=== PATIENT | male | born 1975 | race Caucasian/White ===

== ENCOUNTER 2022-02-08 15:18 | Emergency (ER) | payer OTHER, SELFPAY ==
--- NOTE | ~2022-02-08 | XR_ITS ---
EXAMINATION: XR CHEST CLINICAL INFORMATION: 46-year-old male with cough COMPARISON: None TECHNIQUE: Frontal view of the chest was obtained. FINDINGS: No significant abnormality is noted involving the heart, lungs, mediastinum, bony thorax or soft tissues. XR/XR chest 1V IMPRESSION: Unremarkable examination.
[2022-02-08 15:50] VITALS: BP 123/73; PULSE 93; RESP 18; TEMP 37.2; O2SAT 98; BMI 34.2
--- NOTE | 2022-02-08 16:13 | ED_ITS ---
HPI - URI/Sore Throat General Chief Complaint: Upper Respiratory Symptoms Stated Complaint: ?Pneumonia Time Seen by Provider: 02/08/22 16:06 Source: patient Mode of arrival: ambulatory Limitations: no limitations History of Present Illness HPI Narrative: Patient comes in to the room complaining of back cough or 4 days. Patient also complaining of body aches, no fever chills, no neck pain or stiffness. Patient denies shortness of breath. Patient states that in June of this year he had pneumonia, and he feels the same. Related Data Previous Rx's Medication Instructions Recorded codeine 10 mg-guaifenesin 100 mg/5 5 ml PO Q6H PRN cough #120 mL 02/08/22 mL oral liquid Allergies Allergy/AdvReac Type Severity Reaction Status Date / Time gabapentin Allergy Intermediate Swelling Verified 02/08/22 15:50 nortriptyline Allergy Intermediate Anxiety Verified 02/08/22 15:50 pregabalin [From Lyrica] Allergy Intermediate Swelling Verified 02/08/22 15:50 Review of Systems Review of Systems: Constitutional : No Weight loss, No Fever, No Chills, No Night Sweats, No Fatigue, No Malaise, complaining of body aches ENT/Mouth : No Hearing loss, No Ear Pain, No Nasal Congestion, No Sinus Pain, No Hoarseness, No sore throat, No Rhinorrhea, No Swallowing Difficulty Eyes: No Eye Pain, No Swelling, No Redness, No Foreign Body, No Discharge, No Vision Changes Cardiovascular : No Chest Pain, No SOB, No Dyspnea on Exertion, No Orthopnea, No Edema, No Palpitations Respiratory : Complaining of productive Cough, No Sputum, No Wheezing, No Smoke Exposure, No Dyspnea Gastrointestinal : No Nausea, No Vomiting, No Diarrhea, No Constipation, No abdominal Pain, No Hematochezia, No Melena Genitourinary : no irregular bleeding, No Dysuria, No Urinary Frequency, No Hematuria, No Urinary Incontinence, No Urgency, No Flank Pain, No Urinary Flow Changes, No Hesitancy Musculoskeletal : No joint pain, No Myalgias, No Joint Swelling Skin : No Skin Lesions, No rash Neuro : No Weakness, No Numbness, No Paresthesias, No Loss of Consciousness, No Dizziness, No Headache Psych : No Anxiety/Panic, No Depression, No SI/HI/AH/VH, No Social Issues, Heme/Lymph: No Bruising, No Bleeding,No Lymphadenopathy Endocrine : No Polyuria, No Polydipsia, No Temperature Intolerance [facility] Social History Social History Advance Directives: No Advance Directives Information Provided: Yes Physical Exam Vital Signs: Vital Signs: Last Vital Signs Temp 98.9 F 02/08/22 15:50 Pulse 93 02/08/22 15:50 Resp 18 02/08/22 15:50 BP 123/73 02/08/22 15:50 Pulse Ox 98 02/08/22 15:50 O2 Del Method 02/08/22 15:50 BMI result Body Mass Index 34.2 Const: Other: Appearance: Alert. Oriented X3. No acute distress. Eyes: Pupils equal, round and reactive to light. ENT: Pharynx normal. Neck: Normal inspection. Neck supple. No lymph nodes noted. No crepitus CVS: Normal heart rate and rhythm. Pulses normal. Normal S1 and S2 Respiratory: No respiratory distress. Breath sounds normal. No Wheezing. Bilateral rhonchi Abdomen: Soft and nontender. No rigidity. No distention. Skin: Skin warm and dry. Normal skin color. Normal skin turgor. Extremities: No lower extremity edema. No Lacerations. No Rash Neuro: Oriented X 3. No motor deficit. No sensory deficit. Moving all extremities. No slurred speech. CN 2 through 12 grossly intact Psych: calm, cooperative, normal affect Course Course Course Narrative: Chest x-ray and COVID test pending. Patient's COVID test and chest x-ray are negative, oxygen saturation 99% on room air Patient go home viral bronchitis, antibiotics indicated at this time MDM - URI/Sore Throat Lab Data Labs: Lab Results 02/08/22 Range/Units 15:54 COVID-19 (GERMAN) Negative (Negative) COVID-19 Clin Com See Note Imaging Data Chest x-ray: Radiologist's impression: FINDINGS: No significant abnormality is noted involving the heart, lungs, mediastinum, bony thorax or soft tissues. XR/XR chest 1V IMPRESSION: Unremarkable examination. Discharge Plan Discharge Clinical Impression: Acute viral bronchitis Patient Disposition: Home, Self-Care Instructions: Acute Bronchitis (ED) Additional Instructions: Please follow-up with your primary care physician tomorrow. If you have any worsening or new symptoms, please return to the emergency room or call 911 Prescriptions: New codeine-guaifenesin 10-100 mg/5 mL liquid 5 ml PO Q6H PRN (Reason: cough) Qty: 120 0RF
[2022-02-08 16:14] LABS: COVID-19 Test Negative (Negative)
--- OUTSIDE RECORDS SUMMARY | 2022-02-08 16:24 | XMS_ITS | Encounter Summary ---
:1975 Author Organization Department of [facility] rs Address [address] [place] [id number] Support Name Relationship Address Phone LANG NAZARIO Unavailable [address] [place] [address] OLIVIA GOVEA Unavailable Unavailable Selected Encounter This section includes the information on record at [place] for the Encounter. Date/Time Encounter Type Encounter Description Reason Provider Source Apr 10, 2021 11:00 Outpatient Encounter [facility] Encounter Template Text not used by [place] Plan of Treatment: Future Appointments (+ 6 months) and Future Tests (+/- 45 days) The Plan of Treatment section includes future care activities for the patient from all [place] treatmentfacilities. This section includes future appointments and future orders which are active, pending orscheduled.Future Appointments This section includes appointments that were scheduled to occur 6 months from the date of the Encounter, up to a maximum of 20 appointments. The data comes from all [place] treatment facilities. Appointment Date/Time Appointment Type Appointment Facili ty Name Apr 17, 2021 08:00 AM AMBULATORY - PS[facility]CHIATRY [place] Apr 22, 2021 01:30 [facility] Apr 26, 2021 08:00 AM AMBULATORY [facility]CHI[facility]RY [place] May 03, 2021 08:00 AM AMBULATORY [facility]RY [place] May 07, 2021 10:00 AM [facility] May 13, 2021 10:30 AM AMBULATORY - MEDICINE [place] May 17, 2021 09:00 AM AMBULATORY - PSYCHIATRY [place] May 22, 2021 09:30 AM AMBULATORY [facility]CHI[facility]RY [place] May 27, 2021 01:00 PM AMBULATORY - PS[facility]CHIATRY [place] Jun 05, 2021 01:00 PM AMBULATORY - PS[facility]CHIATRY [place] Jun 10, 2021 09:00 AM [facility] Jun 24, 2021 01:45 PM [facility] Jun 27, 2021 10:30 [facility] Jul 08, 2021 11:30 AM [facility] Jul 11, 2021 12:00 PM [facility] August 20, 2021 09:30 AM AMBULATORY - PSYCHIATRY [place] August 29, 2021 03:00 PM AMBULATORY MEDICINE [facility] Lab Results: +/- 30 days of the encounter This section includes the Chemistry and Hematology Lab Results on record with [place] for the patient. Radiology Reports and Pathology Reports are provided separately, in subsequent sections.Lab Results This section contains the Chemistry/Hematology Results that were resulted 30 days before or 30 daysafter the date of the Encounter. Date/Time Source Result Type Result - Unit Interpretation Reference Range Comment Apr 04, 2021 01:26 PM [facility] PSA Specimen Type: SERUM No comment enter ed. Ordering Provid er: DANY CULLEN Report Released Date/Time: Mar 27, 2021 08:05 PM Reporting Lab: [address] [address] Performing Lab: [address] [address] PSA 1.67 0.00-4.00 Social History: Smoking Status (Most current) and Tobacco Use (All prior to encounter date) This section includes the most current, and the historical, smoking and tobacco-related health factors from the [place] facility where the Encounter took place.Current Smoking Status This section includes the most current smoking, or tobacco-related health factor, from the [place] facility where the Encounter took place. Date/Time Current Smoking Status Comment Facility Jul 23, 2020 03:00 PM [place]-TOBACCO FORMER USER [facility] Tobacco Use History This section includes a history of the smoking, or tobacco- related health factors, that were collected on or before the date of the Encounter. The data comes from the [place] facility where the Encounter took place. Date/Time Smoking Status/Tobacco Use Comment [facility] Jul 23, 2020 03:00 PM VA-TOBACCO QUIT 5 TO < 15 YRS [facility] Aug 05, 2018 11:29 AM VA-TOBACCO FORMER USER [facility] Aug 05, 2018 11:29 AM VA-TOBACCO QUIT 1 TO < 5 YRS [facility] Jul 10, 2017 09:32 AM LIFETIME NON-TOBACCO USER [facility] Feb 11, 2017 09:04 AM QUIT TOBACCO USE > 7 YEARS [facility] A[facility] STOPPED SMOKING 2 1/2 YEARS AGO A PACK A DAY Jul 30, 2016 09:07 AM QUIT TOBACCO USE 1-7 YEARS [facility] A[facility] reports quitting 2 years ago Jun 18, 2015 03:44 PM QUIT TOBACCO USE 1-7 YEARS [facility] A[facility] Radiology Reports: +/- 30 days of the encounter Radiology Reports For cases when an order for radiology services may have been completed prior to the date of the Encounter, the report list includes the Radiology Reports that were completed up to 30 days before date of the Encounter. For cases when an order for radiology services may have been completed after the date of the Encounter, the report list also includes the Radiology Reports that were completed up to 30days after date of the Encounter. The data comes from all [place] treatment facilities. Date/Time Radiology Report Provider Source May 07, 2021 09:43 KIDNEY AND BLADDER ULTRASOUND: RADIOLOGY,[facility] CNT[facility] NAZARIO,OLIVIA ISMA [id number] -MAR 02 [facility] Date: MAY 07, 2021@09:43 Req Phys: DANY CULLEN Loc: CWM/SO/PACT 4 ( Req'g Loc) Img Loc: ULTRASOUND Service: Unknown (Case 16 COMPLETE) ULTRASOUND KIDNEYS (US Detail ed) CPT:55604 Reason for Study: pt w/new urinary incontinence and incomplete bladder emptying (Case 17 COMPLETE) ULTRASOUND URINARY BLADDER (U S Detailed) CPT:68317 Clinical History: postvoid residual bladder scans always 0 ML Report Status: Verified Date Reported: MAY 07, 2021 Date Verified: MAY 07, 2021 [employer] E-Sig: Report: Ultrasound kidneys and urinary bladder Procedure: Transverse and longitudinal grayscal e echograms of the kidneys and urinary bladder were acquired. Dopp ler imaging was utilized. This study was performed and supervis ed that [facility] facility, and subsequently transmitted to [place] te leradiology for interpretation. The total image count is 35. History: pt w/new urinary incontinence and in complete bladder emptying Findings: See below Impression: Right kidney measures 11.8 cm in length. The le ft kidney measures 11.4 cm in length. No evidence of hydronephrosi s in either kidney. The renal cortices are within normal li mits, measuring up to 1.9 cm in thickness. Prostate gland not enlarged, measuring roughly 30 cc in volume. Focal calcification also noted. Urinary bladder measures roughly 63 cc in volume prevoid. The post void residual is negligible. Normal bilateral ureteral jets seen. Overall, t he urinary bladder is not well evaluated due to incomplete distent ion in the prevoid state. Incidental note of hepatic steatosis. READING PHYSICIAN: Mitzi Garland M.D. [phone] 05/07/2021 7:21 [facility] National Teleradiology Program [phone] (For Medical Practitioner Use Only ) [address] [place] [address], [address] [address] Attention Patients / Veterans: If you have ques tions or concerns about these test results, please contact your [facility] provider or primary care team. Primary Diagnostic Code: SIGNIFICANT ABNORMALIT Y, ATTN NEEDED Primary Interpreting Staff: RADIOLOGY,OUTSIDE SERVICE, Staff Physician / Encounter Notes: All associated encounter notes This section contains the clinical notes associated to the Encounter. Date/Time Encounter Note(s) Provider Source Apr 10, 2021 11:00 AM CLERICAL NOTE: JESUS EVANGELISTA LOCAL TITLE: APPOINTMENT NO SHOW STANDARD TITLE: CLERICAL NOTE DATE OF NOTE: APR 10, 2021@11:00 ENTRY DATE: APR 10, 2021@16:17:36 AUTHOR: JESUS EVANGELISTA EXP COSIGNER: URGENCY: STATUS: COMPLETED Patient Name: OLIVIA NAZARIO Patient SSN: [id number] Date and time of Appointment No show : 04/10/21 11:00 PATIENT PHONE - PHONE NUMBER [CELLULAR] - Patient's medical record was reviewed. Follow-up actions were determined and initiated: Please check/complete as applies: [ ]Telephoned Directly [ ]Re-scheduled for next available appt [ ]Sent a N0-show letter ( must call for appointment) [ ]Other (Emergent/Overbook, etc.): Additional Comments: Linneus did not show for [facility] appt. 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
--- OUTSIDE RECORDS SUMMARY | 2022-02-08 16:24 | XMS_ITS | Encounter Summary ---
:1975 Author Organization Department of [facility] rs Address [address] [place] [id number] Support Name Relationship Address Phone LANG NAZARIO Unavailable [address] [phone] [place] [address] JEFERSON OLIVIA Unavailable Unavailable Selected Encounter This section includes the information on record at [place] for the Encounter. 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 Date/Time Primary/Secondary Diagnosis Name Provider Source Diagnosis Apr 04, 2021 09:40 PRIMARY Complete AMARJIT GODINEZ [facility] AM traumatic amp at level betw r hip and knee, init Plan of Treatment: Future Appointments (+ 6 months) and Future Tests (+/- 45 days) The Plan of Treatment section includes future care activities for the patient from all [place] treatmentfacilities. This section includes future appointments and future orders which are active, pending orscheduled.Future Appointments This section includes appointments that were scheduled to occur 6 months from the date of the Encounter, up to a maximum of 20 appointments. The data comes from all [place] treatment facilities. Appointment Date/Time Appointment Type Appointment Facili ty Name Apr 04, 2021 02:00 PM AMBULATORY - MEDICINE [place] Apr 05, 2021 11:00 AM AMBULATORY - PS[place]CHIATRY [place] Apr 10, 2021 11:00 AM AMBULATORY - PSYCHIATRY [place] Apr 17, 2021 08:00 AM AMBULATORY - PSYCHIATRY [facility] 03, 2022 01:30 PM AMBUL[facility]ORY - [place]ICINE [place] [facility] [place] [facility] Apr 26, 2021 08:00 AM AMBULATORY - PSYCHIATRY [place] May 03, 2021 08:00 AM AMBULATORY [facility] May 07, 2021 10:00 AM AMBULATORY - NONE [place] [facility] [place] [facility] May 13, 2021 10:30 AM AMBULATORY [facility] May 17, 2021 09:00 AM AMBULATORY - PSYCHIATRY [place] May 22, 2021 09:30 AM AMBULATORY [facility]YCHI[facility]RY [place] May 27, 2021 01:00 PM AMBULATORY [facility] Jun 05, 2021 01:00 PM AMBULATORY PSYCHIATRY [place] Jun 10, 2021 09:00 AM AMBULATORY - MEDICINE [place] [facility] [place] [facility] Jun 24, 2021 01:45 PM AMBULATORY - MEDICINE [facility] [place] [facility] Jun 27, 2021 10:30 AM AMBULATORY - NONE [place] Jul 08, 2021 11:30 AM AMBULATORY - MEDICINE [place] [facility] [place] [facility] Jul 11, 2021 12:00 PM AMBULATORY - MEDICINE [place] [facility] [place] [facility] August 20, 2021 09:30 AM AMBULATORY [facility] August 29, 2021 03:00 PM AMBULATORY [facility] Lab Results: +/- 30 days of the encounter This section includes the Chemistry and Hematology Lab Results on record with [place] for the patient. Radiology Reports and Pathology Reports are provided separately, in subsequent sections.Lab Results This section contains the Chemistry/Hematology Results that were resulted 30 days before or 30 daysafter the date of the Encounter. Date/Time Source Result Type Result - Unit Interpretation Reference Range Comment Apr 04, 2021 01:26 PM [place] PSA Specimen Type: SERUM No comment enter ed. Ordering Provid er: DANY CULLEN Report Released Date/Time: Mar 27, 2021 08:05 PM Reporting Lab: [place] [facility] [id number] [address] Performing Lab: [facility] [address] [address] PSA 1.67 0.00-4.00 Encounter Notes: All associated encounter notes This section contains the clinical notes associated to the Encounter. Date/Time Encounter Note(s) Provider Source Apr 04, 2021 09:19 AM ORTHOTICS PROSTHETICS CONSULT: AMARJIT GODINEZ [facility] TITLE: CONSULT /PROSTHETICS STANDARD TITLE: ORTHOTICS PROSTHETICS CONSULT DATE OF NOTE: APR 04, 2021@09:19 ENTRY DATE: APR 04, 2021@09:19:34 AUTHOR: AMARJIT GODINEZ EXP COSIGNER: URGENCY: STATUS: COMPLETED vet seen for follow up and evaluation for new pr osthetic socket. per past amp clinic vvc with , has interest in [place] tegration and in future may be part of [facility] study. in meantime vet has had lashawn ght fluctuation, noted changes in appetite medication per vet today and now is in an older socket that is bigger than most recent issued which vet stated is tight. he stated he does still have sweating issues and distal en d discoloration / suction hickeys which he has had in past. states that th e current larger older socket is fucntional but does lose /leech suction at ti mes. he arrives on a new irma stanley x-3 knee and fillauer wave foot he received from [facility] in [place] via the [facility]. vet lizabeth lized to me in past secure messages that he wishes to have me make his pros thetic sockets and continue with [facility] for knee/foot componentry he is in passive bibiana valve suction with a 32cm c onical ossur 5 seaL liner as per usual. after discussion with , major goal of new fitting is to reduce sweating as this causes skin issues and s lippage out of the liner per . i reviewed with the [facility] smart temp liner and one system. i proposed using the one system line r / gel sock / seal system with passive suction with goal of the smart temp liner reducing heat retention and sweating as geotechnical operating engineer claims it is intended to do. I have used this liner technology with other amputees w ith success and they report reduced sweating and heat retention. reviewed pr os/cons to this 3 part donning system and vet is in agreement to try it as goal is to solve heat/sweating. measurements today as follows over skin increments up from distal end 4cm 36cm 10cm 41cm 15cm 45cm 20cm 50cm 25cm 55cm over large smart temp liner increments up from end 5cm 390cm 10cm 435cm 15cm 480cm 20cm 510cm 25cm 550cm casted without incident. initial test socket to be fabricated and aligned on existing componentry. due to need for 2 way slid e, a smaller loaner pylon from [facility] may be needed to swap in to lower build and allow for slide as final finish is a threaded top with no adjustbai lity besides rotation after ermelinda is completed. final socket may include boa s o additional test sockets with flexible inner sockets may be needed for tr ial and adjustment / assessment of boa before final finishing. vet in fomed of this care plan and i sin agreement today. he left walking unassisted in his existing set up. i asked he bring the smnaller socket as well as th e larger socket hes wearing tot he initial test fitting as i may be able to copy enlarge and add boa in meantime while we work on new socket technologie s and liner technologies /pippa/ AMARJIT GODINEZ Technical Programs Manager Signed: 04/04/2021 09:40
--- OUTSIDE RECORDS SUMMARY | 2022-02-08 16:24 | XMS_ITS | Encounter Summary ---
:1975 Author Organization Department of [facility] rs Address [address] [place] [id number] Support Name Relationship Address Phone LANG NAZARIO Unavailable [address] [place] [address] OLIVIA GOVEA Unavailable Unavailable Selected Encounter This section includes the information on record at [place] for the Encounter. Date/Time Encounter Type Encounter Description Reason Provider Source Jul 08, 2021 03:22 Outpatient Encounter OPTOMETRY IHE Encounter Template Text not used by [facility] Plan of Treatment: Future Appointments (+ 6 months) and Future Tests (+/- 45 days) The Plan of Treatment section includes future care activities for the patient from all [place] treatmentfacilities. This section includes future appointments and future orders which are active, pending orscheduled.Future Appointments This section includes appointments that were scheduled to occur 6 months from the date of the Encounter, up to a maximum of 20 appointments. The data comes from all [place] treatment facilities. Appointment Date/Time Appointment Type Appointment Facili ty Name Jul 11, 2021 12:00 [facility] August 20, 2021 09:30 AM AMBULATORY - PSYCHIATRY [place] August 29, 2021 03:00 PM AMBULATORY MEDICINE [place] Nov 07, 2021 08:00 AM AMBULATORY - MEDICINE [place] Dec 04, 2021 01:30 PM AMBULATORY MEDICINE [place] Dec 20, 2021 10:00 AM AMBULATORY - NONE [facility] Dec 27, 2021 11:00 AM AMBULATORY MEDICINE [facility] Active, Pending, and Scheduled Orders This section includes a listing of several types of active, pending, and scheduled orders, including clinic medications orders, diagnostic test orders, procedure orders and consult orders; where the start date of the order is 45 days before the date of the Encounter or 45 days after the date of the Encounter. The data comes from all [place] treatment facilities. Test Date/Time Test Type Test Details Facility Name Jun 06, 2021 10:54 AM Consult Order [facility] Info Analyst's Choice Encounter Notes: All associated encounter notes This section contains the clinical notes associated to the Encounter. Date/Time Encounter Note(s) Provider Source Jul 08, 2021 03:22 PM CLERICAL NOTE: BRADLEY FONTANEZ [place] [facility] LOCAL TITLE: APPOINTMENT NO SHOW [place] [facility] STANDARD TITLE: CLERICAL NOTE DATE OF NOTE: JUL 08, 2021@15:22 ENTRY DATE: JUL 08, 2021@15:22:53 AUTHOR: BRADLEY FONTANEZ EXP COSIGNER: URGENCY: STATUS: COMPLETED Patient Name: OLIVIA NAZARIO Patient SSN: [id number] Date and time of Appointment No show : 07/08/21 15:22 PATIENT PHONE - PHONE NUMBER [CELLULAR] - Patient's medical record was reviewed. Follow-up actions were determined and initiated: Please check/complete as applies: [ ]Telephoned Directly [ ]Re-scheduled for next available appt [X]Sent a N0-show letter ( must call for appointment) [ ]Other (Emergent/Overbook, etc.): Additional Comments: Pt emergency transfer to hospital see note 07/04- no call just letter Future Clinic Visits 08/20/2021 09:30 CWM/SO/TH/VVC/MHC/[facility] 11/07/2021 08:00 CWM/SO/ENTER LABORATORY 11/14/2021 10:00 CWM/SO/PACT 4 /es/ BRADLEY FONTANEZ ADVANCED ASSOCIATE PUBLISHER Signed: 07/08/2021 15:23
--- OUTSIDE RECORDS SUMMARY | 2022-02-08 16:24 | XMS_ITS | Encounter Summary ---
:1975 Author Organization [facility] of [facility] rs Address [address] [place] [id number] Support Name Relationship Address Phone LANG NAZARIO Unavailable [address] [place] [address] OLIVIA GOVEA Unavailable Unavailable Selected Encounter This section includes the information on record at [facility] for the Encounter. Date/Time Encounter Type Encounter Description Reason Provider Source Jun 28, 2021 02:21 Outpatient Encounter ADMIN PAT ACTIVTIES PM ([facility]NON[facility]) [facility] Encounter Template Text not used by [facility] Plan of Treatment: Future Appointments (+ 6 months) and Future Tests (+/- 45 days) The Plan of Treatment section includes future care activities for the patient from all [facility] treatmentfacilities. This section includes future appointments and future orders which are active, pending orscheduled.Future Appointments This section includes appointments that were scheduled to occur 6 months from the date of the Encounter, up to a maximum of 20 appointments. The data comes from all [facility] treatment facilities. Appointment Date/Time Appointment Type Appointment Facili ty Name Jul 08, 2021 11:30 AM [facility] Jul 11, 2021 12:00 PM [facility] August 20, 2021 09:30 AM [facility] - [facility] August 29, 2021 03:00 PM [facility] [place] Nov 07, 2021 08:00 AM [facility] [place] Dec 04, 2021 01:30 PM [facility] Dec 20, 2021 10:00 AM AMBULATORY NONE [facility] Dec 27, 2021 11:00 AM AMBULATORY MEDICINE [facility] Active, Pending, and Scheduled Orders This section includes a listing of several types of active, pending, and scheduled orders, including clinic medications orders, diagnostic test orders, procedure orders and consult orders; where the start date of the order is 45 days before the date of the Encounter or 45 days after the date of the Encounter. The data comes from all [facility] treatment facilities. Test Date/Time Test Type Test Details Facility Name Jun 06, 2021 10:54 AM Consult Order [facility] Code Machine Operator's Choice Encounter Notes: All associated encounter notes This section contains the clinical notes associated to the Encounter. Date/Time Encounter Note(s) Provider Source Jun 28, 2021 02:21 PM ADMINISTRATIVE NOTE: GERMAN LIU [facility] TITLE: ADMINISTRATIVE SCHEDULING ATTEMPT STANDARD TITLE: ADMINISTRATIVE NOTE DATE OF NOTE: JUN 28, 2021@14:21 ENTRY DATE: JUN 28, 2021@14:22:06 AUTHOR: GERMAN LIU EXP COSIGNER: URGENCY: STATUS: COMPLETED An attempt to contact this was made by Telephone call. 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 /pippa/ GERMAN LIU ADVANCED RAND TACKER Signed: 06/28/2021 14:25
--- OUTSIDE RECORDS SUMMARY | 2022-02-08 16:24 | XMS_ITS | Continuity of Care Document ---
:1975 Author Organization [facility] Care Team Providers Name Role Phone [facility] Unavailable Unavailable Problems Combined list of problems from Department of Defense and Veterans Affairs facilities. It does not include entries that were removed or entered in error. Problem Status Onset Problem Date of Comments Source Date Type Resolution ECG: normal sinus Active Condition [facility] 021 WSTRN BITACHUSEJaswinder S [facility] History of Active Condition Oct 04, [place] [facility] amputation of lower 015 2016 Enter ed WSTRN limb above knee By: SONYA CASANOVA [facility] E Comment: elective AKA 2nd to RLE traumatic fracture/ chronic pain / foot drop fracture of lower Inactive Condition Do D leg organic sleep apnea Active Condition DoD obstructive adult visit for: Active Condition DoD screening exam pulmonary tuberculosis Patient Counseling: Active Condition DoD Snoring Active Condition DoD tobacco use Active Condition DoD hyperlipidemia Active Condition DoD prehypertension Active Condition DoD visit for: Active Condition DoD administrative purpose refractive error Active Condition DoD Spectacles Services Active Condition DoD Fitting Monofocal Except For Aphakia visit for: Active Condition DoD physical medical evaluation board (MEB) visit for: ears / Inactive Condition Do D hearing exam assessment of Active Condition DoD patient condition work-related dry eye syndrome Active Condition DoD refractive error - Active Condition D oD hypermetropia astigmatism - Active Condition DoD regular routine Active Condition DoD ophthalmological exam Guidance: Concerns Active Condition D oD About Alcohol Use Patient Education - Inactive Condition DoD HIV Guidance: Concerns Inactive Condition D oD About Unsafe Sexual Practices visit for: Active Condition DoD services physical ankle joint pain Active Condition DoD joint pain, Active Condition DoD localized in the knee spontaneous tendon Active Condition D oD rupture compartment Inactive Condition DoD syndrome closed fracture of Active Condition D oD tibia nontraumatic tendon Active Condition DoD rupture patella allergy to certain Active Condition D oD foods hypertrophy of bone Active Condition DoD Dietary Counseling Active Condition D oD Pertaining To Specific Condition non-healing Active Condition DoD surgical wound difficulty in Active Condition DoD walking Other Physical Active Condition DoD Therapy nontraumatic tendon Active Condition DoD rupture patella right closed fracture of Active Condition D oD tibia with fibula shaft spiral right leg visit for: Active Condition [facility] postsurgical exam visit for: Active Condition DoD preoperative exam varicose veins left Active Condition DoD lower extremity 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 subconjunctival Inactive Condition DoD hemorrhage iritis acute Active Condition Mild early DoD traumatic iritis OS. Start PF qid for 4 days. visit for: Inactive Condition [facility] screening exam Abnormal gait Active Condition [facility] [place] [facility] Adjustment Disorder Active Condition [place] with mixed Anxiety H CS and depressed mood (ICD-9-CM 309.28) Adjustment disorder Active Condition Aug 06 [facility] with mixed anxiety 2020 Entere d WSTRN and depressed mood By: Taye CANTOR (SNOMED CT TAMMY, [facility] [id number]) BEN Comment: see neuropsych eval dated 08/06/20 May 22, 2021 Entered By: SHINE MARTINEZ Comment: updated. Anxiety disorder Active Condition [place] (SNOMED CT [facility] 364678406) asymptomatic Active Condition [facility] varicose veins [place] [facility] Bilateral traumatic Active Condition RIO amputation of legs at any level without complication (SNOMED CT 20618885) Chronic pain Active Condition [place] Chronic serous Active Condition Jan 11, [facility] otitis media 2020 Entered WSTR N By: DANY HOWE [facility] Comment: right ear: following ENT-recommrig ht sided myringotomy to reduce recurrent middle ear infections. s/p tube placed as an adult Chronic serous Active Condition [place] [facility] otitis media Compartment Active Condition [place] syndrome of lower HC S limb Convulsion Active Condition DEANNE [facility] Diarrhea Active Condition [facility] [place] [facility] Diarrhea * Active Condition [place] (ICD-9-CM 787.91) Esophageal Reflux Active Condition [place] (GERD) Foot-drop Active Condition [facility] RY Fracture of tibial Active Condition [place] spine Functional gait Active Condition RIO abnormality (SNOMED CT 99020596968507) Gastroesophageal Active Condition [facility] reflux disease WSTRN (SNOMED CT [place] [id number]) HCS Gastroesophageal Active Condition [place] Reflux Disorder * LO KENN FED (ICD-9-CM 530.81) HL T CTR Headache (SNOMED CT Active Condition Mar 15, [facility] [id number]) 2019 Entered WSTRN By: MCKENNA MUNOZ HCS BEN Comment: 03/08 CTA 2 mm wide aneusym at the left MCA bifurcation projecting laterally. Heartburn Active Condition [facility] [place] [place] [facility] Helicobacter pylori Active Condition Jul 05, [facility] gastrointestinal 2018 Entered WSTRN tract infection By: BITA MUNOZ, NITIN CONTRERAS Comment: EGD 04/06 esophageal squamous and gastric cardia mucosa with reactive/hype rplastic changes History of Active Condition [facility] amputation of right leg through femur History of Active Condition [facility] amputation of right [facility] leg through femur (SNOMED CT 410125581000875) History of aneurysm Active Condition Jul 16, [facility] 2020 Entered WSTRN By: NITIN PIERRE Comment: CTA 12/2017 stable MCA 3mm aneurysm Jul 16, 2020 Entered By: BEN MUNOZ Comment: CTA 06/2020 2mm aneyusm L MCA bifurcation-d one in hospital given syncopal episode History of aneurysm Active Condition [facility] hydradenitis Active Condition [facility] [place] [place] [facility] Hydradenitis * Active Condition SHAMEKA BAKER (ICD-9-CM 705.83) LO KENN FED HLT CTR Hyperlipidemia Active Condition [place] Hyperlipidemia Active Condition [facility] [place] [facility] Hyperlipidemia (SCT Active Condition [facility] [id number]) Insomnia, Active Condition [place] unspecified HCS (ICD-9-CM 780.52) Limb pain Active Condition [facility] Limb pain Active Condition Apr 28, [facility] 2019 Entered WSTRN By: MCKENNA MUNOZ HCS BEN Comment: EMG 04/07 mild CTS left wrist Low back pain Active Condition [facility] Major depressive Active Condition May 22, [facility] disorder 2021 Entered WSTRN By: SHINE CARABALLO [facility] Comment: updated. Marital problems Active Condition [place] (SNOMED CT [facility] 21179430) Nicotine Dependency Active Condition [place] Obesity Active Condition [facility] [place] [facility] Occipital neuralgia Active Condition [facility] Open fracture of Active Condition [place] patella [facility] Osteopenia Active Condition Aug 05 [facility] 2018 Entered WSTRN By: MCKENNA MUNOZ [facility] BEN Comment: DEXA 12/03=new osteopenia in right femur/02/03Mar 31, 2018 Entered By: BEN MUNOZ Comment: 04/06 DEXA NORMAL Other and Active Condition SHAMEKA Briseno unspecified injury L OVELL FED to knee, leg, HLT CT R ankle, and foot (ICD-9-CM 959.7) Overactive bladder Active Condition D [facility] Pain In Leg Active Condition [place] [facility] Peripheral motor Active Condition [place] neuropathy * (ICD-9-CM 356.9) Pneumonia Active Condition Jul 03, [place] 2021 Entered By: DANY CULLEN Comment: 06/2021 ER note scanned into vista Sleep apnea Active Condition September 07 [facility] 2017 Entered WSTRN By: MCKENNA MUNOZ [facility] BEN Comment: severe Sleep Apnea Active Condition SHAMEKA CROFT MES (ICD-9-CM SOFI FED 780.57/786.09) HLT C TR Tibial Fractures Active Condition [place] [facility] Tobacco dependence, Active Condition [facility] continuous [facility] [place] [facility] Tobacco Use Active Condition SHAMEKA CROFT MES Disorder * SOFI FE D (ICD-9-CM 305.1) HLT CTR ToCP exposure Active Condition [facility] Traumatic Active Condition [place] Arthropathy Traumatic rupture Active Condition [facility] of patellar tendon Anxiety disorder Inactive Condition 01/21/2021 [facility] [place] [facility] Insomnia Inactive Condition 01/21/2021 [facility] [place] [facility] Peripheral Nerve Inactive Condition 06/29/2009 [place] PTN OLIV[place] Disease (ICD-9-CM LO KENN FED 355.9) HLT CTR Diagnosis: Active Diagnosis [facility] ICD-10-CM S78.111D Complete traumatic amp at level betw r hip and knee, subswith Provider Comments: History of amputation of right leg through femur ([facility] [id number]) Diagnosis: Active Diagnosis [facility] ICD-10-CM N32.81 Overactive bladderwith Provider Comments: Overactive Bladder Diagnosis: Active Diagnosis [facility] ICD-10-CM Z71.89 Other specified counselingwith Provider Comments: Other specified Counseling Diagnosis: Active Diagnosis [facility] ICD-10-CM E66.9 Obesity, unspecifiedwith Provider Comments: Obesity ([facility] [id number]) Diagnosis: Active Diagnosis YAO, G A ICD-10-CM E78.5 (CBO C) Hyperlipidemia, unspecifiedwith Provider Comments: Hyperlipidemia ([facility] [id number]) Diagnosis: Active Diagnosis [place] ICD-10-CM R20.2 Paresthesia of skinwith Provider Comments: Paresthesia of Skin Diagnosis: Active Diagnosis [place] ICD-10-CM R51.9 Headache, unspecifiedwith Provider Comments: Headache, unspecified Diagnosis: Active Diagnosis [place] ICD-10-CM F32.9 Major depressive disorder, single episode, unspecifiedwith Provider Comments: Major depressive disorder ([facility] [id number]) Diagnosis: [facility] Diagnosis [facility] ICD[facility] L56.1 WSTR N Drug photoallergic [place] responsewith [facility] Provider Comments: Drug Photoallergic Response Diagnosis: Active Diagnosis [facility] ICD-10-CM Z71.89 WST RN Other specified [place] counselingwith HCS Provider Comments: Other specified counseling Diagnosis: Active Diagnosis [place] ICD-10-CM F43.12 Post-traumatic stress disorder, chronicwith Provider Comments: Post-Traumatic Stress Disorder, Chronic Diagnosis: Active Diagnosis [facility] ICD-10-CM G47.30 WST RN Sleep apnea, [place] unspecifiedwith [facility] Provider Comments: Sleep apnea ([facility] [id number]) Diagnosis: Active Diagnosis [place] ICD-10-CM R39.14 Feeling of incomplete bladder emptyingwith Provider Comments: Feeling of Incomplete Bladder Emptying Diagnosis: Active Diagnosis [place] ICD-10-CM S78.111A Complete traumatic amp at level betw r hip and knee, initwith Provider Comments: Complete Traumatic Amputation at Level between right Hip and Knee, Initial Encounter Diagnosis: Active Diagnosis [place] ICD-10-CM S78.111A Complete traumatic amp at level betw r hip and knee, initwith Provider Comments: Bilateral traumatic amputation of legs at any level without complication ([facility] [id number]) Diagnosis: Active Diagnosis [place] ICD-10-CM F32.9 Major depressive disorder, single episode, unspecifiedwith Provider Comments: Major Depressive Disorder, single Episode, unspecified Diagnosis: Active Diagnosis [facility] ICD-10-CM Z65.3 WSTR N Problems related to [place] other legal [facility] circumstanceswith Provider Comments: Problems Related to other Legal Circumstances Diagnosis: [facility] Diagnosis [facility] Z89.611 WS TRN Acquired absence of [place] right leg above HCS kneewith Provider Comments: History of amputation of lower limb above knee ([facility] [id number]) Diagnosis: Active Diagnosis [facility] R55 WSTRN Syncope and [place] collapsewith [facility] Provider Comments: Syncope and collapse Diagnosis: Active Diagnosis [facility] ICD-10-CM G47.30 WST RN Sleep apnea, [place] unspecifiedwith [facility] Provider Comments: Sleep Apnea, unspecified Diagnosis: Active Diagnosis [facility] S ICD-10-CM I67.1 [facility] Cerebral aneurysm, nonrupturedwith Provider Comments: Cerebral aneurysm, nonruptured Diagnosis: Active Diagnosis [place] ICD-10-CM Z89.611 HC S 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 [id number]) Medications Combined list of outpatient medications from Department of Defense and Veterans Affairs facilities. Medications provided include 1) outpatient medications from the last 15 months, and 2) patient-reported medications. Medication Details Route Status Patient Prescription Prescription Last Ordering Order Source Instructions Expires Number Dispense Provider Date Date AZITHROMYCI TAKE ONE BY ACTIVE MAVIS LAI 04/17/ PROVIDE N 500MG TABLET MOUTH ATH L 2011 NCE TAB,PKT,3 BY MOUTH [facility] EVERY DAY CALCIUM TAKE 2 ORAL 03/23/2021 [id number] TANO-GR 03/22/ [place] 250MG/VITAM TABLETS 1 MADELAINE,CYNTH 2019 CN TRL IN D 125UNT BY MOUTH [place] WSTRN TAB TWICE [place] DAILY TO SETS SUPPLEME HCS NT CALCIUM/ STRENGTH EN BONES CALCIUM TAKE ONE ORAL ACTIVE 06/25/2022 [id number] ASHUTOSH CULLEN POLYCARBOPH TABLET 2 VERNELL2021 [place] 625MG BY MOUTH TAB TWICE DAILY TAKE ONE TABLET BY MOUTH TWICE DAILY WITH MEAL OR FOOD WITH FULL GLASS OF WATER. CALCIUM TAKE ONE ORAL DISCONT 11/01/2021 [id number] ARMEN EDWARDS POLYCARBOPH TABLET INUED 1 EL J 2020 [place] 625MG BY MOUTH (EDIT) TAB TWICE DAILY TAKE ONE TABLET BY MOUTH TWICE DAILY WITH MEAL OR FOOD WITH FULL GLASS OF WATER. TAKE ONE TABLET BY MOUTH TWICE DAILY WITH MEAL OR FOOD WITH FULL GLASS OF WATER. CARBAMAZEPI TAKE ONE ORAL ACTIVE 12/05/2022 [id number] ASHUTOSH CULLEN NE (PRASCO) CAPSULE 2 2021 [place] 100MG BY MOUTH CAP,SA ONCE DAILY CARBAMAZEPI TAKE ONE ORAL 09/28/2021 [id number] K ASHUTOSH OLIVA NE (PRASCO) CAPSULE 2 2021 [place] 100MG BY MOUTH CAP,SA ONCE DAILY FOR 14 DAYS, THEN TAKE TWO CAPSULES ONCE DAILY CARBAMAZEPI TAKE ORAL ACTIVE 12/28/2022 [id number] [place] 12/27/ DEANNE NE 200MG ONE-HALF 2 ,MARYLOU E 2021 [facility] TAB,SA TABLET (SANDOZ) BY MOUTH EVERY DAY CEPHALEXIN TAKE 1 BY ACTIVE [facility],[place] 08/07/ ID OVIDE 500MG CAP CAPSULE MOUTH LERIE 2016 NCE BY MOUTH [facility] FOUR TIMES A DAY CETIRIZINE TAKE ONE ORAL ACTIVE 06/25/2022 [id number] ASHUTOSH CULLEN HCL 10MG TABLET 2 2021 [place] TAB BY MOUTH ONCE DAILY NEEDED FOR ALLERGIE S CETIRIZINE TAKE ONE ORAL ACTIVE 12/28/2022 [id number] W [place] 12/27/ DEANNE HCL 10MG TABLET 2 ,MARYLOU E 2021 [facility] TAB BY MOUTH EVERY DAY CETIRIZINE TAKE ONE ORAL DISCONT 06/19/2021 [id number] K ELLEY-GR 06/18/ VA HCL 10MG TABLET INUE 2 MADELAINE,CYNTH 2020 CNTRL TAB BY MOUTH IA WSTRN ONCE [place] DAILY SETS NEEDED HCS FOR ALLERGIE S CODEINE TAKE 2 BY ACTIVE MAVIS LAI 04/17/ PROVI DE 10MG/GUAIFE TEASPOON MOUTH ATH L 2011 NCE NESIN FULS BY [facility] 100MG/5ML MOUTH (SF & AF) EVERY LIQUID SIX HOURS NEEDED DOXYCYCLINE TAKE ONE ORAL 08/02/2021 [id number] K YLASHUTOSH Dawson HYCLATE TABLET 2 2021 [place] 100MG TAB BY MOUTH TWICE DAILY FISH OIL TAKE ONE ORAL ACTIVE 12/28/2022 [id number] [place] DEANNE 1000MG CAPSULE 2 ,MARYLOU E 2021 [facility] (500MG BY MOUTH DHA/EPA) EVERY CAP,ORAL DAY FISH OIL TAKE ONE ORAL DISCONT 01/12/2022 [id number] ALYSE,AN NM 1000MG CAPSULE INUED 2 2020 [place] (500MG BY MOUTH DHA/EPA) THREE CAP,ORAL TIMES DAILY NEEDED [ANTI-IN FLAMMATO RY] KETOCONAZOL SHAMPOO TOPICA ACTIVE 05/14/2022 [id number] KYL E,ANNM E 2% SMALL LLY 2 2021 IELD SHAMPOO AMOUNT TOPICALL Y ONCE DAILY KETOCONAZOL SHAMPOO TOPICA ACTIVE 12/28/2022 [id number] W ESTBROOK DEANNE E 2% 1 CAPFUL L 2 ,MARYLOU E 2021 [facility] SHAMPOO TOPICALL Y EVERY DAY LACTOBACILL TAKE 1 ORAL ACTIVE 12/05/2022 [id number] ALYSE,AN NM US TABLET 2 2021 [place] ACIDOPHILUS BY MOUTH TAB ONCE DAILY LACTOBACILL TAKE 1 ORAL DISCONT 01/12/2022 [id number] ALYSE,A NNM 02/10/ [place] TABLET INUED 2 VERNELL2020 IELD ACIDOPHILUS BY MOUTH (EDIT) TAB ONCE DAILY LACTOBACILL TAKE 1 ORAL DISCONT 07/24/2021 [id number] TANO -GR springF US TABLET INUED 1 MADELAINE,2020 [place] ACIDOPHILUS BY MOUTH (EDIT) IA TAB ONCE DAILY LURASIDONE TAKE ONE ORAL DISCONT 02/12/2022 [id number] ROOT, DAVID springF HCL 20MG TABLET INUED 2 A A 2020 IELD TAB BY MOUTH AT BEDTIME LURASIDONE TAKE ORAL DISCONT 02/20/2021 [id number] ROOT,KRISTI I springF HCL 20MG ONE-HALF INUED 1 A A 2020 I[place] TAB TABLET (EDIT) BY MOUTH AT BEDTIME FOR 14 DAYS, THEN TAKE ONE TABLET AT BEDTIME FOR 14 DAYS MELATONIN TAKE TWO ORAL ACTIVE 05/23/2022 [id number] ROOT,JU LI 5MG CAP/TAB CAPSULE/ 2 A A 2021 IELD TABLET BY MOUTH AT BEDTIME NEEDED OXYBUTYNIN TAKE ONE ORAL DISCONT 08/16/2022 [id number] NOELLEO NEOJ CL 5MG TABLET INUED 2 OSEPH N 2021 IELD TAB,SA BY MOUTH ONCE DAILY FOR BLADDER INSTABIL ITY PANTOPRAZOL TAKE ONE ORAL ACTIVE 12/28/2022 [id number] [place] 12/28/ DEANNE E NA 40MG TABLET 2 ,MARYLOU E 2021 [facility] TAB,EC BY MOUTH EVERY DAY AXELO W WHOLEF OR STOMACH PANTOPRAZOL TAKE ONE ORAL ACTIVE 06/25/2022 [id number] K ASHUTOSH OLIVA springF E NA 40MG TABLET 2 2021 IELD TAB,EC BY MOUTH ONCE DAILY PANTOPRAZOL TAKE ONE ORAL DISCONT 03/23/2021 [id number] K ELLEY-GR 05/04/ VA E NA 40MG TABLET INUE 1 MADELAINE,CYNTH 2021 CNTRL TAB,EC BY MOUTH IA WSTRN ONCE [place] DAILY SETS HCS PHENTERMINE TAKE 1 ORAL DISCONT 03/29/2021 [id number] ABRAM Y-GR 09/26/ MCCORMACK 15MG/TOPIRA CAPSULE INUED 1 MADELAINE,CYN2020 AV ENUE MATE 92MG BY MOUTH (EDIT) IA VA CAP,SA EVERY CLINIC MORNING WITH OR WITHOUT FOOD PHENTERMINE TAKE 1 ORAL 02/11/2021 [id number] ALYSE,A NNM springF 3.75MG/TOPI CAPSULE 1 2020 IELD RAMATE 23MG BY MOUTH CAP,SA EVERY MORNING FOR 14 DAYS, THEN 2 CAPSULES EVERY MORNING FOR 14 DAYS (WITH OR WITHOUT FOOD) PHENTERMINE TAKE 1 ORAL ACTIVE 06/06/2022 [id number] ALYSE,A NNM springF 7.5MG/TOPIR CAPSULE 2 2021 IELD AMATE 46MG BY MOUTH CAP,SA EVERY MORNING WITH OR WITHOUT FOOD PHENTERMINE TAKE 1 ORAL DISCONT 11/07/2021 [id number] ALYSE,A NNM 05/07/ VA 7.5MG/TOPIR CAPSULE INUED 2 2021 CNTRL AMATE 46MG BY MOUTH WSTRN CAP,SA EVERY [place] MORNING SETS WITH OR HCS WITHOUT FOOD PHENTERMINE TAKE 1 ORAL DISCONT 09/03/2021 [id number] ALYSE,A NNM 03/04/ SPR[place] 7.5MG/TOPIR CAPSULE INUED 1 2020 [place] AMATE 46MG BY MOUTH (EDIT) CAP,SA EVERY MORNING PHENTERMINE TAKE ONE ORAL ACTIVE 07/03/2022 [id number] SIDDHARTHA RDS, 12/31/ DEANNE 8MG TAB TABLET 2 2021 [facility] BY MOUTH ER EVERY DAY *TO USE WITH TOPIRAMA TE (QSYMIA) * TOLTERODINE TAKE ONE ORAL DISCONT 05/14/2022 [id number] K YLE,ANNM springF TARTRATE TABLET INUED 2 2021 IELD 2MG TAB BY MOUTH ONCE DAILY TOPIRAMATE TAKE ONE ORAL ACTIVE 01/01/2023 [id number] SHANI ONATALIE 12/31/ DEANNE 50MG TAB TABLET 2 ,MARYLOU Dawson 2021 [facility] BY MOUTH EVERY DAY *TO USE WITH PHENTERM INE TABLET (QSYMIA) * TROSPIUM CL TAKE ONE ORAL ACTIVE 01/15/[id number]-L JEAN 01/14/ DEANNE 20MG TAB TABLET 2 ADIS FERNANDEZ 2021 [facility] BY MOUTH RT A TWICE A DAY ZZNO USE PER ACTIVE Ana RINCON CAPTN REPORTED PATIENT ULIA 2009 OLIVIA USAGE(OTC,N INTERVIE LOVEL L ONVA,HERBAL W ORAL FED HLT ) CTR MISCELLANEO US Allergies, Adverse Reactions, Alerts Combined list of allergies from Department of Defense and Veterans Affairs facilities. It does not include entries that were removed or entered in error. Substance Category Reaction Severity Reaction Status Date Comments S ource type Reported DULOXETINE Propensity Mood Propensity active CAPTN to adverse swings to adverse 0 JA MES reactions reactions LOVE LL to drug to drug FED HLT (finding) (finding) CTR FISH Propensity Anaphylaxi Propensity active CAPTN to adverse s to adverse 9 JA MES reactions reactions LOVE LL to to FED HLT substance substance CTR (finding) (finding) FISH Propensity Nausea and Propensity active [place] to adverse vomiting to adverse 5 H CS [facility] reactions reactions to to substance substance (finding) (finding) Gabapentin Drug Swelling Drug active Calderon ston allergy allergy 5 HCS [facility] GABAPENTIN Propensity Swelling Propensity active [place] to adverse to adverse 5 HC S [facility] reactions reactions to drug to drug (finding) (finding) GABAPENTIN Propensity Propensity active [facility] to adverse to adverse 0 WS TRN reactions reactions [place] to drug to drug ETS HCS (finding) (finding) LANSOPRAZOLE Propensity Diarrhea Propensity active CAPTN to adverse to adverse 0 JA MES reactions reactions LOVE LL to drug to drug FED HLT (finding) (finding) CTR LYRICA Propensity Propensity active [facility] to adverse to adverse 0 WS TRN reactions reactions [place] to drug to drug ETS HCS (finding) (finding) LYRICA Propensity Depressive Propensity active DEANNE to adverse disorder to adverse 2 V [facility] reactions reactions to drug to drug (finding) (finding) MILK Propensity Diarrhea Propensity active CAPTN to adverse to adverse 9 JA MES reactions reactions LOVE LL to to FED HLT substance substance CTR (finding) (finding) MILK Drug Diarrhea Drug active [place] [employer] allergy allergy 9 [facility] NEURONTIN Propensity Propensity active [place] to adverse to adverse 3 CU T HCS reactions reactions to drug to drug (finding) (finding) NEURONTIN Propensity Swelling Propensity active [place] to adverse to adverse 5 HC S [facility] reactions reactions to drug to drug (finding) (finding) NEURONTIN Propensity Edema Propensity active DEANNE to adverse to adverse 2 [facility] reactions reactions to drug to drug (finding) (finding) NORTRIPTYLIN Propensity Vertigo Propensity active CAPTN E to adverse to adverse 9 JA MES reactions reactions LOVE LL to drug to drug FED HLT (finding) (finding) CTR NORTRIPTYLIN Propensity Propensity active [place] to adverse to adverse 3 CU T HCS reactions reactions to drug to drug (finding) (finding) OMEPRAZOLE Propensity Diarrhea Propensity active CAPTN to adverse to adverse 9 JA MES reactions reactions LOVE LL to drug to drug FED HLT (finding) (finding) CTR PREVACID Propensity Diarrhea Propensity active [place] to adverse to adverse 1 CU T HCS reactions reactions to drug to drug (finding) (finding) PRILOSEC Propensity Diarrhea Propensity active [place] to adverse to adverse 1 CU T HCS reactions reactions to drug to drug (finding) (finding) SAXENDA Propensity Abdominal Propensity active [facility] to adverse pain to adverse 0 WS TRN reactions reactions [place] to drug to drug ETS HCS (finding) (finding) Tricyclic Drug Drug active Conn ecti antidepre allergy allergy 3 cut HC S ant ZYBAN Propensity Vertigo Propensity active [place] to adverse to adverse 3 CU T HCS reactions reactions to drug to drug (finding) (finding) ZYBAN Propensity Vertigo, Propensity active [facility] to adverse Finding of to adverse 0 WSTRN reactions vomiting reactions MAS SCHUS to drug to drug ETS HCS (finding) (finding) ZYBAN 150MG Propensity Vertigo Propensity active CAPTN TAB,SA to adverse to adverse 0 JA MES reactions reactions LOVE LL to drug to drug FED HLT (finding) (finding) CTR Immunizations Combined list of available immunizations from the Department of Defense and Veterans Affairs facilities. Immunization Series Date Administered Site Reaction Lot CVX Drug St atus Comments Source Given By Number Code Induction Heat Treater TD (ADULT), 2 complet [facility] LF TETANUS 2021 ed CNT RL TOXOID, W[facility]N PRESERVATIVE M ASSCHU FREE, SETS ADSORBED HCS INFLUENZA, complet [facility] SEASONAL, 2019 ed CNTR L INJECTABLE WST RN [place] [facility] [facility] HEP B, ADULT 2 09/15/ NONE 43 complet 2017 ed IELD HEP B, ADULT 1 08/18/ NONE 43 complet 2017 ed IELD FLU,3 YRS complet V A (HISTORICAL) 2015 ed C N[facility]L [facility] [place] [facility] DTAP, complet Site: NEW UNSPECIFIED 2011 ed Left LO NDON FORMULATION Deltoid TET-DIP-A/PER complet Vis ta web [facility] TUSSIS 2011 ed CNTRL (HISTORICAL) [facility] [place] [facility] tuberculin 1 04/05/ MADDY, [id number] [place] comp let tuberculi DoD skin test; 2007 ELOISA (PD) ed n skin purified test; protein purified derivative protein solution, derivativ intradermal e solution, intraderm al typhoid Vi 1 08/10/ UNK 101 Unknown (UNK) comple t typhoid DoD capsular 2007 ed Vi polysaccharid capsul ar e vaccine polysacch aride vaccine HEP B, ADULT complet [facility] 2005 ed [facility] [place] [facility] [facility] influenza 0 03/25/ [id number] 15 Other (OTH) complet influenza DoD virus 2005 1AA ed virus vaccine, vaccine, split virus split (incl. virus purified (incl. surface purified antigen)-reti surfac e red CODE antigen)- retired CODE typhoid Vi 0 06/12/ UNKNOWN 101 Unknown (UNK) comp let typhoid DoD capsular 2005 ed Vi polysaccharid capsul ar e vaccine polysacch aride vaccine influenza 0 04/04/ UNKNOWN 15 Unknown (UNK) compl et influenza DoD virus 2004 ed virus vaccine, vaccine, split virus split (incl. virus purified (incl. surface purified antigen)-reti surfac e red CODE antigen)- retired CODE hepatitis A 3 09/26/ UNKNOWN 104 Unknown (UNK) com plet hepatitis DoD and hepatitis 2004 ed A and B vaccine hepatitis B vaccine HEP A-HEP B 3 complet [facility] 2004 ed [facility] [place] HEP B, ADULT 3 complet [facility] 2004 ed [facility] [place] [facility] [facility] influenza 0 02/01/ [id number] 15 Other (OTH) complet influenza DoD virus 2003 ed virus vaccine, vaccine, split virus split (incl. virus purified (incl. surface purified antigen)-reti surfac e red CODE antigen)- retired CODE typhoid Vi 1 02/24/ UNKNOWN 101 Unknown (UNK) comp let typhoid DoD capsular 2002 ed Vi polysaccharid capsul ar e vaccine polysacch aride vaccine typhoid 0 02/24/ UNKNOWN 41 Unknown (UNK) complet typhoid DoD vaccine, 2002 ed vaccine, parenteral, parenter a other than l, other acetone-kille than d, dried acetone-k illed, dried hepatitis A 2 11/11/ UNKNOWN 104 Unknown (UNK) com plet hepatitis DoD and hepatitis 2002 ed A and B vaccine hepatitis B vaccine yellow fever 0 11/11/ UNKNOWN 37 Unknown (UNK) co mplet yellow DoD vaccine 2003 ed fever vaccine HEP A-HEP B 2 complet [facility] 2002 ed [facility] [place] HEP B, ADULT 2 complet [facility] 2002 ed [facility] [place] [facility] [facility] hepatitis A 1 10/12/ UNKNOWN 104 Unknown (UNK) com plet hepatitis DoD and hepatitis 2002 ed A and B vaccine hepatitis B vaccine measles, 0 10/12/ UNKNOWN 03 Unknown (UNK) comple t measles, DoD mumps and 2003 ed mumps and rubella virus rubell a vaccine virus vaccine poliovirus 0 10/12/ UNKNOWN 10 Unknown (UNK) comp let polioviru DoD vaccine, 2002 ed s inactivated vaccine, inactivat ed HEP A-HEP B 1 complet [facility] 2002 ed [facility] [place] HEP B, ADULT 1 complet [facility] 2002 ed [facility] [place] [facility] [facility] tetanus and 0 10/11/ UNKNOWN 09 Unknown (UNK) com plet tetanus DoD diphtheria 2002 ed and toxoids, diphtheri adsorbed, a preservative toxoids , free, for adsorbed, adult use (2 preserv at Lf of tetanus jhonny fr ee, toxoid and 2 for romy lt Lf of use (2 Lf diphtheria of toxoid) tetanus toxoid and 2 Lf of diphtheri a toxoid) TD(ADULT) complet C ONNECT UNSPECIFIED 2002 ed IC UT FORMULATION HC S TETANUS GIVEN complet CAPTN OUTSIDE 2002 ed OLIVIA (HISTORICAL) Bulmaro OVELL FED HLT CTR Results Combined list of recent chemistry, hematology and other laboratory results from 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 Order Results Value Reference Date Interpretation Specimen Commen ts Source Name Range URINALYS COLOR OF Yellow 01/14 Specimen Type: urine (random) [place] IS & URINE /2021 No comment enter ed. [facility] [employer] Ordering Provi anyi: TERE WALKER Report Released Date/Time: Jan 14, 2022 11:28 AM Reporting Lab: [address] [address] Performing Lab: [address] [address] URINALYS SPECIFIC 1.021 1.003 - 01/14 Specimen Type: urine (random) [place] IS & GRAVITY OF 1.030 No comment en tered. [facility] [employer] Direct URINE BY Ordering Prov ider: TERE WALKER TEST STRIP Report Relea sed Date/Time: Jan 14, 2022 11:28 AM Reporting Lab: [address] [place] [address] Performing Lab: [address] [address] URINALYS UROBILINOG NORMAL <2.0 - 2.0 01/14 Specimen Type: urine (random) [place] IS & EN /2021 No comment enter ed. [facility] [employer] Direct [UNITS/VOL Ordering Pr ovider: TERE WALKER UME] IN Report Released Date/Time: Jan 14, 2022 11:28 AM URINE BY Reporting Lab: [facility] TEST STRIP [address] [facility] [address] Performing Lab: [facility] [address] [facility] [address] URINALYS BILIRUBIN. NEGATIVE 01/14 Specimen Ty pe: urine (random) [place]AN[place] IS & TOTAL /2021 No comment enter ed. [facility] [employer] [PRESENCE] Ordering Pr ovider: TERE WALKER IN URINE Report Release d Date/Time: Jan 14, 2022 11:28 AM BY TEST Reporting Lab: [facility] STRIP [address] [facility] [address] Performing Lab: [place] [address] [address] [facility] [address] URINALYS KETONES NEGATIVE 01/14 Specimen Type: urine (random) [place] IS & [MASS/VOLU /2021 No comment en tered. [facility] [employer] ME] IN Ordering Provi anyi: TERE WALKER URINE BY Report Release d Date/Time: Jan 14, 2022 11:28 AM TEST STRIP Reporting La b: [facility] [address] [facility] [address] Performing Lab: [place] [address] [address] [facility] [address] URINALYS GLUCOSE NEGATIVE 01/14 Specimen Type: urine (random) [place] IS & [MASS/VOLU /2021 No comment en tered. [facility] [employer] ME] IN Ordering Provi anyi: TERE WALKER BLOOD BY Report Release d Date/Time: Jan 14, 2022 11:28 AM AUTOMATED Reporting Lab : [facility] TEST STRIP [address] [facility] [address] Performing Lab: [place] [address] [address] [facility] [address] URINALYS PROTEIN 30 01/14 Specimen Type: urine (random) [place] IS & [MASS/VOLU /2021 No comment en tered. [facility] [employer] ME] IN Ordering Provi anyi: TERE WALKER URINE BY Report Release d Date/Time: Jan 14, 2022 11:28 AM TEST STRIP Reporting La b: [place] [id number] [facility] [address] Performing Lab: [address] [place] [address] URINALYS PH OF 7.0 5 - 7.5 01/14 Specimen Type: urine (random) [place] IS & URINE /2021 No comment enter ed. [facility] [employer] Ordering Provi anyi: TERE WALKER Report Released Date/Time: Jan 14, 2022 11:28 AM Reporting Lab: [facility] [address] [place] [address] Performing Lab: [facility] [address] [place] [address] URINALYS LEUKOCYTES <1 /HPF 0 - 5 01/14 Specimen Typ e: urine (random) [place] IS & [#/AREA] /2021 No comment ente red. [facility] [employer] IN URINE Ordering Prov ider: TERE WALKER SEDIMENT Report Release d Date/Time: Jan 14, 2022 11:28 AM BY Reporting Lab: [facility] MICROSCOPY [address] [facility] [address] HIGH POWER Performing L ab: [facility] FIELD [address] [place] [address] URINALYS MUCUS RARE 01/14 Specimen Type: urine (random) [place] IS & [PRESENCE] /2021 No comment en tered. [facility] [employer] IN URINE Ordering Prov ider: TERE WALKER PIC SEDIMENT Report Release d Date/Time: Jan 14, 2022 11:28 AM BY LIGHT Reporting Lab: [facility] MICROSCOPY [address] [facility] [address] Performing Lab: [facility] [address] [place] [address] URINALYS ERYTHROCYT <1 /HPF 0 - 3 01/14 Specimen Typ e: urine (random) [place] IS & ES /2021 No comment enter ed. [facility] [employer] [#/AREA] Ordering Prov ider: TERE WALKER PIC IN URINE Report Release d Date/Time: Jan 14, 2022 11:28 AM SEDIMENT Reporting Lab: [facility] BY [address] [place] [address] MICROSCOPY Performing L ab: [facility] HIGH POWER [address] [facility] [place] [address] FIELD URINALYS APPEARANCE CLEAR 01/14 Specimen Typ e: urine (random) [place] IS & OF URINE /2021 No comment ente red. [facility] [employer] Ordering Provi anyi: TERE WALKER PIC Report Released Date/Time: Jan 14, 2022 11:28 AM Reporting Lab: [address] [address] Performing Lab: [address] [address] URINALYS ERYTHROCYT NEGATIVE 01/14 Specimen Ty pe: urine (random) [place] IS & ES No comment enter ed. [facility] [employer] [PRESENCE] Ordering Pr ovider: TERE WALKER PIC IN URINE Report Release d Date/Time: Jan 14, 2022 11:28 AM Reporting Lab: [address] [address] Performing Lab: [address] [address] URINALYS NITRITE NEGATIVE 01/14 Specimen Type: urine (random) [place] IS & [PRESENCE] /2021 No comment en tered. [facility] [employer] IN URINE Ordering Prov ider: TERE WALKER BY TEST Report Released Date/Time: Jan 14, 2022 11:28 AM STRIP Reporting Lab: [address] [address] Performing Lab: [address] [address] URINALYS LEUKOCYTE NEGATIVE 01/14 Specimen Typ e: urine (random) [place] IS & ESTERASE No comment ente red. [facility] [employer] [PRESENCE] Ordering Pr ovider: TERE WALKER PIC IN URINE Report Release d Date/Time: Jan 14, 2022 11:28 AM BY TEST Reporting Lab: [facility] STRIP [address] [place] [address] Performing Lab: [address] [address] LIPID CHOLESTERO 235.0 <200 - 200 09/ H Specimen T ype: SERUM [place] PROFILE L No comment enter ed. [facility] 3 [MASS/VOLU Ordering Pro vider: MARYLOU COOPER ME] IN Report Released Date/Time: Dec 18, 2021 04:16 PM SERUM OR Reporting Lab: [facility] PLASMA [address] [facility] [address] Performing Lab: [facility] [address] [facility] [address] LIPID TRIGLYCERI 148.0 <200 - 200 09/ Specimen T ype: SERUM [place] PROFILE DE /2021 No comment enter ed. [facility] 3 [MASS/VOLU Ordering Pro vider: MARYLOU COOPER ME] IN Report Released Date/Time: Dec 18, 2021 04:16 PM SERUM OR Reporting Lab: [facility] PLASMA [address] [facility] [address] Performing Lab: [facility] [address] [facility] [address] LIPID CHOLESTERO 161 <100 - 100 09/02 H Specimen T ype: SERUM [place] PROFILE L IN LDL No comment ente red. [facility] 3 [MASS/VOLU Ordering Pro vider: MARYLOU COOPER ME] IN Report Released Date/Time: Dec 18, 2021 04:16 PM SERUM OR Reporting Lab: [facility] PLASMA BY [address] [facility] [address] CALCULATIO Performing L ab: [facility] N [address] [facility] [address] LIPID CHOLESTERO 44.0 40 - 60 12/20 Specimen Type : SERUM [place] PROFILE L IN HDL No comment ente red. [facility] 3 [MASS/VOLU Ordering Pro vider: MARYLOU COOPER] IN Report Released Date/Time: Dec 18, 2021 04:16 PM SERUM OR Reporting Lab: [facility] PLASMA [address] [facility] [address] Performing Lab: [facility] [address] [facility] [address] HYPERSEN THYROTROPI 1.65 0.27 - 4.2 12/20 Specimen Type: SERUM [place] SITIVE No comment enter ed. [facility] TSH: [UNITS/VOL Ordering Pro vider: MARYLOU COOPER (3RD UME] IN Report Released Date/Time: Dec 18, 2021 04:16 PM GEN) SERUM OR Reporting Lab: [facility] PLASMA [address] [facility] [address] Performing Lab: [address] [address] COMPLETE CREATININE 1.0 .7 - 1.2 12/20 Specimen Ty pe: SERUM [place] CHEMISTR [MASS/VOLU /2021 No comment e ntered. [facility] Y ME] IN Ordering Provid er: KENNETHMARIBELA E PROFILE SERUM OR Report Release d Date/Time: Dec 18, 2021 04:16 PM PLASMA Reporting Lab: [address] [facility] [address] Performing Lab: [address] [address] COMPLETE UREA 22 6 - 20 12/20 H Specimen Type: SERUM [place] CHEMISTR NITROGEN /2021 No comment ent ered. [facility] Y [MASS/VOLU Ordering Pro vider: KENNETHMARIBEL MARTINEZA E PROFILE ME] IN Report Released Date/Time: Dec 18, 2021 04:16 PM SERUM OR Reporting Lab: [facility] PLASMA [address] [facility] [address] [facility] [address] Performing Lab: [address] [address] COMPLETE GLUCOSE 103 70 - 115 12/20 Specimen Type: SERUM [place] CHEMISTR [MASS/VOLU /2021 No comment e ntered. [facility] Y ME] IN Ordering Provid er: MARIBEL COOPERA E PROFILE SERUM OR Report Release d Date/Time: Dec 18, 2021 04:16 PM PLASMA Reporting Lab: [address] [facility] [address] Performing Lab: [address] [facility] [address] COMPLETE SODIUM 139.0 136 - 145 12/20 Specimen Type : SERUM [place] CHEMISTR [MOLES/VOL /2021 No comment e ntered. [facility] Y UME] IN Ordering Provid er: KENNETHMARIBEL MARTINEZA E PROFILE SERUM OR Report Release d Date/Time: Dec 18, 2021 04:16 PM PLASMA Reporting Lab: [address] [facility] [address] Performing Lab: [address] [place] [address] COMPLETE POTASSIUM 4.9 3.5 - 5.1 12/20 Specimen Ty pe: SERUM [place] CHEMISTR [MOLES/VOL /2021 No comment e ntered. [facility] Y UME] IN Ordering Provid er: KENNETHMARIBELA E PROFILE SERUM OR Report Release d Date/Time: Dec 18, 2021 04:16 PM PLASMA Reporting Lab: [address] [address] Performing Lab: [address] [address] COMPLETE CHLORIDE 105.1 98 - 107 12/20 Specimen Type : SERUM [place] CHEMISTR [MOLES/VOL /2021 No comment e ntered. [facility] Y UME] IN Ordering Provid er: KENNETHMARIBELA E PROFILE SERUM OR Report Release d Date/Time: Dec 18, 2021 04:16 PM PLASMA Reporting Lab: [address] [address] Performing Lab: [address] [address] COMPLETE CARBON 23.7 22 - 29 12/20 Specimen Type: SERUM [place] CHEMISTR DIOXIDE, /2021 No comment ent ered. [facility] Y TOTAL Ordering Provid er: KENNETHMARIBEL MARTINEZA E PROFILE [MOLES/VOL Report Relea sed Date/Time: Dec 18, 2021 04:16 PM UME] IN Reporting Lab: [facility] SERUM OR [facility] [address] [facility] [address] PLASMA Performing Lab: [address] [address] COMPLETE CALCIUM 9.2 8.6 - 10.2 12/20 Specimen Typ e: SERUM [place] CHEMISTR [MASS/VOLU /2021 No comment e ntered. [facility] Y ME] IN Ordering Provid er: KENNETH,MARYLOU E PROFILE SERUM OR Report Release d Date/Time: Dec 18, 2021 04:16 PM PLASMA Reporting Lab: [address] [address] Performing Lab: [address] [address] COMPLETE PROTEIN 7.0 6.6 - 8.7 12/20 Specimen Type : SERUM [place] CHEMISTR [MASS/VOLU /2021 No comment e ntered. [facility] Y ME] IN Ordering Provid er: KENNETH,MARYLOU E PROFILE SERUM OR Report Release d Date/Time: Dec 18, 2021 04:16 PM PLASMA Reporting Lab: [address] [facility] [address] Performing Lab: [address] [address] COMPLETE ALBUMIN 4.4 3.5 - 5.2 12/20 Specimen Type : SERUM [place] CHEMISTR [MASS/VOLU /2021 No comment e ntered. [facility] Y ME] IN Ordering Provid er: KENNETH,MARYLOU E PROFILE SERUM OR Report Release d Date/Time: Dec 18, 2021 04:16 PM PLASMA Reporting Lab: [address] [address] Performing Lab: [address] [address] COMPLETE BILIRUBIN. 0.2 0.0 - 1.2 12/20 Specimen T ype: SERUM [place] CHEMISTR TOTAL /2021 No comment ente red. [facility] Y [MASS/VOLU Ordering Pro vider: KENNETHXANDERMARYLOU E PROFILE ME] IN Report Released Date/Time: Dec 18, 2021 04:16 PM SERUM OR Reporting Lab: [facility] PLASMA [address] [place] [address] Performing Lab: [address] [address] COMPLETE ALKALINE 81 40 - 129 12/20 Specimen Type : SERUM [place] CHEMISTR PHOSPHATAS /2021 No comment e ntered. [facility] Y E Ordering Provid er: MARIBEL COOPERA E PROFILE [ENZYMATIC Report Relea sed Date/Time: Dec 18, 2021 04:16 PM ACTIVITY/V Reporting La b: [facility] OLUME] IN [address] [facility] [address] SERUM OR Performing Lab : [facility] PLASMA [address] [place] [address] COMPLETE ASPARTATE 18 0 - 40 12/20 Specimen Type : SERUM [place] CHEMISTR AMINOTRANS /2021 No comment e ntered. [facility] Y FERASE Ordering Provid er: KENNETHMARYLOU E PROFILE [ENZYMATIC Report Relea sed Date/Time: Dec 18, 2021 04:16 PM ACTIVITY/V Reporting La b: [facility] OLUME] [place] [address] [place] [address] SERUM OR Performing Lab : [facility] PLASMA [address] [place] [address] COMPLETE ALANINE 23 0 - 41 12/20 Specimen Type: SERUM [place] CHEMISTR AMINOTRANS /2021 No comment e ntered. [facility] Y FERASE Ordering Provid er: MARYLOU COOPER PROFILE [ENZYMATIC Report Relea sed Date/Time: Dec 18, 2021 04:16 PM ACTIVITY/V Reporting La b: [facility] OLUME] [place] [address] [place] [address] SERUM OR Performing Lab : [facility] PLASMA [address] [facility] [address] COMPLETE ANION GAP 10.0 <20 - 20 12/20 Specimen Typ e: SERUM [place] CHEMISTR IN SERUM /2021 No comment ent ered. [facility] Y OR PLASMA Ordering Prov ider: MARYLOU COOPER E PROFILE Report Released Date/Time: Dec 18, 2021 04:16 PM Reporting Lab: [facility] [address] [facility] [address] Performing Lab: [facility] [address] [facility] [address] COMPLETE GLOMERULAR 81 59 12/20 Specimen Typ e: SERUM [place] CHEMISTR FILTRATION /2021 No comment e ntered. [facility] Y RATE/1.73 Ordering Prov ider: MARYLOU COOPER PROFILE SQ Report Released Date/Time: Dec 18, 2021 04:16 PM MLaylaPREDICTE Reporting La b: [facility] D [VOLUME [address] [place] [address] RATE/AREA] Performing L ab: [facility] IN SERUM [address] [place] [address] OR PLASMA BY CREATININE -BASED FORMULA (MDRD) CBC & 5 LEUKOCYTES 7.1 3.8 - 10.7 12/20 Specimen T ype: BLOOD [place] PART [#/VOLUME] /2021 No comment en tered. [facility] DIFFEREN IN BLOOD Ordering Prov ider: MARYLOU COOPER TIAL BY Report Released Date/Time: Dec 18, 2021 04:16 PM AUTOMATED Reporting Lab : [facility] COUNT [address] [facility] [address] Performing Lab: [facility] [address] [facility] [address] CBC & 5 ERYTHROCYT 4.49 3.92 - 5.8 09 Specimen T ype: BLOOD [place] PART ES No comment enter ed. [facility] DIFFEREN [#/VOLUME] Ordering Pr ovider: MARIBEL COOPERA E TIAL IN BLOOD Report Release d Date/Time: Dec 18, 2021 04:16 PM BY Reporting Lab: [facility] AUTOMATED [address] [facility] [address] COUNT Performing Lab: [facility] [address] [facility] [address] CBC & 5 HEMOGLOBIN 13.7 12 - 17.5 12/20 Specimen Ty pe: BLOOD [place] PART [MASS/VOLU /2021 No comment en tered. [facility] DIFFEREN ME] IN Ordering Provi anyi: MARIBEL COOPERA Eunice TIAL BLOOD Report Released Date/Time: Dec 18, 2021 04:16 PM Reporting Lab: [facility] [address] [facility] [address] Performing Lab: [facility] [address] [place] [address] CBC & 5 HEMATOCRIT 40.6 35.8 - 09 Specimen Type : BLOOD [place] PART [VOLUME 52.9 No comment enter ed. [facility] DIFFEREN FRACTION] Ordering Pro vider: MARIBEL COOPERA E TIAL OF BLOOD Report Release d Date/Time: Dec 18, 2021 04:16 PM BY Reporting Lab: [facility] AUTOMATED [address] [facility] [address] COUNT Performing Lab: [facility] [address] [facility] [address] CBC & 5 MCV 90.3 81.2 - 09 Specimen Type: B LOOD [place]AN[place] PART [ENTITIC 99.8 /2021 No comment ente red. [facility] DIFFEREN VOLUME] BY Ordering Pr ovider: KENNETHMARYLOU E TIAL AUTOMATED Report Releas ed Date/Time: Dec 18, 2021 04:16 PM COUNT Reporting Lab: [facility] [address] [facility] [address] Performing Lab: [facility] [address] [place] [address] CBC & 5 MCH 30.5 26.6 - 09 Specimen Type: B LOOD DEAN[place] PART [ENTITIC 34.5 /2021 No comment ente red. [facility] DIFFEREN MASS] BY Ordering Prov ider: MARYLOU COOPER AUTOMATED Report Relea sed Date/Time: Dec 18, 2021 04:16 PM COUNT Reporting Lab: [facility] [address] [facility] [address] Performing Lab: [facility] [address] [place] [address] CBC & 5 MCHC 33.8 32.1 - 09 Specimen Type: B LOOD DEAN[place] PART [MASS/VOLU 35.5 /2021 No comment en tered. [facility] DIFFEREN ME] BY Ordering Provi anyi: MARYLOU COOPER AUTOMATED Report Releas ed Date/Time: Dec 18, 2021 04:16 PM COUNT Reporting Lab: [facility] [address] [facility] [address] Performing Lab: [facility] [address] [place] [address] CBC & 5 PLATELETS 269 139 - 358 12/20 Specimen Typ e: BLOOD [place] PART [#/VOLUME] /2021 No comment en tered. [facility] DIFFEREN IN BLOOD Ordering Prov ider: MARYLOU COOPER BY Report Released Date/Time: Dec 18, 2021 04:16 PM AUTOMATED Reporting Lab : [facility] COUNT [address] [facility] [address] Performing Lab: [facility] [address] [place] [address] CBC & 5 ERYTHROCYT 13.9 12.6 - 12/20 Specimen Type : BLOOD [place] PART E 15.7 /2021 No comment enter ed. [facility] DIFFEREN DISTRIBUTI Ordering Pr ovider: MARYLOU COOPER ON WIDTH Report Release d Date/Time: Dec 18, 2021 04:16 PM [RATIO] BY Reporting La b: [facility] AUTOMATED [address] [place] [address] COUNT Performing Lab: [facility] [address] [place] [address] CBC & 5 LYMPHOCYTE 25.2 09 Specimen Type : BLOOD [place] PART No comment enter ed. [facility] DIFFEREN LEUKOCYTES Ordering Pr ovider: KENNETH,MARYLOU E TIAL IN BLOOD Report Release d Date/Time: Dec 18, 2021 04:16 PM BY Reporting Lab: [facility] AUTOMATED [address] [place] [address] COUNT Performing Lab: [facility] [address] [place] [place] [address] CBC & 5 MONOCYTES/ 6.2 12/20 Specimen Type : BLOOD [facility] No comment enter ed. [facility] DIFFEREN LEUKOCYTES Ordering Pr ovider: KENNETH,MARYLOU E TIAL IN BLOOD Report Release d Date/Time: Dec 18, 2021 04:16 PM BY Reporting Lab: [facility] AUTOMATED [address] [facility] [place] [address] COUNT Performing Lab: [facility] [address] [place] [address] CBC & 5 GRANULOCYT 65.0 12/20 Specimen Type : BLOOD [facility] No comment enter ed. [facility] DIFFEREN LEUKOCYTES Ordering Pr ovider: KENNETH,MARYLOU E TIAL IN BLOOD Report Release d Date/Time: Dec 18, 2021 04:16 PM BY Reporting Lab: [facility] AUTOMATED [address] [facility] [place] [address] COUNT Performing Lab: [facility] [address] [place] [address] CBC & 5 BASOPHILS/ 1.1 12/20 Specimen Type : BLOOD [facility] No comment enter ed. [facility] DIFFEREN LEUKOCYTES Ordering Pr ovider: KENNETHMARYLOU E TIAL IN BLOOD Report Release d Date/Time: Dec 18, 2021 04:16 PM BY Reporting Lab: [facility] AUTOMATED [address] [place] [address] COUNT Performing Lab: [facility] [address] [place] [address] CBC & 5 EOSINOPHIL 2.5 12/20 Specimen Type : BLOOD [facility] No comment enter ed. [facility] DIFFEREN LEUKOCYTES Ordering Pr ovider: KENNETH,MARYLOU E TIAL IN BLOOD Report Release d Date/Time: Dec 18, 2021 04:16 PM BY Reporting Lab: [facility] AUTOMATED [address] [facility] [address] COUNT Performing Lab: [facility] [address] [facility] [address] CBC & 5 NEUTROPHIL 4.60 1.9 - 7.3 12/20 Specimen Ty pe: BLOOD [place] PART No comment enter ed. [facility] DIFFEREN [#/VOLUME] Ordering Pr ovider: MARYLOU COOPER TIAL IN BLOOD Report Release d Date/Time: Dec 18, 2021 04:16 PM BY Reporting Lab: [facility] AUTOMATED [address] [facility] [address] COUNT Performing Lab: [facility] [address] [facility] [address] CBC & 5 LYMPHOCYTE 1.80 0.9 - 3.8 12/20 Specimen Ty pe: BLOOD [place] PART No comment enter ed. [facility] DIFFEREN [#/VOLUME] Ordering Pr ovider: MARYLOU COOPER TIAL IN BLOOD Report Release d Date/Time: Dec 18, 2021 04:16 PM BY Reporting Lab: [facility] AUTOMATED [address] [facility] [address] COUNT Performing Lab: [facility] [address] [facility] [address] CBC & 5 MONOCYTES 0.4 0.2 - 0.9 12/20 Specimen Typ e: BLOOD [place] [#/VOLUME] No comment en tered. [facility] DIFFEREN IN BLOOD Ordering Prov ider: MARYLOU COOPER BY Report Released Date/Time: Dec 18, 2021 04:16 PM AUTOMATED Reporting Lab : [facility] COUNT [address] [facility] [address] Performing Lab: [facility] [address] [place] [address] CBC & 5 EOSINOPHIL 0.2 0.0 - 0.5 12/20 Specimen Ty pe: BLOOD [place] PART No comment enter ed. [facility] DIFFEREN [#/VOLUME] Ordering Pr ovider: MARYLOU COOPER TIAL IN BLOOD Report Release d Date/Time: Dec 18, 2021 04:16 PM BY Reporting Lab: [facility] AUTOMATED [address] [facility] [address] COUNT Performing Lab: [facility] [address] [facility] [address] CBC & 5 BASOPHILS 0.1 0.0 - 0.1 12/20 Specimen Typ e: BLOOD [place] PART [#/VOLUME] No comment en tered. [facility] DIFFEREN IN BLOOD Ordering Prov ider: MARYLOU COOPER TIABulmaro BY Report Released Date/Time: Dec 18, 2021 04:16 PM AUTOMATED Reporting Lab : [facility] COUNT [address] [facility] [address] Performing Lab: [facility] [address] [facility] [address] HEMOGLOB HEMOGLOBIN 5.9 4.8 - 7.8 12/20 Specimen T ype: BLOOD [place] IN A1C A1C/HEMOGL /2021 No comment en tered. [facility] OBIN.TOTAL Ordering Pro vider: MARYLOU COOPER IN BLOOD Report Release d Date/Time: Dec 18, 2021 04:16 PM Reporting Lab: [place] [id number] [facility] [address] Performing Lab: [facility] [address] [place] [address] URINALYS COLOR OF Straw 05/13 Specimen Type: URINE [place] IS URINE /2021 No comment enter ed. LD Ordering Provid er: DANY CULLEN Report Released Date/Time: May 13, 2021 10:53 AM Reporting Lab: [facility] [place] [facility] [address] [facility] [address] Performing Lab: [facility]ITALN [facility] [address] [facility] [address] URINALYS APPEARANCE Clear 05/13 Specimen Typ e: URINE [place] OF URINE /2021 No comment ente red. LD Ordering Provid er: DANY CLULEN Report Released Date/Time: May 13, 2021 10:53 AM Reporting Lab: [facility] [place] [facility] [address] [facility] [address] Performing Lab: [facility] WSN [facility] [address] [facility] [address] URINALYS GLUCOSE Negative 05/13 Specimen Type: URINE [place] IS [MASS/VOLU /2021 No comment en tered. LD ME] IN Ordering Provid er: DANY CULLEN URINE Report Released Date/Time: May 13, 2021 10:53 AM Reporting Lab: [facility] [address] [address] Performing Lab: [facility] [address] [address] URINALYS KETONES Negative 05/13 Specimen Type: URINE [place] IS [MASS/VOLU /2021 No comment en tered. LD ME] IN Ordering Provid er: DANY CULLEN URINE BY Report Release d Date/Time: May 13, 2021 10:53 AM TEST STRIP Reporting La b: [facility] [address] [address] Performing Lab: [facility] [address] [address] URINALYS ERYTHROCYT Negative 05/13 Specimen Ty pe: URINE [place] IS ES No comment enter ed. LD [PRESENCE] Ordering Pro vider: DANY CULLEN IN URINE Report Release d Date/Time: May 13, 2021 10:53 AM SEDIMENT Reporting Lab: [facility] TRN [facility] BY LIGHT [address] [place] [address] MICROSCOPY Performing L ab: [facility] [address] [address] URINALYS PROTEIN Negative 05/13 Specimen Type: URINE [place] IS [MASS/VOLU /2021 No comment en tered. LD ME] IN Ordering Provid er: DANY CULLEN URINE BY Report Release d Date/Time: May 13, 2021 10:53 AM TEST STRIP Reporting La b: [facility] [address] [address] Performing Lab: [facility] [address] [address] URINALYS NITRITE Negative 05/13 Specimen Type: URINE [place] IS [PRESENCE] No comment en tered. LD IN URINE Ordering Provi anyi: DANY CULLEN Report Released Date/Time: May 13, 2021 10:53 AM Reporting Lab: [facility]TR[facility] [address] [address] Performing Lab: [facility]ITALRUNITED [facility]OSPITALN [facility]USE[address] [address] URINALYS BILIRUBIN. Negative 05/13 Specimen Ty pe: URINE [place] IS TOTAL No comment enter ed. LD [PRESENCE] Ordering Pro vider: DANY CULLEN IN URINE Report Release d Date/Time: May 13, 2021 10:53 AM Reporting Lab: [facility]ITALRUNITED [facility]PITALN [address] [address] [facility]forming Lab: [facility] [address] [address] URINALYS SPECIFIC 1.005 1.016 - 05/13 L Specimen Type: URINE [place] IS GRAVITY OF 1.022 No comment en tered. LD URINE BY Ordering Provi anyi: DANY CULLEN REFRACTOME Report Relea sed Date/Time: May 13, 2021 10:53 AM TRY Reporting Lab: [facility]ITALRUNITED [facility]PITALN [address] [address] Performing Lab: [facility] [address] URINALYS PH OF 7.0 5.0 - 9.0 05/13 Specimen Type : URINE [place] URINE BY /2021 No comment ente red. LD TEST STRIP Ordering Pro vider: DANY CULLEN Report Released Date/Time: May 13, 2021 10:53 AM Reporting Lab: [facility]ITALRUNITED [facility]OSPITALN [facility]ENTERUSE[address] [address] Performing Lab: [facility] [address] URINALYS UROBILINOG <2.0 <2.0 - 2.0 05/13 Specimen Type: URINE [place] IS EN /2021 No comment enter ed. LD [MASS/VOLU Ordering Pro vider: DANY CULLEN ME] IN Report Released Date/Time: May 13, 2021 10:53 AM URINE BY Reporting Lab: [facility] TEST STRIP [address] [facility] [address] Performing Lab: [facility] [place] [facility] [address] [facility] [address] URINALYS LEUKOCYTE Negative 05/13 Specimen Typ e: URINE [place] IS No comment ente red. LD [PRESENCE] Ordering Pro vider: DANY CULLEN IN URINE Report Release d Date/Time: May 13, 2021 10:53 AM BY TEST Reporting Lab: [facility] [place] [facility] STRIP [address] [facility] [address] Performing Lab: [facility] [place] [facility] [address] [facility] [address] PSA PROSTATE 1.67 0.00 - 04/04 Specimen Type: SERUM [place] SPECIFIC . No comment ente red. LD AG Ordering Provid er: DANY CULLEN [MASS/VOLU Report Relea sed Date/Time: Mar 27, 2021 08:05 PM ME] IN Reporting Lab: [facility]ITALRUNITED [facility] HOSPITALN [facility] SERUM [place] [address] [facility] [address] PLASMA Performing Lab: [facility] [place] [facility] [address] [facility] [address] LIPID CHOLESTERO 196 0 - 199 10/23 Specimen Type : SERUM [facility] PANEL Comment: *BASIC METABOLIC PANEL (fasting) Not Performed: Oct 23, 2020@09:52 b *CNC MACHINE SETTER Reason: DUP ORDER WSTRN FASTING [MASS/VOLU Ordering Pro vider: BEN MUNOZ ME] IN Report Released Date/Time: May 31, 2020 10:07 AM [facility] SERUM OR Reporting Lab: [facility] [place] [facility] PLASMA [address] [facility] [address] Performing Lab: [facility]OSPITALRGEORGIANA MEDICAL CENTERTRN [place] [facility] [address] [facility] [address] LIPID TRIGLYCERI 108 0 - 150 07 Specimen Type : SERUM [facility] PANEL Comment: *BASIC METABOLIC PANEL (fasting) Not Performed: Oct 23, 2020@09:52 b *CNC MACHINE SETTER Reason: DUP ORDER WSTRN FASTING [MASS/VOLU Ordering Pro vider: BEN MUNOZ ME] IN Report Released Date/Time: May 31, 2020 10:07 AM [facility] SERUM OR Reporting Lab: [facility] [place] [facility] PLASMA [address] [facility] [address] Performing Lab: [facility] [place] [facility] [address] [facility] [address] LIPID CHOLESTERO 129 0 - 129 07/06 Specimen Type : SERUM [facility] PANEL L IN LDL /2020 Comment: *BASI C METABOLIC PANEL (fasting) Not Performed: Oct 23, 2020@09:52 b *CNC MACHINE SETTER Reason: DUP ORDER WSTRN FASTING [MASS/VOLU Ordering Pro vider: BEN MUNOZ ME] IN Report Released Date/Time: May 31, 2020 10:07 AM TS [facility] SERUM OR Reporting Lab: [facility] [place] [facility] PLASMA BY [address] [facility] [address] CALCULATIO Performing L ab: [facility] [place] [facility] N [address] [facility] [address] LIPID CHOLESTERO 4.4 07 Specimen Type : SERUM [facility] PANEL L.TOTAL/CH /2020 Comment: *BA SIC METABOLIC PANEL (fasting) Not Performed: Oct 23, 2020@09:52 b *CNC MACHINE SETTER Reason: DUP ORDER WSTRN FASTING OLESTEROL Ordering Prov ider: BEN MUNOZ IN HDL Report Released Date/Time: May 31, 2020 10:07 AM TS [facility] [MASS Reporting Lab: [facility] [place] [facility] RATIO] IN [address] [facility] [address] SERUM OR Performing Lab : [facility] [place] [facility] PLASMA [address] [facility] [address] LIPID CHOLESTERO 45 40 - 60 07 Specimen Type : SERUM [facility] PANEL L IN HDL /2020 Comment: *BASI C METABOLIC PANEL (fasting) Not Performed: Oct 23, 2020@09:52 b *CNC MACHINE SETTER Reason: DUP ORDER WSTRN FASTING [MASS/VOLU Ordering Pro vider: BEN MUNOZ ME] IN Report Released Date/Time: May 31, 2020 10:07 AM TS [facility] SERUM OR Reporting Lab: [facility] [place] [facility] PLASMA [address] [facility] [address] Performing Lab: [facility] [place] [facility] [address] [facility] [address] TSH THYROTROPI 1.84 0.35 - 10/23 Specimen Type : SERUM [place] CN[facility]L N 5.00 Comment: *BASIC METABOLIC PANEL (fasting) Not Performed: Oct 23, 2020@09:52 b *CNC MACHINE SETTER Reason: DUP ORDER WSTRN [UNITS/VOL Ordering Pro vider: BEN MUNOZ UME] IN Report Released Date/Time: May 31, 2020 10:07 AM TS HCS SERUM OR Reporting Lab: [facility]ITAL[facility] [place] [facility] PLASMA [address] [facility] [address] Performing Lab: [facility] [place] [facility] [address] [facility] [address] Vital Signs Combined list of inpatient and outpatient Vital Signs from Department of Defense and Veterans Affairs, ranging from 12 months to all on record, depending upon the facility. Vital Sign Value Date Comments Source SYSTOLIC BLOOD PRESSURE 127 01/14/2022 10:37:29 [facility] DIASTOLIC BLOOD PRESSURE 85 01/14/2022 10:37:29 [facility] PULSE OXIMETRY 98% 01/14/2022 10:37:29 [facility] WEIGHT 222.2 01/14/2022 10:37:29 [facility] BMI 34kg/m2 01/14/2022 10:37:29 [facility] PAIN 0 01/14/2022 10:37:29 [facility] HEIGHT 68 01/14/2022 10:37:29 [facility] TEMPERATURE 98.2 01/14/2022 10:37:29 [facility] PULSE 71 01/14/2022 10:37:29 [facility] RESPIRATION 18 01/14/2022 10:37:29 [facility] V [facility] SYSTOLIC BLOOD PRESSURE 119 12/27/2021 11:18:07 [facility] DIASTOLIC BLOOD PRESSURE 76 12/27/2021 11:18:07 DEANNE [facility] PULSE OXIMETRY 99% 12/27/2021 11:18:07 [facility] WEIGHT 222.6 12/27/2021 11:18:07 [facility] BMI 34kg/m2 12/27/2021 11:18:07 [facility] PAIN 3 12/27/2021 11:18:07 [facility] HEIGHT 68 12/27/2021 11:18:07 [facility] TEMPERATURE 98.6 12/27/2021 11:18:07 [facility] PULSE 77 12/27/2021 11:18:07 [facility] RESPIRATION 16 12/27/2021 11:18:07 [facility] SYSTOLIC BLOOD PRESSURE 135 05/13/2021 10:32:43 [facility] DIASTOLIC BLOOD PRESSURE 85 05/13/2021 10:32:43 [facility] PULSE OXIMETRY 100% 05/13/2021 10:32:43 [facility] WEIGHT 223 05/13/2021 10:32:43 [place] BMI 34kg/m2 05/13/2021 10:32:43 [place] PAIN 2 05/13/2021 10:32:43 [place] TEMPERATURE 98.1 05/13/2021 10:32:43 [place] PULSE 85 05/13/2021 10:32:43 [place] RESPIRATION 18 05/13/2021 10:32:43 [place] Encounters Combined list of: 1) Encounters from Department of Veterans Affairs facilities going back up to the last 18 months. 2) Encounters from the Department of Defense facilities going back up to 280 months. Location Location Encounter Encounter Reason Attending ADM DC Stat us Disposition Source Details Type Number For Provider Date Date Visit OUTPATIENT [id number] flight MATHEWS, 10/12 Released w/o [facility] deck JOHNSON Limitations [place](Flt Med [facility] [place] ) OUTPATIENT [id number] BLUNT ZZSELF, 05/26 Released w/o [facility] TRAUMA- PAUL S /2005 Limitations [place] ER PT uth(Oph thalmol ogy NMCP) OUTPATIENT [id number] MELGOZA, 03/31 Released w/o [facility] MARICRUZ Limitations [place](Hea ring Cons Cristino Sta) OUTPATIENT [id number] f/u v.v SCIBELLI, 01/11 Rele ased w/o [facility] LU /2007 Limitations [place] R D uth(Per ipheral Vascula r NMCP) OUTPATIENT [id number] Africa MCCAIN, 01/14 Release d w/o [facility] juan antonio VALERY Limitations [place] ut(Occ gs Therapy NMCP) OUTPATIENT [id number] venous SHARP, 02/17 Released w/o [facility] duplex ENA Limitations [place](Vas cular Flow Studies NMCP) OUTPATIENT [id number] F/U SCIBELLI, 03/04 Releas ed w/o [facility] WITH LU /2007 Limitations [place] FOR R D uth(Per PAIN ipheral WITH Vascula VERICOS r NMCP) E VEINS OUTPATIENT [id number] f/u SCIBELLI, 04/05 Releas ed w/o [facility] Vein LU /2007 Limitations [place] surgery R D uth(Per ipheral Vascula r NMCP) OUTPATIENT [id number] 1 MONTH SCIBELLI, 05/03 Rele ased w/o [facility] F/U LU /2008 Limitations [place] R D uth(Per ipheral Vascula r NMCP) OUTPATIENT [id number] MICHEL, 05/20 Released w/o [facility] JAY JAY D Limitations [place] uth(Hea ring Cons Cristino Sta) ER, DIRECT [id number] LORETA, 06/04 06/20 RETURNED T O [facility] TO 4 [facility] DUTY [facility] MTF OUTPATIENT [id number] R LORETA, 06/04 Admitted N TIB/FIB ANNA [place] FX [facility](Acu te Care Ortho NMCP) INPATIENT [id number] MEGHANN, 06/07 Inpatient- [facility] FAITH Still a [place] Patient [facility](Phy sical Therapy [facility]) INPATIENT [id number] [facility], 06[facility] Still a [place] Patient [facility](Phy sical Therapy [facility] INPATIENT [id number] Sonia SORTO, 06/09 [facility] patella SIEGRUNE H Still a [place] Patient uth(Phy Repair sical Therapy [facility] Porto [facility]) INPATIENT [id number] YUAN, 06/11 Inpatient- [facility] CHRISTINA Still a [place] A Patient uth(Wou nd Care NMCP) INPATIENT [id number] MEGHANN, 06/11 Inpatient- [facility] FAITH D Still a [place] Patient uth(Phy sical Therapy [facility] Porto [facility]) INPATIENT [id number] BRITTNEY 06/11 [facility] , ALEXUS L Still a [place] Patient uth(Nut rition NMCP) INPATIENT [id number] MEGHANN, 06/14 Inpatient- [facility] FAITH D Still a [place] Patient uth(Phy sical Therapy [facility] Porto [facility]) INPATIENT [id number] STEFAN, 06/14 Inpatient- [facility] SHAHIDA Still a [place] Patient uth(Phy sical Therapy [facility] Porto [facility]) INPATIENT [id number] MEGHANN, Inpatient- [facility] FAITH D Still a [place] Patient uth(Phy sical Therapy [facility] Porto [facility]) INPATIENT [id number] JAKE, 06/27 [facility] RONALDO B Still a [place] Patient uth(Phy sical Therapy [facility]) OUTPATIENT [id number] blaine DANIELS, 06/27 Release d [facility] LUALYSSA with [place] Work/Duty uth(Ort Limitations ho Onc/Richard or NMCP) OUTPATIENT [id number] SHADI, 06/27 Released w/o [facility] LIANG Limitations Por [place]smo uth(Phy sical Therapy [facility] OUTPATIENT [id number] Sonia CARMONA, 06/28 Releas ed w/o [facility] [place] patella MONY Limitations [place](Phy rpotoco sical l Therapy [facility]) OUTPATIENT [id number] JANIS, 06/30 Released w/o [facility] [place] CHUCK D Limitations Por [place]smo uth(Phy sical Therapy [facility]) OUTPATIENT [id number] MEGHANN, 07/04 Released w/o [facility] FAITH D Limitations [place](Phy sical Therapy [facility]) OUTPATIENT [id number] JANIS, 07/06 Released w/o [facility] CHUCK D Limitations [place] ut[facility](Phy sical Therapy [facility]) OUTPATIENT [id number] JANIS, 07/08 Released w/o [facility] CHUCK D Limitations [place] [facility](Phy sical Therapy [facility]) OUTPATIENT [id number] , 07/13 Released w/o [facility] CHUCK D Limitations [place] [facility](Phy sical Therapy [facility]) OUTPATIENT [id number] JANIS, 07/15 Released w/o [facility] CHUCK D Limitations [place] [facility](Phy sical Therapy [facility]) OUTPATIENT [id number] JANIS, 07/18 Released w/o [facility] CHUCK D Limitations [place] [facility](Phy sical Therapy [facility]) OUTPATIENT [id number] JEREMIAH, 07/20 Release d w/o [facility] LUKE H Limitations [place] [facility](Ort ho Onc/Richard or NMCP) OUTPATIENT [id number] JANIS, 07/22 Released w/o [facility] CHUCK D Limitations [place] [facility](Phy sical Therapy [facility]) OUTPATIENT [id number] JANIS, 07/25 Released w/o [facility] CHUCK D Limitations [place] [facility](Phy sical Therapy [facility]) OUTPATIENT [id number] F/U SHADI, 07/26 Released w/o [facility] POST-OP LIANG Limitations P ortsmo uth(Phy sical Therapy [facility]) OUTPATIENT [id number] KAYLEIGH 07/27 Relea sed w/o [facility] A JIM Limitations [place] [facility]hy [facility]ical [facility] [facility] OUTPATIENT [id number] 07/29 Released w/o [facility] CHUCK D Limitations [place](Phy sical Therapy [facility]) OUTPATIENT [id number] 08/01 Released w/o [facility] CHUCK D Limitations [place](Phy sical Therapy [facility]) OUTPATIENT [id number] KAYLEIGH 08/03 Relea sed w/o N[facility] A JIM Limitations [place](Phy sical Therapy [facility]) OUTPATIENT [id number] 08/08 Released w/o [facility] CHUCK D Limitations [place](Phy sical Therapy [facility]) OUTPATIENT [id number] 08/10 Released w/o N[facility] CHUCK D Limitations [place] ut[place](Phy sical Therapy [facility]) OUTPATIENT [id number] 08/15 Released w /o N[facility] CHUCK D Limitations [place](Phy sical Therapy [facility]) OUTPATIENT [id number] 08/17 Released w/o N[facility] CHUCK D Limitations [place](Phy sical Therapy [facility]) OUTPATIENT [id number] 08/19 Released w/o N[facility] CHUCK D Limitations [place](Phy sical Therapy [facility]) OUTPATIENT [id number] 08/22 Released w/o N[facility] CHUCK Limitations [place](Phy sical Therapy [facility]) OUTPATIENT [id number] F/U SHAHRZAD, 08/25 Release d w/o NMC ROSY /2008 Limitations [place] CORRY uth(Phy sical Therapy [facility]) OUTPATIENT [id number] MARCELA, 08/26 Released w/o NMC LLEWELYN L Limitations [place](Phy sical Therapy [facility]) OUTPATIENT [id number] MARCELA, 08/31 Released w/o N[facility] LLEWELYN Limitations [place](Phy sical Therapy [facility]) OUTPATIENT [id number] USITA, 09/05 Released w /o [facility] LLEWELYN Limitations [place](Phy sical Therapy [facility]) OUTPATIENT [id number] GANN 09/07 Releas ed w/o [facility] , Limitations [place] uth(Phy C sical Therapy [facility]) OUTPATIENT [id number] MARZZARELL 09/07 Releas ed w/o [facility] A, JIM Limitations [place](Phy sical Therapy [facility]) OUTPATIENT [id number] referal O'MICHELLE, 09/07 Relea sed w/o [facility] l MIRIAM Limitations [facility] ) OUTPATIENT [id number] MARZZARELL 09/09 Releas ed w/o N[facility] A, JIM Limitations [place](Phy sical Therapy [facility]) OUTPATIENT [id number] MARZZARELL 09/14 Releas ed w/o N[facility] A, JIM Limitations [place] ut[place](Phy sical Therapy [facility]) OUTPATIENT [id number] MARZZARELL 09/19 Releas ed w/o [facility] A, JIM Limitations [place] ut[place](Phy sical Therapy [facility]) OUTPATIENT [id number] MARZZARELL 09/23 Releas ed w/o [facility] A, JIM Limitations [place](Phy sical Therapy [facility]) OUTPATIENT [id number] MARZZARELL 09/28 Releas ed w/o [facility] A, JIM Limitations [place](Phy sical Therapy [facility]) OUTPATIENT [id number] NONTRAU PAGENKOPF, 09/28 Rele ased [facility] PEPE OCASIO with [place] T[place]ON Work/Duty [facility](Fra RUPTURE Limitations cture/ T rauma Clinic [facility]) OUTPATIENT [id number] JUNSIMEONARE09/30 Releas ed w/o [facility] A, Limitations [place](Phy sical Therapy [facility]) OUTPATIENT [id number] GANN 09/30 Releas ed w/o [place] Limitations [place] uth(Phy C sical Therapy [facility]) OUTPATIENT [id number] foot EMMA, 10/26 Releas ed w/o [facility] drop BECKI D Limitations [place] right uth(Irais s/p t & compart Ankle ment Clinic syndrom [facility]) e OUTPATIENT [id number] GANN 07/09 Relea sed w/o [place] Limitations [place] GAR[place] uth(y C sical Therapy [facility]) OUTPATIENT [id number] Rupture ARELL 10/31 Relea sed w/o N[facility] of the A Limitations Po rtsmo patella uth(y r s Ther tendon Team 1 [facility]) OUTPATIENT [id number] 11/07 Releas ed w/o NMC A Limitations [place] ut[place](Phy s Ther Team 1 [facility]) OUTPATIENT [id number] 11/09 Releas ed w/o N[facility] A, Limitations [place](y s Ther Team 1 [facility]) OUTPATIENT [id number] MYLES11/16 Release d w/o NMC A Limitations [place] uth(Phy s Ther Team 1 [facility]) OUTPATIENT [id number] GANN 11/16 Release d w/o N[facility] Limitations [place] uth(y C s Ther Team 1 [facility]) OUTPATIENT [id number] 3month JEREMIAH, 11/28 Releas ed [facility] gloria ALVAREZ with [place] up rt Work/Duty ut(Ort foot Limitations ho Onc/Richard or [facility]) OUTPATIENT [id number] SHADI, 12/26 Released w/o NM LIANG Limitations [place] uth(Phy s Ther Aquatic Team [facility]) OUTPATIENT [id number] AUGUSTA, 01/02 Released w/o N[facility] LIANG M Limitations [place](Phy s Ther Aquatic Team [facility]) OUTPATIENT [id number] SHADI, 01/04 Released w/o NMC LIANG M Limitations [place] ut[place](Phy s Ther Aquatic Team [facility]) OUTPATIENT [id number] f/u rt JEREMIAH, 01/09 Releas ed w/o NMC foot/an LUKE H Limitations [place] kle uth(Ort ho Onc/Richard or [facility]) OUTPATIENT [id number] PHA RAY, 01/10 Released w /o N[facility] PART 1 RORY D Limitations [place] STANDBY uth([facility] [place]) OUTPATIENT [id number] SHADI, 01/11 Released w/o NMC LIANG M Limitations [place](Phy s Ther Aquatic Team [facility]) OUTPATIENT [id number] EYE ANJUM, 01/13 Release d w/o N[facility] EXAM IZAIAH L Limitations [place](Opt ometry [facility] [place] ) OUTPATIENT [id number] PESadi SIMMONS, 01/16 Released w/o N[facility] RAHMA S Limitations [place](Phy s Exam [place]) OUTPATIENT [id number] CONCEPCIÓN, 01/16 Released w/o N[facility] YOSELYN L Limitations [place](Hea ring Cons [facility]) OUTPATIENT [id number] SHADI, 01/18 Released w/o NMC LIANG M Limitations [place](Phy s Ther Aquatic Team [facility]) OUTPATIENT [id number] [place]UST[place], 01/23 Released w/o NMC LIANG M Limitations [place](Phy s Ther Aquatic Team [facility]) OUTPATIENT [id number] est DAMARI, 01/25 Released w/o NMC YOSI Limitations [place] ANDERSON uth(Phy s Ther Team 1 [facility]) OUTPATIENT [id number] [place]USTA, 01/25 Released w/o NMC LIANG M Limitations [place] uth(Phy s Ther Aquatic Team [facility]) OUTPATIENT [id number] SARITA, 01/31 Rele ased w/o NMC DISPENS MT Limitations P ortsmo ED GLS uth(Opt ometry [facility] ) OUTPATIENT [id number] ROBSON, 02/14 Release d w/o N[facility] YOSI Limitations [place](Phy s Ther Aquatic Team [facility]) OUTPATIENT [id number] ROBSON, 02/16 Release d w/o N[facility] YOSI Limitations [place](Phy s Ther Aquatic Team [facility]) OUTPATIENT [id number] part 1 ISRAEL, 02/20 Releas ed w/o N[facility] JACKELYN Limitations [place]([facility] [place]) OUTPATIENT [id number] PART 2 DELFIN, 02/20 Released w/o NM YAZMIN Limitations [place]([facility] [place]) OUTPATIENT [id number] MARCELA, 02/22 Released w/o NM LLMERARI Limitations [place] uth(Phy s Ther Aquatic Team [facility]) OUTPATIENT [id number] SHADI, 02/27 Released w/o NM LIANG Limitations [place] uth(Phy s Ther Aquatic Team [facility]) OUTPATIENT [id number] ROBSON, 03/02 Release d w/o N[facility] YOSI Limitations [place](Phy s Ther Aquatic Team [facility]) OUTPATIENT [id number] chol/tr HNATH, 03/15 Release d w/o N[facility] robert PEARSON J Limitations [place]([facility] OUTPATIENT [id number] Snoring KITCHEN, 04/04 Release d w/o N[facility] JOHN L Limitations [place]([facility]) OUTPATIENT [id number] sep pe GUNNOE, 04/05 Release d w/o N[facility] TOLD TO JENNY Limitations [place] BRING uth(Phy FINDING s Exam [facility] [place] [facility]) OUTPATIENT [id number] ppd NICHOLES, 04/05 Releas ed w/o [facility] ELOISA Limitations [place](Imm unizati ons [facility] ) OUTPATIENT [id number] base KUSH, 04/06 Released w/ o [facility] EDIVAN S Limitations [place] [facility](Pul monary [facility]) OUTPATIENT [id number] ppd SOLO, 04/07 Released w/o N[facility] check ROBBINS Limitations Por tsmo [facility](Imm unizati ons [facility] [place] ) OUTPATIENT [id number] TDRL FELISHA, 07/18 [facility] d [facility] NADIR[facility] /2011 with Orthope ION G Work/Duty dic Limitations [facility] [place] [facility]) TELEHEALTH 98506-0. 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
with Provide r Comment s: Acquire d Absence of right Leg above Knee PHYSICAL 79046-4. 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 (SCT [id number] 9) Outpatient 20358-3.63 09/04 [facility] [id number] [facility] [facility] Outpatient 52701-8.63 09/04 [facility] En[place] [id number] [facility] [place] [facility] Outpatient 86769-4.63 09/05 [facility] Encounter [id number] [facility] [place] [facility] Outpatient 15908-9.63 09/26 [facility] En[facility] [id number] [facility] [place] Outpatient 57358-4.63 09/26 [facility] Encounter [id number] [facility] [place] [facility] Outpatient 52858-5.63 09/28 [facility] En[facility] [id number] [facility] [place] [facility] Outpatient 64884-6.63 10/01 [facility] En[facility] [id number] [facility] [place] [facility] OFFICE O/P 55750-1.52 Diagnos ALEJANDRAAN,V 10/04 [place] EST MOD [id number] is: L /2020 HCS 30-39 MIN ICD-10- [facility] CM I67.1 Cerebra l aneurys m, nonrupt ured
with Provide r Comment s: Cerebra l aneurys m, nonrupt ured POS AIRWAY 65503-4.63 Diagnos MONIQUE RUBIO 10/19 [facility] PRESSURE 1.47156226 is: N A /2020 [facility] CPAP ICD-10- [facility] [place] G47.30 SETS Sleep HCS apnea, unspeci fied
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 (SCT [id number] 05) Outpatient 40637-1.63 10/31 [facility] En[facility] [id number] [facility] [place] Outpatient 79791-6.63 11/14 [facility] Encounter [id number] [facility] [place] Outpatient 88224-2.63 11/16 [facility] Encounter [id number] [facility] [place] [facility] EXT 91075-3.63 Diagnos ORACIO CARROLL 11/19 [facility] ECG>7D<15D 1.14799122 is: S R /2020 CN[facility] SCAN A/R ICD-10- [facility] CM R55 [place] Syncope SETS and HCS collaps e
w ith Provide r Comment s: Syncope and collaps e Outpatient 05503-8.63 11/21 [facility] Encounter [id number] [facility] [place] Outpatient 89643-4.63 11/22 [facility] Encounter [id number] [facility] [place] [facility] OFFICE O/P 79485-263 Diagnos DORINA,EFRAIN 12/05 [place] NEW LOW 1.67450199 is: CATHI CNT RL 30-44 MIN ICD-10- [facility] [place] Z89.611 SETS Acquire HCS d absence of right leg above knee
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 (SCT [id number] 05) Outpatient 29069-4.63 12/11 [facility] Encounter [id number] /2021 [facility] Outpatient 75294-8.63 12/17 [facility] Encounter [id number] /2021 [facility] [place] Outpatient 49283-2.63 12/20 [facility] Encounter [id number] [facility] [place] Outpatient 05619-863 Diagnos SAMSON,YULIYA 12/20 [facility] Encounter 1.03912018 is: NA E /2020 [facility] ICD-10- [facility] [place] Z65.3 SETS Problem HCS s related to other legal circums tances< br/>wit h Provide r Comment s: Problem s Related to other Legal Circums tances Outpatient 44973-9.63 12/21 [facility] Encounter [id number] /2021 [facility] [place] Outpatient 47473-5.63 12/21 [facility] Encounter [id number] [facility] [place] [facility] PROGRAM 81487-5.63 Diagnos SAMSON,YULIYA 12/28 [facility] INTAKE 1.70469040 is: NA E /2020 [facility] ASSESSMENT ICD-10- [facility] [place] Z65.3 SETS Problem HCS s related to other legal circums tances< br/>wit h Provide r Comment s: Problem s Related to other Legal Circums tances PSYCH 73999-8.63 Diagnos CLARE EVANGELISTA 01/07 [facility] 1BY.148717 is: IELD EVALUATION 85 ICD-10- CM F32.9 Major depress jhonny disorde r, single episode , unspeci fied
with Provide r Comment s: Major Depress jhonny Disorde r, single Episode , unspeci fied OFFICE O/P 15984-8.63 Diagnos JORJE CULLENARASH 01/11 [place] MOD 1BY.[id number] is: SARBJIT IELD 45-59 MIN 53 ICD-10- CM E66.9 Obesity , unspeci fied
with Provide r Comment s: Obesity ([facility] [id number] ) OFFICE 04638-6.52 Diagnos LIZLUKE, 01/18 W EST CONSULTATI 3A4.877378 is: KALEB PATEL SELMA ON 14 ICD-10- CM S78.111 A Complet e traumat ic amp at level betw r hip and knee, init
with Provide r Comment s: Bilater al traumat ic amputat ion of legs at any level without complic ation (SCT [id number] 9) [place] [address]-3. Diagnos CLARE EVANGELISTA 01/21 [place] 60 MINUTES 1BY.045951 is: IELD 48 ICD-10- CM F32.9 Major depress jhonny disorde r, single episode , unspeci fied
with Provide r Comment s: Major depress jhonny disorde r (SCT [id number] 00) OFFICE O/P 47807-0.63 Diagnos JUANSHINE 01/21 [place] EST [place] 1BY.183901 is: IELD 40-54 MIN 82 ICD-10- CM F32.9 Major depress jhonny disorde r, single episode , unspeci fied
with Provide r Comment s: Major depress jhonny disorde r (SCT [id number] 00) [place] [address]-9.63 Diagnos CLARE EVANGELISTA 02/01 [place] 45 MINUTES 1BY.364859 is: IELD 70 ICD-10- CM F32.9 Major depress jhonny disorde r, single episode , unspeci fied
with Provide r Comment s: Major depress jhonny disorde r (SCT [id number] 00) Outpatient 78501-3.63 Diagnos SHINE MARTINEZ 02/11 [place] Encounter 1BY.707710 is: A IELD 87 ICD-10- CM F32.9 Major depress jhonny disorde r, single episode , unspeci fied
with Provide r Comment s: Major depress jhonny disorde r (SCT [id number] 00) Outpatient 58735-4.63 02/13 [facility] En[facility] [id number] [facility] Outpatient 45124-8.63 03/01 [facility] Encounter [id number] [facility] [place] [address]-5.63 Diagnos CLARE EVANGELISTA 03/22 [place] 60 MINUTES 1BY.829597 is: AH IELD 39 ICD-10- CM F43.12 Post-tr aumatic stress disorde r, chronic
wi Provide r Comment s: Post-Tr aumatic Stress Disorde r, Chronic Outpatient 86943-9.63 03/27 [facility] Encounter [id number] [facility] [place] Outpatient 12740-3.63 ALYSEJORJE HUANGSC 03/27 [facility] Encounter [id number] SARBJIT [facility] [place] [facility] [facility] POS AIRWAY 05863-9.[address] 03/28 [facility] PRESSURE 1.31001183 is: AMANT, C NTRL FILTER ICD-10- E P [facility] [place] G47.30 SETS Sleep HCS apnea, unspeci fied
with Provide r Comment s: Sleep apnea ([facility] [id number] 6) PROSTHETIC 52612-3.52 Diagnos AMARJIT GODINEZ 04/[address] 3A4.610197 is: ROXB URY ENC 45 ICD-10- CM S78.111 A Complet e traumat ic amp at level betw r hip and knee, init
with Provide r Comment s: Complet e Traumat ic Amputat ion at Level between right Hip and Knee, Initial Encount er OFFICE O/P 09379-9.63 Diagnos MAL, 04/04 [place] EST 1BY.051911 is: LIANG IELD MINIMAL 61 ICD-10- PROB CM R39.14 Feeling of incompl ete bladder emptyin g
w ith Provide r Comment s: Feeling of Incompl [place] [address]-7.63 Diagnos JEAN CARLOS,HILDAOR 04/05 [place] 60 MINUTES 1BY.381523 is: IELD 82 ICD-10- CM F43.12 Post-tr aumatic stress disorde r, chronic
wi th Provide r Comment s: Post-Tr aumatic Stress Disorde r, Chronic Outpatient 92722-8.63 04/10 [facility] NGF Encounter [id number].[id number] IELD 89 Outpatient 79695-4.63 04/11 [facility] Encounter [id number] [facility] [place] [facility] Outpatient 79166-0.63 ALYSEJORJE HUANGSC 04/15 [facility] Encounter [id number] SARBJIT [facility] [place] [facility] Outpatient 86874-4.63 04/17 [facility] N[facility] Encounter [id number].550694 IELD 69 Outpatient 50625-4.63 ALYSE,ANNSC 04/21 [facility] Encounter [id number] SARBJIT [facility] [place] [facility] Outpatient 32212-2.63 04/22 [facility] Encounter [id number] [facility] [place] [address]-0.63 Diagnos HILDA EVANGELISTAOR 04/26 [place] 30 MINUTES 1BY.789458 is: IELD 63 ICD-10- CM F43.12 Post-tr aumatic stress disorde r, chronic
wi th Provide r Comment s: Post-Tr aumatic Stress Disorde r, Chronic Outpatient 65092-8.63 JEAN CARLOSDEBOR 04/26 [facility] Encounter [id number] [facility] [place] [facility] POS AIRWAY 66537-5.63 Diagnos RAMIROMONIQUE 04/26 [facility] PRESSURE 1.00192661 is: N A CNTR[facility] FILTER ICD-10- [facility] [place] G47.30 SETS Sleep HCS apnea, unspeci fied
with Provide r Comment s: Sleep apnea (SCT [id number] 6) [place] [address]-8.63 Diagnos JEAN CARLOS,DEBOR 05/03 [place] 45 MINUTES 1BY.[id number] is: IELD 74 ICD-10- CM F43.12 Post-tr aumatic stress disorde r, chronic
wi th Provide r Comment s: Post-Tr aumatic Stress Disorde r, Chronic Outpatient 02022-7.63 05/07 [facility] Encounter [id number] [facility] [place] [facility] Outpatient 53175-8.63 05/09 [facility] Encounter [id number] [facility] [place] [facility] Outpatient 74446-1.63 05/10 [facility] Encounter [id number] [facility] [place] [facility] Outpatient 05615-4.63 05/13 [facility] Encounter [id number] /2022 [facility] [place] [facility] IMMUNIZATI 54085-4.63 ALYSEANNARASH 05/13 [place] ADMIN [id number] [facility] [place] [facility] OFFICE O/P 85803-2.63 Diagnos ALYSEANNMA 05/13 [place] EST MOD 1BY.972858 is: SARBJIT IELD 30-39 MIN 71 ICD-10- CM E66.9 Obesity , unspeci fied
with Provide r Comment s: Obesity (SCT [id number] 01) Outpatient 14426-1.63 05/16 [facility] Encounter [id number] [facility] [place] [address]-5.63 Diagnos JEAN CARLOS,DEBOR 05/17 [place] 45 MINUTES 1BY.702773 is: IELD 86 ICD-10- CM F43.12 Post-tr aumatic stress disorde r, chronic
wi th Provide r Comment s: Post-Tr aumatic Stress Disorde r, Chronic OFFICE O/P 73063-4 Diagnos SHINE MARTINEZ 05/22 [place] EST MOD 1BY.731226 is: IELD 30-39 MIN 84 ICD-10- CM F32.9 Major depress jhonny disorde r, single episode , unspeci fied
with Provide r Comment s: Major depress jhonny disorde r (SCT [id number] 00) CASE 68739-3.63 Diagnos ALEX,W 05/27 [facility] 1BY.365991 is: HAYDER IELD 02 ICD-10- CM F32.9 Major depress jhonny disorde r, single episode , unspeci fied
with Provide r Comment s: Major depress jhonny disorde r (SCT [id number] 00) CASE 44648-0. Diagnos [facility],W 06/05 SP [facility] MANAGEMENT 1BY.969663 is: HAYDER IELD 69 ICD-10- CM F32.9 Major depress jhonny disorde r, single episode , unspeci fied
with Provide r Comment s: Major depress jhonny disorde r (SCT [id number] 00) Outpatient 60937-5.63 06/06 [facility] Encounter [id number] [facility] [place] [facility] Outpatient 28852-4.63 06/13 [facility] Encounter [id number] [facility] [place] [facility] Outpatient 94903-0.63 06/19 [facility] Encounter [id number] [facility] [place] [facility] Outpatient 79769-2.63 06/24 [facility] Encounter [id number] [facility] [place] [facility] Outpatient 35499-4.52 06/27 [place] Encounter [id number] [facility] Outpatient 81201-2.52 06/28 [place] Encounter [id number] [facility] Outpatient 45371-5.63 07/02 [facility] Encounter [id number] [facility] [place] [facility] Outpatient 19374-9.63 07/02 [facility] Encounter [id number] /2022 [facility] [place] [facility] [facility] Outpatient 34106-8.63 07/02 [facility] Encounter 1. [facility] [place] [facility] Outpatient 76445-6.63 07/04 [facility] Encounter [id number] [facility] [place] [facility] Outpatient 03319-8.63 07/04 [facility] Encounter 1. 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
w ith Provide r Comment s: Drug Photoal lergic Respons e Outpatient 96705-7.63 07/17 [facility] Encounter [id number] /2022 [facility] [place] [facility] Outpatient 92242-0.63 08/12 [facility] Encounter [id number] [facility] [place] Outpatient 04699-2.63 08/14 [facility] Encounter [id number] /2022 [facility] Outpatient 76058-9.63 LIEMILTON,RI 08/15 [facility] Encounter [id number] SILAS ANTHONY C [facility] [place] [facility] OFFICE O/P 25253-8.63 Diagnos SHINE MARTINEZ 08/20 [facility] EST MOD 1BY.296134 is: IELD 30-39 MIN 50 ICD-10- CM F32.9 Major depress jhonny disorde r, single episode , unspeci fied
with Provide r Comment s: Major depress jhonny disorde r (SCT [id number] 00) Outpatient 75642-5.63 08/28 [facility] Encounter [id number] /2022 [facility] Outpatient 77651-7.65 08/28 [facility] Encounter [id number] DEE [facility] OFFICE O/P 33659-2.63 Diagnos ALYSEANNARASH 08/29 [facility] EST MOD [id number] is: SARBJIT IELD 30-39 MIN 10 ICD-10- CM R51.9 Headach e, unspeci fied
with Provide r Comment s: Headach e, unspeci fied Outpatient 37765-5.63 09/11 [facility] [id number] /2022 [facility] Outpatient 25153-5.63 10/01 [facility] [id number] [facility] Outpatient 82003-4.63 10/08 [facility] En[facility] [id number] [facility] Outpatient 84101-8.63 10/08 [facility] En[facility] [id number] [facility] Outpatient 23120-2.55 KARLA 10/15 [facility] Encounter [id number] ,JAY JAY /2021 [facility] Outpatient 05327-9.63 10/24 [facility] En[facility] [id number] [facility] Outpatient 97237-1.63 DANICA CULLEN 10/24 [facility] Encounter [id number] SARBJIT [facility] Outpatient 16752-9.63 DEB,RI 10/24 [facility] Encounter [id number] SILAS ANTHONY C [facility] Outpatient 64463-0.63 12/04 [facility] En[facility] [id number] [facility] OFFICE O/P Diagnos DANICA CULLEN 12/04 [facility] EST MOD [id number] is: SARBJIT IELD 30-39 MIN 95 ICD-10- CM R20.2 Paresth esia of skin
with Provide r Comment s: Paresth esia of Skin Outpatient 32237-1.55 12/27 [facility] [place] Encounter [id number] [facility] OFFICE O/P Diagnos KENNETH, 12/27 YAO, EST MOD [id number] is: MARYLOU GA 30-39 MIN 70 ICD-10- (CBOC) CM E78.5 Hyperli pidemia , unspeci fied
with Provide r Comment s: Hyperli pidemia (SCT [id number]) Outpatient 94634-9.55 12/30 [facility] [place] Encounter [id number] [facility] QNHP OL 55 Diagnos VIVERETTE, 12/30 DEANNE DIG [id number] is: ATIF M [facility] ASSMT&MGMT ICD-10- 21+ CM E66.9 Obesity , unspeci fied
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
wi th Provide r Comment s: Overact jhonny Bladder OFFICE 90954-1.55 Diagnos YANA COUCH 01/22 D [facility] CONSULTATI [id number] is: N J /2021 [facility] ON ICD-10- CM S78.111 D Complet e traumat ic amp at level betw r hip and knee, subs
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 (SCT [id number]) Outpatient [id number] 01/22 [facility] [place] Encounter [id number] /2022 [facility] Outpatient [id number] 01/24 [facility] [id number] [facility] Procedures Combined list of: 1) Procedures from Department of Veterans Affairs facilities going back up to the last 18 months, not all [place] non-surgical procedures are included; 2) All procedures from the Department of Defense facilities. Procedure Procedure Type Code Date Perfomer Comments Sourc e Range Of Motion Range Of Motion 42869 Anthony BRUCE Evaluation Of Evaluation Of 008 CHUCK D Extremity Extremity Modalities Modalities 67343 JANIS, Anthony Cryotherapy Cold Cryotherapy Cold 008 CHUCK D Packs Packs Range Of Motion Range Of Motion 88208 Anthony BRUCE Evaluation Of Evaluation Of 008 CHUCK D Extremity Extremity A isted Exercises Assisted Exercises 22845 Anthony BRUCE For ROM For ROM 008 CHUCK D Modalities Modalities 09687 Anthony BRUCE Cryotherapy Cold Cryotherapy Cold 008 CHUCK D Packs Packs Range Of Motion Range Of Motion 27646 JANIS, Anthony Evaluation Of Evaluation Of 008 CHUCK D Extremity Extremity A isted Exercises Assisted Exercises 09043 Anthony BRUCE For ROM For ROM 008 CHUCK D Physical Therapy: Physical Therapy: 48842 Anthony BRUCE ___ Se ion ___ Session 008 CHUCK D Segments, 15 Segments, 15 Minutes Each Minutes Each A isted Exercises Assisted Exercises 83340 Anthony BRUCE For ROM For ROM 008 CHUCK D Range Of Motion Range Of Motion 42878 Anthony BRUCE Evaluation Of Evaluation Of 008 CHUCK D Extremity Extremity Modalities Modalities 54493 [facility] Cryotherapy Cold Cryotherapy Cold 008 CHUCK D Packs Packs Modalities Modalities 46624 [facility] Cryotherapy Cold Cryotherapy Cold 008 MONY M Packs Packs Range Of Motion Range Of Motion 58013 [facility] Evaluation Of Evaluation Of 008 MONY M Extremity Extremity A isted Exercises Assisted Exercises 32921 [facility] For ROM For ROM 008 MONY M Physical Therapy: Physical Therapy: 32497 [facility] ___ Se ion ___ Session 008 MONY M Segments, 15 Segments, 15 Minutes Each Minutes Each Physical Therapy [facility] Service Evaluation 008 LIANG M Range Of Motion Range Of Motion 91605 [facility] Evaluation Of Evaluation Of 008 RONALDO B Extremity Extremity Physical Therapy Physical Therapy 99583 [facility] Gait Training Gait Training 008 RONALDO B Physical Therapy Physical Therapy 41482 FAITH ZAVALETA WB AT c [facility] Gait Training Gait Training 008 D standard walker. Physical Therapy: Physical Therapy: 49522 FAITH ZAVALETA, [facility] ___ Se ion ___ Session 008 D Quad sets, Segments, 15 Segments, 15 Heel slides. Minutes Each Minutes Each Range Of Motion Range Of Motion 43141 FAITH ZAVALETA 0-60 [facility] Evaluation Of Evaluation Of 008 D Extremity Extremity Medical Nutrition Medical Nutrition 92589 BRITTNEY [facility] Therapy Initial A e Therapy Initial 008 ALEXUS Chamberlain ment And Assessment And Intervention Each Intervention Each 15 Minutes 15 Minutes Physical Therapy Physical Therapy 16500 STEFAN, Ambula tion [facility] Gait Training Gait Training 008 SHAHIDA and safety training Physical Therapy Physical Therapy 44013 FAITH ZAVALETA [facility] Gait Training Gait Training 008 D Range Of Motion Range Of Motion 12587 FAITH ZAVALETA 0-60 [facility] Evaluation Of Evaluation Of 008 D Extremity Extremity Physical Therapy Physical Therapy 07560 FAITH ZAVALETA Am bulated c [facility] Gait Training Gait Training 008 D crutches NWB Physical Therapy: Physical Therapy: 40117 FAITH ZAVALETA Ankle pumps, [facility] ___ Se ion ___ Session 008 D Quad sets, Segments, 15 Segments, 15 Heel slides. Minutes Each Minutes Each Negative Pre ure Negative Pressure 23277 Anthony BOLDEN Wound Therapy Using Wound Therapy Using 008 CHRISTINA A DME Over 50 Square DME Over 50 Square cm cm Hydrocolloid stephen Anthony BOLDEN ing, wound cover, 008 CHRISTINA A sterile, pad size 16 sq. in. or le , without adhesive border, each stephen ing Physical Therapy NOREEN, RADHA Do D Service Evaluation 008 SIEGRUNE H evaluation . Physical Therapy Physical Therapy 72148 Pebbles SORTO Gait Training Gait Training 008 SIEGRUNE H training- WBAT. Range Of Motion Range Of Motion 45322 SCARLET SORTO 3 -58 [facility] Evaluation Of Evaluation Of 008 SIEGRUNE H Extremity Extremity Physical Therapy: Physical Therapy: 99502 Ebenezer SORTO le pumps, [facility] ___ Se ion ___ Session 008 SIEGRUNE H Quad sets, Segments, 15 Segments, 15 Heel slides. Minutes Each Minutes Each Physical Therapy RADHA SORTO Do D Service Evaluation 008 SIEGRUNE H evaluation . Physical Therapy Physical Therapy 82097 herbie SORTO and [facility] Gait Training Gait Training 008 SIEGRUNE H transfer/sa f ety training Physical Therapy Physical Therapy 74148 FAITH ZAVALETA Am bulated [facility] Gait Training Gait Training 008 D 100ft/NWB Threshold Audiogram Threshold Audiogram 20011 Anthony PEARSON (Pure Tone) (Pure Tone) 008 JAY JAY Trammell. Postoperative Postoperative 36131 Do Jp DAIGLE Visit, Without Visit, Without 008 MAMI Trammell Charge Charge Postoperative Postoperative 47307 PILO Do Jp Visit, Without Visit, Without 007 MAMI Trammell Charge Charge Unilateral Doppler Unilateral Doppler 30831 MANOHAR LAI Duplex Color-Flow Duplex Color-Flow 007 T. Venous of Extremity Venous of Extremity Patient Training Patient Training 30478 LIGIA NELSON x 15 mins DoD And Self-Care And Self-Care 007 Skills Skills Gradient compre ion LIGIA NELSON [facility] stocking, below 007 knee, 18-30 mm Hg, each Ophthalmological Ophthalmological 13872 PAUL JENKINS New Patient Start New Patient Start 006 S Comprehensive Care Comprehensive Care Polysomnography HEATHER CURRIE S [facility] With Four Or More 008 Additional Sleep Parameters Skin Test Anergy Skin Test Anergy 96319 [facility] Tuberculin Tuberculin 008 ELOISA Intradermal Intradermal Aquatic Exercises Aquatic Exercises 84649 [facility], [facility] 008 YOSI A Aquatic Exercises Aquatic Exercises 21968 SHADI, [facility] 008 LIANG M Aquatic Exercises Aquatic Exercises 52594 USITA, x 30 mins DoD 008 KENYETTA [place] [address] [facility] Visual Acuity, Visual Acuity, 008 YAZMIN B Quantitative, Quantitative, Bilateral Bilateral Aquatic Exercises Aquatic Exercises 84076 [facility], [facility] 008 YOSI A Aquatic Exercises Aquatic Exercises 10032 [facility], [facility] 008 YOSI A Spectacles Services Spectacles [facility] [facility] Fitting Monofocal Fitting Monofocal 008 MT B Except For Aphakia Except For Aphakia Physical Therapy YOSI WETZEL [facility] Service 008 ANDERSON Re-Evaluation Aquatic Exercises Aquatic Exercises 37922 SHADI, x 30 min DoD 008 LIANG M Aquatic Exercises Aquatic Exercises 12292 SHADI, DoD 008 LIANG M Aquatic Exercises Aquatic Exercises 96919 SHADI, x 30 min DoD 008 LIANG [facility] [address] [facility] Testing Testing 008 YOSELYN [place] [address] [facility] Refractive State Refractive State 008 IZAIAH L Spectacles Services [facility] [address] [facility] Monofocal Fitting Monofocal 008 IZAIAH L Except For Aphakia Except For Aphakia Ophthalmological Ophthalmological 98800 [facility] New Patient Start New Patient Start 008 IZAIAH Chamberlain Comprehensive Care Comprehensive Care Aquatic Exercises Aquatic Exercises 33971 SHADI, x 30 min DoD 008 LIANG Kothari Aquatic Exercises Aquatic Exercises 32124 SHADI, x 30 min DoD 008 LIANG Kothari Aquatic Exercises Aquatic Exercises 66601 SHADI, x 30 min DoD 008 LIANG Kothari Aquatic Exercises Aquatic Exercises 38022 SHADI, x 30 min DoD 008 LIANG Kothari Physical Therapy: Physical Therapy: 94104 MARZZARELLA, DoD ___ Se ion ___ Session 008 JIM Segments, 15 Segments, 15 Minutes Each Minutes Each Modalities Modalities 89784 [facility] DoD Cryotherapy Cold Cryotherapy Cold 008 JIM Packs Packs Physical Therapy Jp GANN oD Service 008 GARLAND García Re-Evaluation Physical Therapy: Physical Therapy: 20569 MARARELLA, DoD ___ Se ion ___ Session 008 JIM Segments, 15 Segments, 15 Minutes Each Minutes Each Modalities Modalities 11167 [facility], DoD Cryotherapy Cold Cryotherapy Cold 008 JIM Packs Packs Physical Therapy: Physical Therapy: 60139 MARARELLA, DoD ___ Se ion ___ Session 008 JIM Segments, 15 Segments, 15 Minutes Each Minutes Each Modalities Modalities 52223 [facility], DoD Cryotherapy Cold Cryotherapy Cold 008 JIM Packs Packs Physical Therapy: Physical Therapy: 32612 MARARELLA, DoD ___ Se ion ___ Session 008 JIM Segments, 15 Segments, 15 Minutes Each Minutes Each Modalities Modalities 10455 [facility], DoD Cryotherapy Cold Cryotherapy Cold 008 JIM Packs Packs Physical Therapy Jp GANN oD Service 008 GARLAND García Re-Evaluation Physical Therapy Jp GANN oD Service 008 GARLAND García Re-Evaluation Modalities Modalities 55947 [facility], DoD Cryotherapy Cold Cryotherapy Cold 008 JIM Packs Packs Physical Therapy: Physical Therapy: 03028 [facility], [facility] ___ Se ion ___ Session 008 JIM Segments, 15 Segments, 15 Minutes Each Minutes Each Physical Therapy: Physical Therapy: 01204 [facility] ___ Se ion ___ Session 008 JIM Segments, 15 Segments, 15 Minutes Each Minutes Each Modalities Modalities 94223 [facility], [facility] Cryotherapy Cold Cryotherapy Cold 008 JIM Packs Packs Modalities Modalities 94929 [facility], [facility] Cryotherapy Cold Cryotherapy Cold 008 JIM Packs Packs Physical Therapy: Physical Therapy: 34815 [facility], [facility] ___ Se ion ___ Session 008 JIM Segments, 15 Segments, 15 Minutes Each Minutes Each Physical Therapy: Physical Therapy: 70457 [facility], [facility] ___ Se ion ___ Session 008 JIM Segments, 15 Segments, 15 Minutes Each Minutes Each Modalities Modalities 66336 [facility], [facility] Cryotherapy Cold Cryotherapy Cold 008 JIM Packs Packs Modalities Modalities 95891 [facility], [facility] Cryotherapy Cold Cryotherapy Cold 008 JIM Packs Packs Physical Therapy: Physical Therapy: 47833 [facility], [facility] ___ Se ion ___ Session 008 JIM Segments, 15 Segments, 15 Minutes Each Minutes Each Physical Therapy: Physical Therapy: 90984 [facility], [facility] ___ Se ion ___ Session 008 JIM Segments, 15 Segments, 15 Minutes Each Minutes Each Modalities Modalities 69370 [facility], [facility] Cryotherapy Cold Cryotherapy Cold 008 JIM Packs Packs Physical Therapy Jp GANN oD Service 008 GARLAND García Re-Evaluation Physical Therapy - Physical Therapy - 08738 [facility], [facility] Unlisted Unlisted 008 JIM Therapeutic Therapeutic Procedure Procedure Modalities Modalities 52867 USITA, [facility] Electrical Electrical 008 LLEWELYN L Stimulation Stimulation Unattended Unattended Modalities Modalities 64189 [facility], [facility] Cryotherapy Cold Cryotherapy Cold 008 LLEWELYN L Packs Packs Physical Therapy: Physical Therapy: 89675 US[facility], [facility] ___ Se ion ___ Session 008 LLEWELYN L Segments, 15 Segments, 15 Minutes Each Minutes Each Modalities Modalities 14738 US[facility], [facility] Electrical Electrical 008 LLEWELYN L Stimulation Stimulation Unattended Unattended Modalities Modalities 99851 [facility], [facility] Cryotherapy Cold Cryotherapy Cold 008 LLEWELYN L Packs Packs Physical Therapy: Physical Therapy: 12603 [facility], [facility] ___ Se ion ___ Session 008 LLEWELYN L Segments, 15 Segments, 15 Minutes Each Minutes Each Physical Therapy [facility] Service 008 ROSY WHEATLEY Re-Evaluation Modalities Modalities 03896 [facility], [facility] Cryotherapy Cold Cryotherapy Cold 008 LLEWELYN L Packs Packs Modalities Modalities 85756 [facility], [facility] Electrical Electrical 008 LLEWELYN L Stimulation Stimulation Unattended Unattended Physical Therapy: Physical Therapy: 20588 [facility], [facility] ___ Se ion ___ Session 008 LLEWELYN L Segments, 15 Segments, 15 Minutes Each Minutes Each Modalities Modalities 53948 [facility], [facility] Cryotherapy Cold Cryotherapy Cold 008 CHUCK D Packs Packs Physical Therapy: Physical Therapy: 98915 JANIS, [facility] ___ Se ion ___ Session 008 CHUCK D Segments, 15 Segments, 15 Minutes Each Minutes Each Physical Therapy: Physical Therapy: 05182 JANIS, [facility] ___ Se ion ___ Session 008 CHUCK D Segments, 15 Segments, 15 Minutes Each Minutes Each Modalities Modalities 56540 JANIS, [facility] Cryotherapy Cold Cryotherapy Cold 008 CHUCK D Packs Packs Range Of Motion Range Of Motion 59492 JANIS, [facility] Evaluation Of Evaluation Of 008 CHUCK D Extremity Extremity Range Of Motion Range Of Motion 80641 JANIS, Anthony Evaluation Of Evaluation Of 008 CHUCK D Extremity Extremity Modalities Modalities 66754 JANIS, Anthony Cryotherapy Cold Cryotherapy Cold 008 CHUCK D Packs Packs Physical Therapy: Physical Therapy: 08734 Anthony BRUCE ___ Se ion ___ Session 008 CHUCK D Segments, 15 Segments, 15 Minutes Each Minutes Each Modalities Modalities 88186 JANIS, Anthony Cryotherapy Cold Cryotherapy Cold 008 CHUCK D Packs Packs Range Of Motion Range Of Motion 63029 JANIS, Anthony Evaluation Of Evaluation Of 008 CHUCK D Extremity Extremity Physical Therapy: Physical Therapy: 23291 Anthony BRUCE ___ Se ion ___ Session 008 CHCUK D Segments, 15 Segments, 15 Minutes Each Minutes Each Range Of Motion Range Of Motion 97198 JANIS, Anthony Evaluation Of Evaluation Of 008 CHUCK D Extremity Extremity Modalities Modalities 32375 Anthony BRUCE Cryotherapy Cold Cryotherapy Cold 008 CHUCK D Packs Packs Physical Therapy: Physical Therapy: 43666 Anthony BRUCE ___ Se ion ___ Session 008 CHUCK D Segments, 15 Segments, 15 Minutes Each Minutes Each Modalities Modalities 88725 JANIS, Anthony Cryotherapy Cold Cryotherapy Cold 008 CHUCK D Packs Packs Range Of Motion Range Of Motion 12542 JANIS, Anthony Evaluation Of Evaluation Of 008 CHUCK D Extremity Extremity Physical Therapy: Physical Therapy: 69128 Anthony BRUCE ___ Se ion ___ Session 008 CHUCK D Segments, 15 Segments, 15 Minutes Each Minutes Each Modalities Modalities 49378 JANIS, Anthony Cryotherapy Cold Cryotherapy Cold 008 CHUCK D Packs Packs Range Of Motion Range Of Motion 39280 JANIS, Anthony Evaluation Of Evaluation Of 008 CHUCK D Extremity Extremity Physical Therapy: Physical Therapy: 37116 Anthony BRUCE ___ Se ion ___ Session 008 CHUCK D Segments, 15 Segments, 15 Minutes Each Minutes Each Range Of Motion Range Of Motion 27638 JANIS, Anthony Evaluation Of Evaluation Of 008 CHUCK D Extremity Extremity Physical Therapy: Physical Therapy: 41632 Anthony BRUCE ___ Se ion ___ Session 008 CHUCK D Segments, 15 Segments, 15 Minutes Each Minutes Each Modalities Modalities 86877 Anthony BRUCE Cryotherapy Cold Cryotherapy Cold 008 CHUCK D Packs Packs Physical Therapy: Physical Therapy: 37968 Anthony CARTER ___ Se ion ___ Session 008 JIM Segments, 15 Segments, 15 Minutes Each Minutes Each Range Of Motion Range Of Motion 81791 Anthony CARTER Evaluation Of Evaluation Of 008 JIM Extremity Extremity Modalities Modalities 28438 Anthony CARTER Cryotherapy Cold Cryotherapy Cold 008 JIM Packs Packs Physical Therapy Anthony [facility] Service 008 LIANG Kothari Re-Evaluation Range Of Motion Range Of Motion 41733 Anthony BRUCE Evaluation Of Evaluation Of 008 CHUCK D Extremity Extremity Physical Therapy: Physical Therapy: 38673 Anthony BRUCE ___ Se ion ___ Session 008 CHUCK D Segments, 15 Segments, 15 Minutes Each Minutes Each Modalities Modalities 72076 Anthony BRUCE Cryotherapy Cold Cryotherapy Cold 008 CHUCK D Packs Packs Physical Therapy: Physical Therapy: 95187 Anthony BRUCE ___ Se ion ___ Session 008 CHUCK D Segments, 15 Segments, 15 Minutes Each Minutes Each Modalities Modalities 25370 Anthony BRUCE Cryotherapy Cold Cryotherapy Cold 008 CHUCK D Packs Packs Range Of Motion Range Of Motion 23360 JANIS, Anthony Evaluation Of Evaluation Of 008 CHUCK D Extremity Extremity Range Of Motion Range Of Motion 44344 Anthony BRUCE Evaluation Of Evaluation Of 008 CHUCK D Extremity Extremity Modalities Modalities 22263 Anthony BRUCE Cryotherapy Cold Cryotherapy Cold 008 CHUCK D Packs Packs Physical Therapy: Physical Therapy: 49125 Anthony BRUCE ___ Se ion ___ Session 008 CHUCK D Segments, 15 Segments, 15 Minutes Each Minutes Each Range Of Motion Range Of Motion 91315 Anthony BRUCE Evaluation Of Evaluation Of 008 CHUCK D Extremity Extremity Modalities Modalities 48074 Anthony BRUCE Cryotherapy Cold Cryotherapy Cold 008 CHUCK D Packs Packs Physical Therapy: Physical Therapy: 99112 Anthony BRUCE ___ Se ion ___ Session 008 CHUCK D Segments, 15 Segments, 15 Minutes Each Minutes Each Modalities Modalities 80177 Anthony BRUCE Cryotherapy Cold Cryotherapy Cold 008 CHUCK D Packs Packs Physical Therapy: Physical Therapy: 66497 Anthony BRUCE ___ Se ion ___ Session 008 CHUCK D Segments, 15 Segments, 15 Minutes Each Minutes Each BEHAVIORAL HEALTH; D oD SHORT-TERM 003 RESIDENTIAL (NON-HOSPITAL RESIDENTIAL TREATMENT PROGRAM), WITHOUT ROOM AND BOARD, DEFENCE FORCE MEMBER OTHER RANKS TYMPANOMETRY DoD (IMPEDANCE TESTING) 003 PHARMACOLOGIC DoD MANAGEMENT, 003 INCLUDING PRESCRIPTION, USE, AND REVIEW OF MEDICATION WITH NO MORE THAN MINIMAL MEDICAL PSYCHOTHERAPY SCREENING TEST OF Do D VISUAL ACUITY, 003 QUANTITATIVE, BILATERAL POLYSOMNOGRAPHY; DoD AGE 6 YEARS OR 008 OLDER, SLEEP STAGING WITH 4 OR MORE ADDITIONAL PARAMETERS OF SLEEP, ATTENDED BY A TECHNOLOGIST SKIN TEST; DoD TUBERCULOSIS, 008 INTRADERMAL THERAPEUTIC DoD PROCEDURE, 1 OR 008 MORE AREAS, EACH 15 MINUTES; AQUATIC THERAPY WITH THERAPEUTIC EXERCISES THERAPEUTIC DoD PROCEDURE, 1 OR 008 MORE AREAS, EACH 15 MINUTES; AQUATIC THERAPY WITH THERAPEUTIC EXERCISES THERAPEUTIC DoD PROCEDURE, 1 OR 008 MORE AREAS, EACH 15 MINUTES; AQUATIC THERAPY WITH THERAPEUTIC EXERCISES SCREENING TEST OF Do D VISUAL ACUITY, 008 QUANTITATIVE, BILATERAL THERAPEUTIC DoD PROCEDURE, 1 OR 008 MORE AREAS, EACH 15 MINUTES; AQUATIC THERAPY WITH THERAPEUTIC EXERCISES THERAPEUTIC DoD PROCEDURE, 1 OR 008 MORE AREAS, EACH 15 MINUTES; AQUATIC THERAPY WITH THERAPEUTIC EXERCISES FITTING OF DoD SPECTACLES, EXCEPT 008 FOR APHAKIA; MONOFOCAL PHYSICAL THERAPY DoD RE-EVALUATION 008 THERAPEUTIC DoD PROCEDURE, 1 OR 008 MORE AREAS, EACH 15 MINUTES; AQUATIC THERAPY WITH THERAPEUTIC EXERCISES THERAPEUTIC DoD PROCEDURE, 1 OR 008 MORE AREAS, EACH 15 MINUTES; AQUATIC THERAPY WITH THERAPEUTIC EXERCISES THERAPEUTIC DoD PROCEDURE, 1 OR 008 MORE AREAS, EACH 15 MINUTES; AQUATIC THERAPY WITH THERAPEUTIC EXERCISES AUDIOMETRIC TESTING DoD OF GROUPS 008 DETERMINATION OF DoD REFRACTIVE STATE 008 THERAPEUTIC DoD PROCEDURE, 1 OR 008 MORE AREAS, EACH 15 MINUTES; AQUATIC THERAPY WITH THERAPEUTIC EXERCISES THERAPEUTIC DoD PROCEDURE, 1 OR 008 MORE AREAS, EACH 15 MINUTES; AQUATIC THERAPY WITH THERAPEUTIC EXERCISES THERAPEUTIC DoD PROCEDURE, 1 OR 008 MORE AREAS, EACH 15 MINUTES; AQUATIC THERAPY WITH THERAPEUTIC EXERCISES THERAPEUTIC DoD PROCEDURE, 1 OR 008 MORE AREAS, EACH 15 MINUTES; AQUATIC THERAPY WITH THERAPEUTIC EXERCISES PHYSICAL THERAPY DoD RE-EVALUATION 008 THERAPEUTIC DoD PROCEDURE, 1 OR 008 MORE AREAS, EACH 15 MINUTES; THERAPEUTIC EXERCISES TO DEVELOP STRENGTH AND ENDURANCE, RANGE OF MOTION AND FLEXIBILITY THERAPEUTIC DoD PROCEDURE, 1 OR 008 MORE AREAS, EACH 15 MINUTES; THERAPEUTIC EXERCISES TO DEVELOP STRENGTH AND ENDURANCE, RANGE OF MOTION AND FLEXIBILITY THERAPEUTIC DoD PROCEDURE, 1 OR 008 MORE AREAS, EACH 15 MINUTES; THERAPEUTIC EXERCISES TO DEVELOP STRENGTH AND ENDURANCE, RANGE OF MOTION AND FLEXIBILITY THERAPEUTIC DoD PROCEDURE, 1 OR 008 MORE AREAS, EACH 15 MINUTES; THERAPEUTIC EXERCISES TO DEVELOP STRENGTH AND ENDURANCE, RANGE OF MOTION AND FLEXIBILITY PHYSICAL THERAPY DoD RE-EVALUATION 008 PHYSICAL THERAPY DoD RE-EVALUATION 008 THERAPEUTIC DoD PROCEDURE, 1 OR 008 MORE AREAS, EACH 15 MINUTES; THERAPEUTIC EXERCISES TO DEVELOP STRENGTH AND ENDURANCE, RANGE OF MOTION AND FLEXIBILITY THERAPEUTIC DoD PROCEDURE, 1 OR 008 MORE AREAS, EACH 15 MINUTES; THERAPEUTIC EXERCISES TO DEVELOP STRENGTH AND ENDURANCE, RANGE OF MOTION AND FLEXIBILITY THERAPEUTIC DoD PROCEDURE, 1 OR 008 MORE AREAS, EACH 15 MINUTES; THERAPEUTIC EXERCISES TO DEVELOP STRENGTH AND ENDURANCE, RANGE OF MOTION AND FLEXIBILITY THERAPEUTIC DoD PROCEDURE, 1 OR 008 MORE AREAS, EACH 15 MINUTES; THERAPEUTIC EXERCISES TO DEVELOP STRENGTH AND ENDURANCE, RANGE OF MOTION AND FLEXIBILITY THERAPEUTIC DoD PROCEDURE, 1 OR 008 MORE AREAS, EACH 15 MINUTES; THERAPEUTIC EXERCISES TO DEVELOP STRENGTH AND ENDURANCE, RANGE OF MOTION AND FLEXIBILITY THERAPEUTIC DoD PROCEDURE, 1 OR 008 MORE AREAS, EACH 15 MINUTES; THERAPEUTIC EXERCISES TO DEVELOP STRENGTH AND ENDURANCE, RANGE OF MOTION AND FLEXIBILITY PHYSICAL THERAPY DoD RE-EVALUATION 008 UNLISTED DoD THERAPEUTIC 008 PROCEDURE (SPECIFY) APPLICATION OF A DoD MODALITY TO 1 OR 008 MORE AREAS; ELECTRICAL STIMULATION (UNATTENDED) THERAPEUTIC DoD PROCEDURE, 1 OR 008 MORE AREAS, EACH 15 MINUTES; THERAPEUTIC EXERCISES TO DEVELOP STRENGTH AND ENDURANCE, RANGE OF MOTION AND FLEXIBILITY APPLICATION OF A DoD MODALITY TO 1 OR 008 MORE AREAS; HOT OR COLD PACKS THERAPEUTIC DoD PROCEDURE, 1 OR 008 MORE AREAS, EACH 15 MINUTES; THERAPEUTIC EXERCISES TO DEVELOP STRENGTH AND ENDURANCE, RANGE OF MOTION AND FLEXIBILITY PHYSICAL THERAPY DoD RE-EVALUATION 008 APPLICATION OF A DoD MODALITY TO 1 OR 008 MORE AREAS; HOT OR COLD PACKS RANGE OF MOTION DoD MEASUREMENTS AND 008 REPORT (SEPARATE PROCEDURE); EACH EXTREMITY (EXCLUDING HAND) OR EACH TRUNK SECTION (SPINE) RANGE OF MOTION DoD MEASUREMENTS AND 008 REPORT (SEPARATE PROCEDURE); EACH EXTREMITY (EXCLUDING HAND) OR EACH TRUNK SECTION (SPINE) RANGE OF MOTION DoD MEASUREMENTS AND 008 REPORT (SEPARATE PROCEDURE); EACH EXTREMITY (EXCLUDING HAND) OR EACH TRUNK SECTION (SPINE) RANGE OF MOTION DoD MEASUREMENTS AND 008 REPORT (SEPARATE PROCEDURE); EACH EXTREMITY (EXCLUDING HAND) OR EACH TRUNK SECTION (SPINE) THERAPEUTIC DoD PROCEDURE, 1 OR 008 MORE AREAS, EACH 15 MINUTES; THERAPEUTIC EXERCISES TO DEVELOP STRENGTH AND ENDURANCE, RANGE OF MOTION AND FLEXIBILITY THERAPEUTIC DoD PROCEDURE, 1 OR 008 MORE AREAS, EACH 15 MINUTES; THERAPEUTIC EXERCISES TO DEVELOP STRENGTH AND ENDURANCE, RANGE OF MOTION AND FLEXIBILITY THERAPEUTIC DoD PROCEDURE, 1 OR 008 MORE AREAS, EACH 15 MINUTES; THERAPEUTIC EXERCISES TO DEVELOP STRENGTH AND ENDURANCE, RANGE OF MOTION AND FLEXIBILITY THERAPEUTIC DoD PROCEDURE, 1 OR 008 MORE AREAS, EACH 15 MINUTES; THERAPEUTIC EXERCISES TO DEVELOP STRENGTH AND ENDURANCE, RANGE OF MOTION AND FLEXIBILITY PHYSICAL THERAPY DoD RE-EVALUATION 008 THERAPEUTIC DoD PROCEDURE, 1 OR 008 MORE AREAS, EACH 15 MINUTES; THERAPEUTIC EXERCISES TO DEVELOP STRENGTH AND ENDURANCE, RANGE OF MOTION AND FLEXIBILITY THERAPEUTIC DoD PROCEDURE, 1 OR 008 MORE AREAS, EACH 15 MINUTES; THERAPEUTIC EXERCISES TO DEVELOP STRENGTH AND ENDURANCE, RANGE OF MOTION AND FLEXIBILITY RANGE OF MOTION DoD MEASUREMENTS AND 008 REPORT (SEPARATE PROCEDURE); EACH EXTREMITY (EXCLUDING HAND) OR EACH TRUNK SECTION (SPINE) RANGE OF MOTION DoD MEASUREMENTS AND 008 REPORT (SEPARATE PROCEDURE); EACH EXTREMITY (EXCLUDING HAND) OR EACH TRUNK SECTION (SPINE) APPLICATION OF A DoD MODALITY TO 1 OR 008 MORE AREAS; HOT OR COLD PACKS APPLICATION OF A DoD MODALITY TO 1 OR 008 MORE AREAS; HOT OR COLD PACKS APPLICATION OF A DoD MODALITY TO 1 OR 008 MORE AREAS; HOT OR COLD PACKS RANGE OF MOTION DoD MEASUREMENTS AND 008 REPORT (SEPARATE PROCEDURE); EACH EXTREMITY (EXCLUDING HAND) OR EACH TRUNK SECTION (SPINE) APPLICATION OF A DoD MODALITY TO 1 OR 008 MORE AREAS; HOT OR COLD PACKS APPLICATION OF A DoD MODALITY TO 1 OR 008 MORE AREAS; HOT OR COLD PACKS PHYSICAL THERAPY DoD EVALUATION 008 TRANSFUSION OF DoD PACKED CELLS 008 OTHER IRRIGATION OF DoD WOUND 008 AMBULATION AND GAIT DoD TRAINING 008 OTHER SKIN GRAFT TO DoD OTHER SITES 008 OTHER PLASTIC DoD OPERATIONS ON 008 TENDON EXCISION OF LESION D oD OF OTHER SOFT 008 TISSUE OTHER INCISION OF Do D SOFT TISSUE 008 OPEN REDUCTION OF Do D FRACTURE OF TIBIA 008 AND FIBULA WITH INTERNAL FIXATION POSTOPERATIVE DoD FOLLOW-UP VISIT, 008 NORMALLY INCLUDED IN THE SURGICAL PACKAGE, INDICATE THAT EVALUATION & MANAGEMENT SERVICE WAS PERFORMED DURING A POSTOPERATIVE PERIOD REASON RELATED ORIGINAL PROCEDURE SELF-CARE/HOME DoD MANAGMENT TRAIN 008 (EG,ACT OF DAILY LIVING (ADL) &COMPENSAT TRAIN,MEAL PREPARATION,SAFETY PROCS,AND INSTRUCT IN USE OF ASST TECHNOLOGY DEV/ADPT EQUIP) DIR ONE-ON-ONE CONT,EA 15 MINUTES THERAPEUTIC DoD PROCEDURE, 1 OR 008 MORE AREAS, EACH 15 MINUTES; GAIT TRAINING (INCLUDES STAIR CLIMBING) POSTOPERATIVE DoD FOLLOW-UP VISIT, 008 NORMALLY INCLUDED IN THE SURGICAL PACKAGE, INDICATE THAT EVALUATION & MANAGEMENT SERVICE WAS PERFORMED DURING A POSTOPERATIVE PERIOD REASON RELATED ORIGINAL PROCEDURE RANGE OF MOTION DoD MEASUREMENTS AND 008 REPORT (SEPARATE PROCEDURE); EACH EXTREMITY (EXCLUDING HAND) OR EACH TRUNK SECTION (SPINE) POSTOPERATIVE DoD FOLLOW-UP VISIT, 008 NORMALLY INCLUDED IN THE SURGICAL PACKAGE, INDICATE THAT EVALUATION & MANAGEMENT SERVICE WAS PERFORMED DURING A POSTOPERATIVE PERIOD REASON RELATED ORIGINAL PROCEDURE SURG PREP/CREATION, DoD RECIPIENT SITE 008 EXCISION, OPN WNDS, BURN ESCHAR,/SCAR (INCL SUBCUTANEOUS TISSUES),/INCISAL RELEASE, SCAR CONTRACT, TRNK, ARMS, LEGS; 1ST 100 SQ CM/1%, BDY AREA, INFANTS &CHILDREN THERAPEUTIC DoD PROCEDURE, 1 OR 008 MORE AREAS, EACH 15 MINUTES; GAIT TRAINING (INCLUDES STAIR CLIMBING) POSTOPERATIVE DoD FOLLOW-UP VISIT, 008 NORMALLY INCLUDED IN THE SURGICAL PACKAGE, INDICATE THAT EVALUATION & MANAGEMENT SERVICE WAS PERFORMED DURING A POSTOPERATIVE PERIOD REASON RELATED ORIGINAL PROCEDURE DEBRIDEMENT, OPEN Do D WOUND, INCL TOP 008 APPLICAT, WOUND ASSESSMENT, USE OF A WHIRLPOOL, WHEN PERFORMED AND INSTRUCTION(S) FOR ONGOING CARE, PER SESSION, TOTAL WOUND(S) SURFACE AREA; FIRST 20 SQ CM OR LESS MEDICAL NUTRITION Do D THERAPY; INITIAL 008 ASSESSMENT AND INTERVENTION, INDIVIDUAL, [id number] WITH THE PATIENT, EACH 15 MINUTES THERAPEUTIC DoD PROCEDURE, 1 OR 008 MORE AREAS, EACH 15 MINUTES; GAIT TRAINING (INCLUDES STAIR CLIMBING) HYDROCOLLOID DoD DRESSING, WOUND 008 COVER, STERILE, PAD SIZE 16 SQ. IN. OR LESS, WITHOUT ADHESIVE BORDER, EACH DRESSING POSTOPERATIVE DoD FOLLOW-UP VISIT, 008 NORMALLY INCLUDED IN THE SURGICAL PACKAGE, INDICATE THAT EVALUATION & MANAGEMENT SERVICE WAS PERFORMED DURING A POSTOPERATIVE PERIOD REASON RELATED ORIGINAL PROCEDURE DEBRIDEMENT, OPEN Do D WOUND, INCL TOP 008 APPLICAT, WOUND ASSESSMENT, USE OF A WHIRLPOOL, WHEN PERFORMED AND INSTRUCTION(S) FOR ONGOING CARE, PER SESSION, TOTAL WOUND(S) SURFACE AREA; FIRST 20 SQ CM OR LESS THERAPEUTIC DoD PROCEDURE, 1 OR 008 MORE AREAS, EACH 15 MINUTES; GAIT TRAINING (INCLUDES STAIR CLIMBING) POSTOPERATIVE DoD FOLLOW-UP VISIT, 008 NORMALLY INCLUDED IN THE SURGICAL PACKAGE, INDICATE THAT EVALUATION & MANAGEMENT SERVICE WAS PERFORMED DURING A POSTOPERATIVE PERIOD REASON RELATED ORIGINAL PROCEDURE UNLISTED PROCEDURE, DoD LEG OR ANKLE 008 THERAPEUTIC DoD PROCEDURE, 1 OR 008 MORE AREAS, EACH 15 MINUTES; GAIT TRAINING (INCLUDES STAIR CLIMBING) POSTOPERATIVE DoD FOLLOW-UP VISIT, 008 NORMALLY INCLUDED IN THE SURGICAL PACKAGE, INDICATE THAT EVALUATION & MANAGEMENT SERVICE WAS PERFORMED DURING A POSTOPERATIVE PERIOD REASON RELATED ORIGINAL PROCEDURE INJECTION, DoD MIDAZOLAM HCL, PER 008 1 MG PURE TONE DoD AUDIOMETRY 008 (THRESHOLD); AIR ONLY POSTOPERATIVE DoD FOLLOW-UP VISIT, 008 NORMALLY INCLUDED IN THE SURGICAL PACKAGE, INDICATE THAT EVALUATION & MANAGEMENT SERVICE WAS PERFORMED DURING A POSTOPERATIVE PERIOD REASON RELATED ORIGINAL PROCEDURE POSTOPERATIVE DoD FOLLOW-UP VISIT, 007 NORMALLY INCLUDED IN THE SURGICAL PACKAGE, INDICATE THAT EVALUATION & MANAGEMENT SERVICE WAS PERFORMED DURING A POSTOPERATIVE PERIOD REASON RELATED ORIGINAL PROCEDURE NONINVASIVE EAR OR D oD PULSE OXIMETRY FOR 007 OXYGEN SATURATION; MULTIPLE DETERMINATIONS (EG, DURING EXERCISE) UNLISTED SPECIAL DoD SERVICE, PROCEDURE 007 OR REPORT DUPLEX SCAN OF DoD EXTREMITY VEINS 007 INCLUDING RESPONSES TO COMPRESSION AND OTHER MANEUVERS; UNILATERAL OR LIMITED STUDY SELF-CARE/HOME DoD MANAGMENT TRAIN 007 (EG,ACT OF DAILY LIVING (ADL) &COMPENSAT TRAIN,MEAL PREPARATION,SAFETY PROCS,AND INSTRUCT IN USE OF ASST TECHNOLOGY DEV/ADPT EQUIP) DIR ONE-ON-ONE CONT,EA 15 MINUTES URINALYSIS, BY DIP D oD STICK OR TABLET 007 REAGENT FOR BILIRUBIN, GLUCOSE, HEMOGLOBIN, KETONES, LEUKOCYTES, NITRITE, PH, PROTEIN, SPEC GRAVITY, UROBILINOGEN, ANY NUMBER OF CONSTITUENTS; W/O MICRO, AUTOMATED PURE TONE DoD AUDIOMETRY 006 (THRESHOLD); AIR ONLY OPHTHALMOLOGICAL DoD SERVICES: MEDICAL 006 EXAMINATION AND EVALUATION WITH INITIATION OF DIAGNOSTIC AND TREATMENT PROGRAM; COMPREHENSIVE, NEW PATIENT, 1 OR MORE VISITS OPHTHALMOLOGICAL DoD SERVICES: MEDICAL 005 EXAMINATION AND EVALUATION, WITH INITIATION OR CONTINUATION OF DIAGNOSTIC AND TREATMENT PROGRAM; COMPREHENSIVE, ESTABLISHED PATIENT, 1 OR MORE VISITS OPHTHALMOLOGICAL DoD SERVICES: MEDICAL 005 EXAMINATION AND EVALUATION, WITH INITIATION OR CONTINUATION OF DIAGNOSTIC AND TREATMENT PROGRAM; COMPREHENSIVE, ESTABLISHED PATIENT, 1 OR MORE VISITS OPHTHALMOLOGICAL DoD SERVICES: MEDICAL 005 EXAMINATION AND EVALUATION, WITH INITIATION OR CONTINUATION OF DIAGNOSTIC AND TREATMENT PROGRAM; COMPREHENSIVE, ESTABLISHED PATIENT, 1 OR MORE VISITS OPHTHALMOLOGICAL DoD SERVICES: MEDICAL 005 EXAMINATION AND EVALUATION, WITH INITIATION OR CONTINUATION OF DIAGNOSTIC AND TREATMENT PROGRAM; COMPREHENSIVE, ESTABLISHED PATIENT, 1 OR MORE VISITS OPHTHALMOLOGICAL DoD SERVICES: MEDICAL 005 EXAMINATION AND EVALUATION, WITH INITIATION OR CONTINUATION OF DIAGNOSTIC AND TREATMENT PROGRAM; COMPREHENSIVE, ESTABLISHED PATIENT, 1 OR MORE VISITS OPHTHALMOLOGICAL DoD SERVICES: MEDICAL 005 EXAMINATION AND EVALUATION, WITH INITIATION OR CONTINUATION OF DIAGNOSTIC AND TREATMENT PROGRAM; COMPREHENSIVE, ESTABLISHED PATIENT, 1 OR MORE VISITS OPHTHALMOLOGICAL DoD SERVICES: MEDICAL 005 EXAMINATION AND EVALUATION, WITH INITIATION OR CONTINUATION OF DIAGNOSTIC AND TREATMENT PROGRAM; COMPREHENSIVE, ESTABLISHED PATIENT, 1 OR MORE VISITS OPHTHALMOLOGICAL DoD SERVICES: MEDICAL 005 EXAMINATION AND EVALUATION WITH INITIATION OF DIAGNOSTIC AND TREATMENT PROGRAM; INTERMEDIATE, NEW PATIENT SCREENING TEST OF Do D VISUAL ACUITY, 005 QUANTITATIVE, BILATERAL PURE TONE DoD AUDIOMETRY 005 (THRESHOLD); AIR ONLY Social History Combined list of available smoking, tobacco, and other social history from [facility] of Defense and[facility] Affairs facilities. Social History Response Date Comment Source Type Tobacco smoking VA-[facility] [place] 12/27/[place] USER History of VA-TOBACCO QUIT 5 12/27/20[place] tobacco use TO < 15 YRS History of VA-TOBACCO FORMER 08/29/2021 [place] tobacco use USER History of VA-TOBACCO FORMER 07/23/2020 [facility] D tobacco use USER History of VA-TOBACCO FORMER 08/05/2018 [facility] D tobacco use USER History of LIFETIME 07/10/2017 [place] tobacco use NON-TOBACCO USER History of QUIT TOBACCO USE > 02/11/2017 STOPPED SMOKING 2 [place] tobacco use 7 YEARS AGO 1/2 YEARS AGO A PACK A DAY History of QUIT TOBACCO USE 07/30/2016 reports quitting [place] tobacco use 1-7 YEARS AGO 2 years ago History of QUIT TOBACCO USE 06/18/2015 [place] tobacco use 1-7 YEARS AGO History of QUIT TOBACCO USE IN 09/12/2014 [place] tobacco use PAST YEAR History of V1-PT READY TO QUIT 05/18/2014 [place] tobacco use TOBACCO USE History of CURRENT SMOKER 11/29/2013 [place] [facility] tobacco use History of V1-PT NOT 05/04/2013 [place] tobacco use INTERESTED IN QUIT TOBACCO USE History of V1-PT DECLINES 03/09/2013 [place] tobacco use TOBACCO CESSATION MEDS History of CURRENT SMOKER 08/24/2012 [place] tobacco use History of V1-PT DECLINES 04/06/2012 [place] tobacco use TOBACCO CESSATION MEDS History of CURRENT SMOKER 06/25/2011 [place] sm[place] tobacco use 1/2 pk per day History of CURRENT SMOKER 05/30/2010 2/3 pk day [place] tobacco use History of TOBACCO OFFERRED PT 02/25/2010 [place]AR[place] tobacco use MEDS (PROVIDER) [facility] History of CURRENT TOBACCO 06/29/2009 [place] tobacco use USER [facility] History of TOBACCO OFFERRED PT 07/14/2008 [place] tobacco use MEDS (PROVIDER) [facility] History of CURRENT TOBACCO 07/14/2008 [place] tobacco use USER [facility] This section is DoD an empty social history section. Plan of Care List of future care activities from Department of Veterans Affairs facilities. Additional future care activities may be listed in the Assessment and Plan section. Date/Time Care Activity Care Activity Detail Facility 02/19/2022 AMBULATORY - NONE AMBULATORY - NONE [facility]
--- OUTSIDE RECORDS SUMMARY | 2022-02-08 16:24 | XMS_ITS | Encounter Summary ---
:1975 Author Organization [facility] of [facility] rs Address [address] [place] [address] Support Name Relationship Address Phone LANG NAZARIO Unavailable [address] [place] [address] OLIVIA GOVEA Unavailable Unavailable Selected Encounter This section includes the information on record at [place] for the Encounter. Date/Time Encounter Type Encounter Description Reason Provider Source Jun 27, 2021 10:30 Outpatient Encounter PROSTHETICS/ORTHOTICS AM IHE Encounter Template Text not used by [facility] Plan of Treatment: Future Appointments (+ 6 months) and Future Tests (+/- 45 days) The Plan of Treatment section includes future care activities for the patient from all [place] treatmentfacilities. This section includes future appointments and future orders which are active, pending orscheduled.Future Appointments This section includes appointments that were scheduled to occur 6 months from the date of the Encounter, up to a maximum of 20 appointments. The data comes from all [place] treatment facilities. Appointment Date/Time Appointment Type Appointment Facili ty Name Jul 08, 2021 11:30 AM [facility] Jul 11, 2021 12[facility]00 [facility] August 20, 2021 09:30 AM [facility]ORY [facility] [place] August 29, 2021 03:00 PM [facility] Nov 07, 2021 08:00 AM AMBULATORY MEDICINE [place] Dec 04, 2021 01:30 PM [facility]ORY [facility] [place] Dec 20, 2021 10:00 AM AMBULATORY NONE [facility] Dec 27, 2021 11:00 AM AMBULATORY MEDICINE [facility] Active, Pending, and Scheduled Orders This section includes a listing of several types of active, pending, and scheduled orders, including clinic medications orders, diagnostic test orders, procedure orders and consult orders; where the start date of the order is 45 days before the date of the Encounter or 45 days after the date of the Encounter. The data comes from all [place] treatment facilities. Test Date/Time Test Type Test Details Facility Name Jun 06, 2021 10:54 AM Consult Order [facility] Cons SP [facility] Intake Clinician's Choice Encounter Notes: All associated encounter notes This section contains the clinical notes associated to the Encounter. Date/Time Encounter Note(s) Provider Source Jul 01, 2021 08:55 AM INFECTIOUS DISEASE NOTE: MARYLOU JOHNSON [facility] TITLE: COVID-19 CANCELLED APPOINTMENT FOL LOW-UP STANDARD TITLE: INFECTIOUS DISEASE NOTE DATE OF NOTE: JUL 01, 2021@08:55 ENTRY DATE: JUL 01, 2021@08:55:18 AUTHOR: MARYLOU JOHNSON EXP COSIGNER: URGENCY: STATUS: COMPLETED Review of cancelled appointments during COVID-19 pandemic: CVP - Past Clinic Visits 06/27/2021 10:30 [facility] NO-[facility] 04/02/2021 09:00 [facility] 01/18/2021 11:00 [facility] 01/08/2021 15:00 [facility]RIST[facility] NE[facility]O STROKE 1 CANCELLED BY PATIENT 01/01/2021 13:00 [facility] NE[facility]O NEW [facility]LLOW CANCE[facility]ED [facility] Date(s) of appointment(s) being reviewed: Clinic Location/Specialty: [facility] The 's chart has been reviewed and the ac tion below is indicated for this cancelled appointment: None, minimum scheduling attempts met /pippa/ MARYLOU JOHNSON Signed: 07/01/2021 08:55
--- OUTSIDE RECORDS SUMMARY | 2022-02-08 16:25 | XMS_ITS | Encounter Summary ---
:1975 Author Organization [facility] of [facility] rs Address [address] [place] [address] Support Name Relationship Address Phone LANG NAZARIO Unavailable [address] [place] [address] OLIVIA GOVEA Unavailable Unavailable Selected Encounter This section includes the information on record at [place] for the Encounter. Date/Time Encounter Type Encounter Description Reason Provider Source Jul 02, 2021 03:55 Outpatient Encounter TELEPHONE TRIAGE PM IHE Encounter Template Text not used by [...] 08, 2021 11:30 AM AMBULATORY - MEDICINE [facility] Jul 11, 2021 12:00 PM AMBULATORY [facility] August 20, 2021 09:30 AM AMBULATORY - PS[place]CHIATRY [place] August 29, 2021 03:00 PM AMBULATORY [facility]IC[facility] [place] Nov 07, 2021 08:00 AM AMBULATORY [facility]IC[facility] [place] Dec 04, 2021 01:30 PM [facility]ATORY [facility] [place] Dec 20, 2021 10:00 AM AMBULATORY - NONE [facility] Dec 27, 2021 11:[address] [facility] Active, Pending, and Scheduled Orders [...] 06, 2021 10:54 AM Consult Order [facility] Cons SP [facility] Robotype Operator's Choice Encounter Notes: All associated encounter notes This section contains the clinical notes associated to the Encounter. Date/Time Encounter Note(s) Provider Source Jul 02, 2021 03:55 PM TELEPHONE ENCOUNTER NOTE: JESSY GUPTA [facility] WSN LOCAL TITLE: VISN 1 CCC ACTION REQUIRED [place] [facility] STANDARD TITLE: TELEPHONE ENCOUNTER NOTE DATE OF NOTE: JUL 02, 2021@15:55:39 ENTRY DATE: JUL 02, 2021@15:57:23 AUTHOR: JESSY GUPTA EXP COSIGNER: URGENCY: STATUS: COMPLETED VISN 1 CCC ACTION REQUIRED Has ADDENDA The patient, OLIVIA NAZARIO ([phone]) called the call center. The following identifiers were used to verify th is patient: . SSN. Contact Type of call: ADMINISTRATIVE. Caller Response: ADM CALL RESOLVED Caller Area: [facility] PCMM [phone] MH: [facility] (TC) Insurance Salesperson JESUS EVANGELISTA PHONE:[phone] [facility] ([phone]) PACT: SO PACT 4 (Focus: Primary Care Only) Primary Care Provider: ZARI CULLEN PHONE:[phone] Toolroom Checker: LIANG RESENDEZ Clinical Associate: CARLOS BOYD PHON E:[phone] Merchandise Stocker: LIANG PATEL PHONE:[phone] PACT Clinical Pharmacist: CADE HERNANDEZ Clinical POC: Toolroom Checker ADRIANNA RESENDEZ Administrative POC: Merchandise Stocker LIANG PATEL PHONE:[phone] Author: JESSY GUPTA Comments: [place] requests a call back to find out if the fax was received from [facility] for medication Doxicycline. Evaluation/Management Code: HC PRO PHONE CALL 5- 10 MIN ([phone]). Starting at: 07/02/2021 @ 3:55:39 PM Ending at: 07/02/2021 @ 3:56:35 PM Length: 0 minutes. Chief Complaint: Not applicable to call. Class Code: Other specified counseling. Patient's Email Address: [email or web address] /pippa/ JESSY GUPTA ADVANCED TOP FRAME MAKER Signed: 07/02/2021 15:57 Receipt Acknowledged By: 07/03/2021 10:35 /es/ LIANG RESENDEZ RN REGISTERED NURSE 07/02/2021 16:18 /es/ CARLOS BOYD LPN LICENSED PRACTICAL NURSE 07/02/2021 ADDENDUM STATUS: COMPLETED Once script recieved can go to pharmacy with it per PCP. /real BOYD LPN LICENSED PRACTICAL NURSE Signed: 07/02/2021 16:20 07/03/2021 ADDENDUM STATUS: COMPLETED Script in Right fax main folder. Will need to be rewritten by [facility] PCP. /pippa/ CARLOS BOYD LPN LICENSED PRACTICAL NURSE Signed: 07/03/2021 10:33 Receipt Acknowledged By: 07/03/2021 10:49 /es/ Zari Cullen M.D. STAFF PHYSICIAN 07/03/2021 ADDENDUM STATUS: COMPLETED called to check status would lik e to be able to hand picker at [place] this afternoon, please call is when this is possible /es/ JAY JAY VU ADVANCED TOP FRAME MAKER Signed: 07/03/2021 10:51 07/03/2021 ADDENDUM STATUS: COMPLETED Spoke with and he is aware script here at [address] [place] [address] to be picked up at pharmacy. /pippa/ CARLOS BOYD LPN LICENSED PRACTICAL NURSE Signed: 07/03/2021 13:07
--- OUTSIDE RECORDS SUMMARY | 2022-02-08 16:25 | XMS_ITS | Encounter Summary ---
:1975 Author Organization [facility] of [facility] rs Address [address] [place] [id number] Support Name Relationship Address Phone LANG NAZARIO Unavailable [address] [place] [address] OLIVIA GOVEA Unavailable Unavailable Selected Encounter This section includes the information on record at [place] for the Encounter. Date/Time Encounter Type Encounter Description Reason Provider Source Jun 19, 2021 01:14 Outpatient Encounter TELEPHONE [facility] IHE Encounter Template Text not used by [place] Plan of Treatment: Future Appointments (+ 6 months) and Future Tests (+/- 45 days) The Plan of Treatment section includes future care activities for the patient from all [place] treatmentfacilities. This section includes future appointments and future orders which are active, pending orscheduled.Future Appointments This section includes appointments that were scheduled to occur 6 months from the date of the Encounter, up to a maximum of 20 appointments. The data comes from all [place] treatment facilities. Appointment Date/Time Appointment Type Appointment Facili ty Name Jun 24, 2021 01:45 PM AMBULATORY - MEDICINE [facility] Jun 27, 2021 10:30 AM AMBULATORY - NONE [place] Jul 08, 2021 11:30 AM [facility] MEDICINE [facility] Jul 11, 2021 12:00 PM [facility] August 20, 2021 09:30 AM AMBULATORY - PSYCHIATRY [place] August 29, 2021 03:00 PM AMBULATORY - MEDICINE [place] Nov 07, 2021 08:00 AM AMBULATORY - MEDICINE [place] Dec 04, 2021 01:30 PM AMBULATORY - MEDICINE [place] Dec 20, 2021 10:00 AM AMBULATORY - NONE [facility] Active, Pending, and Scheduled Orders This section includes a listing of several types of active, pending, and scheduled orders, including clinic medications orders, diagnostic test orders, procedure orders and consult orders; where the start date of the order is 45 days before the date of the Encounter or 45 days after the date of the Encounter. The data comes from all [place] treatment facilities. Test Date/Time Test Type Test Details Facility Name Jun 06, 2021 10:54 AM Consult [facility] SP [facility] Meat And Poultry Inspector's Choice Encounter Notes: All associated encounter notes This section contains the clinical notes associated to the Encounter. Date/Time Encounter Note(s) Provider Source Jun 19, 2021 01:14 PM MENTAL HEALTH NOTE: JESUS EVANGELISTA [facility] LOCAL TITLE: CPT PTSD THERAPY NOTE STANDARD TITLE: MENTAL HEALTH NOTE DATE OF NOTE: JUN 19, 2021@13:14 ENTRY DATE: JUN 19, 2021@13:14:48 AUTHOR: JESUS EVANGELISTA EXP COSIGNER: URGENCY: STATUS: COMPLETED Cognitive Processing Therapy Early Termination - Outside of Session NUMBER OF SESSIONS COMPLETED: 4 DIAGNOSIS: Primary (focus of treatment): PTSD EARLY TERMINATION chose to discontinue treatment premature ly. Spicer discontinued treatment because: Spicer stated he had too much going on in his life currently ADDITIONAL INFORMATION: Spicer stated he would call when he had more t rob /pippa/ MANDO BARNES Executive Assistant To General Counsel Mental Health Signed: 06/19/2021 13:18
--- OUTSIDE RECORDS SUMMARY | 2022-02-08 16:25 | XMS_ITS | Encounter Summary ---
:1975 Author Organization Department of [facility] rs Address [address] [place] [address] Support Name Relationship Address Phone LANG NAZARIO Unavailable [address] [phone] [place] [address] OLIVIA GOVEA Unavailable Unavailable Selected Encounter This section includes the information on record at [place] for the Encounter. Date/Time Encounter Type Encounter Description Reason Provider Source Jul 02, 2021 03:15 Outpatient Encounter TELEPHONE TRIAGE PM IHE Encounter Template Text not used by [place] Plan of Treatment: Future Appointments (+ 6 months) and Future Tests (+/- 45 days) The Plan of Treatment section includes future care activities for the patient from all [place] treatmentfacilities. This section includes future appointments and future orders which are active, pending orscheduled.Future Appointments This section includes appointments that were scheduled to occur 6 months from the date of the Encounter, up to a maximum of 20 appointments. The data comes from all [place] treatment facilities. Appointment Date/Time Appointment Type Appointment Facili ty Name Jul 08, 2021 11:30 AM AMBULATORY - MEDICINE [facility] Jul 11, 2021 12:00 PM AMBULATORY [facility] August 20, 2021 09:30 AM AMBULATORY - PSYCHIATRY [place] August 29, 2021 03:00 PM AMBULATORY MEDICINE [place] Nov 07, 2021 08:00 AM AMBULATORY MEDICINE [place] Dec 04, 2021 01:30 PM AMBULATORY MEDICINE [place] Dec 20, 2021 10:00 AM AMBULATORY - NONE [facility] Dec 27, 2021 11:00 AM AMBULATORY MEDICINE [facility] Active, Pending, and Scheduled Orders This section includes a listing of several types of active, pending, and scheduled orders, including clinic medications orders, diagnostic test orders, procedure orders and consult orders; where the start date of the order is 45 days before the date of the Encounter or 45 days after the date of the Encounter. The data comes from all [place] treatment facilities. Test Date/Time Test Type Test Details Facility Name Jun 06, 2021 10:54 AM Consult Order [facility] Cons SP [facility] Blow Molder's Choice Encounter Notes: All associated encounter notes This section contains the clinical notes associated to the Encounter. Date/Time Encounter Note(s) Provider Source Jul 02, 2021 03:15 PM TELEPHONE ENCOUNTER NOTE: [facility] LOC[facility] TITLE: VISN 1 CCC ACTION REQUIRED [place] [facility] STANDARD TITLE: TELEPHONE ENCOUNTER NOTE DATE OF NOTE: JUL 02, 2021@15:15:49 ENTRY DATE: JUL 02, 2021@15:18:09 AUTHOR: JESSY GUPTA EXP COSIGNER: URGENCY: STATUS: COMPLETED VISN 1 CCC ACTION REQUIRED Has ADDENDA The patient, OLIVIA NAZARIO ([phone]) called the call center. The following identifiers were used to verify th is patient: . SSN. Contact Type of call: ADMINISTRATIVE. Caller Response: ADM CALL RESOLVED Caller Area: [facility] PCMM [facility] ([phone]) MH: [facility] (TC) Insurance Sales Assistant JESUS EVANGELISTA PHONE:[phone] [facility] ([phone]) PACT: SO PACT 4 (Focus: Primary Care Only) Primary Care Provider: DANY CULLEN PHONE:[phone] Zinc Skimmer: LIANG RESENDEZ Clinical Associate: CARLOS BOYD PHON E:[phone] Business Manager: LIANG PATEL PHONE:[phone] PACT Clinical Pharmacist: CADE HERNANDEZ Clinical POC: Zinc Skimmer ADRIANNA RESENDEZ Administrative POC: Business Manager LIANG PATEL PHONE:[phone] Author: JESSY GUPTA Comments: [place] reports he was seen at [facility] today, 07/02/21, for pneumonia and prescribed Doxicycline. Vet would like to get this filled at the [place]. Please assist. Evaluation/Management Code: HC PRO PHONE CALL [phone]- [phone] MIN ([phone]). Starting at: 07/02/2021 @ 3:15:49 PM Ending at: 07/02/2021 @ 3:17:12 PM Length: 1 minutes. Chief Complaint: Not applicable to call. Class Code: Other specified counseling. Patient's Email Address: [email or web address] Taye /pippa/ JESSY GUPTA ADVANCED RESEARCH LABORATORY TECHNICIAN Signed: 07/02/2021 15:18 Receipt Acknowledged By: 07/02/2021 15:31 /pippa/ LIANG RESENDEZ RN REGISTERED NURSE 07/02/2021 15:33 /pippa/ CARLOS BOYD LPN LICENSED PRACTICAL NURSE * AWAITING SIGNATURE * NASREEN OWENS * AWAITING SIGNATURE * AARON DIXON 07/02/2021 ADDENDUM STATUS: COMPLETED [facility] Informed him the PCP would like the prescription in order for it to be filled. [place] will call the ED and have them fax prescription to clinic. /pippa/ LIANG RESENDEZ RN REGISTERED NURSE Signed: 07/02/2021 15:30 07/02/2021 ADDENDUM STATUS: COMPLETED Will include MSA to obtain records from above re ported visit.Thank You /pippa/ CARLOS BOYD LPN LICENSED PRACTICAL NURSE Signed: 07/02/2021 16:18 Receipt Acknowledged By: * AWAITING SIGNATURE * LIANG PATEL
--- OUTSIDE RECORDS SUMMARY | 2022-02-08 16:25 | XMS_ITS | Encounter Summary ---
:1975 Author Organization Department [facility] rs Address [address] [place] [address] Support Name Relationship Address Phone LANG NAZARIO Unavailable [address] [place] [address] OLIVIA GOVEA Unavailable Unavailable Selected Encounter This section includes the information on record at [place] for the Encounter. Date/Time Encounter Type Encounter Description Reason Provider Source Jul 04, 2021 11:56 Outpatient Encounter COMMUNITY CARE AM CONSULT IHE Encounter Template Text not used by [place] [...] Jul 08, 2021 11:30 AM AMBULATORY MEDICINE [facility] Jul 11, 2021 12:00 PM [facility] August 20, 2021 09:30 AM AMBULATORY - PSYCHIATRY [place] August 29, 2021 03:00 PM AMBULATORY MEDICINE [place] Nov 07, 2021 08:00 AM AMBULATORY MEDICINE [place] Dec 04, 2021 01:30 PM AMBULATORY MEDICINE [place] Dec 20, 2021 10:00 AM [facility]ORY - NONE [facility] Dec 27, 2021 11:00 AM [facility] Active, Pending, and Scheduled Orders This section [...] data comes from all [place] treatment facilities. Test Date/Time Test Type Test Details Facility Name Jun 06, 2021 10:54 AM Consult Order COMM[facility]ITY CARE-ENT Cons SP [facility] Tool And Die Engineer's Choice Encounter Notes: All associated encounter notes This section contains the clinical notes associated to the Encounter. Date/Time Encounter Note(s) Provider Source Jul 04, 2021 11:56 AM NONVA NOTE: AN GUERRA LOCAL TITLE: COMMUNITY CARE COORDINATION PLAN STANDARD TITLE: NONVA NOTE DATE OF NOTE: JUL 04, 2021@11:56 ENTRY DATE: JUL 04, 2021@11:56:13 AUTHOR: AN GUERRA EXP COSIGNER: URGENCY: STATUS: COMPLETED self-presented to community emergency fa cility Emergency Notification Intake Date Presenting to the Facility: Jun [facility] Name: Hospital: [place], [place] Address: [facility]: [place]: Zip Code: Phone : Chief complaint: PNEUMONIA Primary Diagnosis: Patient Admitted? No Community Facility Point of Contact: Name: Phone: info from Cardiovascular Provider Resource Holdingspoint /pippa/ AN PARKER Signed: 07/04/2021 11:58 Receipt Acknowledged By: * AWAITING SIGNATURE * DANY CULLEN * AWAITING SIGNATURE * NASREEN OWENS * AWAITING SIGNATURE * AARON DIXON 07/04/2021 12:01 /es/ LIANG RESENDEZ RN REGISTERED NURSE * AWAITING SIGNATURE * JEREMIAH DAMON
--- OUTSIDE RECORDS SUMMARY | 2022-02-08 16:25 | XMS_ITS | Encounter Summary ---
:1975 Author Organization Department [facility] rs Address [address] [place] [address] Support Name Relationship Address Phone LANG GARCIA Unavailable [address] [place] [address] OLIVIA GOVEA Unavailable Unavailable Selected Encounter This section includes the information on record at [place] for the Encounter. Date/Time Encounter Type Encounter Description Reason Provider Source Jun 24, 2021 07:54 Outpatient Encounter PRIMARY CARE/MEDICINE AM E Encounter Template Text not used by [place] Plan of Treatment: Future Appointments (+ 6 months) and Future Tests (+/- 45 days) The Plan of Treatment section includes future care activities for the patient from all [place] treatmentfacilities. This section includes future appointments and future orders which are active, pending orscheduled.Future Appointments This section includes appointments that were scheduled to occur 6 months from the date of the Encounter, up to a maximum of 20 appointments. The data comes from all [place] treatment facilities. Appointment Date/Time Appointment Type Appointment Facili ty Name Jun 27, 2021 10:30 AM AMBULATORY - NONE [place] Jul 08, 2021 11:30 AM AMBULATORY - MEDICINE [facility] Jul 11, 2021 12:00 PM [facility] August 20, 2021 09:30 AM AMBULATORY - PS[place]CHIATRY [place] August 29, 2021 03:00 PM AMBULATORY MEDICINE [place] Nov 07, 2021 08:00 AM AMBULATORY - MEDICINE [place] Dec 04, 2021 01:30 PM AMBULATORY MEDICINE [place] Dec 20, 2021 10:00 AM AMBULATORY NONE [facility] Active, Pending, and Scheduled Orders This section includes a listing of several types of active, pending, and scheduled orders, including clinic medications orders, diagnostic test orders, procedure orders and consult orders; where the start date of the order is 45 days before the date of the Encounter or 45 days after the date of the Encounter. The data comes from all [place] treatment facilities. Test Date/Time Test Type Test Details Facility Name Jun 06, 2021 10:54 AM Consult Order COMMUNITY CARE-ENT Cons SP [facility] Director Of Mechanical Engineering's Choice Encounter Notes: All associated encounter notes This section contains the clinical notes associated to the Encounter. Date/Time Encounter Note(s) Provider Source Jun 24, 2021 07:54 AM PRIMARY CARE SECURE MESSAGING: ADITHYA PATEL [place] CNTRL [facility] LOCAL TITLE: PRIMARY CARE SECURE MESSAGING [place] [facility] STANDARD TITLE: PRIMARY CARE SECURE MESSAGING DATE OF NOTE: JUN 24, 2021@07:54 ENTRY DATE: JUN 24, 2021@07:54:26 AUTHOR: LIANG PATEL EXP COSIGNER: URGENCY: STATUS: COMPLETED ------Original Message Sent: 06/23/2021 01:14 PM ET From: OLIVIA GARCIA To: *Tiara URENA_PRIMARY CARE_[facility] Subject: Medication:Scrip renewals Doc, Would you please renew my scrips for pantoprazol e, cetirizine, and fiber supplements? Thanks. V/R Olivia Garcia /pippa/ LIANG PATEL AGRICULTURE TECHNICIAN Signed: 06/24/2021 07:54 Receipt Acknowledged By: * AWAITING SIGNATURE * DANY CULLEN
--- OUTSIDE RECORDS SUMMARY | 2022-02-08 16:25 | XMS_ITS | Encounter Summary ---
:1975 Author Organization Department [facility] rs Address [address] [place] [address] Support Name Relationship Address Phone LANG NAZARIO Unavailable [address] [phone] [place] [address] OLIVIA GOVEA Unavailable Unavailable Selected Encounter This section includes the information on record at [place] for the Encounter. Date/Time Encounter Type Encounter Description Reason Provider Source Jul 04, 2021 03:20 Outpatient Encounter TELEPHONE CASE PM MANAGEMENT IHE Encounter Template Text not used by [place] Plan of Treatment: Future Appointments (+ 6 months) and Future Tests (+/- 45 days) The Plan of Treatment section includes future care activities for the patient from all [place] treatmentfacilities. This section includes future appointments and future orders which are active, pending orscheduled.Future Appointments This section includes appointments that were scheduled to occur 6 months from the date of the Encounter, up to a maximum of 20 appointments. The data comes from all [place] treatment facilities. Appointment Date/Time Appointment Type Appointment Facili ty Name Jul 08, 2021 11:30 AM AMBULATORY MEDICINE [facility] Jul 11, 2021 12:00 PM [facility] August 20, 2021 09:30 AM AMBULATORY PSYCHIATRY [place] August 29, 2021 03:00 PM AMBULATORY MEDICINE [place] Nov 07, 2021 08:00 AM AMBULATORY MEDICINE [place] Dec 04, 2021 01:30 PM AMBULATORY MEDICINE [place] Dec 20, 2021 10:00 AM AMBULATORY - NONE [facility] Dec 27, 2021 11:00 AM AMBULATORY MEDICINE [facility] Active, Pending, and Scheduled Orders This section includes a listing of several types of active, pending, and scheduled orders, including clinic medications orders, diagnostic test orders, procedure orders and consult orders; where the start date of the order is 45 days before the date of the Encounter or 45 days after the date of the Encounter. The data comes from all [place] treatment facilities. Test Date/Time Test Type Test Details Facility Name Jun 06, 2021 10:54 AM Consult Order COMMUNITY CARE-ENT Cons SP [facility] Manager Nc's Choice Encounter Notes: All associated encounter notes This section contains the clinical notes associated to the Encounter. Date/Time Encounter Note(s) Provider Source Jul 04, 2021 03:20 PM TRANSFER SUMMARIZATION NOTE: JEREMIAH DAMON DE CNTRL WSTRN LOCAL TITLE: ENGINE COWLING INSTALLER/OCC/HOSPITAL NOTIFICATION NOTE [facility] STANDARD TITLE: TRANSFER SUMMARIZATION NOTE DATE OF NOTE: JUL 04, 2021@15:20 ENTRY DATE: JUL 04, 2021@15:20:25 AUTHOR: JEREMIAH DAMON EXP COSIGNER: URGENCY: STATUS: COMPLETED [place] office notified and will follow up, and track [place]. /pippa/ JEREMIAH DAMON RN Registered Nurse Signed: 07/04/2021 15:20
--- OUTSIDE RECORDS SUMMARY | 2022-02-08 16:26 | XMS_ITS | Encounter Summary ---
:1975 Author Organization Department [facility] rs Address [address] [place] [address] Support Name Relationship Address Phone LANG NAZARIO Unavailable [address] [place] [address] JEFERSONOLIVIA Unavailable Unavailable Selected Encounter This section includes the information on record at [place] for the Encounter. Date/Time Encounter Type Encounter Description Reason Provider Source Jun 13, 2021 11:47 Outpatient Encounter ADMIN PAT ACTIVTIES AM (MASNONCT) IHE Encounter Template Text not used [...] 24, 2021 01:45 PM AMBULATORY - MEDICINE [facility] Jun 27, 2021 10:30 AM AM[facility]ULATORY - [facility] Jul 08, 2021 11:30 AM AMBULATORY MEDICINE [facility] Jul 11, 2021 12:00 PM AMBULATORY [facility] August 20, 2021 09:30 AM AMBULATORY - PSYCHIATRY [place] August 29, 2021 03:00 PM AMBULATORY MEDICINE [place] Nov 07, 2021 08:00 AM AMBULATORY MEDICINE [place] Dec 04, 2021 01:30 PM AMBULATORY - MEDICINE [place] Active, Pending, and Scheduled Orders This section [...] 10:54 AM Consult Order COMMUNITY CARE-ENT Cons [facility] Project Management Intern's Choice Encounter Notes: All associated encounter notes This section contains the clinical notes associated to the Encounter. Date/Time Encounter Note(s) Provider Source Jun 13, 2021 11:47 AM MEDICATION MGT NOTE: GIOVANNA BARRETT CN TRL WSTRN LOCAL TITLE: MEDICATION KRYSTINA NANCE [facility] STANDARD TITLE: MEDICATION MGT NOTE DATE OF NOTE: JUN 13, 2021@11:47 ENTRY DATE: JUN 13, 2021@11:47:58 AUTHOR: GIOVANNA BARRETT EXP COSIGNER: URGENCY: STATUS: COMPLETED Medication on backorder: FISH OIL 1000MG (500MG DHA/EPA) CAP There are no replacements at this time, thanks! /pippa/ GIOVANNA BARRETT CPhT SHEET METAL ASSEMBLER AND RIVETER Signed: 06/13/2021 11:48 Receipt Acknowledged By: * AWAITING SIGNATURE * DANY CULLEN
--- OUTSIDE RECORDS SUMMARY | 2022-02-08 16:26 | XMS_ITS | Encounter Summary ---
:1975 Author Organization Department [facility] rs Address [address] [place] [address] Support Name Relationship Address Phone LANG NAZARIO Unavailable [address] [phone] [place] [address] OLIVIA GOVEA Unavailable Unavailable Selected Encounter This section includes the information on record at [place] for the Encounter. Date/Time Encounter Type Encounter Description Reason Provider Source Jun 06, 2021 10:21 Outpatient Encounter COMMUNITY CARE AM CONSULT IHE Encounter Template Text not used by [place] Plan of Treatment: Future Appointments (+ 6 months) and Future Tests (+/- 45 days) The Plan of Treatment section includes future care activities for the patient from all [place] treatmentfacilities. This section includes future appointments and future orders which are active, pending orscheduled.Future Appointments This section includes appointments that were scheduled to occur 6 months from the date of the Encounter, up to a maximum of 20 appointments. The data comes from all [place] treatment facilities. Appointment Date/Time Appointment Type Appointment Facili ty Name Jun 10, 2021 09:00 AM [facility] Jun 24, 2021 01:45 PM [facility] Jun 27, 2021 10:30 AM [facility] Jul 08, 2021 11:30 AM [facility] Jul 11, 2021 12:00 PM [facility] August 20, 2021 09:30 AM AMBULATORY - PSYCHIATRY [place] August 29, 2021 03:00 PM AMBULATORY MEDICINE [place] Nov 07, 2021 08:00 AM AMBULATORY - MEDICINE [place] Dec 04, 2021 01:30 PM AMBULATORY MEDICINE [place] Active, Pending, and Scheduled Orders This section includes a listing of several types of active, pending, and scheduled orders, including clinic medications orders, diagnostic test orders, procedure orders and consult orders; where the start date of the order is 45 days before the date of the Encounter or 45 days after the date of the Encounter. The data comes from all [facility]. Test Date/Time Test Type Test Details Facility Name Jun 06, 2021 10:54 AM Consult Order [facility]-ENT Cons [facility] Alcoholism Worker's Choice Lab Results: +/- 30 days of the encounter This section includes the Chemistry and Hematology Lab Results on record with [place] for the patient. Radiology Reports and Pathology Reports are provided separately, in subsequent sections.Lab Results This section contains the Chemistry/Hematology Results that were resulted 30 days before or 30 daysafter the date of the Encounter. Date/Time Source Result Type Result - Unit Interpretation Reference Range Comment May 13, 2021 11:37 AM [place] [facility]INALYS[facility] Specimen Type: URINE No comment enter ed. Ordering Provid er: DANY CULLEN Report Released Date/Time: May 13, 2021 10:53 AM Reporting Lab: [address] [id number] Performing Lab: [address] [id number] UA COLOR Straw Yellow UA APPEARANCE Clear Clear UA GLUCOSE Negative Negative UA KETONES Negative Neg UA BLOOD Negative Neg UA PROTEIN Negative Neg UA NITRITE Negative Neg UA BILIRUBIN Negative Neg UA SPECIFIC GRAVITY 1.005 L 1.016-1.02 2 UA pH 7.0 5.0-9.0 UA UROBILINOGEN <2.0 <2.0 UA LEUKOCYTE ESTERASE Negative Neg Radiology Reports: +/- 30 days of the [...] the Encounter. The data comes from all [facility]. Date/Time Radiology Report Provider Source May 07, 2021 09:43 KIDNEY AND BLADDER ULTRASOUND: RADIOLOGY,OUTS [facility] CNTRL WSTRN OLIVIA GARCÍA [id number] [phone] M SERVICE [facility] Ex Date: MAY 07, 2021@09:43 Req Phys: DANY CULLEN Loc: CWM/SO/PACT 4 ( Req'g Loc) Img Loc: ULTRASOUND Service: Unknown (Case 16 COMPLETE) ULTRASOUND KIDNEYS (US Detail ed) CPT:80585 Reason for Study: pt w/new urinary incontinence and incomplete bladder emptying (Case 17 COMPLETE) ULTRASOUND URINARY BLADDER (U S Detailed) CPT:74196 Clinical History: postvoid residual bladder scans always 0 ML Report Status: Verified Date Reported: MAY 07, 2021 Date Verified: MAY 07, 2021 Engagement Executive E-Sig: Report: Ultrasound kidneys and urinary bladder Procedure: Transverse and longitudinal grayscal e echograms of the kidneys and urinary bladder were acquired. Dopp ler imaging was utilized. This study was performed and supervis ed that focal [place] facility, and subsequently transmitted to [place] te leradiology for interpretation. The total image [...] hepatic steatosis. READING PHYSICIAN: Mitzi Garland M.D. [phone] 05/07/2021 7:21 [facility] National Teleradiology Program [phone] (For Medical Practitioner Use Only ) [address] [facility], [facility] [address], [address] [place] [address] Attention Patients / Veterans: If you have ques tions or concerns about these test results, please contact your o [facility] provider or primary care team. Primary Diagnostic Code: SIGNIFICANT ABNORMALIT Y, ATTN NEEDED Primary Interpreting Staff: RADIOLOGY,OUTSIDE SERVICE, Staff Physician / Pathology Reports: +/- 30 days of the encounter Pathology Reports For cases when an order for pathology services may have been completed prior to the date of the Encounter, the report list includes the Pathology Reports that were completed up to 30 days before date of the Encounter. For cases when an order for pathology services may have been completed after the date of the Encounter, the report list also includes the Pathology Reports that were completed up to 30days after date of the Encounter. The data comes from all [place] treatment facilities. Date/Time Pathology Report Provider Source May 13, 2021 11:37 AM LR MICROBIOLOGY REPORT: [facility] Reporting Lab: [facility] [C VASQUEZ# [id number]] [address] [place] [id number] Accession [UID]: [id number] [[id number]] Receiv ed: May 13, 2021@11:37 Collection sample: URINE Collection date: Apr 11:37 Provider: DANY CULLEN Test(s) ordered: CULTURE, URINE........ ........ completed: May 16, 2021 09:02 * BACTERIOLOGY FINAL REPORT => May 16, 2021 09:0 2 TECH CODE: [id number] Bacteriology Remark(s): NO GROWTH (<1,000 CFU/ml) AFTER TWO DAYS =--=--=--=--=--=--=--=--=--=--=--=--=--= --=--=--=--=--=--=--=--=--=--=--=--=-- Performing Laboratory: Bacteriology Report Performed By: [facility] [CLIA# [id number] ] [address] [place] [id number] Encounter Notes: All associated encounter notes This section contains the clinical notes associated to the Encounter. Date/Time Encounter Note(s) Provider Source Jun 06, 2021 10:21 AM ADMINISTRATIVE NOTE: [facility]IV[facility]NA [facility] LOCAL TITLE: ADMINISTRATIVE NOTE [place] [facility] STANDARD TITLE: ADMINISTRATIVE NOTE DATE OF NOTE: JUN 06, 2021@10:21 ENTRY DATE: JUN 06, 2021@10:22:02 AUTHOR: VIVIANA SU EXP COSIGNER: URGENCY: STATUS: COMPLETED Received call from ENT Surge ons of [facility] reporting that is scheduled for 6month follow up appointment Abe y 06/10/21 His previous authorizations are . Should PCP agree a new community care ENT consul t would be needed. Alerting PACT for review /es/ VIVIANA SU Signed: 06/06/2021 10:23 Receipt Acknowledged By: * AWAITING SIGNATURE * DANY CULLEN * AWAITING SIGNATURE * CARLOS BOYD 06/06/2021 10:27 /es/ LIANG RESENDEZ, RN REGISTERED NURSE
--- OUTSIDE RECORDS SUMMARY | 2022-02-08 16:26 | XMS_ITS | Encounter Summary ---
:1975 Author Organization Department of [facility] rs Address [address] [place] [id number] Support Name Relationship Address Phone LANG NAZARIO Unavailable [address] [place] [address] OLIVIA GOVEA Unavailable Unavailable Selected Encounter This section includes the information on record at [place] for the Encounter. Date/Time Encounter Type Encounter Reason Provider Source Description Jun 05, 2021 CASE MANAGEMENT MENTAL HEALTH ICD-10-CM F32.9 Ray JOHNSON 01:00 PM CLINIC - IND Major depressive Y disorder, single episode, unspecified with Provider Comments: Major depressive disorder ([facility] [id number]) IHE Encounter Template Text not used by [facility] Assessments - Encounter Diagnoses This section includes the primary and secondary diagnoses documented for the Encounter. Date/Time Primary/Secondary Diagnosis Name Provider Source Diagnosis Jun 05, 2021 PRIMARY Major depressive JIM JOHNSONEunice 01:20 PM disorder, single episode, unspecified Jun 05, 2021 SECONDARY Adjustment JIM JOHNSON FAREED 01:20 PM disorder with mixed anxiety and depressed mood Jun 05, 2021 SECONDARY Chronic pain JIM JOHNSON 01:20 PM syndrome Plan of Treatment: Future Appointments (+ 6 months) and Future Tests (+/- 45 days) The Plan of Treatment section includes future care activities for the patient from all [place] treatmentfacilities. This section includes future appointments and future orders which are active, pending orscheduled.Future Appointments This section includes appointments that were scheduled to occur 6 months from the date of the Encounter, up to a maximum of 20 appointments. The data comes from all [place] treatment facilities. Appointment Date/Time Appointment Type Appointment Facili ty Name Jun 10, 2021 09:00 AM [facility]ORY - [facility]IC[facility] Jun 24, 2021 01:45 PM [facility] Jun 27, 2021 10:30 AM [facility] - [facility] Jul 08, 2021 11:30 AM [facility] Jul 11, 2021 12:00 PM [facility] August 20, 2021 09:30 AM AMBULATORY - PSYCHIATRY [facility] August 29, 2021 03:00 PM AMBULATORY MEDICINE [facility] Nov 07, 2021 08:00 AM AMBULATORY MEDICINE [facility] Active, Pending, and Scheduled Orders This section includes a listing of several types of active, pending, and scheduled orders, including clinic medications orders, diagnostic test orders, procedure orders and consult orders; where the start date of the order is 45 days before the date of the Encounter or 45 days after the date of the Encounter. The data comes from all [place] treatment facilities. Test Date/Time Test Type Test Details Facility Name Jun 06, 2021 10:54 AM Consult Order [facility] Animal Chiropractor's Choice Lab Results: +/- 30 days of the encounter This section includes the Chemistry and Hematology Lab Results on record with [place] for the patient. Radiology Reports and Pathology Reports are provided separately, in subsequent sections.Lab Results This section contains the Chemistry/Hematology Results that were resulted 30 days before or 30 daysafter the date of the Encounter. Date/Time Source Result Type Result - Unit Interpretation Reference Range Comment May 13, 2021 11:37 AM [facility] URINALYSIS Specimen Type: URINE No comment enter ed. Ordering Provid er: DANY CULLEN Report Released Date/Time: May 13, 2021 10:53 AM Reporting Lab: [address] [id number] Performing Lab: [address] [address] UA COLOR Straw Yellow UA APPEARANCE Clear Clear UA GLUCOSE Negative Negative UA KETONES Negative Neg UA BLOOD Negative Neg UA PROTEIN Negative Neg UA NITRITE Negative Neg UA BILIRUBIN Negative Neg UA SPECIFIC GRAVITY 1.005 L 1.016-1.02 2 UA pH 7.0 5.0-9.0 UA UROBILINOGEN <2.0 <2.0 UA LEUKOCYTE ESTERASE Negative Neg Social History: Smoking Status (Most current) and Tobacco Use (All prior to encounter date) This section includes the most current, and the historical, smoking and tobacco-related health factors from the [place] facility where the Encounter took place.Current Smoking Status This section includes the most current smoking, or tobacco-related health factor, from the [place] facility where the Encounter took place. Date/Time Current Smoking Status Comment Facility Jul 23, 2020 03:00 PM VA-TOBACCO FORMER USER [facility] Tobacco Use History This section includes a history of the smoking, or tobacco- related health factors, that were collected on or before the date of the Encounter. The data comes from the [facility] where the Encounter took place. Date/Time Smoking Status/Tobacco Use Comment [facility] Jul 23, 2020 03:00 PM VA-TOBACCO QUIT 5 TO < 15 YRS [facility] Aug 05, 2018 11:29 AM VA-TOBACCO FORMER USER [facility] Aug 05, 2018 11:29 AM VA-TOBACCO QUIT 1 TO < 5 YRS [facility] Jul 10, 2017 09:32 AM LIFETIME NON-TOBACCO USER [facility] Feb 11, 2017 09:04 AM QUIT TOBACCO USE > 7 YEARS [facility] STOPPED SMOKING 2 1/2 YEARS AGO A PACK A DAY Jul 30, 2016 09:07 AM QUIT TOBACCO USE 1-7 YEARS [facility] A[facility] reports quitting 2 years ago Jun 18, 2015 03:44 PM QUIT TOBACCO USE 1-7 YEARS [facility] A[facility] Radiology Reports: +/- 30 days of [...] the Encounter. The data comes from all [place] treatment facilities. Date/Time Radiology Report Provider Source May 07, 2021 09:43 KIDNEY AND BLADDER ULTRASOUND: RADIOLOGY,OUTS [facility] OLIVIA GARCÍA [id number] -[birth year], [birth year] 6 M [facility] Exm Date: MAY 07, 2021@09:43 Req Phys: DANY CULLEN Pat Loc: CWM/SO/PACT 4 ( Req'g Loc) Img Loc: ULTRASOUND Service: Unknown (Case 16 COMPLETE) ULTRASOUND KIDNEYS (US Detail ed) CPT:12677 Reason for Study: pt w/new urinary incontinence and incomplete bladder emptying (Case 17 COMPLETE) ULTRASOUND URINARY BLADDER (U S Detailed) CPT:56158 Clinical History: postvoid residual bladder scans always 0 ML Report Status: Verified Date Reported: MAY 07, 2021 Date Verified: MAY 07, 2021 Digital Circuit Designer E-Sig: Report: Ultrasound kidneys and urinary bladder Procedure: Transverse and longitudinal grayscal e echograms of the kidneys and urinary bladder were acquired. Dopp ler imaging was utilized. This study was performed and supervis ed that [facility] facility, and subsequently transmitted to [facility] leradiology for interpretation. The total image count [...] hepatic steatosis. READING PHYSICIAN: Mitzi Garland M.D. [phone] 05/07/2021 7:21 [facility] National Teleradiology Program [phone] (For Medical Practitioner Use Only ) [address] [place] [address], [address] [place] [address] Attention Patients / Veterans: If you have ques tions or concerns about these test results, please [facility] or primary care team. Primary Diagnostic [...] the Encounter. The data comes from all [place] treatment facilities. Date/Time Pathology Report Provider Source May 13, 2021 11:37 AM LR MICROBIOLOGY REPORT: COLE HANSON Reporting Lab: [facility] [C VASQUEZ# [id number]] [address] [place] [address] Accession [UID]: [id number] [[id number]] Receiv ed: May 13, 2021@11:37 Collection sample: URINE Collection date: Apr 11:37 Provider: DANY CULLEN Test(s) ordered: CULTURE, URINE........ ........ completed: May 16, 2021 09:02 * BACTERIOLOGY FINAL REPORT => May 16, 2021 09:0 2 TECH CODE: [id number] Bacteriology Remark(s): NO GROWTH (<1,000 CFU/ml) AFTER TWO DAYS =--=--=--=--=--=--=--=--=--=--=--=--=--= --=--=--=--=--=--=--=--=--=--=--=--=-- Performing Laboratory: Bacteriology Report Performed By: [facility] [CLIA# [id number] ] [address] [place] [id number] Encounter Notes: All associated encounter notes This section contains the clinical notes associated to the Encounter. Date/Time Encounter Note(s) Provider Source Jun 05, 2021 01:16 PM MENTAL HEALTH CONSULT: JIM JOHNSON [facility] TITLE: CONSULT REPORT/CRANIAL ELECTROTHER APY STIMULATION STANDARD TITLE: MENTAL HEALTH CONSULT DATE OF NOTE: JUN 05, 2021@13:16 ENTRY DATE: JUN 05, 2021@13:16:42 AUTHOR: JIM JOHNSON EXP COSIGNER: URGENCY: STATUS: COMPLETED F: Alpha-Stim Trial [place] arrived at clinic re: Alpha-Stim Trial # 2 is known to process description writer and identified himsel f by name and date of . Olivia is alert and oriented to person, place, ti me, and situation. Olivia denies SI/HI, and or the use of any alcoho l or illicit drugs. Blood Pressure: 135/85 (05/13/2021 10:32) Pain: 2 (05/13/2021 10:32) Patient Height: 68 in [172.7 cm] (01/11/2021 13: 26) Patient Weight: 223 lb. [101.4 kg] (05/13/2021 1 0:32) Pulse: 85 (05/13/2021 10:32) Respiration: 18 (05/13/2021 10:32) Temperature: 98.1 F [36.7 C] (05/13/2021 10:32) D: Active problems - Computerized Problem List is t he source for the followin. Major depressive disorder 2. ECG: normal sinus rhythm 3. History of aneurysm 4. Headache (SNOMED CT 77050728) 5. Chronic serous otitis media 6. Obesity 7. Osteopenia 8. Helicobacter pylori gastrointestinal tract i nfection 9. 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 Chronic pain 11. Traumatic rupture of patellar tendon 12. Abnormal gait 13. Fracture of tibial spine 14. Foot-drop 15. Tobacco dependence, continuous 16. Gastroesophageal reflux disease (SNOMED CT 2 [id number]) 17. Limb pain 18. hydradenitis 19. asymptomatic varicose veins 20. Sleep apnea 21. Hyperlipidemia 22. Diarrhea 23. Adjustment disorder with mixed anxiety and depressed mood (SNOMED CT 8102558 24. Compartment syndrome of lower limb 25. Heartburn Active Outpatient Medications (including Supplie s): Active Outpatient Medications Status 1) CALCIUM POLYCARBOPHIL 625MG TAB TAKE ONE TABL ET BY ACTIVE MOUTH TWICE DAILY TAKE ONE TABLET BY MOUTH TWIC E DAILY WITH MEAL OR FOOD WITH FULL GLASS OF WATE R. 2) CETIRIZINE HCL 10MG TAB TAKE ONE TABLET BY MO UT ONCE ACTIVE DAILY NEEDED FOR ALLERGIES 3) DEXAMETHASONE 0.1/TOBRAMYC 0.3% OPH SUSP INST ILL 3 ACTIVE DROPS DIRECTED TWICE DAILY INTO THE AFFECTED EAR FOR 14 DAYS 4) FISH OIL 1000MG (500MG DHA/EPA) CAP TAKE ONE CAPSULE ACTIVE BY MOUTH THREE TIMES DAILY NEEDED [ANTI-INFLAMMATORY] 5) KETOCONAZOLE 2% SHAMPOO SHAMPOO SMALL AMOUNT ACTIVE TOPICALLY ONCE DAILY 6) LACTOBACILLUS ACIDOPHILUS TAB TAKE 1 TABLET B Y MOUTH ACTIVE ONCE DAILY 7) MELATONIN 5MG CAP/TAB TAKE TWO CAPSULE/TABLET BY ACTIVE MOUTH AT BEDTIME NEEDED 8) PHENTERMINE 7.5/TOPIRAMATE 46MG SA CAP TAKE 1 CAPSULE ACTIVE BY MOUTH EVERY MORNING WITH OR WITHOUT FOOD 9) TOLTERODINE TARTRATE 2MG TAB TAKE ONE TABLET BY MOUTH ACTIVE ONCE DAILY A/P: is utilizing Alpha-Stim for the diagnose s of MDD and insomnia. Olivia is awaiting the arrival of his personal Al pha-Stim device. Olivia utilized the Alpha-Stim again for 20 minut es and quickly noted similar benefit reporting feeling more relaxed and exper iencing a sense of calm while using the Alpha-Stim. Olivia was encou raged to remain mindful of anything he notes good or bad after using the Al pha-Stim and is aware that he may contact process description writer to discuss as needed. Olivia w as provided with a loaner Alpha-Stim and will be contacted once it has dev ice arrives in the clinic. Upcoming Appointments: 06/07/2021 09:00 CWM/SO/TH/VVC/MHC/JEAN CARLOS 06/14/2021 09:00 CWM/SO/TH/VVC/MHC/JEAN CARLOS 06/24/2021 13:45 COM CARE-UROLOGY 07/08/2021 11:30 CWM/NO/OPTOMETRY/PROVIDER 08/20/2021 09:30 CWM/SO/TH/VVC/MHC/ROOT 11/07/2021 08:00 CWM/SO/ENTER LABORATORY 11/14/2021 10:00 CWM/SO/PACT 4 Patient provided with [facility] Crisis Line claudette shultz([phone]) and urged to call that number at any time if he has thoughts about suicide and, or to call 911 or go to nearest E.R. if he has s uicidal thoughts. is aware that he can call or walk-in at anytime prior to next appointment. [place] was provided with ray marin's contact information for use as needed. No barriers; Patient understands and agrees to c aylin treatment plan. If has any questions , concerns, or changes in current health status will call or come [facility] to the [facility]. 30 minutes spent in patient care and education. /pippa/ JIM JOHNSON, MSN, RN, CNL MENTAL HEALTH NURSE LEVEE SUPERINTENDENT Signed: 06/05/2021 13:37
--- OUTSIDE RECORDS SUMMARY | 2022-02-08 16:27 | XMS_ITS | Encounter Summary ---
:1975 Author Organization Department of [facility] rs Address [address] [place] [address] Support Name Relationship Address Phone LANG NAZARIO Unavailable [address] [place] [address] OLIVIA GOVEA Unavailable Unavailable Selected Encounter This section includes the information on record at [place] for the Encounter. Date/Time Encounter Type Encounter Reason Provider Source Description May 22, 2021 OFFICE O/P EST MENTAL HEALTH ICD-10-CM F32.9 SHINE MARTINEZ 09:30 AM MOD 30-39 MIN CLINIC - IND Major depressive disorder, single episode, unspecified with Provider Comments: Major depressive disorder ([facility] [id number]) IHE Encounter Template Text not used by [facility] Assessments - Encounter Diagnoses This section includes the primary and secondary diagnoses documented for the Encounter. Date/Time Primary/Secondary Diagnosis Name Provider Source Diagnosis May 22, 2021 PRIMARY Major depressive SHINE MARTINEZ [facility] 09:47 AM disorder, single episode, unspecified Plan of Treatment: Future Appointments (+ 6 months) and Future Tests (+/- 45 days) The Plan of Treatment section includes future care activities for the patient from all [place] treatmentfacilities. This section includes future appointments and future orders which are active, pending orscheduled.Future Appointments This section includes appointments that were scheduled to occur 6 months from the date of the Encounter, up to a maximum of 20 appointments. The data comes from all [place] treatment facilities. Appointment Date/Time Appointment Type Appointment Facili ty Name May 27, 2021 01:00 PM AMBULATORY - PSYCHIATRY [facility] Jun 05, 2021 01:00 PM AMBULATORY - PSYCHIATRY [facility] Jun 10, 2021 09:00 AM AMBULATORY - MEDICINE [place] [facility] Jun 24, 2021 01:45 PM [facility] Jun 27, 2021 10:30 AM [facility] Jul 08, 2021 11:30 AM [facility] Jul 11, 2021 12:00 PM [facility] August 20, 2021 09:30 AM AMBULATORY - PSYCHIATRY [facility] August 29, 2021 03:00 PM AMBULATORY MEDICINE [facility] Nov 07, 2021 08:00 AM AMBULATORY - MEDICINE [facility] Active, Pending, and Scheduled Orders This section includes a listing of several types of active, pending, and scheduled orders, including clinic medications orders, diagnostic test orders, procedure orders and consult orders; where the start date of the order is 45 days before the date of the Encounter or 45 days after the date of the Encounter. The data comes from all [place] treatment facilities. Test Date/Time Test Type Test Details Facility Name Jun 06, 2021 10:54 AM Consult Order [facility]-ENT Cons [facility] Boiler Inspector's Choice Lab Results: +/- 30 days of the encounter This section includes the Chemistry and Hematology Lab Results on record with [place] for the patient. Radiology Reports and Pathology Reports are provided separately, in subsequent sections.Lab Results This section contains the Chemistry/Hematology Results that were resulted 30 days before or 30 daysafter the date of the Encounter. Date/Time Source Result Type Result - Unit Interpretation Reference Range Comment May 13, 2021 11:37 AM [facility] URINALYSIS Specimen Type: URINE No comment enter ed. Ordering Provid er: DANY CULLEN Report Released Date/Time: May 13, 2021 10:53 AM Reporting Lab: [address] [address] Performing Lab: [address] [address] UA COLOR Straw Yellow UA APPEARANCE Clear [...] smoking and tobacco-related health factors from the [place] facility where the Encounter took place.Current Smoking Status This section includes the most current smoking, or tobacco-related health factor, from the [place] facility where the Encounter took place. Date/Time Current Smoking Status Comment Facility Jul 23, 2020 03:00 PM VA-TOBACCO FORMER USER [facility] Tobacco Use History This section includes a history of the smoking, or tobacco- related health factors, that were collected on or before the date of the Encounter. The data comes from the [place] facility where the Encounter took place. Date/Time Smoking Status/Tobacco Use Comment [facility] Jul 23, 2020 03:00 PM VA-TOBACCO QUIT 5 TO < 15 YRS [facility] Aug 05, 2018 11:29 AM VA-TOBACCO FORMER USER [facility] Aug 05, 2018 11:29 AM VA-TOBACCO QUIT 1 TO < 5 YRS [facility] Jul 10, 2017 09:32 AM LIFETIME NON-TOBACCO USER [facility] Feb 11, 2017 09:04 AM QUIT TOBACCO USE > 7 YEARS [facility] AGO STOPPED SMOKING 2 1/2 YEARS AGO A PACK A DAY Jul 30, 2016 09:07 AM QUIT TOBACCO USE 1-7 YEARS [facility] AGO reports quitting 2 years ago Jun 18, 2015 03:44 PM QUIT TOBACCO USE 1-7 YEARS [facility] AGO Radiology Reports: +/- 30 days of [...] the Encounter. The data comes from all [place] treatment facilities. Date/Time Radiology Report Provider Source May 07, 2021 09:43 KIDNEY AND BLADDER ULTRASOUND: RADIOLOGY,[facility] OLIVIA GARCÍA [id number] -[birth year], 197 6 M SERVICE [place] [facility] Ex Date: MAY 07, 2021@09:43 Req Phys: DANY CULLEN Pat Loc: CWM/SO/PACT 4 ( Req'g Loc) Img Loc: ULTRASOUND Service: Unknown (Case 16 COMPLETE) ULTRASOUND KIDNEYS (US Detail ed) CPT:00979 Reason for Study: pt w/new urinary incontinence and incomplete bladder emptying (Case 17 COMPLETE) ULTRASOUND URINARY BLADDER (U S Detailed) CPT:64406 Clinical History: postvoid residual bladder scans always 0 ML Report Status: Verified Date Reported: MAY 07, 2021 Date Verified: MAY 07, 2021 Segmental Paving Supervisor E-Sig: Report: Ultrasound kidneys and urinary bladder Procedure: Transverse and longitudinal grayscal e echograms of the kidneys and urinary bladder were acquired. Dopp ler imaging was utilized. This study was performed and supervis ed that focal [place] facility, and subsequently transmitted to [facility] leradiology for interpretation. The total image count [...] hepatic steatosis. READING PHYSICIAN: Mitzi Garland M.D. [phone] 05/07/2021 7:21 [facility] National Teleradiology Program [phone] (For Medical Practitioner Use Only ) [address] [place] [address], [facility] [address], [address] [place] [address] Attention Patients / Veterans: If you have ques tions or concerns about these test results, please contact your [facility] provider or primary care team. Primary [...] the Encounter. The data comes from all [place] treatment facilities. Date/Time Pathology Report Provider Source May 13, 2021 11:37 AM LR MICROBIOLOGY REPORT: COLE HANSON Reporting Lab: [facility] [C VASQUEZ# [id number]] [address] [place] [address] Accession [UID]: [id number] [[id number]] Receiv ed: May 13, 2021@11:37 Collection sample: URINE Collection date: Apr 11:37 Provider: DANY CULLEN Test(s) ordered: CULTURE, URINE........ ........ completed: May 16, 2021 09:02 * BACTERIOLOGY FINAL REPORT => May 16, 2021 09:0 2 TECH CODE: [id number] Bacteriology Remark(s): NO GROWTH (<1,000 CFU/ml) AFTER TWO DAYS =--=--=--=--=--=--=--=--=--=--=--=--=--= --=--=--=--=--=--=--=--=--=--=--=--=-- Performing Laboratory: Bacteriology Report Performed By: [facility] [CLIA# [id number] ] [address] [place] [id number] Encounter Notes: All associated encounter notes This section contains the clinical notes associated to the Encounter. Date/Time Encounter Note(s) Provider Source May 22, 2021 09:23 AM TELEHEALTH NOTE: SHINE MARTINEZ LOCAL TITLE: [place] VIDEO CONNECT NOTE STANDARD TITLE: TELEHEALTH NOTE DATE OF NOTE: MAY 22, 2021@09:23 ENTRY DATE: MAY 22, 2021@09:23:14 AUTHOR: SHINE MARTINEZ EXP COSIGNER: URGENCY: STATUS: COMPLETED [facility] Clinician Resources Only: 30 mins E911 (Emergency Call Relay Center): [phone] [facility] Line - ( [phone]) press #1. MIKE Suicide Coordinator [phone], Ext. [phone]; Back-up Ext. [phone] Twisting Frame Changer of the Day(AOD), Ryan MCKEON [phone], Ext. [phone] Introduction: Visit is being conducted by [place] [employer] [facility]. [place] identified with 2 identifiers: [X] Full Name [X] Date of [ ] VA ID Card Emergency Plan: [place] confirmed and/or pro vided the following information in case of emergency or technology failure. PATIENT PHONE - PHONE NUMBER [CELLULAR] - Is patient phone number correct, if not, enter b elow: 's phone number: OLIVIA NAZARIO [address], [place], [address] [place]'s present location and address for appoi ntment: Same as above 's emergency contact name and phone numbe r: reported that location is private and sa fe: Yes Informed Consent: informed of the risks and benefits of [facility] video care. [place] has the right to refuse video services. If refuses video visit, a [id number] visit will be scheduled. verbalized consent for this video visit: Yes provided consent for any other persons p resent for visit: N/A If yes, who and relationship to patient: Secure visit: Visit was locked for security and privacy: Yes DIAGNOSIS adjustment disorder with mixed anxiety and depre ssed mood see neuropsych eval dated 08/06/2020 Family history of bipolar 1 disorder Meets criteria for major depressive disorder SIGNIFICANT ISSUES/SYMPTOMS /PROBLEMS: Record Reviewed stopped Lurasidone 05/13/2021. He reporte d 20 pound weight gain. He denies any change in mood, sleep , appetite. Mood - reports less depression last few weeks energy and motivation - reports low energy low m otivation. Sleep - no change since stopping Latuda. Some difficulty falling asleep. Takes OTC melatonin. Appetite - good 2-3 meals a day. Denies suicidal homicidal ideation plan or inten t. He denies any hallucinations. Cognition intact. Thought processes goal directe d and relevant. Has activities , interests , See's Daphnie JARRETT. seen by Dr. Cullen 05/13/2021 . [place] c/o weight gain . Likely related to Lurasidone . stop ped taking last week . He denies any changes in mood , sleep. Will order Melatonin 10mg for sleep. Zulema cardoza is not interested in trying medications for mood at this time. Offered Alpha Stim - [place] will try for depres juan antonio , insomnia. Consult submitted. F/u 3 months. [place] in agreement with plan. has provider contact information. He agr ees with changes discussed today. Active Outpatient Medications (including Supplie s): Active Outpatient Medications Status 1) CALCIUM POLYCARBOPHIL 625MG TAB TAKE ONE TABL ET BY ACTIVE MOUTH TWICE DAILY TAKE ONE TABLET BY MOUTH TWIC E DAILY WITH MEAL OR FOOD WITH FULL GLASS OF WATE R. 2) CETIRIZINE HCL 10MG TAB TAKE ONE TABLET BY MO UTH ONCE ACTIVE (S) DAILY NEEDED FOR ALLERGIES 3) DEXAMETHASONE 0.1/TOBRAMYC [...] B Y MOUTH ACTIVE ONCE DAILY 7) LURASIDONE HCL 20MG TAB TAKE ONE TABLET BY MO UTH AT ACTIVE BEDTIME 8) PHENTERMINE 7.5/TOPIRAMATE 46MG SA CAP TAKE 1 CAPSULE ACTIVE BY MOUTH EVERY MORNING WITH OR WITHOUT FOOD 9) TOLTERODINE TARTRATE 2MG TAB TAKE ONE TABLET BY MOUTH ACTIVE ONCE DAILY Active problems - Computerized Problem List is t he source for the followin. Major depressive disorder May meet c minh for bipolar 2 disorder current episode depressed. Family history of bipolar 1 d isorder. 2. ECG: normal sinus rhythm 3. 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 Headache (SNOMED CT [id number]) 03/08 CTA 2 mm wide aneurysm at the left MCA bifurcation projecting laterally. 5. Chronic serous otitis media right ear: follo wing ENT-recommright sided myringotomy to reduce recurrent middle ear infec tions. s/p tube placed as an adult 6. Obesity 7. Osteopenia DEXA 12/03=new osteopenia in right femur/02/03 04/06 DEXA NORMAL 8. Helicobacter pylori gastrointestinal tract i nfection EGD 04/06 esophageal squamous and gastric cardia mucosa with reactive /hyperplastic changes 9. History of amputation of lower limb above kn ee elective AKA 2nd to RLE traumatic fracture/ chronic pain / foot drop 10. Chronic pain 11. Traumatic rupture of patellar tendon 12. Abnormal gait 13. Fracture of tibial spine 14. Foot-drop 15. Tobacco dependence, continuous 16. Gastroesophageal reflux disease (SNOMED CT 2 [id number]) 17. Limb pain EMG 04/07 mild CTS left wrist 18. hidradenitis 19. asymptomatic varicose veins 20. Sleep apnea severe 21. Hyperlipidemia 22. Diarrhea 23. adjustment disorder with mixed anxiety and d epressed mood see neuropsych eval dated 08/06/20 24. Compartment syndrome of lower limb 25. Heartburn== Review of Labs: Apr WNR Needs fasting lipids PLAN - Discontinue Lurasidone 20mg. Add Melatoni n 10mg take one tablet as needed for sleep. Consult entered for Alpha Stim . Continue with Ms. Ramirez. RTC - 3 months [place] did not report any suicidal or homicidal ideation but was given the number to the [facility]. also knows how to contact emergency serv ices Medication Reconciliation: Outpatient: Has the patient been taking medications as docu mented in the EMLR? YES: The patient has been taking medications as documented in the EMLR. Essential Medication List for Review used to co mplete this medication reconciliation. INCLUDED IN THIS LIST: Alphabetical list of act jhonny outpatient prescriptions dispensed from this VA (local) an d dispensed from another VA or DoD facility (remote) as well as inpatien t orders (local, pending and active), local clinic medications, locally documented non-VA medications, and local prescriptions that have or been discontinued in the past 90 days. - All changes in medications, including all non -VA/Herbal/OTC medications were entered into CPRS. - If there were any medications the patient opal uld no longer take, they were discontinued. - The patient/caregiver was instructed to updat e this list, discard old lists, and take this list to the next appointme nt, whether with a VA or non-VA provider. /pippa/ Shine Martinez APRN, STAFF CLINICAL NURSE SPECIALIST Signed: 05/22/2021 09:47 Receipt Acknowledged By: * AWAITING SIGNATURE * JERO MARKS
--- OUTSIDE RECORDS SUMMARY | 2022-02-08 16:27 | XMS_ITS | Encounter Summary ---
:1975 Author Organization [facility] rs Address [address] [place] [id number] Support Name Relationship Address Phone LANG NAZARIO Unavailable [address] [place] [address] OLIVIA GOVEA Unavailable Unavailable Selected Encounter This section includes the information on record at MD for the Encounter. Date/Time Encounter Type Encounter Reason Provider Source Description May 13, 2021 OFFICE O/P EST PRIMARY ICD-10-CM E66.9 DANY CULLEN 10:30 AM MOD 30-39 MIN CARE/MEDICINE Obesity, unspecified with Provider Comments: Obesity (SCT [id number]) IHE Encounter Template Text not used by [facility] Assessments - Encounter Diagnoses This section includes the primary and secondary diagnoses documented for the Encounter. Date/Time Primary/Secondary Diagnosis Name Provider Source Diagnosis May 15, 2021 PRIMARY Obesity, ALYSEDANY [place] 08:10 AM unspecified May 15, 2021 SECONDARY Unspecified urinary DANY CULLEN [place] 08:10 AM incontinence Plan of Treatment: Future Appointments (+ 6 months) and Future Tests (+/- 45 days) The Plan of Treatment section includes future care activities for the patient from all MD treatmentfacilities. This section includes future appointments and future orders which are active, pending orscheduled.Future Appointments This section includes appointments that were scheduled to occur 6 months from the date of the Encounter, up to a maximum of 20 appointments. The data comes from all MD treatment facilities. Appointment Date/Time Appointment Type Appointment Facili ty Name May 17, 2021 09:00 AM AMBULATORY - [facility]CHIATRY [place] May 22, 2021 09:30 AM [facility]BUL[facility]ORY - [facility] [place] May 27, 2021 01:00 PM [facility] [place] Jun 05, 2021 01:00 PM AM[facility] - [facility] [place] Jun 10, 2021 09:00 AM [facility] Jun 24, 2021 01:45 PM [facility] Jun 27, 2021 10:30 AM [facility] - [facility] Jul 08, 2021 11:30 AM [facility] Jul 11, 2021 12:00 PM [facility] August 20, 2021 09:30 AM AMBULATORY - [facility] [place] August 29, 2021 03:00 PM [facility] - [facility] [place] Nov 07, 2021 08:00 AM AMBULATORY - [facility]ICINE [place] Active, Pending, and Scheduled Orders This section includes a listing of several types of active, pending, and scheduled orders, including clinic medications orders, diagnostic test orders, procedure orders and consult orders; where the start date of the order is 45 days before the date of the Encounter or 45 days after the date of the Encounter. The data comes from all MD treatment facilities. Test Date/Time Test Type Test Details Facility Name Jun 06, 2021 10:54 AM Consult Order [facility] [employer] Supervisor's Choice Lab Results: +/- 30 days of the encounter This section includes the Chemistry and Hematology Lab Results on record with MD for the patient. Radiology Reports and Pathology Reports are provided separately, in subsequent sections.Lab Results This section contains the Chemistry/Hematology Results that were resulted 30 days before or 30 daysafter the date of the Encounter. Date/Time Source Result Type Result - Unit Interpretation Reference Range Comment May 13, 2021 11:37 AM [facility] Specimen Type: URINE No comment enter ed. Ordering Provid er: DANY CULLEN Report Released Date/Time: May 13, 2021 10:53 AM Reporting Lab: [facility] [address] [facility] [id number] Performing Lab: [address] [address] UA COLOR Straw Yellow UA APPEARANCE Clear Clear UA GLUCOSE Negative Negative UA KETONES Negative Neg UA BLOOD Negative Neg UA PROTEIN Negative Neg UA NITRITE Negative Neg UA BILIRUBIN Negative Neg UA SPECIFIC GRAVITY 1.005 L 1.016-1.02 2 UA pH 7.0 5.0-9.0 UA UROBILINOGEN <2.0 <2.0 UA LEUKOCYTE ESTERASE Negative Neg Vital Signs: All taken on the encounter date This section contains inpatient and outpatient Vital Signs collected on the date of the Encounter. Date/Time Temperature Pulse Blood Respiratory SP02 Pain Height Weight Calderon dy Source Pressure Rate Mass Index May 13, 98.1 F 85 135/85 18 /min 100 % 2 223 lb 34 2021 10:32 /min mm[Hg] IELD AM Social History: Smoking Status (Most current) and Tobacco Use (All prior to encounter date) This section includes the most current, and the historical, smoking and tobacco-related health factors from the MD facility where the Encounter took place.Current Smoking Status This section includes the most current smoking, or tobacco-related health factor, from the MD facility where the Encounter took place. Date/Time Current Smoking Status Comment Facility Jul 23, 2020 03:00 PM VA-TOBACCO FORMER USER [facility] Tobacco Use History This section includes a history of the smoking, or tobacco- related health factors, that were collected on or before the date of the Encounter. The data comes from the MD facility where the Encounter took place. Date/Time Smoking Status/Tobacco Use Comment [facility] Jul 23, 2020 03:00 PM VA-TOBACCO QUIT 5 TO < 15 YRS [place] Aug 05, 2018 11:29 AM VA-TOBACCO FORMER USER [facility] Aug 05, 2018 11:29 AM VA-TOBACCO QUIT 1 TO < 5 YRS [place] Jul 10, 2017 09:32 AM LIFETIME NON-TOBACCO USER [place] Feb 11, 2017 09:04 AM QUIT TOBACCO USE > 7 YEARS [place] A[facility] STOPPED SMOKING 2 1/2 YEARS AGO A PACK A DAY Jul 30, 2016 09:07 AM QUIT TOBACCO USE 1-7 YEARS [place] A[place] reports quitting 2 years ago Jun 18, 2015 03:44 PM QUIT TOBACCO USE 1-7 YEARS [place] A[place] Radiology Reports: +/- 30 days of [...] the Encounter. The data comes from all MD treatment facilities. Date/Time Radiology Report Provider Source May 07, 2021 09:43 KIDNEY AND BLADDER ULTRASOUND: RADIOLOGY,OUTS [facility] WSTRN OLIVIA GARCÍA [phone] -[birth year], [birth year] 6 M SERVICE [facility] Ex Date: MAY 07, 2021@09:43 Req Phys: DANY CULLEN Pat Loc: CWM/SO/PACT 4 ( Req'g Loc) Img Loc: ULTRASOUND Service: Unknown (Case 16 COMPLETE) ULTRASOUND KIDNEYS (US Detail ed) CPT:20253 Reason for Study: pt w/new urinary incontinence and incomplete bladder emptying (Case 17 COMPLETE) ULTRASOUND URINARY BLADDER (U S Detailed) CPT:27266 Clinical History: postvoid residual bladder scans always 0 ML Report Status: Verified Date Reported: MAY 07, 2021 Date Verified: MAY 07, 2021 [employer] E-Sig: Report: Ultrasound kidneys and urinary bladder Procedure: Transverse and longitudinal grayscal e echograms of the kidneys and urinary bladder were acquired. Dopp ler imaging was utilized. This study was performed and supervis ed that focal MD facility, and subsequently transmitted to MD te leradiology for interpretation. The total image [...] hepatic steatosis. READING PHYSICIAN: Mitzi Garland M.D. -[phone] 05/07/2021 7:21 [facility] National Teleradiology Program [phone] (For Medical Practitioner Use Only ) [address] [facility], [facility] [address], [address] [place] [address] Attention Patients / Veterans: If you have ques tions or concerns about these test results, please contact your o [facility] provider or primary care team. Primary Diagnostic [...] the Encounter. The data comes from all MD treatment facilities. Date/Time Pathology Report Provider Source May 13, 2021 11:37 AM LR MICROBIOLOGY REPORT: COLE HANSON Reporting Lab: [facility] [C VASQUEZ# [id number]] [address] [place] [id number] Accession [UID]: [id number] [[id number]] Receiv ed: May 13, 2021@11:37 Collection sample: URINE Collection date: Apr 11:37 Provider: DANY CULLEN Test(s) ordered: CULTURE, URINE........ ........ completed: May 16, 2021 09:02 * BACTERIOLOGY FINAL REPORT => May 16, 2021 09:0 2 TECH CODE: [id number] Bacteriology Remark(s): NO GROWTH (<1,000 CFU/ml) AFTER TWO DAYS =--=--=--=--=--=--=--=--=--=--=--=--=--= --=--=--=--=--=--=--=--=--=--=--=--=-- Performing Laboratory: Bacteriology Report Performed By: [facility] [CLIA# [id number] ] [address] [place] [id number] Encounter Notes: All associated encounter notes This section contains the clinical notes associated to the Encounter. Date/Time Encounter Note(s) Provider Source Jul 03, 2021 10:51 AM NONVA NOTE: DANY CULLEN LOCAL TITLE: NON-VA HOSPITALIZATIONS/ER STANDARD TITLE: NONVA NOTE DATE OF NOTE: JUL 03, 2021@10:51 ENTRY DATE: JUL 03, 2021@10:51:31 AUTHOR: DANY CULLNE EXP COSIGNER: URGENCY: STATUS: COMPLETED This note is entered for the sole purpose of sca nning Non-VA documentation into [employer]. ER visit 06/2021 /pippa/ Dany Cullen M.D. STAFF PHYSICIAN Signed: 07/03/2021 10:55 Jun 14, 2021 06:48 AM LETTERS: DANY CULLEN LOCAL TITLE: PATIENT LETTER (T) STANDARD TITLE: LETTERS DATE OF NOTE: JUN 14, 2021@06:48 ENTRY DATE: JUN 14, 2021@06:48:21 AUTHOR: DANY CULLEN EXP COSIGNER: URGENCY: STATUS: COMPLETED DEPARTMENT OF [facility] Toll Free Number Primary Care Telephone Assistance can be reached at extension [phone] [facility] scheduling can be reac hed at extension [phone] [facility] scheduling can be solomon ched at ext [phone] OLIVIA NAZARIO [address] [place] [address], [address] [place], Please be informed that fish oil is on backorder and not available through [facility] at this time. Kindly leave a message for Dr. Cullen if you have any questions. Thank you for allowing the [facility] to participate in your care. We look forward to seeing you in the future! Sincerely, Your Primary Care Team [facility] [address] [facility] [address] [place] [address] [place] [address] [phone] [facility] [address] [place] [address] [place] [address] [phone] [facility] [address] [facility] [address] [place] [address] [place] [address] [phone] May 16, 2021 09:31 AM LETTERS: DANY CULLEN LOCAL TITLE: PATIENT LETTER (T) STANDARD TITLE: LETTERS DATE OF NOTE: MAY 16, 2021@09:31 ENTRY DATE: MAY 16, 2021@09:31:35 AUTHOR: DANY CULLEN EXP COSIGNER: URGENCY: STATUS: COMPLETED DEPARTMENT OF [facility] Toll Free Number Primary Care Telephone Assistance can be reached at extension [phone] [facility] scheduling can be reac hed at extension [phone] [facility] scheduling can be solomon ched at ext [phone] OLIVIA NAZARIO [address] [place], [place], [address] Dear , We are pleased to inform you that your urine sean ts were normal . Kindly leave a message for Dr. Cullen if you have any questions. Thank you for allowing the MD to participate in your care. We look forward to seeing you in the future! Sincerely, Your Primary Care Team [facility] [address] [facility] [address] [place] [address] [place] [address] [phone] [facility] [address] [facility] [address] [place] [address] [place] [address] [phone] [facility] [address] [facility] [address] [place] [address] [place] [address] May 13, 2021 10:35 AM PHYSICIAN NOTE: DANY CULLEN LOCAL TITLE: MD NOTE STANDARD TITLE: PHYSICIAN NOTE DATE OF NOTE: MAY 13, 2021@10:35 ENTRY DATE: MAY 13, 2021@10:35:56 AUTHOR: DANY CULLEN EXP COSIGNER: URGENCY: STATUS: COMPLETED Blood Pressure: 135/85 (05/13/2021 10:32) Pain: 2 (05/13/2021 10:32) Patient Height: 68 in [172.7 cm] (01/11/2021 13: 26) Patient Weight: 223 lb [101.4 kg] (05/13/2021 10 :32) Pulse: 85 (05/13/2021 10:32) Respiration: 18 (05/13/2021 10:32) Temperature: 98.1 F [36.7 C] (05/13/2021 10:32) CC: weight gain History of Present Illness: 1. weight gain -he reports that he has gained at least 20 lbs o gege the past 1-2mths -he hasn't changed his diet -he has been trying to exercise more -he recently started lurasidone 2. urinary urgency and incontinence -started about 3-4months ago -feels like he has to continue urinating even wh en has emptied his bladder -he often has urinary dribbling and incontinence -he has urgency of urination -no dysuria or hematuria Medications were reviewed and reconciled with shadia dudley Active Outpatient Medications (including Supplie s): Active Outpatient Medications Status 1) CALCIUM POLYCARBOPHIL 625MG TAB TAKE ONE TABL ET BY ACTIVE MOUTH TWICE DAILY TAKE ONE TABLET BY MOUTH TWIC E DAILY WITH MEAL OR FOOD WITH FULL GLASS OF WATE R. 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 5children-3 bi ological and 2 stepchildren. 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 prior s moker quite 2014-smoked about 28years. prior heavier drinker. smokes cannibis which helps w/sleep or gummies Allergies: ZYBAN, SAXENDA, GABAPENTIN, LYRICA Physical Exam: pleasant. pt ambulates without as sistance. Alert and oriented X3 Lungs: Clear to auscultation bilaterally. Good a ir movement. Cor: Regular rate and rhythm. No murmur, gallop or rub. Abd: Soft. Nontender. Normal active bowel sounds . No organomegaly. Ext: No cyanosis, clubbing or edema. Neuro: Grossly intact. All labs, diagnostic tests, and medicati on changes were reviewed and discussed with patient. The patient verbalized understanding. ASSESSMENT AND PLAN 1. urinary urgency: unclear cause given normal bladder scan and kidney/bladder ultrasound -trial of detrol 2mg daily -urology consult placed 2. Brain aneurysm: Stable. Repeat MR angiogram yearly. 3. Obesity: he had significant success w/the ph entermine/topiramate. he was able to control his appetite and cravings on the medicine. concerned theat lurasidone is causing weight gain -cc note to mental health to consider a differ ent med -phentermine/topiramate 3.27/23mg tapering up ov er a few months Return to clinic 10/2021 with fasting labs /es/ Dany Cullen M.D. STAFF PHYSICIAN Signed: 05/15/2021 08:10
--- OUTSIDE RECORDS SUMMARY | 2022-02-08 16:27 | XMS_ITS | Encounter Summary ---
:1975 Author Organization Department of [facility] rs Address [address] [place] [address] Support Name Relationship Address Phone LANG NAZARIO Unavailable [address] [phone] [place]FF[place] [address] OLIVIA GOVEA Unavailable Unavailable Selected Encounter This section includes the information on record at [place] for the Encounter. Date/Time Encounter Type Encounter Reason Provider Source Description May 17, 2021 PSYTX W PT 45 MENTAL HEALTH ICD-10-CM JESUS EVANGELISTA 09:00 AM MINUTES [facility] - IND F43.12 Post-traumatic stress disorder, chronic with Provider Comments: Post-Traumatic Stress Disorder, Chronic IHE Encounter Template Text not used by [facility] Assessments - Encounter Diagnoses This section includes the primary and secondary diagnoses documented for the Encounter. Date/Time Primary/Secondary Diagnosis Name Provider Source Diagnosis May 17, 2021 PRIMARY Post-traumatic JESUS EVANGELISTA [place] 11:47 AM stress disorder, chronic May 17, 2021 SECONDARY Major depressive JESUS EVANGELISTA [place] 11:47 AM disorder, single episode, unspecified Plan of [...] Appointment Type Appointment Facili ty Name May 22, 2021 09:30 AM AMBULATORY - PSYCHIATRY [place] May 27, 2021 01:00 PM AMBULATORY - PSYCHIATRY [place] Jun 05, 2021 01:00 PM AMBULATORY - PSYCHIATRY [place] Jun 10, 2021 09:00 AM [facility] Jun 24, 2021 01:45 PM [facility] Jun 27, 2021 10:30 AM AM[facility]ULATORY - [facility] Jul 08, 2021 11:30 AM [facility] Jul 11, 2021 12:00 PM [facility] August 20, 2021 09:30 AM AMBULATORY - PSYCHIATRY [place] August 29, 2021 03:00 PM AMBULATORY - MEDICINE [place] Nov 07, 2021 08:00 AM AMBULATORY MEDICINE [place] Active, Pending, and Scheduled Orders This section includes a listing of several types of active, pending, and scheduled orders, including clinic medications orders, diagnostic test orders, procedure orders and consult orders; where the start date of the order is 45 days before the date of the Encounter or 45 days after the date of the Encounter. The data comes from all [facility] facilities. Test Date/Time Test Type Test Details Facility Name Jun 06, 2021 10:54 AM Consult Order [facility] Cons [facility] Document Coordinator's Choice Lab Results: +/- 30 days of the encounter This section includes the Chemistry and Hematology Lab Results on record with [place] for the patient. Radiology Reports and Pathology Reports are provided separately, in subsequent sections.Lab Results This section contains the Chemistry/Hematology Results that were resulted 30 days before or 30 daysafter the date of the Encounter. Date/Time Source Result Type Result - Unit Interpretation Reference Range Comment May 13, 2021 11:37 AM [place] URINALYS[facility] Specimen Type: URINE No comment enter ed. Ordering Provid er: DANY CULLEN Report Released Date/Time: May 13, 2021 10:53 AM Reporting Lab: [facility] [address] [facility] [id number] Performing Lab: [address] [address] UA COLOR Straw Yellow UA APPEARANCE Clear [...] smoking and tobacco-related health factors from the [place] facility where the Encounter took place.Current Smoking Status This section includes the most current smoking, or tobacco-related health factor, from the [place] facility where the Encounter took place. Date/Time Current Smoking Status Comment Facility Jul 23, 2020 03:00 PM VA-TOBACCO FORMER USER [facility] Tobacco Use History This section includes a history of the smoking, or tobacco- related health factors, that were collected on or before the date of the Encounter. The data comes from the [place] facility where the Encounter took place. Date/Time Smoking Status/Tobacco Use Comment [facility] Jul 23, 2020 03:00 PM VA-TOBACCO QUIT 5 TO < 15 YRS [place] Aug 05, 2018 11:29 AM VA-TOBACCO FORMER USER [facility] Aug 05, 2018 11:29 AM VA-TOBACCO QUIT 1 TO < 5 YRS [place] Jul 10, 2017 09:32 AM LIFETIME NON-TOBACCO USER [place] Feb 11, 2017 09:04 AM QUIT TOBACCO USE > 7 YEARS [place] A[facility] STOPPED SMOKING 2 1/2 YEARS AGO A PACK A DAY Jul 30, 2016 09:07 AM QUIT TOBACCO USE 1-7 YEARS [place] A[facility] reports quitting 2 years ago Jun 18, 2015 03:44 PM QUIT TOBACCO USE 1-7 YEARS [place] A[facility] Radiology Reports: +/- 30 days of [...] data comes from all [place] treatment facilities. Date/Time Radiology Report Provider Source May 07, 2021 09:43 KIDNEY AND BLADDER ULTRASOUND: RADIOLOGY,[facility] OLIVIA GARCÍA [id number] -MAR 02 197 6 M SERVICE [place] [facility] Ex Date: MAY 07, 2021@09:43 Req Phys: DANY CULLEN Marilou Loc: CWM/SO/PACT 4 ( Req'g Loc) Img Loc: ULTRASOUND Service: Unknown (Case 16 COMPLETE) ULTRASOUND KIDNEYS (US Detail ed) CPT:23908 Reason for Study: pt w/new urinary incontinence and incomplete bladder emptying (Case 17 COMPLETE) ULTRASOUND URINARY BLADDER (U S Detailed) CPT:22982 Clinical History: postvoid residual bladder scans always 0 ML Report Status: Verified Date Reported: MAY 07, 2021 Date Verified: MAY 07, 2021 [employer] E-Sig: Report: Ultrasound kidneys and urinary bladder Procedure: Transverse and longitudinal grayscal e echograms of the kidneys and urinary bladder were acquired. Dopp ler imaging was utilized. This study was performed and supervis ed that [facility] facility, and subsequently transmitted to [place] te leradiology for interpretation. The total image [...] hepatic steatosis. READING PHYSICIAN: Mitzi Garland M.D. -[phone] 05/07/2021 7:21 [facility] National Teleradiology Program [phone] (For Medical Practitioner Use Only ) [address] [facility], [facility] [address] [place] [address] Attention Patients / Veterans: If you have ques tions or concerns about these test results, please contact your [facility] provider or primary care team. Primary Diagnostic [...] data comes from all [place] treatment facilities. Date/Time Pathology Report Provider Source May 13, 2021 11:37 AM LR MICROBIOLOGY REPORT: COLE HANSON Reporting Lab: [facility] [C VASQUEZ# [id number]] [address] [place] [id number] Accession [UID]: [id number] [[id number]] Receiv ed: May 13, 2021@11:37 Collection sample: URINE Collection date: Apr 11:37 Provider: DANY CULLEN Test(s) ordered: CULTURE, URINE........ ........ completed: May 16, 2021 09:02 * BACTERIOLOGY FINAL REPORT => May 16, 2021 09:0 2 TECH CODE: [id number] Bacteriology Remark(s): NO GROWTH (<1,000 CFU/ml) AFTER TWO DAYS =--=--=--=--=--=--=--=--=--=--=--=--=--= --=--=--=--=--=--=--=--=--=--=--=--=-- Performing Laboratory: Bacteriology Report Performed By: [facility] [CLIA# [id number] ] [address] [place] [id number] Encounter Notes: All associated encounter notes This section contains the clinical notes associated to the Encounter. Date/Time Encounter Note(s) Provider Source May 17, 2021 09:00 AM MENTAL HEALTH NOTE: JESUS EVANGELISTA LOCAL TITLE: CPT PTSD THERAPY NOTE STANDARD TITLE: MENTAL HEALTH NOTE DATE OF NOTE: MAY 17, 2021@09:00 ENTRY DATE: MAY 17, 2021@11:35:49 AUTHOR: JESUS EVANGELISTA EXP COSIGNER: URGENCY: STATUS: COMPLETED [facility] Video Connect (VVC) Standard Documentation VVC Clinician Resources Only: E911 (Emergency Call Relay Center): [phone] National Veterans Crisis Line - ( 4-908-855-ZNPC) press #1. MIKE Suicide Coordinator [phone], Ext. [phone]; Back-up Ext. [phone] Kindergarten Teacher of the Day(AOD), Ryan MCKEON [phone], Ext. [phone] Introduction: Visit is being conducted by [place] Virally Connect. identified with 2 identifiers: [X] Full Name [X] Date of [ ] VA ID Card Emergency Plan: confirmed and/or pro vided the following information in case of emergency or technology failure. PATIENT PHONE - PHONE NUMBER [CELLULAR] - Is patient phone number correct, if not, enter b elow: 's phone number: OLIVIA NAZARIO [address], [place], [address] [place]'s present location and address for appoi ntment: Same as above [place]'s emergency contact name and phone numbe r: reported that location is private and sa fe: Yes Informed Consent: informed of the risks and benefits of Te lehealth video care. [place] has the right to refuse video services. If refuses video visit, a wzgi-xz-kiek visit will be scheduled. [place] verbalized consent for this video visit: Yes [place] provided consent for any other persons p resent for visit: N/A If yes, who and relationship to patient: Secure visit: Visit was locked for security and privacy:Yes Cognitive Processing Therapy: Trauma Event Sessi on Time in session (in minutes): 45 SESSION NUMBER: 4 SESSION FORMAT Video Telehealth Session SESSION LOCATION Other location Specify: 's home via [facility] DIAGNOSIS: Primary (focus of treatment): PTSD (F43.12) ASSESSMENT: PCL-5 Weekly The score was 27. Interpretive Statement: PCL-5 weekly has a total score range of 0-80, w ith higher scores indicating greater PTSD symptom severity. 0-10: no or minimal symptoms reported 11-20: mild symptoms reported 21-40: moderate symptoms reported 41-60: severe symptoms reported 61-80: very severe symptoms reported 1. Repeated, disturbing, and unwanted memories of the stressful experience? Not at all 2. Repeated, disturbing dreams of the stressful experience? Not at all 3. Suddenly feeling or acting as if the stressf ul experience were actually happening again (as if you were actually back t here reliving it)? A little bit 4. Feeling very upset when something reminded y ou of the stressful experience? A little bit 5. Having strong physical reactions when someth ing reminded you of the stressful experience (for example, heart poundi ng, trouble breathing, sweating)? A little bit 6. Avoiding memories, thoughts, or feelings rel ated to the stressful experience? Quite a bit 7. Avoiding external reminders of the stressful experience (for example, people, places, conversations, activities, obje cts, or situations)? Quite a bit 8. Trouble remembering important parts of the s tressful experience? Not at all 9. Having strong negative beliefs about yoursel f, other people, or the world (for example, having thoughts such as: I am bad, there is something seriously wrong with me, no one can be trusted, the world is completely dangerous)? Quite a bit 10. Blaming yourself or someone else for the st ressful experience or what happened after it? Quite a bit 11. Having strong negative feelings such as fea r, horror, anger, guilt, or shame? A little bit 12. Loss of interest in activities that you use d to enjoy? Not at all 13. Feeling distant or cut off from other peopl e? A little bit 14. Trouble experiencing positive feelings (for example, being unable to feel happiness or have loving feelings for peop le close to you)? A little bit 15. Irritable behavior, angry outbursts, or act ing aggressively? Not at all 16. Taking too many risks or doing things that could cause you harm? Not at all 17. Being super alert or watchful or on guard ? Extremely 18. Feeling jumpy or easily startled? Not at all 19. Having difficulty concentrating? Quite a bit 20. Trouble falling or staying asleep? Moderately CHANGE IN SCORE (PCL or PHQ9) CHANGES IN ASSESSMENT SCORES FROM EARLIER ADMIN ISTRATIONS: Slight increase. Believe this is a more accurat e score. Previous scores were around holidays when felt especial ly good. RISK INFORMATION None noted MENTAL STATUS/BEHAVIORAL OBSERVATIONS None noted SESSION CONTENT: The completed the Trauma Event session of Cognitive Processing Therapy (CPT) for PTSD. The following therapy c omponents were addressed: -Therapist reviewed the completed A-B-C Workshe ets with . -Therapist had [place] read the trauma account aloud. [place] chose not to do the trauma narrative -Therapist helped connect feeli ngs to thoughts. completed ABC sheets and understands his pattern and the conn ection between his thoughts and outcomes. PRACTICE ASSIGNMENT -Therapist asked [place] to rewrite the trauma account and to continue using the A-B-C Worksheets, completing at least one e ach day. MOTIVATIONAL ENHANCEMENT --Identified short-term goals in several areas of functioning. Becoming aware of self talk --Identified the benefits of reducing the sever ity of the target diagnosis/problem. better relationships within the home --Assessed attitude toward therapy. COLLABORATION The degree of collaboration between the [place] and the therapist in the current session was high. Description of collaboration in this session: [place] completed HW and was engaged in the ses juan antonio. PLAN Next session planned for agreed upon date/time of: 05/24/21 at 9am /pippa/ MANDO BARNES Community Assistant Mental Health Signed: 05/17/2021 11:47
--- OUTSIDE RECORDS SUMMARY | 2022-02-08 16:27 | XMS_ITS | Encounter Summary ---
:1975 Author Organization Department [facility] rs Address [address] [place] [address] Support Name Relationship Address Phone LANG NAZARIO Unavailable [address] [place] [address] OLIVIA GOVEA Unavailable Unavailable Selected Encounter This section includes the information on record at [place] for the Encounter. Date/Time Encounter Type Encounter Description Reason Provider Source May 16, 2021 02:42 Outpatient Encounter [facility] - IND IHE Encounter Template Text not used by [place] [...] 17, 2021 09:00 AM AMBULATORY - PSYCHIATRY [place] May 22, 2021 09:30 AM AMBULATORY - PSYCHIATRY [place] May 27, 2021 01:00 PM AMBULATORY PSYCHIATRY [place] Jun 05, 2021 01:00 PM AMBULATORY PSYCHIATRY [place] Jun 10, 2021 09:00 AM [facility] Jun 24, 2021 01:[address] [facility] Jun 27, 2021 10:30 AM AMBULATORY - [facility] Jul 08, 2021 11:30 AM [facility] Jul 11, 2021 12:00 PM [facility] August 20, 2021 09:30 AM AMBULATORY - PSYCHIATRY [place] August 29, 2021 03:00 PM AMBULATORY - MEDICINE [place] Nov 07, 2021 08:00 AM AMBULATORY - MEDICINE [place] Active, Pending, and Scheduled Orders This section [...] Jun 06, 2021 10:54 AM Consult Order [facility] Cons [facility] [employer] Helper's Choice Lab Results: +/- 30 days of the encounter This section includes the Chemistry and Hematology Lab Results on record with [place] for the patient. Radiology Reports and Pathology Reports are provided separately, in subsequent sections.Lab Results This section contains the Chemistry/Hematology Results that were resulted 30 days before or 30 daysafter the date of the Encounter. Date/Time Source Result Type Result - Unit Interpretation Reference Range Comment May 13, 2021 11:37 AM [place] URINALYSIS Specimen Type: URINE No comment enter ed. Ordering Provid er: DANY CULLEN Report Released Date/Time: May 13, 2021 10:53 AM Reporting Lab: [address] [address] Performing Lab: [address] [address] UA COLOR Straw Yellow UA APPEARANCE Clear [...] data comes from all [place] treatment facilities. Date/Time Radiology Report Provider Source May 07, 2021 09:43 KIDNEY AND BLADDER ULTRASOUND: RADIOLOGY,[facility] CN[facility] WSTRN OLIVIA GARCÍA [id number] -MAR 02, 197 6 M SERVICE [place] [facility] Ex Date: MAY 07, 2021@09:43 Req Phys: DANY CULLEN Loc: CWM/SO/PACT 4 ( Req'g Loc) Img Loc: ULTRASOUND Service: Unknown (Case 16 COMPLETE) ULTRASOUND KIDNEYS (US Detail ed) CPT:94305 Reason for Study: pt w/new urinary incontinence and incomplete bladder emptying (Case 17 COMPLETE) ULTRASOUND URINARY BLADDER (U S Detailed) CPT:98942 Clinical History: postvoid residual bladder scans always 0 ML Report Status: Verified Date Reported: MAY 07, 2021 Date Verified: MAY 07, 2021 [employer] E-Sig: Report: Ultrasound kidneys and urinary bladder Procedure: Transverse and longitudinal grayscal e echograms of the kidneys and urinary bladder were acquired. Dopp ler imaging was utilized. This study was performed and supervis ed that focal [place] facility, and subsequently transmitted to [place] te leradiology for interpretation. The total image [...] hepatic steatosis. READING PHYSICIAN: Mitzi Garland M.D. -[phone] 05/07/2021 7:21 [facility] National Teleradiology Program [phone] (For Medical Practitioner Use Only ) [address] [place] [address], [place] [address], [address] [place] [address] Attention Patients / Veterans: If you have ques tions or concerns about these test results, please contact your [facility] provider or primary care team. Primary [...] data comes from all [place] treatment facilities. Date/Time Pathology Report Provider Source May 13, 2021 11:37 AM LR MICROBIOLOGY REPORT: [facility] Reporting Lab: [facility] [C VASQUEZ# [id number]] [address] [place] [id number] Accession [UID]: [id number] [[id number]] Receiv ed: May 13, 2021@11:37 Collection sample: URINE Collection date: Apr 11:37 Provider: DANY CULLEN Test(s) ordered: CULTURE, URINE........ ........ completed: May 16, 2021 09:02 * BACTERIOLOGY FINAL REPORT => May 16, 2021 09:0 2 TECH CODE: [id number] Bacteriology Remark(s): NO GROWTH (<1,000 CFU/ml) AFTER TWO DAYS =--=--=--=--=--=--=--=--=--=--=--=--=--= --=--=--=--=--=--=--=--=--=--=--=--=-- Performing Laboratory: Bacteriology Report Performed By: [facility] [CLIA# [id number] ] [address] [place] [id number] Encounter Notes: All associated encounter notes This section contains the clinical notes associated to the Encounter. Date/Time Encounter Note(s) Provider Source May 16, 2021 02:42 PM ADMINISTRATIVE NOTE: ALIE GEIGER [facility] TITLE: ADMINISTRATIVE NOTE STANDARD TITLE: ADMINISTRATIVE NOTE DATE OF NOTE: MAY 16, 2021@14:42 ENTRY DATE: MAY 16, 2021@14:43:23 AUTHOR: ALIE GEIGER EXP COSIGNER: URGENCY: STATUS: COMPLETED ADMINISTRATIVE NOTE Has ADDENDA Bundle Cutter made appt reminder call for 05/17/2021 vid eo, 9am, Confirmed /pippa/ Alie Geiger ADVANCED PRODUCT SUPPORT ENGINEER Signed: 05/16/2021 14:44 05/16/2021 ADDENDUM STATUS: COMPLETED could not keep vvc appt for 04/21 @ 1300 with alternate provider. Appt has been RS at this time to 05/22/2021 @ 09 30 vvc appt /es/ JERO MARKS ADVANCED PRODUCT SUPPORT ENGINEER Signed: 05/16/2021 15:22
--- OUTSIDE RECORDS SUMMARY | 2022-02-08 16:27 | XMS_ITS | Encounter Summary ---
:1975 Author Organization Department [facility] rs Address [address] [place] [id number] Support Name Relationship Address Phone LANG NAZARIO Unavailable [address] [place] [address] OLIVIA GOVEA Unavailable Unavailable Selected Encounter This section includes the information on record at [place] for the Encounter. Date/Time Encounter Type Encounter Reason Provider Source Description May 13, 2021 10:14 IMMUNIZATION ADMIN PRIMARY ASHUTOSH CULLEN CARE/MEDICINE IHE Encounter Template Text not used by [place] Plan of Treatment: Future Appointments (+ 6 months) and Future Tests (+/- 45 days) The Plan of Treatment section includes future care activities for the patient from all [place] treatmentfacilities. This section includes future appointments and future orders which are active, pending orscheduled.Future Appointments This section includes appointments that were scheduled to occur 6 months from the date of the Encounter, up to a maximum of 20 appointments. The data comes from all [place] treatment facilities. Appointment Date/Time Appointment Type Appointment Facili ty Name May 17, 2021 09:00 AM AMBULATORY - [facility]CHI[facility]RY [facility] May 22, 2021 09:30 AM AMBULATORY - [facility] May 27, 2021 01:00 PM AMBULATORY [facility]YCHIATRY [facility] Jun 05, 2021 01:00 PM AMBULATORY [facility]YCHIATRY [facility] Jun 10, 2021 09:00 AM [facility] Jun 24, 2021 01:45 PM [facility] Jun 27, 2021 10:30 AM AM[facility]ULATORY - [facility] Jul 08, 2021 11:30 AM [facility] Jul 11, 2021 12:00 PM AMBULATORY - MEDICINE [facility] Taye [facility] August 20, 2021 09:30 AM AMBULATORY - PSYCHIATRY [facility] August 29, 2021 03:00 PM AMBULATORY - MEDICINE [facility] Nov 07, 2021 08:00 AM AMBULATORY - MEDICINE [facility] Active, Pending, and Scheduled Orders This section includes a listing of several types of active, pending, and scheduled orders, including clinic medications orders, diagnostic test orders, procedure orders and consult orders; where the start date of the order is 45 days before the date of the Encounter or 45 days after the date of the Encounter. The data comes from all [place] treatment facilities. Test Date/Time Test Type Test Details Facility Name Jun 06, 2021 10:54 AM Consult Order [facility] Mathematics Professor's Choice Lab Results: +/- 30 days of the encounter This section includes the Chemistry and Hematology Lab Results on record with [place] for the patient. Radiology Reports and Pathology Reports are provided separately, in subsequent sections.Lab Results This section contains the Chemistry/Hematology Results that were resulted 30 days before or 30 daysafter the date of the Encounter. Date/Time Source Result Type Result - Unit Interpretation Reference Range Comment May 13, 2021 11:37 AM [facility] URINALYSIS Specimen Type: URINE No comment enter ed. Ordering Provid er: DANY CULLEN Report Released Date/Time: May 13, 2021 10:53 AM Reporting Lab: [address] [address] Performing Lab: [address] [address] UA COLOR Straw Yellow UA APPEARANCE Clear Clear UA GLUCOSE Negative Negative UA KETONES Negative Neg UA BLOOD Negative Neg UA PROTEIN Negative Neg UA NITRITE Negative Neg UA BILIRUBIN Negative Neg UA SPECIFIC GRAVITY 1.005 L 1.016-1.02 2 UA pH 7.0 5.0-9.0 UA UROBILINOGEN <2.0 <2.0 UA LEUKOCYTE ESTERASE Negative Neg Immunizations: All administered on the encounter date This section contains immunizations associated to the Encounter. Immunization Series Date Issued Reaction Comments TD (ADULT), 2 LF TETANUS TOXOID, PRESERVATIVE May 13, 2021 FREE, ADSORBED Radiology Reports: +/- 30 days of the [...] the Encounter. The data comes from all [place] treatment facilities. Date/Time Radiology Report Provider Source May 07, 2021 09:43 KIDNEY AND BLADDER ULTRASOUND: RADIOLOGY,[facility] OLIVIA GARCÍA [id number] -MAR 02 [phone] 6 [facility] Date: MAY 07, 2021@09:43 Req Phys: DANY CULLEN Loc: CWM/SO/PACT 4 ( Req'g Loc) Img Loc: ULTRASOUND Service: Unknown (Case 16 COMPLETE) ULTRASOUND KIDNEYS (US Detail ed) CPT:94750 Reason for Study: pt w/new urinary incontinence and incomplete bladder emptying (Case 17 COMPLETE) ULTRASOUND URINARY BLADDER (U S Detailed) CPT:22192 Clinical History: postvoid residual bladder scans always 0 ML Report Status: Verified Date Reported: MAY 07, 2021 Date Verified: MAY 07, 2021 Rectification Printer E-Sig: Report: Ultrasound kidneys and urinary bladder Procedure: Transverse and longitudinal grayscal e echograms of the kidneys and urinary bladder were acquired. Dopp ler imaging was utilized. This study was performed and supervis ed that focal [place] facility, and subsequently transmitted to [place] te leradiology for interpretation. The total image [...] hepatic steatosis. READING PHYSICIAN: Mitzi Garland M.D. -[phone] 05/07/2021 7:21 [facility] National Teleradiology Program [phone] (For Medical Practitioner Use Only ) [address] [place] [address], [address] [place] [address] Attention Patients / Veterans: If you have ques tions or concerns about these test results, please contact your o rdering provider or primary care team. Primary Diagnostic [...] the Encounter. The data comes from all [place] treatment facilities. Date/Time Pathology Report Provider Source May 13, 2021 11:37 AM LR MICROBIOLOGY REPORT: COLE [facility] Reporting [facility]: [facility] [C VASQUEZ# [id number]] [address] [place] [id number] Accession [UID]: [id number] [[id number]] Receiv ed: May 13, 2021@11:37 Collection sample: URINE Collection date: Apr 11:37 Provider: DANY CULLEN Test(s) ordered: CULTURE, URINE........ ........ completed: May 16, 2021 09:02 * BACTERIOLOGY FINAL REPORT => May 16, 2021 09:0 2 TECH CODE: [id number] Bacteriology Remark(s): NO GROWTH (<1,000 CFU/ml) AFTER TWO DAYS =--=--=--=--=--=--=--=--=--=--=--=--=--= --=--=--=--=--=--=--=--=--=--=--=--=-- Performing Laboratory: Bacteriology Report [facility] [CLIA# [id number] ] [address] [place] [id number] Encounter Notes: All associated encounter notes This section contains the clinical notes associated to the Encounter. Date/Time Encounter Note(s) Provider Source May 13, 2021 10:14 AM PREVENTIVE MEDICINE NURSING NOTE: CARLOS BOYD [facility] LOCAL TITLE: CLINICAL REMINDERS/NURSING STANDARD TITLE: PREVENTIVE MEDICINE NURSING NOTE DATE OF NOTE: MAY 13, 2021@10:14 ENTRY DATE: MAY 13, 2021@10:14:53 AUTHOR: CARLOS BOYD EXP COSIGNER: URGENCY: STATUS: COMPLETED CLINICAL REMINDERS/NURSING Has ADDENDA here for check up re WT issues. Avg Risk Colorectal Cancer Screen: AVERAGE RISK colorectal cancer screening is due based on information available to this clinical reminder Patient declined screening/surveillance. Influenza Immunization: The patient declines to receive the recommended dose of seasonal influenza vaccine. Td / Tdap Immunization: The patient received Tetanus/Diphtheria (Td) 0. 5ml IM today in Right Deltoid. Steam Shovel Operator: SigFig es Lot # and Expiration Date: A134A(E) Administered by protocol/policy Complications: None The Tetanus/Diphtheria Vaccine (Td) Vaccine Inf ormation Sheet (VIS) was given to the patient today. VIS version date Nov. COVID-19 Immunization: Refuses all COVID-19 vaccines (current and futu re) /real BOYD LPN LICENSED PRACTICAL NURSE Signed: 05/13/2021 10:31 05/13/2021 ADDENDUM STATUS: COMPLETED Hepatitis B Immunization: Hepatitis B vaccine dose #1 Date: October 12, 2002 Location: [facility] Hepatitis B vaccine dose #2 Date: November 11, 2002 Location: [facility] Hepatitis B vaccine dose #3 Date: September 26, 2004 Location: [facility] Hepatitis B vaccine dose #4 or booster Date: April 07, 2006 Location: [facility] records. /real BOYD LPN LICENSED PRACTICAL NURSE Signed: 05/13/2021 15:08
--- OUTSIDE RECORDS SUMMARY | 2022-02-08 16:27 | XMS_ITS | Encounter Summary ---
:1975 Author Organization Department of [facility] rs Address [address] [place] [address] Support Name Relationship Address Phone LANG NAZARIO Unavailable [address] [place] [address] OLIVIA GOVEA Unavailable Unavailable Selected Encounter This section includes the information on record at [place] for the Encounter. Date/Time Encounter Type Encounter Reason Provider Source Description May 27, 2021 CASE MANAGEMENT MENTAL HEALTH ICD-10-CM F32.9 Ray JOHNSON END 01:00 PM CLINIC - IND Major depressive Y disorder, single episode, unspecified with Provider Comments: Major depressive disorder ([facility] [id number]) IHE Encounter Template Text not used by [facility] Assessments - Encounter Diagnoses This section includes the primary and secondary diagnoses documented for the Encounter. Date/Time Primary/Secondary Diagnosis Name Provider Source Diagnosis May 27, 2021 PRIMARY Major depressive JIM JOHNSON [place] 02:26 PM disorder, single episode, unspecified May 27, 2021 SECONDARY Adjustment ALEX,JIM FAREED 02:26 PM disorder with mixed anxiety and depressed mood May 27, 2021 SECONDARY Chronic pain JIM JOHNSON [place] 02:26 PM syndrome Plan of Treatment: Future Appointments (+ 6 months) and Future Tests (+/- 45 days) The Plan of Treatment section includes future care activities for the patient from all [place] treatmentfacilities. This section includes future appointments and future orders which are active, pending orscheduled.Future Appointments This section includes appointments that were scheduled to occur 6 months from the date of the Encounter, up to a maximum of 20 appointments. The data comes from all [place] treatment facilities. Appointment Date/Time Appointment Type Appointment Facili ty Name Jun 05, 2021 01:00 PM AMBULATORY - PS[facility]CHIATRY [place] Jun 10, 2021 09:00 AM [facility] Jun 24, 2021 01:45 PM [facility] Jun 27, 2021 10:30 AM AMBULATORY - [facility] Jul 08, 2021 11:30 AM [facility] Jul 11, 2021 12:00 PM [facility] August 20, 2021 09:30 AM AMBULATORY - PSYCHIATRY [place] August 29, 2021 03:00 PM AMBULATORY MEDICINE [place] Nov 07, 2021 08:00 AM AMBULATORY [facility] Active, Pending, and Scheduled Orders This section includes a listing of several types of active, pending, and scheduled orders, including clinic medications orders, diagnostic test orders, procedure orders and consult orders; where the start date of the order is 45 days before the date of the Encounter or 45 days after the date of the Encounter. The data comes from all [facility] facilities. Test Date/Time Test Type Test Details Facility Name Jun 06, 2021 10:54 AM Consult Order [facility] Dipper's Choice Lab Results: +/- 30 days of the encounter This section includes the Chemistry and Hematology Lab Results on record with [place] for the patient. Radiology Reports and Pathology Reports are provided separately, in subsequent sections.Lab Results This section contains the Chemistry/Hematology Results that were resulted 30 days before or 30 daysafter the date of the Encounter. Date/Time Source Result Type Result - Unit Interpretation Reference Range Comment May 13, 2021 11:37 AM [place] URINALYSIS Specimen Type: URINE No comment enter ed. Ordering Provid er: DANY CULLEN Report Released Date/Time: May 13, 2021 10:53 AM Reporting Lab: [facility] [address] [facility] [address] Performing Lab: [address] [address] UA COLOR Straw Yellow UA APPEARANCE Clear [...] smoking and tobacco-related health factors from the [place] facility where the Encounter took place.Current Smoking Status This section includes the most current smoking, or tobacco-related health factor, from the [place] facility where the Encounter took place. Date/Time Current Smoking Status Comment Facility Jul 23, 2020 03:00 PM VA-TOBACCO FORMER USER [facility] Tobacco Use History This section includes a history of the smoking, or tobacco- related health factors, that were collected on or before the date of the Encounter. The data comes from the [place] facility where the Encounter took place. Date/Time Smoking Status/Tobacco Use Comment [facility] Jul 23, 2020 03:00 PM [place]-TOBAC[place] QUIT 5 TO < 15 YRS [place] Aug 05, 2018 11:29 AM VA-TOBACCO FORMER USER [facility] Aug 05, 2018 11:29 AM VA-TOBACCO QUIT 1 TO < 5 YRS [place] Jul 10, 2017 09:32 AM LIFETIME NON-TOBACCO USER [place] Feb 11, 2017 09:04 AM QUIT TOBACCO USE > 7 YEARS [place] AGO STOPPED SMOKING 2 1/2 YEARS AGO A PACK A DAY Jul 30, 2016 09:07 AM QUIT TOBACCO USE 1-7 YEARS [place] AGO reports quitting 2 years ago Jun 18, 2015 03:44 PM QUIT TOBACCO USE 1-7 YEARS [place] AGO Radiology Reports: +/- 30 days of [...] the Encounter. The data comes from all [place] treatment facilities. Date/Time Radiology Report Provider Source May 07, 2021 09:43 KIDNEY AND BLADDER ULTRASOUND: RADIOLOGY,[facility] OLIVIA GARCÍA [id number] -MAR 02 [phone] 6 [facility] Date: MAY 07, 2021@09:43 Req Phys: DANY CULLEN [place] Loc: CWM/SO/PACT 4 ( Req'g Loc) Img Loc: ULTRASOUND Service: Unknown (Case 16 COMPLETE) ULTRASOUND KIDNEYS (US Detail ed) CPT:41279 Reason for Study: pt w/new urinary incontinence and incomplete bladder emptying (Case 17 COMPLETE) ULTRASOUND URINARY BLADDER (U S Detailed) CPT:36178 Clinical History: postvoid residual bladder scans always 0 ML Report Status: Verified Date Reported: MAY 07, 2021 Date Verified: MAY 07, 2021 Physician'S Assistant E-Sig: Report: Ultrasound kidneys and urinary bladder Procedure: Transverse and longitudinal grayscal e echograms of the kidneys and urinary bladder were acquired. Dopp ler imaging was utilized. This study was performed and supervis ed that [facility] facility, and subsequently transmitted to [place] te leradiology for interpretation. The total image [...] hepatic steatosis. READING PHYSICIAN: Mitzi Garland M.D. -[phone] 05/07/2021 7:21 [facility] National Teleradiology Program [phone] (For Medical Practitioner Use Only ) [address] [place] [address], [facility] [address], [address] [place] [address] Attention Patients / Veterans: If you have ques tions or concerns about these test results, please contact your [facility] provider or primary care team. [...] the Encounter. The data comes from all [place] treatment facilities. Date/Time Pathology Report Provider Source May 13, 2021 11:37 AM LR MICROBIOLOGY REPORT: COLE HANSON Reporting Lab: [facility] [C VASQUEZ# [id number]] [address] [place] [id number] Accession [UID]: [id number] [[id number]] Receiv ed: May 13, 2021@11:37 Collection sample: URINE Collection date: Apr 11:37 Provider: DANY CULLEN Test(s) ordered: CULTURE, URINE........ ........ completed: May 16, 2021 09:02 * BACTERIOLOGY FINAL REPORT => May 16, 2021 09:0 2 TECH CODE: [id number] Bacteriology Remark(s): NO GROWTH (<1,000 CFU/ml) AFTER TWO DAYS =--=--=--=--=--=--=--=--=--=--=--=--=--= --=--=--=--=--=--=--=--=--=--=--=--=-- Performing Laboratory: Bacteriology Report Performed By: [facility] [CLIA# [id number] ] [address] [place] [id number] Encounter Notes: All associated encounter notes This section contains the clinical notes associated to the Encounter. Date/Time Encounter Note(s) Provider Source May 27, 2021 02:06 PM MENTAL HEALTH CONSULT: JIM JOHNSON [facility] TITLE: CONSULT REPORT/CRANIAL ELECTROTHER APY STIMULATION STANDARD TITLE: MENTAL HEALTH CONSULT DATE OF NOTE: MAY 27, 2021@14:06 ENTRY DATE: MAY 27, 2021@14:06:17 AUTHOR: JIM JOHNSON EXP COSIGNER: URGENCY: STATUS: COMPLETED CONSULT REPORT/CRANIAL ELECTROTHERAPY STIMU LATSYLVIE Has ADDENDA F: Alpha-Stim Trial [place] arrived at clinic re: Alpha-Stim Trial # 1 [place] identified himself by name and date of shobha zelaya. Olivia is alert and oriented to person, place, time, and situation. Olivia denies SI/HI, and or [...] History of aneurysm 4. Headache (SNOMED CT [id number]) 5. Chronic serous otitis media 6. Obesity 7. Osteopenia 8. Helicobacter pylori gastrointestinal tract i nfection 9. 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 Chronic pain 11. Traumatic rupture of patellar tendon 12. Abnormal gait 13. Fracture of tibial spine 14. Foot-drop 15. Tobacco dependence, continuous 16. Gastroesophageal reflux disease (SNOMED CT 2 [id number]) 17. Limb pain 18. hydradenitis 19. asymptomatic varicose veins 20. Sleep apnea 21. Hyperlipidemia 22. Diarrhea 23. adjustment disorder with mixed anxiety and d epressed mood 24. Compartment syndrome of lower limb 25. [...] TABLET BY MOUTH ACTIVE ONCE DAILY A/P: [place] is utilizing Alpha-Stim for the diagnose s of MDD and insomnia. Initial trial Veronica Crow [facility] suggested th at [place] try the Alpha-Stim device for depression and sleep. Olivia was informed that the A lpha-Stim is a nonpharmacological tool that could be helpful for managing/reducing anxi ety, depression and promotes improved quality sleep. Olivia was also informed that 3 trials are needed prior to being issued an Alpha-Stim device of his own, Olivia agrees to trials. Race Car Driver explained what to expect, demonstrated ho w to set-up, and utilize the Alpha-Stim device. Olivia utilized the Alpha-Sti m for 20 minutes and quickly noted benefit reporting feeling more relaxed yet energized in a good way and experiencing a sense of calm while using the Alpha-S ronny. Olivia was encouraged to be mindful of anything he notes good or bad after u sing the Alpha-Stim and is aware that he may contact fiction and nonfiction prose writer to discuss and schedule another trial of the Alpha-Stim. Race Car Driver will order Olivia his personal device if he remains interest in acquiring his own Alpha-Stim after the second trial is completed. Olivia will be contacted and oriented to his personal Alpha-Stim once it has arrived in the clinic. Upcoming Appointments: 05/31/2021 09:00 CWM/SO/TH/VVC/MHC/JEAN CARLOS 06/07/2021 09:00 CWM/SO/TH/VVC/MHC/JEAN CARLOS 06/14/2021 09:00 CWM/SO/TH/VVC/MHC/JEAN CARLOS 07/08/2021 11:30 CWM/NO/OPTOMETRY/PROVIDER 08/20/2021 09:30 CWM/SO/TH/VVC/MHC/ROOT 11/07/2021 08:00 CWM/SO/ENTER LABORATORY 11/14/2021 10:00 CWM/SO/PACT 4 Patient provided with [facility] Crisis Line claudette shultz([phone]) and urged to call that number at any time if he has thoughts about suicide and, or to call 911 or go to nearest E.R. if he has s uicidal thoughts. is aware that he can call or walk-in at anytime prior to next appointment. was provided with ray marin's contact information for use as needed. No barriers; Patient understands and agrees to c urrent treatment plan. If has any questions , concerns, or changes in current health status will call or come [facility] to the [facility]. 30 minutes spent in patient care and education. /pippa/ TRACY WHIPPLE, RN, CNL MENTAL HEALTH NURSE SENIOR FORMULATION SCIENTIST Signed: 05/27/2021 14:26 05/30/2021 ADDENDUM STATUS: RICKY Larose contacted fiction and nonfiction prose writer to schedule another trial of the Alpha-Stim and is requesting his own Alpha-Sti m, as he found significant therapeutic benefit from previous trial. /pippa/ TRACY WHIPPLE, RN, CNL MENTAL HEALTH NURSE SENIOR FORMULATION SCIENTIST Signed: 05/30/2021 10:52
--- OUTSIDE RECORDS SUMMARY | 2022-02-08 16:28 | XMS_ITS | Encounter Summary ---
:1975 Author Organization Department [facility] rs Address [address] [place] [address] Support Name Relationship Address Phone LANG NAZARIO Unavailable [address] [place] [address] OLIVIA GOVEA Unavailable Unavailable Selected Encounter This section includes the information on record at MA for the Encounter. Date/Time Encounter Type Encounter Description Reason Provider Source May 13, 2021 12:00 Outpatient Encounter EVENT (HISTORICAL) AM IHE Encounter Template Text not used by MA Plan of Treatment: Future Appointments (+ 6 months) and Future Tests (+/- 45 days) The Plan of Treatment section includes future care activities for the patient from all MA treatmentfacilities. This section includes future appointments and future orders which are active, pending orscheduled.Future Appointments This section includes appointments that were scheduled to occur 6 months from the date of the Encounter, up to a maximum of 20 appointments. The data comes from all MA treatment facilities. Appointment Date/Time Appointment Type Appointment Facili ty Name May 17, 2021 09:00 AM AMBULATORY - PS[facility]CHIATRY [place] May 22, 2021 09:30 AM AMBULATORY - [facility] [place] May 27, 2021 01:00 PM AMBULATORY [facility] [place] Jun 05, 2021 01:00 PM AMBULATORY [facility] [place] Jun 10, 2021 09:00 AM [facility] Jun 24, 2021 01:45 PM [facility] Jun 27, 2021 10:30 AM AM[facility]ORY - [facility] Jul 08, 2021 11:30 AM [facility] Jul 11, 2021 12:00 [facility] August 20, 2021 09:30 AM AMBULATORY - PS[facility]CHIATRY [place] August 29, 2021 03:00 PM AMBULATORY - MEDICINE [place] Nov 07, 2021 08:00 AM AMBULATORY MEDICINE [place] Active, Pending, and Scheduled Orders This section includes a listing of several types of active, pending, and scheduled orders, including clinic medications orders, diagnostic test orders, procedure orders and consult orders; where the start date of the order is 45 days before the date of the Encounter or 45 days after the date of the Encounter. The data comes from all MA treatment facilities. Test Date/Time Test Type Test Details Facility Name Jun 06, 2021 10:54 AM Consult Order [facility] Cons [facility] [employer] Polisher's Choice Lab Results: +/- 30 days of the encounter This section includes the Chemistry and Hematology Lab Results on record with MA for the patient. Radiology Reports and Pathology Reports are provided separately, in subsequent sections.Lab Results This section contains the Chemistry/Hematology Results that were resulted 30 days before or 30 daysafter the date of the Encounter. Date/Time Source Result Type Result - Unit Interpretation Reference Range Comment May 13, 2021 11:37 AM [place] URINALYSIS Specimen Type: URINE No comment enter ed. Ordering Provid er: DANY CULLEN Report Released Date/Time: May 13, 2021 10:53 AM Reporting Lab: [address] [address] Performing Lab: [address] [address] UA COLOR Straw Yellow UA APPEARANCE Clear [...] the Encounter. The data comes from all [place] treatment facilities. Date/Time Radiology Report Provider Source May 07, 2021 09:43 KIDNEY AND BLADDER ULTRASOUND: RADIOLOGY,[facility] OLIVIA GARCÍA [id number] -[birth year], [birth year] 6 M SERVICE [place] [facility] Ex Date: MAY 07, 2021@09:43 Req Phys: DANY CULLEN Loc: CWM/SO/PACT 4 ( Req'g Loc) Img Loc: ULTRASOUND Service: Unknown (Case 16 COMPLETE) ULTRASOUND KIDNEYS (US Detail ed) CPT:76465 Reason for Study: pt w/new urinary incontinence and incomplete bladder emptying (Case 17 COMPLETE) ULTRASOUND URINARY BLADDER (U S Detailed) CPT:65585 Clinical History: postvoid residual bladder scans always 0 ML Report Status: Verified Date Reported: MAY 07, 2021 Date Verified: MAY 07, 2021 Larriman Helper E-Sig: Report: Ultrasound kidneys and urinary bladder Procedure: Transverse and longitudinal grayscal e echograms of the kidneys and urinary bladder were acquired. Dopp ler imaging was utilized. This study was performed and supervis ed that [facility] facility, and subsequently transmitted to MA te leradiology for interpretation. The total image [...] hepatic steatosis. READING PHYSICIAN: Mitzi Garland M.D. -[phone] 05/07/2021 7:21 [facility] National Teleradiology Program [phone] (For Medical Practitioner Use Only ) [address] [place] [address], [place] [address], [address] [place] [address] Attention Patients / Veterans: If you have ques tions or concerns about these test results, please contact your [facility] provider or primary care team. [...] the Encounter. The data comes from all [place] treatment facilities. Date/Time Pathology Report Provider Source May 13, 2021 11:37 AM LR MICROBIOLOGY REPORT: [facility] Reporting Lab: [facility] [employer] [facility] [C VASQUEZ# [id number]] [address] [place] [id number] Accession [UID]: [id number] [[id number]] Receiv ed: May 13, 2021@11:37 Collection sample: URINE Collection date: Apr 11:37 Provider: DANY CULLEN Test(s) ordered: CULTURE, URINE........ ........ completed: May 16, 2021 09:02 * BACTERIOLOGY FINAL REPORT => May 16, 2021 09:0 2 TECH CODE: [id number] Bacteriology Remark(s): NO GROWTH (<1,000 CFU/ml) AFTER TWO DAYS =--=--=--=--=--=--=--=--=--=--=--=--=--= --=--=--=--=--=--=--=--=--=--=--=--=-- Performing Laboratory: Bacteriology Report Performed By: [facility] [employer] [CLIA# [id number] ] [address] [place] [id number]
--- OUTSIDE RECORDS SUMMARY | 2022-02-08 16:28 | XMS_ITS | Encounter Summary ---
:1975 Author Organization Department of [facility] rs Address [address] [place] [address] Support Name Relationship Address Phone LANG NAZARIO Unavailable [address] [place] [address] OLIVIA GOVEA Unavailable Unavailable Selected Encounter This section includes the information on record at [place] for the Encounter. Date/Time Encounter Type Encounter Reason Provider Source Description Apr 26, 2021 PSYTX W PT 30 MENTAL HEALTH ICD-10-CM JESUS EVANGELISTA 08:00 AM MINUTES CLINIC - IND F43.12 Post-traumatic stress disorder, chronic with Provider Comments: Post-Traumatic Stress Disorder, Chronic IHE Encounter Template Text not used by [facility] Assessments - Encounter Diagnoses This section includes the primary and secondary diagnoses documented for the Encounter. Date/Time Primary/Secondary Diagnosis Name Provider Source Diagnosis Apr 26, 2021 PRIMARY Post-traumatic JESUS EVANGELISTA [place] 08:32 AM stress disorder, chronic Apr 26, 2021 SECONDARY Major depressive JESUS EVANGELISTA [place] 08:32 AM disorder, single episode, unspecified Plan of Treatment: Future Appointments (+ 6 months) and Future Tests (+/- 45 days) The Plan of Treatment section includes future care activities for the patient from all [place] treatmentfacilities. This section includes future appointments and future orders which are active, pending orscheduled.Future Appointments This section includes appointments that were scheduled to occur 6 months from the date of the Encounter, up to a maximum of 20 appointments. The data comes from all [place] treatment facilities. Appointment Date/Time Appointment Type Appointment Facili ty Name May 03, 2021 08:00 AM AMBULATORY - PSYCHIATRY [place] May 07, 2021 10:00 AM AMBULATORY - [facility] JOSE CHAND [facility] May 13, 2021 10:30 AM AMBULATORY - MEDICINE [place] May 17, 2021 09:00 AM AMBULATORY - [facility]CHIATRY [place] May 22, 2021 09:30 AM AMBULATORY - [facility]IATRY [place] May 27, 2021 01:00 PM AMBULATORY - [facility]CHIATRY [place] Jun 05, 2021 01:00 PM AMBULATORY - PS[facility]CHIATRY [place] Jun 10, 2021 09:00 AM AMBULATORY - [facility] [place] [facility] Jun 24, 2021 01:45 PM AMBULATORY - [place]IC[place] [place] [facility] Jun 27, 2021 10:30 AM AMBULATORY - [facility] Jul 08, 2021 11:30 AM AMBULATORY - MEDICINE [place] [place] [facility] Jul 11, 2021 12:00 PM AMBULATORY - MEDICINE [place] [facility] [place] [facility] August 20, 2021 09:30 AM AMBULATORY - PSYCHIATRY [place] August 29, 2021 03:00 PM AMBULATORY [facility] Active, Pending, and Scheduled Orders This section includes a listing of several types of active, pending, and scheduled orders, including clinic medications orders, diagnostic test orders, procedure orders and consult orders; where the start date of the order is 45 days before the date of the Encounter or 45 days after the date of the Encounter. The data comes from all [place] treatment facilities. Test Date/Time Test Type Test Details Facility Name Jun 06, 2021 10:54 AM Consult Order [facility] Test Operator's Choice Lab Results: +/- 30 days of the encounter This section includes the Chemistry and Hematology Lab Results on record with SD for the patient. Radiology Reports and Pathology Reports are provided separately, in subsequent sections.Lab Results This section contains the Chemistry/Hematology Results that were resulted 30 days before or 30 daysafter the date of the Encounter. Date/Time Source Result Type Result - Unit Interpretation Reference Range Comment May 13, 2021 11:37 AM [place] URINALYSIS Specimen Type: URINE No comment enter ed. Ordering Provid er: DANY CULLEN Report Released Date/Time: May 13, 2021 10:53 AM Reporting Lab: [address] [address] Performing Lab: [address] [address] UA COLOR Straw Yellow UA APPEARANCE Clear Clear UA GLUCOSE Negative Negative UA KETONES Negative Neg UA BLOOD Negative Neg UA PROTEIN Negative Neg UA NITRITE Negative Neg UA BILIRUBIN Negative Neg UA SPECIFIC GRAVITY 1.005 L 1.016-1.02 2 UA pH 7.0 5.0-9.0 UA UROBILINOGEN <2.0 <2.0 UA LEUKOCYTE ESTERASE Negative Neg Apr 04, 2021 01:26 PM [place] PSA Specimen Type: SERUM No comment enter ed. Ordering Provid er: DANY CULLEN Report Released Date/Time: Mar 27, 2021 08:05 PM Reporting Lab: [facility] [address] [facility] [address] Performing Lab: [facility] [address] [facility] [address] PSA 1.67 0.00-4.00 Social History: Smoking Status (Most current) and Tobacco Use (All prior to encounter date) This section includes the most current, and the historical, smoking and tobacco-related health factors from the SD facility where the Encounter took place.Current Smoking Status This section includes the most current smoking, or tobacco-related health factor, from the [place] facility where the Encounter took place. Date/Time Current Smoking Status Comment Facility Jul 23, 2020 03:00 PM SD-TOBACCO QUIT 5 TO < 15 YRS [place] Tobacco Use History This section includes a history of the smoking, or tobacco- related health factors, that were collected on or before the date of the Encounter. The data comes from the [place] facility where the Encounter took place. Date/Time Smoking Status/Tobacco Use Comment [facility] Jul 23, 2020 03:00 PM VA-TOBACCO QUIT 5 TO < 15 YRS [place] Aug 05, 2018 11:29 AM VA-TOBACCO FORMER USER [facility] Aug 05, 2018 11:29 AM VA-TOBACCO QUIT 1 TO < 5 YRS [place] Jul 10, 2017 09:32 AM LIFETIME NON-TOBACCO USER [place] Feb 11, 2017 09:04 AM QUIT TOBACCO USE > 7 YEARS [place] AGO STOPPED SMOKING 2 1/2 YEARS AGO A PACK A DAY Jul 30, 2016 09:07 AM QUIT TOBACCO USE 1-7 YEARS [place] AGO reports quitting 2 years ago Jun 18, 2015 03:44 PM QUIT TOBACCO USE 1-7 YEARS [place] AGO Radiology Reports: +/- 30 days of [...] the Encounter. The data comes from all [place] treatment facilities. Date/Time Radiology Report Provider Source May 07, 2021 09:43 KIDNEY AND BLADDER ULTRASOUND: RADIOLOGY,[facility] OLIVIA GARCÍA [id number] -MAR 02 6 M SERVICE [place] [facility] Ex Date: MAY 07, 2021@09:43 Req Phys: DANY CULLEN Loc: CWM/SO/PACT 4 ( Req'g Loc) Img Loc: ULTRASOUND Service: Unknown (Case 16 COMPLETE) ULTRASOUND KIDNEYS (US Detail ed) CPT:48501 Reason for Study: pt w/new urinary incontinence and incomplete bladder emptying (Case 17 COMPLETE) ULTRASOUND URINARY BLADDER (U S Detailed) CPT:68802 Clinical History: postvoid residual bladder scans always 0 ML Report Status: Verified Date Reported: MAY 07, 2021 Date Verified: MAY 07, 2021 Poolroom Table Attendant E-Sig: Report: Ultrasound kidneys and urinary bladder Procedure: Transverse and longitudinal grayscal e echograms of the kidneys and urinary bladder were acquired. Dopp ler imaging was utilized. This study was performed and supervis ed that focal [place] facility, and subsequently transmitted to SD te leradiology for interpretation. The total image [...] hepatic steatosis. READING PHYSICIAN: Mitzi Garland M.D. -[phone] 05/07/2021 7:21 [facility] National Teleradiology Program [phone] (For Medical Practitioner Use Only ) [address] [place] [address], [place] [address], [address] [place] [address] Attention Patients / Veterans: If you have ques tions or concerns about these test results, please contact your [facility] provider or primary care team. [...] the Encounter. The data comes from all [place] treatment facilities. Date/Time Pathology Report Provider Source May 13, 2021 11:37 AM LR MICROBIOLOGY REPORT: [facility] Reporting Lab: [facility] [C VASQUEZ# [id number]] [address] [place] [id number] Accession [UID]: [id number] [[id number]] Receiv ed: May 13, 2021@11:37 Collection sample: URINE Collection date: Apr 11:37 Provider: DANY CULLEN Test(s) ordered: CULTURE, URINE........ ........ completed: May 16, 2021 09:02 * BACTERIOLOGY FINAL REPORT => May 16, 2021 09:0 2 TECH CODE: [id number] Bacteriology Remark(s): NO GROWTH (<1,000 CFU/ml) AFTER TWO DAYS =--=--=--=--=--=--=--=--=--=--=--=--=--= --=--=--=--=--=--=--=--=--=--=--=--=-- Performing Laboratory: Bacteriology Report Performed By: [place] [facility] LEE ANN [facility] [CLIA# [id number] ] [address] [place] [address] Encounter Notes: All associated encounter notes This section contains the clinical notes associated to the Encounter. Date/Time Encounter Note(s) Provider Source Apr 26, 2021 08:00 AM TELEHEALTH NOTE: JESUS EVANGELISTA LOCAL TITLE: [facility] VIDEO CONNECT SOCIAL WORK NOTE STANDARD TITLE: TELEHEALTH NOTE DATE OF NOTE: APR 26, 2021@08:00 ENTRY DATE: APR 26, 2021@08:24:05 AUTHOR: JESUS EVANGELISTA EXP COSIGNER: URGENCY: STATUS: COMPLETED INFORMED CONSENT REVIEWED: At beginning of sessi on reviewed rights and limits of confidentiality, mandatory reporting situatio ns, duty to warn and protect, Werner Warning, (if treatment team finds patient to be an acute danger to himself or others, that this information could be relaye d to a court of law and presented to a obstetrician), and D OD access for active duty service members. Provided Suicide Prevention Hotline number, and other con tact numbers as necessary. VISIT DURATION Other: 20 minutes DIAGNOSES: PTSD (F43.12); MDD (F32.9) VETERANS STATEMENT OF GOALS/CONCERNS: I'm feeling a little off today. SESSION FOCUS: Met with Queen on [facility] for CPT however he did not complete the homework of the stuck point log. He stated he had no negative th oughts over the holidays. Explained the log again for him and asked him to focus on the thoughts that developed as a child in relation to his traumas. Encouraged him to use the examples in his workbook as a guide. He agreed. He stated his moods have been stable stating the holidays went very well so he felt good. Will meet next Thursday for CPT session 3. INTERVENTIONS: Psychotherapeutic Interventions: [facility]; Reflective listening and review CPT ASSESSMENT: BRIEF ASSESSMENT OF MENTAL STATUS: 1. Appearance (grooming, attire, apparent age) within normal limits: Yes 2. Thought content was organized and goal direc kylah: Yes 3. Speech was coherent and unimpaired: Yes 4. Affect was appropriate and unremarkable: Yes 5. Demeanor was calm, with no signs of agitatio n or restlessness: Yes 6. Sleep was largely unimpaired and restful: Yes 7. No evidence of psychosis (hallucinations or delusions): Yes 8. Mood was normal: Yes Other Observations: RISK ASSESSMENT: Denies current suicidal ideation PLAN FOR FOLLOW-UP: Next session planned for: 05/03/21 [facility] Video Connect (VVC) Standard Documentation VVC Clinician Resources Only: E911 (Emergency Call Relay Center): [phone] [employer] Crisis Line - ( 6-067-228-TALK) press #1. MIKE Suicide Coordinator [phone], Ext. [phone]; Back-up Ext. [phone] Puncher of the Day(AOD), Ryan MCKEON [phone], Ext. [phone] Introduction: Visit is being conducted by [place] [employer]. Queen identified with 2 identifiers: [X] Full Name [X] Date of [ ] VA ID Card Emergency Plan: confirmed and/or pro vided the following information in case of emergency or technology failure. PATIENT PHONE - PHONE NUMBER [CELLULAR] - Is patient phone number correct, if not, enter b elow: 's phone number: OLIVIA NAZARIO [address], [place], [address] 's present location and address for appoi ntment: Same as above 's emergency contact name and phone numbe r: Queen reported that location is private and sa fe: Yes Informed Consent: informed of the risks and benefits of [facility] video care. Queen has the right to refuse video services. If refuses video visit, a risx-cx-dybt visit will be scheduled. verbalized consent for this video visit: Yes provided consent for any other persons p resent for visit: N/A If yes, who and relationship to patient: Secure visit: Visit was locked for security and privacy:Yes /pippa/ MANDO BARNES Shoulder [employer]yer [facility] Signed: 04/26/2021 08:32
--- OUTSIDE RECORDS SUMMARY | 2022-02-08 16:28 | XMS_ITS | Encounter Summary ---
:1975 Author Organization Department [facility] rs Address [address] [place] [address] Support Name Relationship Address Phone LANG NAZARIO Unavailable [address] [place] [address] OLIVIA GOVEA Unavailable Unavailable Selected Encounter This section includes the information on record at [place] for the Encounter. Date/Time Encounter Type Encounter Description Reason Provider Source May 09, 2021 08:41 Outpatient [facility]counter [facility] Encounter Template Text not used by [place] Plan of Treatment: Future Appointments (+ 6 months) and Future Tests (+/- 45 days) The Plan of Treatment section includes future care activities for the patient from all [place] treatmentfacilities. This section includes future appointments and future orders which are active, pending orscheduled.Future Appointments This section includes appointments that were scheduled to occur 6 months from the date of the Encounter, up to a maximum of 20 appointments. The data comes from all [place] treatment facilities. Appointment Date/Time Appointment Type Appointment Facili ty Name May 13, 2021 10:30 AM AMBULATORY - MEDICINE [place] May 17, 2021 09:00 AM AMBULATORY [facility]RY [place] May 22, 2021 09:30 AM AM[facility]UL[facility]ORY [facility] [place] May 27, 2021 01:00 PM AMBUL[facility]ORY [facility] [place] Jun 05, 2021 01:00 PM AMBULATORY [facility] [place] Jun 10, 2021 09:[address] [facility] Jun 24[facility] 2021 01:45 PM [facility] Jun 27, 2021 10:30 AM AM[facility]ULATORY - [facility] Jul 08, 2021 11:30 AM AMBULATORY [facility] Jul 11, 2021 12:00 PM AMBULATORY - [facility] August 20, 2021 09:30 AM AMBULATORY - [facility]CHIATRY [place] August 29, 2021 03:00 PM AMBULATORY - [facility]IC[facility] [place] Active, Pending, and Scheduled Orders This section includes a listing of several types of active, pending, and scheduled orders, including clinic medications orders, diagnostic test orders, procedure orders and consult orders; where the start date of the order is 45 days before the date of the Encounter or 45 days after the date of the Encounter. The data comes from all [place] treatment facilities. Test Date/Time Test Type Test Details Facility Name Jun 06, 2021 10:54 AM Consult Order [facility] Delivery Person's Choice Lab Results: +/- 30 days of the encounter This section includes the Chemistry and Hematology Lab Results on record with [place] for the patient. Radiology Reports and Pathology Reports are provided separately, in subsequent sections.Lab Results This section contains the Chemistry/Hematology Results that were resulted 30 days before or 30 daysafter the date of the Encounter. Date/Time Source Result Type Result - Unit Interpretation Reference Range Comment May 13, 2021 11:37 AM [place] URINALYSIS Specimen Type: URINE No comment enter ed. Ordering Provid er: DANY CULLEN Report Released Date/Time: May 13, 2021 10:53 AM Reporting Lab: [address] [id number] Performing Lab: [address] [address] UA COLOR Straw Yellow UA APPEARANCE Clear [...] the Encounter. The data comes from all [place] treatment facilities. Date/Time Radiology Report Provider Source May 07, 2021 09:43 KIDNEY AND BLADDER ULTRASOUND: RADIOLOGY,[facility] OLIVIA GARCÍA [id number] -[birth year], [birth year] 7 M SERVICE [place] [facility] Ex Date: MAY 07, 2021@09:43 Req Phys: DANY CULLEN Loc: CWM/SO/PACT 4 ( Req'g Loc) Img Loc: ULTRASOUND Service: Unknown (Case 16 COMPLETE) ULTRASOUND KIDNEYS (US Detail ed) CPT:80712 Reason for Study: pt w/new urinary incontinence and incomplete bladder emptying (Case 17 COMPLETE) ULTRASOUND URINARY BLADDER (U S Detailed) CPT:74125 Clinical History: postvoid residual bladder scans always 0 ML Report Status: Verified Date Reported: MAY 07, 2021 Date Verified: MAY 07, 2021 Lead Instructor/Flight Attendant E-Sig: Report: Ultrasound kidneys and urinary bladder Procedure: Transverse and longitudinal grayscal e echograms of the kidneys and urinary bladder were acquired. Dopp ler imaging was utilized. This study was performed and supervis ed that focal [place] facility, and subsequently transmitted to [place] te leradiology for interpretation. The total image [...] hepatic steatosis. READING PHYSICIAN: Mitzi Garland M.D. -[phone] 05/07/2021 7:21 [facility] National Teleradiology Program [phone] (For Medical Practitioner Use Only ) [address] [place] [address], [place] [address], [address] [place] [address] Attention Patients / Veterans: If you have ques tions or concerns about these test results, please contact your [facility] provider or primary care team. [...] the Encounter. The data comes from all [place] treatment facilities. Date/Time Pathology Report Provider Source May 13, 2021 11:37 AM LR MICROBIOLOGY REPORT: [facility] Reporting Lab: [facility] [C VASQUEZ# [id number]] [address] [place] [id number] Accession [UID]: [id number] [[id number]] Receiv ed: May 13, 2021@11:37 Collection sample: URINE Collection date: Apr 11:37 Provider: DANY CULLEN Test(s) ordered: CULTURE, URINE........ ........ completed: May 16, 2021 09:02 * BACTERIOLOGY FINAL REPORT => May 16, 2021 09:0 2 TECH CODE: [id number] Bacteriology Remark(s): NO GROWTH (<1,000 CFU/ml) AFTER TWO DAYS =--=--=--=--=--=--=--=--=--=--=--=--=--= --=--=--=--=--=--=--=--=--=--=--=--=-- Performing Laboratory: Bacteriology Report Performed By: [facility] [CLIA# [id number] ] [address] [place] [id number] Encounter Notes: All associated encounter notes This section contains the clinical notes associated to the Encounter. Date/Time Encounter Note(s) Provider Source May 09, 2021 08:41 AM ADMINISTRATIVE NOTE: ALIE GEIGER [facility] TITLE: ADMINISTRATIVE NOTE STANDARD TITLE: ADMINISTRATIVE NOTE DATE OF NOTE: MAY 09, 2021@08:41 ENTRY DATE: MAY 09, 2021@08:41:50 AUTHOR: ALIE GEIGER EXP COSIGNER: URGENCY: STATUS: COMPLETED Plate Shear Operator made appt reminder call for 05/10/2021 by video, arthur /pippa/ Alie Geiger ADVANCED INTERNAL COMMUNICATIONS SPECIALIST Signed: 05/09/2021 08:42
--- OUTSIDE RECORDS SUMMARY | 2022-02-08 16:28 | XMS_ITS | Encounter Summary ---
:1975 Author Organization Department [facility] rs Address [address] [place] [address] Support Name Relationship Address Phone LANG NAZARIO Unavailable [address] [phone] [place] [address] OLIVIA GOVEA Unavailable Unavailable Selected Encounter This section includes the information on record at [place] for the Encounter. Date/Time Encounter Type Encounter Description Reason Provider Source May 10, 2021 03:25 Outpatient Encounter PRIMARY CARE/MEDICINE [facility] Encounter Template Text not used by [place] Plan of Treatment: Future Appointments (+ 6 months) and Future Tests (+/- 45 days) The Plan of Treatment section includes future care activities for the patient from all [place] treatmentfacilities. This section includes future appointments and future orders which are active, pending orscheduled.Future Appointments This section includes appointments that were scheduled to occur 6 months from the date of the Encounter, up to a maximum of 20 appointments. The data comes from all [place] treatment facilities. Appointment Date/Time Appointment Type Appointment Facili ty Name May 13, 2021 10:30 AM AMBULATORY - MEDICINE [place] May 17, 2021 09:00 AM AMBULATORY PSYCHIATRY [place] May 22, 2021 09:30 AM AMBULATORY PSYCHIATRY [place] May 27, 2021 01:00 PM AMBULATORY PSYCHIATRY [place] Jun 05, 2021 01:00 PM AMBULATORY PSYCHIATRY [place] Jun 10, 2021 09:00 AM [facility]ORY [facility] Jun 24, 2021 01:45 PM [facility] Jun 27, 2021 10:30 AM [facility]ATORY - [facility] Jul 08, 2021 11:30 AM [facility] Taye [facility] Jul 11, 2021 12:00 PM AMBULATORY - MEDICINE [facility] T[facility] August 20, 2021 09:30 AM AMBULATORY - PSYCHIATRY [place] August 29, 2021 03:00 PM AMBULATORY - MEDICINE [place] Nov 07, 2021 08:00 AM AMBULATORY - MEDICINE [place] Active, Pending, and Scheduled Orders This section includes a listing of several types of active, pending, and scheduled orders, including clinic medications orders, diagnostic test orders, procedure orders and consult orders; where the start date of the order is 45 days before the date of the Encounter or 45 days after the date of the Encounter. The data comes from all [place] treatment facilities. Test Date/Time Test Type Test Details Facility Name Jun 06, 2021 10:54 AM Consult Order [facility] Cons [facility] Qc Chemist's Choice Lab Results: +/- 30 days of the encounter This section includes the Chemistry and Hematology Lab Results on record with [place] for the patient. Radiology Reports and Pathology Reports are provided separately, in subsequent sections.Lab Results This section contains the Chemistry/Hematology Results that were resulted 30 days before or 30 daysafter the date of the Encounter. Date/Time Source Result Type Result - Unit Interpretation Reference Range Comment May 13, 2021 11:37 AM [place] URINALYSIS Specimen Type: URINE No comment enter ed. Ordering Provid er: DANY CULLEN Report Released Date/Time: May 13, 2021 10:53 AM Reporting Lab: [address] [address] Performing Lab: [address] [address] UA COLOR Straw Yellow UA APPEARANCE Clear [...] the Encounter. The data comes from all [place] treatment facilities. Date/Time Radiology Report Provider Source May 07, 2021 09:43 KIDNEY AND BLADDER ULTRASOUND: RADIOLOGY,[facility] OLIVIA GARCÍA [id number] -[birth year], [birth year] 7 [facility] Ex Date: MAY 07, 2021@09:43 Req Phys: DANY CULLEN Loc: CWM/SO/PACT 4 ( Req'g Loc) Img Loc: ULTRASOUND Service: Unknown (Case 16 COMPLETE) ULTRASOUND KIDNEYS (US Detail ed) CPT:87887 Reason for Study: pt w/new urinary incontinence and incomplete bladder emptying (Case 17 COMPLETE) ULTRASOUND URINARY BLADDER (U S Detailed) CPT:81258 Clinical History: postvoid residual bladder scans always 0 ML Report Status: Verified Date Reported: MAY 07, 2021 Date Verified: MAY 07, 2021 Damage Adjuster E-Sig: Report: Ultrasound kidneys and urinary bladder Procedure: Transverse and longitudinal grayscal e echograms of the kidneys and urinary bladder were acquired. Dopp ler imaging was utilized. This study was performed and supervis ed that focal [place] facility, and subsequently transmitted to [place] te leradiology for interpretation. The total image [...] hepatic steatosis. READING PHYSICIAN: Mitzi Garland M.D. [phone] 05/07/2021 7:[address] [facility] National Teleradiology Program [phone] (For Medical Practitioner Use Only ) [address] [facility], [place] [address], [address] [place] [address] Attention Patients / Veterans: If you have ques tions or concerns about these test results, please contact your [facility] provider or primary care team. Primary [...] the Encounter. The data comes from all [place] treatment facilities. Date/Time Pathology Report Provider Source May 13, 2021 11:37 AM LR MICROBIOLOGY REPORT: [facility] Reporting Lab: [facility] [C VASQUEZ# [id number]] [address] [place] [id number] Accession [UID]: [id number] [[id number]] Receiv ed: May 13, 2021@11:37 Collection sample: URINE Collection date: Apr 11:37 Provider: DANY CULLEN Test(s) ordered: CULTURE, URINE........ ........ completed: May 16, 2021 09:02 * BACTERIOLOGY FINAL REPORT => May 16, 2021 09:0 2 TECH CODE: [id number] Bacteriology Remark(s): NO GROWTH (<1,000 CFU/ml) AFTER TWO DAYS =--=--=--=--=--=--=--=--=--=--=--=--=--= --=--=--=--=--=--=--=--=--=--=--=--=-- Performing Laboratory: Bacteriology Report Performed By: [facility] [CLIA# [id number] ] [address] [place] [id number] Encounter Notes: All associated encounter notes This section contains the clinical notes associated to the Encounter. Date/Time Encounter Note(s) Provider Source May 10, 2021 03:25 PM ADMINISTRATIVE NOTE: LIANG PATEL [facility] TITLE: ADMINISTRATIVE NOTE STANDARD TITLE: ADMINISTRATIVE NOTE DATE OF NOTE: MAY 10, 2021@15:25 ENTRY DATE: MAY 10, 2021@15:25:23 AUTHOR: LIANG PATEL EXP COSIGNER: URGENCY: STATUS: COMPLETED TELEPHONE CALL Called PATIENT PHONE - PHONE NUMBER [CELLULAR] - Re: Decorator Hand has called to remind them of thei r upcoming PCP appt with DANY CULLEN and the need for bloodwork prior to upcoming donte t. [X] Spoke with [ ] Left VM [ ] Unable to reach [ ] Fasting blood work [ ] NON fasting blood work [ ] NO bloodwork needed Upcoming Appointments: 05/13/2021 10:30 CWM/SO/PACT 4 05/17/2021 09:00 CWM/SO/TH/VVC/MHC/JEAN CARLOS 05/17/2021 13:00 CWM/SO/TH/VVC/MHC/ROOT 05/24/2021 09:00 CWM/SO/TH/VVC/MHC/JEAN CARLOS 05/31/2021 09:00 CWM/SO/TH/VVC/MHC/JEAN CARLOS 06/07/2021 09:00 CWM/SO/TH/VVC/MHC/JEAN CARLOS 06/14/2021 09:00 CWM/SO/TH/VVC/MHC/JEAN CARLOS 07/08/2021 11:30 CWM/NO/OPTOMETRY/PROVIDER /es/ LIANG PATEL DORMITORY SUPERVISOR Signed: 05/10/2021 15:25
--- OUTSIDE RECORDS SUMMARY | 2022-02-08 16:28 | XMS_ITS | Encounter Summary ---
:1975 Author Organization Department of [facility] rs Address [address] [place] [address] Support Name Relationship Address Phone LANG NAZARIO Unavailable [address] [phone] ARASH GRIFFIN [address] OLIVIA GOVEA Unavailable Unavailable Selected Encounter This section includes the information on record at [place] for the Encounter. Date/Time Encounter Type Encounter Reason Provider Source Description May 03, 2021 PSYTX W PT 45 MENTAL HEALTH ICD-10-CM JESUS EVANGELISTA 08:00 AM MINUTES CLINIC - IND F43.12 Post-traumatic stress disorder, chronic with Provider Comments: Post-Traumatic Stress Disorder, Chronic IHE Encounter Template Text not used by [facility] Assessments - Encounter Diagnoses This section includes the primary and secondary diagnoses documented for the Encounter. Date/Time Primary/Secondary Diagnosis Name Provider Source Diagnosis May 03, 2021 PRIMARY Post-traumatic JESUS EVANGELISTA [facility] 09:35 AM stress disorder, chronic May 03, 2021 SECONDARY Major depressive JESUS EVANGELISTA [facility] 09:35 AM disorder, single episode, unspecified Plan of Treatment: Future Appointments (+ 6 months) and Future Tests (+/- 45 days) The Plan of Treatment section includes future care activities for the patient from all [place] treatmentfacilities. This section includes future appointments and future orders which are active, pending orscheduled.Future Appointments This section includes appointments that were scheduled to occur 6 months from the date of the Encounter, up to a maximum of 20 appointments. The data comes from all [place] treatment facilities. Appointment Date/Time Appointment Type Appointment Facili ty Name May 07, 2021 10:00 AM AMBULATORY - [facility] May 13, 2021 10:30 AM AMBULATORY - MEDICINE [facility] May 17, 2021 09:00 AM AMBULATORY - PSYCHIATRY [facility] May 22, 2021 09:30 AM AMBULATORY - PSYCHIATRY [facility] May 27, 2021 01:00 PM AMBULATORY - PSYCHIATRY [facility] Jun 05, 2021 01:00 PM AMBULATORY - PSYCHIATRY [facility] Jun 10, 2021 09:00 AM AM[facility]ULATORY [facility] [place] [facility] Jun 24, 2021 01:45 [facility] Jun 27, 2021 10:30 AM [facility] - [facility] Jul 08, 2021 11:30 AM [facility] Jul 11, 2021 12:00 PM [facility] August 20, 2021 09:30 AM AMBULATORY - PSYCHIATRY [facility] August 29, 2021 03:00 PM AMBULATORY [facility] Active, Pending, and Scheduled Orders This section includes a listing of several types of active, pending, and scheduled orders, including clinic medications orders, diagnostic test orders, procedure orders and consult orders; where the start date of the order is 45 days before the date of the Encounter or 45 days after the date of the Encounter. The data comes from all [place] treatment facilities. Test Date/Time Test Type Test Details Facility Name Jun 06, 2021 10:54 AM Consult Order [facility] Painter[facility] Lab Results: +/- 30 days of the encounter This section includes the Chemistry and Hematology Lab Results on record with [place] for the patient. Radiology Reports and Pathology Reports are provided separately, in subsequent sections.Lab Results This section contains the Chemistry/Hematology Results that were resulted 30 days before or 30 daysafter the date of the Encounter. Date/Time Source Result Type Result - Unit Interpretation Reference Range Comment May 13, 2021 11:37 AM [facility] URINALYSIS Specimen Type: URINE No comment enter ed. Ordering Provid er: DANY CULLEN Report Released Date/Time: May 13, 2021 10:53 AM Reporting Lab: [address] [address] Performing Lab: [address] [address] UA COLOR Straw Yellow UA APPEARANCE Clear Clear UA GLUCOSE Negative Negative UA KETONES Negative Neg UA BLOOD Negative Neg UA PROTEIN Negative Neg UA NITRITE Negative Neg UA BILIRUBIN Negative Neg UA SPECIFIC GRAVITY 1.005 L 1.016-1.02 2 UA pH 7.0 5.0-9.0 UA UROBILINOGEN <2.0 <2.0 UA LEUKOCYTE ESTERASE Negative Neg Apr 04, 2021 01:26 PM [facility] PSA Specimen Type: SERUM No comment enter ed. Ordering Provid er: DANY CULLEN Report Released Date/Time: Mar 27, 2021 08:05 PM Reporting Lab: [facility] [address] [facility] [address] Performing Lab: [facility] [address] [facility] [address] PSA 1.67 0.00-4.00 Social History: Smoking Status (Most current) and Tobacco Use (All prior to encounter date) This section includes the most current, and the historical, smoking and tobacco-related health factors from the [place] facility where the Encounter took place.Current Smoking Status This section includes the most current smoking, or tobacco-related health factor, from the [place] facility where the Encounter took place. Date/Time Current Smoking Status Comment Facility Jul 23, 2020 03:00 PM [place]-TOBACCO FORMER USER [facility] Tobacco Use History This section includes a history of the smoking, or tobacco- related health factors, that were collected on or before the date of the Encounter. The data comes from the [place] facility where the Encounter took place. Date/Time Smoking Status/Tobacco Use Comment [facility] Jul 23, 2020 03:00 PM VA-TOBACCO QUIT 5 TO < 15 YRS [facility] Aug 05, 2018 11:29 AM VA-TOBACCO FORMER USER [facility] Aug 05, 2018 11:29 AM [place]-TOBACCO QUIT 1 TO < 5 YRS [facility] Jul 10, 2017 09:32 AM LIFETIME NON-TOBACCO USER [facility] Feb 11, 2017 09:04 AM QUIT TOBACCO USE > 7 YEARS [facility] AGO STOPPED SMOKING 2 1/2 YEARS AGO A PACK A DAY Jul 30, 2016 09:07 AM QUIT TOBACCO USE 1-7 YEARS [facility] AGO reports quitting 2 years ago Jun 18, 2015 03:44 PM QUIT TOBACCO USE 1-7 YEARS [facility] AGO Radiology Reports: +/- 30 days of [...] the Encounter. The data comes from all [place] treatment facilities. Date/Time Radiology Report Provider Source May 07, 2021 09:43 KIDNEY AND BLADDER ULTRASOUND: RADIOLOGY,[facility] CNTR WSTRRavi OLIVIA GARCÍA [id number] -MAR 02 197 6 [facility] Ex Date: MAY 07, 2021@09:43 Req Phys: DANY CULLEN Loc: CWM/SO/PACT 4 ( Req'g Loc) Img Loc: ULTRASOUND Service: Unknown (Case 16 COMPLETE) ULTRASOUND KIDNEYS (US Detail ed) CPT:75005 Reason for Study: pt w/new urinary incontinence and incomplete bladder emptying (Case 17 COMPLETE) ULTRASOUND URINARY BLADDER (U S Detailed) CPT:52791 Clinical History: postvoid residual bladder scans always 0 ML Report Status: Verified Date Reported: MAY 07, 2021 Date Verified: MAY 07, 2021 Still Cleaner E-Sig: Report: Ultrasound kidneys and urinary bladder Procedure: Transverse and longitudinal grayscal e echograms of the kidneys and urinary bladder were acquired. Dopp ler imaging was utilized. This study was performed and supervis ed that focal [place] facility, and subsequently transmitted to [place] te leradiology for interpretation. The total image [...] hepatic steatosis. READING PHYSICIAN: Mitzi Garland M.D. -[phone] 05/07/2021 7:21 PST [facility] National Teleradiology Program [phone] (For Medical Practitioner Use Only ) [address] [place] [address], [place] [address], [address] [place] [address] Attention Patients / Veterans: If you have [...] the Encounter. The data comes from all [place] treatment facilities. Date/Time Pathology Report Provider Source May 13, 2021 11:37 AM LR MICROBIOLOGY REPORT: COLE HANSON Reporting Lab: [facility] [C VASQUEZ# [id number]] [address] [place] [id number] Accession [UID]: [id number] [[id number]] Receiv ed: May 13, 2021@11:37 Collection sample: URINE Collection date: Apr 11:37 Provider: DANY CULLEN Test(s) ordered: CULTURE, URINE........ ........ completed: May 16, 2021 09:02 * BACTERIOLOGY FINAL REPORT => May 16, 2021 09:0 2 TECH CODE: [id number] Bacteriology Remark(s): NO GROWTH (<1,000 CFU/ml) AFTER TWO DAYS =--=--=--=--=--=--=--=--=--=--=--=--=--= --=--=--=--=--=--=--=--=--=--=--=--=-- Performing Laboratory: Bacteriology Report Performed By: [facility] [CLIA# [id number] ] [address] [place] [address] Encounter Notes: All associated encounter notes This section contains the clinical notes associated to the Encounter. Date/Time Encounter Note(s) Provider Source May 03, 2021 08:00 AM TELEHEALTH NOTE: JESUS EVANGELISTA LD LOCAL TITLE: [facility] VIDEO CONNECT SOCIAL WORK NOTE STANDARD TITLE: TELEHEALTH NOTE DATE OF NOTE: MAY 03, 2021@08:00 ENTRY DATE: MAY 03, 2021@09:25:30 AUTHOR: JESUS EVANGELISTA EXP COSIGNER: URGENCY: STATUS: COMPLETED Cognitive Processing Therapy: A-B-C Worksheet Se ssion Time in session (in minutes): 45 SESSION NUMBER: 3 SESSION FORMAT Video Telehealth Session DIAGNOSIS: Primary (focus of treatment): PTSD (F43.12) ASSESSMENT: PCL-5 Weekly The score was 23. Interpretive Statement: PCL-5 weekly has a total [...] were actually back t here reliving it)? Not at all 4. Feeling very upset when something reminded y ou of the stressful experience? Not at all 5. Having strong physical reactions when someth ing reminded you of the stressful experience (for example, heart poundi ng, trouble breathing, sweating)? Not at all 6. Avoiding memories, thoughts, or feelings rel ated to the stressful experience? A little bit 7. Avoiding external reminders of the stressful experience (for example, people, places, conversations, activities, obje cts, or situations)? A little bit 8. Trouble remembering important parts of the s tressful experience? Not at all 9. Having strong negative beliefs about yoursel f, other people, or the world (for example, having thoughts such as: I am bad, there is something seriously wrong with me, no one can be trusted, the world is completely dangerous)? Extremely 10. Blaming yourself or someone else for [...] behavior, angry outbursts, or act ing aggressively? A little bit 16. Taking too many risks or doing things that could cause you harm? Not at all 17. Being super alert or watchful or on guard ? Extremely 18. Feeling jumpy or easily startled? A little bit 19. Having difficulty concentrating? Quite a bit 20. Trouble falling or staying asleep? Moderately RISK INFORMATION Not at risk for SI/HI at this time SESSION CONTENT: The Lafitte completed the Thoughts and Feelings Session of the Cognitive Processing Therapy (CPT) for PTSD. The followin g therapy components were addressed: -Therapist reviewed homework (A-B-C Worksheets) with , and helped further differentiate between thoughts and feelings. Lafitte needed review of stuck points. He was able to come up with a few from his current thought processes. We explored his childhood ex periences and he was able to find more stuck points. completed 2 ABC w orksheets during session and stated he understood the process. -The Lafitte did not complete any works heets between sessions; therefore, the was asked to complete worksheets in [facility] juan antonio. See above -Therapist helped Lafitte identify stuck points and add them to the Stuck Point Log. See above PRACTICE ASSIGNMENT -Therapist asked to continue using the A-B-C Worksheets, completing one each day. MOTIVATIONAL ENHANCEMENT --Identified the benefits of reducing the sever ity of the target diagnosis/problem. Better relationship with self and family --Assessed attitude toward therapy. COLLABORATION The degree of collaboration between the Lafitte and the therapist in the current session was high. Description of collaboration in this session: Lafitte was engaged in session. Although he did not write down any stuck points he did think about it all week and has s ome in his head. PLAN Next session planned for agreed upon date/time of: 05/10/21 at 8am [facility] Video Connect (VVC) Standard Documentation VV Clinician Resources Only: E911 (Emergency Call Relay Center): [phone] National Veterans Crisis Line - ( 4-081-739-TALK) press #1. MIKE Suicide Coordinator [phone], Ext. [phone]; Back-up Ext. [phone] Head Of Strategy of the Day(AOD), Ryan MCKEON [phone], Ext. [phone] Introduction: Visit is being conducted by [place] Video Connect. identified with 2 identifiers: [X] Full Name [X] Date of [ ] VA ID Card Emergency Plan: confirmed and/or pro vided the following information in case of emergency or technology failure. PATIENT PHONE - PHONE NUMBER [CELLULAR] - Is patient phone number correct, if not, enter b elow: 's phone number: OLIVIA NAZARIO [address], [place], [address] 's present location and address for appoi ntment: Same as above Lafitte's emergency contact name and phone numbe r: Lafitte reported that location is private and sa fe: Yes Informed Consent: informed of the risks and benefits of Te lehealth video care. has the right to refuse video services. If refuses video visit, a hpzj-sz-kvde visit will be scheduled. verbalized consent for this video visit: Yes provided consent for any other persons p resent for visit: N/A If yes, who and relationship to patient: Secure visit: Visit was locked for security and privacy:Yes /pippa/ MANDO BARNES Strap Cutting Machine Operator Mental Health Signed: 05/03/2021 09:35
--- OUTSIDE RECORDS SUMMARY | 2022-02-08 16:28 | XMS_ITS ---
:1975 Author Organization Department [facility] rs Address [address] [place] [address] Support Name Relationship Address Phone LANG GARCIA Unavailable [address] [phone] ARASH GRIFFIN [address] OLIVIA GOVEA Unavailable Unavailable Selected Encounter This section includes the information on record at [place] for the Encounter. Date/Time Encounter Type Encounter Description Reason Provider Source May 07, 2021 07:56 Outpatient Encounter PRIMARY CARE/MEDICINE AM E Encounter Template Text not used by [place] Plan of Treatment: Future Appointments (+ 6 months) and Future Tests (+/- 45 days) The Plan of Treatment section includes future care activities for the patient from all [place] treatmentfacilities. This section includes future appointments and future orders which are active, pending orscheduled.Future Appointments This section includes appointments that were scheduled to occur 6 months from the date of the Encounter, up to a maximum of 20 appointments. The data comes from all [place] treatment facilities. Appointment Date/Time Appointment Type Appointment Facili ty Name May 13, 2021 10:30 AM AMBULATORY - MEDICINE [facility] May 17, 2021 09:00 AM AMBULATORY PSYCHIATRY [facility] May 22, 2021 09:30 AM AMBULATORY PSYCHIATRY [facility] May 27, 2021 01:00 PM AMBULATORY PSYCHIATRY [facility] Jun 05, 2021 01:00 PM AMBULATORY PSYCHIATRY [facility] Jun 10, 2021 09:00 [facility] Jun 24, 2021 01:45 [facility] Jun 27, 2021 10:30 AM AM[facility]ULATORY - [facility] Jul 08, 2021 11:30 AM [facility] Jul 11, 2021 12:00 PM AMBULATORY - MEDICINE [facility] WSN M [facility] August 20, 2021 09:30 AM AMBULATORY - PSYCHIATRY [facility] August 29, 2021 03:00 PM AMBULATORY - MEDICINE [facility] Active, Pending, and Scheduled Orders This section includes a listing of several types of active, pending, and scheduled orders, including clinic medications orders, diagnostic test orders, procedure orders and consult orders; where the start date of the order is 45 days before the date of the Encounter or 45 days after the date of the Encounter. The data comes from all [place] treatment facilities. Test Date/Time Test Type Test Details Facility Name Jun 06, 2021 10:54 AM Consult Order [facility] Cons [facility] Skiver Machine Operator's Choice Lab Results: +/- 30 days of the encounter This section includes the Chemistry and Hematology Lab Results on record with [place] for the patient. Radiology Reports and Pathology Reports are provided separately, in subsequent sections.Lab Results This section contains the Chemistry/Hematology Results that were resulted 30 days before or 30 daysafter the date of the Encounter. Date/Time Source Result Type Result - Unit Interpretation Reference Range Comment May 13, 2021 11:37 AM [facility] URINALYSIS Specimen Type: URINE No comment enter ed. Ordering Provid er: ZARI CULLEN Report Released Date/Time: May 13, 2021 10:53 AM Reporting Lab: [address] [address] Performing Lab: [address] [address] UA COLOR Straw Yellow UA APPEARANCE Clear [...] the Encounter. The data comes from all [place] treatment facilities. Date/Time Radiology Report Provider Source May 07, 2021 09:43 KIDNEY AND BLADDER ULTRASOUND: RADIOLOGY,OUTS [facility] CNTRL WSTRN OLIVIA GARCÍA [phone] -MAR 02, 197 [address] [place] [facility] Ex Date: MAY 07, 2021@09:43 Req Phys: ZARI CULLEN Loc: CWM/SO/PACT 4 ( Req'g Loc) Img Loc: ULTRASOUND Service: Unknown (Case 16 COMPLETE) ULTRASOUND KIDNEYS (US Detail ed) CPT:25125 Reason for Study: pt w/new urinary incontinence and incomplete bladder emptying (Case 17 COMPLETE) ULTRASOUND URINARY BLADDER (U S Detailed) CPT:30982 Clinical History: postvoid residual bladder scans always 0 ML Report Status: Verified Date Reported: MAY 07, 2021 Date Verified: MAY 07, 2021 Operations Advisor E-Sig: Report: Ultrasound kidneys and urinary bladder Procedure: Transverse and longitudinal grayscal e echograms of the kidneys and urinary bladder were acquired. Dopp ler imaging was utilized. This study was performed and supervis ed that [facility] facility, and subsequently transmitted to [place] te leradiology for interpretation. The total image [...] hepatic steatosis. READING PHYSICIAN: Mitzi Garland M.D. -[phone] 05/07/2021 7:21 [facility] ([facility] National Teleradiology Program [phone] (For Medical Practitioner Use Only ) [address] [place] [address], [place] [address], [address] [place] [address] Attention Patients / Veterans: If you have ques tions or concerns about these test results, please contact your o [facility] provider or primary care team. Primary [...] the Encounter. The data comes from all [place] treatment facilities. Date/Time Pathology Report Provider Source May 13, 2021 11:37 AM LR MICROBIOLOGY REPORT: COLE HANSON Reporting Lab: [facility] [C VASQUEZ# [id number]] [address] [place] [address] Accession [UID]: [id number] [[id number]] Receiv ed: May 13, 2021@11:37 Collection sample: URINE Collection date: Apr 11:37 Provider: ZARI CULLEN Test(s) ordered: CULTURE, URINE........ ........ completed: May 16, 2021 09:02 * BACTERIOLOGY FINAL REPORT => May 16, 2021 09:0 2 TECH CODE: [id number] Bacteriology Remark(s): NO GROWTH (<1,000 CFU/ml) AFTER TWO DAYS =--=--=--=--=--=--=--=--=--=--=--=--=--= --=--=--=--=--=--=--=--=--=--=--=--=-- Performing Laboratory: Bacteriology Report Performed By: [facility] [CLIA# [id number] ] [address] [place] [id number] Encounter Notes: All associated encounter notes This section contains the clinical notes associated to the Encounter. Date/Time Encounter Note(s) Provider Source May 07, 2021 07:56 AM PRIMARY CARE SECURE MESSAGING: ADITHYA PATEL [place] CNTRL WSTRN LOCAL TITLE: PRIMARY CARE SECURE MESSAGING [place] [facility] STANDARD TITLE: PRIMARY CARE SECURE MESSAGING DATE OF NOTE: MAY 07, 2021@07:56:59 ENTRY DATE: MAY 07, 2021@07:56:59 AUTHOR: LIANG PATEL EXP COSIGNER: URGENCY: STATUS: COMPLETED ------Original Message Sent: 05/06/2021 01:16 PM From: OLIVIA AGRCIA To: Tiara CULLEN_PRIMARY CARE_[facility] Subject: Phentermine Doc, Would you refill my phentermine prescription? Pl ease and thank you. V/R Olivia Garcia /pippa/ LIANG PATEL SETTER UP Signed: 05/07/2021 07:56 Receipt Acknowledged By: 05/07/2021 08:02 /pippa/ Zari Cullen M.D. STAFF PHYSICIAN
--- OUTSIDE RECORDS SUMMARY | 2022-02-08 16:29 | XMS_ITS | Encounter Summary ---
:1975 Author Organization Department [facility] rs Address [address] [place] [address] Support Name Relationship Address Phone LANG NAZARIO Unavailable [address] [place] [address] OLIVIA GOVEA Unavailable Unavailable Selected Encounter This section includes the information on record at PA for the Encounter. Date/Time Encounter Type Encounter Reason Provider Source Description Apr 26, 2021 POS AIRWAY TELEPHONE/MEDICIN ICD-10-CM G47.30 MONIQUE RUBIO 11:59 AM PRESSURE FILTER E Sleep apnea, unspecified with Provider Comments: Sleep apnea ([facility] [id number]) IHE Encounter Template Text not used by PA Assessments - Encounter Diagnoses This section includes the primary and secondary diagnoses documented for the Encounter. Date/Time Primary/Secondary Diagnosis Name Provider Source Diagnosis Apr 26, 2021 PRIMARY Sleep ap[facility], [facility] 11[facility]59 AM unspecified [facility] Plan of Treatment: Future Appointments (+ 6 months) and Future Tests (+/- 45 days) The Plan of Treatment section includes future care activities for the patient from all PA treatmentfacilities. This section includes future appointments and future orders which are active, pending orscheduled.Future Appointments This section includes appointments that were scheduled to occur 6 months from the date of the Encounter, up to a maximum of 20 appointments. The data comes from all PA treatment facilities. Appointment Date/Time Appointment Type Appointment Facili ty Name May 03, 2021 08:00 AM AMBULATORY - PSYCHIATRY [facility] May 07, 2021 10:00 AM [facility] May 13, 2021 10:30 AM AMBULATORY - MEDICINE [facility] May 17, 2021 09:00 AM [facility] AM [facility] - [facility]ATRY [facility] May 27, 2021 01:00 PM AMBULATORY - PSYCHIATRY [facility] Jun 05, 2021 01:00 PM AMBULATORY - PSYCHIATRY [facility] Jun 10, 2021 09:00 AM [facility]ULATORY - [facility]ICINE [facility] [place] [facility] Jun 24, 2021 01:45 PM [facility] Jun 27, 2021 10:30 AM [facility] - [facility] Jul 08, 2021 11:30 AM AMBULATORY - MEDICINE [facility] [place] [facility] Jul 11, 2021 12:00 PM [facility] [place] [facility] August 20, 2021 09:30 AM AMBULATORY - PSYCHIATRY [facility] August 29, 2021 03:00 PM AMBULATORY MEDICINE [facility] Active, Pending, and Scheduled Orders This section includes a listing of several types of active, pending, and scheduled orders, including clinic medications orders, diagnostic test orders, procedure orders and consult orders; where the start date of the order is 45 days before the date of the Encounter or 45 days after the date of the Encounter. The data comes from all PA treatment facilities. Test Date/Time Test Type Test Details Facility Name Jun 06, 2021 10:54 AM Consult Order [facility] Automation Consultant's Choice Lab Results: +/- 30 days of the encounter This section includes the Chemistry and Hematology Lab Results on record with PA for the patient. Radiology Reports and Pathology Reports are provided separately, in subsequent sections.Lab Results This section contains the Chemistry/Hematology Results that were resulted 30 days before or 30 daysafter the date of the Encounter. Date/Time Source Result Type Result - Unit Interpretation Reference Range Comment May 13, 2021 11:37 AM [facility] URINALYSIS Specimen Type: URINE No comment enter ed. Ordering Provid er: DANY CULLEN Report Released Date/Time: May 13, 2021 10:53 AM Reporting Lab: [address] [address] Performing Lab: [address] [address] UA COLOR Straw Yellow UA APPEARANCE Clear Clear UA GLUCOSE Negative Negative UA KETONES Negative Neg UA BLOOD Negative Neg UA PROTEIN Negative Neg UA NITRITE Negative Neg UA BILIRUBIN Negative Neg UA SPECIFIC GRAVITY 1.005 L 1.016-1.02 2 UA pH 7.0 5.0-9.0 UA UROBILINOGEN <2.0 <2.0 UA LEUKOCYTE ESTERASE Negative Neg Apr 04, 2021 01:26 PM [facility] PSA Specimen Type: SERUM No comment enter ed. Ordering Provid er: DANY CULLEN Report Released Date/Time: Mar 27, 2021 08:05 PM Reporting Lab: [facility] [address] [facility] [address] Performing Lab: [address] [address] PSA 1.67 0.00-4.00 Radiology Reports: +/- 30 days of the [...] the Encounter. The data comes from all PA treatment facilities. Date/Time Radiology Report Provider Source May 07, 2021 09:43 KIDNEY AND BLADDER UL[facility]AS[facility] OLIVIA NAZARIO [id number] -MAR 02 197 6 M SERVICE [facility] Ex Date: MAY 07, 2021@09:43 Req Phys: DANY CULLEN Pat Loc: CWM/SO/PACT 4 ( Req'g Loc) Img Loc: ULTRASOUND Service: Unknown (Case 16 COMPLETE) ULTRASOUND KIDNEYS (US Detail ed) CPT:43482 Reason for Study: pt w/new urinary incontinence and incomplete bladder emptying (Case 17 COMPLETE) ULTRASOUND URINARY BLADDER (U S Detailed) CPT:47307 Clinical History: postvoid residual bladder scans always 0 ML Report Status: Verified Date Reported: MAY 07, 2021 Date Verified: MAY 07, 2021 Corrugator Machine Operator E-Sig: Report: Ultrasound kidneys and urinary bladder Procedure: Transverse and longitudinal grayscal e echograms of the kidneys and urinary bladder were acquired. Dopp ler imaging was utilized. This study was performed and supervis ed that focal PA facility, and subsequently transmitted to PA te leradiology for interpretation. The total image [...] hepatic steatosis. READING PHYSICIAN: Mitzi Garland M.D. -[phone] 05/07/2021 7:21 [facility] National Teleradiology Program [phone] (For Medical Practitioner Use Only ) [address] [place] [address], [place] [address], [address] [place] [address] Attention Patients / Veterans: If you have ques tions or concerns about these test results, please contact your [facility] provider or primary care team. [...] the Encounter. The data comes from all PA treatment facilities. Date/Time Pathology Report Provider Source May 13, 2021 11:37 AM [facility] MICROBIOLOGY REPORT: COLE HANSON Reporting Lab: PA TIAGO WSR[facility] [C VASQUEZ# [id number]] [address] [place] [id number] Accession [UID]: [id number] [[id number]] Receiv ed: May 13, 2021@11:37 Collection sample: URINE Collection date: Apr 11:37 Provider: DANY CULLEN Test(s) ordered: CULTURE, URINE........ ........ completed: May 16, 2021 09:02 * BACTERIOLOGY FINAL REPORT => May 16, 2021 09:0 2 TECH CODE: [id number] Bacteriology Remark(s): NO GROWTH (<1,000 CFU/ml) AFTER TWO DAYS =--=--=--=--=--=--=--=--=--=--=--=--=--= --=--=--=--=--=--=--=--=--=--=--=--=-- Performing Laboratory: Bacteriology Report Performed By: PA TIAGO KAYDEN [facility] [CLIA# [id number] ] [address] [place] [id number] Encounter Notes: All associated encounter notes This section contains the clinical notes associated to the Encounter. Date/Time Encounter Note(s) Provider Source Apr 26, 2021 11:59 AM RESPIRATORY THERAPY NOTE: MIRIAM RUBIO [facility] LOCAL TITLE: RESPIRATORY THERAPY NOTE(BLANK) STANDARD TITLE: RESPIRATORY THERAPY NOTE DATE OF NOTE: APR 26, 2021@11:59 ENTRY DATE: APR 26, 2021@11:59:33 AUTHOR: MIRIAM RUBIO EXP COSIGNER: URGENCY: STATUS: COMPLETED Mchenry contacted respiratory through [employer] [facility] inquiring about his cpap supplies ordered on 03/28. 03/28/[id number] [employer] PM BACKORDERED N/A [id number] 03/28/[id number] [employer] PM BACK ORDERED N/A HUMIDAIR-HEAT- CLEANA 03/28/[id number] [employer] PM PEND .SHIPMT N/A [id number] 03/28/[id number] [employer] PM PEND .SHIPMT N/A [id number]- MASK 03/28/[id number] [employer] PM PEND.SHIPMT N/A [id number] Since items are still showin g as pending shipment since 03/28, an order will be placed for [employer]. /pippa/ MIRIAM RUBIO CRT RESPIRATORY THERAPIST Signed: 04/26/2021 12:02
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
--- OUTSIDE RECORDS SUMMARY | 2022-02-08 16:29 | XMS_ITS | Encounter Summary ---
:1975 Author Organization Department of [facility] rs Address [address] [place] [address] Support Name Relationship Address Phone LANG NAZARIO Unavailable [address] [place] [address] OLIVIA GOVEA Unavailable Unavailable Selected Encounter This section includes the information on record at [place] for the Encounter. Date/Time Encounter Type Encounter Description Reason Provider Source Apr 22, 2021 02:20 Outpatient Encounter OPTOMETRY PM IHE Encounter Template Text not used by [place] Plan of Treatment: Future Appointments (+ 6 months) and Future Tests (+/- 45 days) The Plan of Treatment section includes future care activities for the patient from all [place] treatmentfacilities. This section includes future appointments and future orders which are active, pending orscheduled.Future Appointments This section includes appointments that were scheduled to occur 6 months from the date of the Encounter, up to a maximum of 20 appointments. The data comes from all [place] treatment facilities. Appointment Date/Time Appointment Type Appointment Facili ty Name Apr 26, 2021 08:00 AM AMBULATORY - PSYCHIATRY [place] May 03, 2021 08:00 AM AMBULATORY - PSYCHIATRY [place] May 07, 2021 10:00 AM AMBULATORY - NONE IN CNTR W[facility]avi CHAND [facility] May 13, 2021 10:30 AM AMBULATORY - MEDICINE [place] May 17, 2021 09:00 AM AMBULATORY - PSYCHIATRY [place] May 22, 2021 09:30 AM AMBULATORY - PSYCHIATRY [place] May 27, 2021 01:00 PM AMBULATORY PSYCHIATRY [place] Jun 05, 2021 01:00 PM AMBULATORY PSYCHIATRY [place] Jun 10, 2021 09:00 AM [facility] Jun 24, 2021 01:45 PM AM[facility]ULATORY - MED[facility]INE [facility] T[facility] Jun 27, 2021 10:30 AM [facility]ORY - [facility] Jul 08, 2021 11:30 AM [facility] Jul 11, 2021 12:00 PM [facility] - [facility] August 20, 2021 09:30 AM AMBULATORY - PSYCHIATRY [place] August 29, 2021 03:[address] [facility] MEDICINE [place] Active, Pending, and Scheduled Orders This section includes a listing of several types of active, pending, and scheduled orders, including clinic medications orders, diagnostic test orders, procedure orders and consult orders; where the start date of the order is 45 days before the date of the Encounter or 45 days after the date of the Encounter. The data comes from all [facility] facilities. Test Date/Time Test Type Test Details Facility Name Jun 06, 2021 10:54 AM Consult Order [facility] Drawstring [facility] Lab Results: +/- 30 days of the encounter This section includes the Chemistry and Hematology Lab Results on record with [place] for the patient. Radiology Reports and Pathology Reports are provided separately, in subsequent sections.Lab Results This section contains the Chemistry/Hematology Results that were resulted 30 days before or 30 daysafter the date of the Encounter. Date/Time Source Result Type Result - Unit Interpretation Reference Range Comment May 13, 2021 11:37 AM [place] URINALYSIS Specimen Type: URINE No comment enter ed. Ordering Provid er: DANY CULLEN Report Released Date/Time: May 13, 2021 10:53 AM Reporting Lab: [facility] [address] [facility] [address] Performing Lab: [address] [address] UA COLOR Straw Yellow UA APPEARANCE Clear Clear UA GLUCOSE Negative Negative UA KETONES Negative Neg UA BLOOD Negative Neg UA PROTEIN Negative Neg UA NITRITE Negative Neg UA BILIRUBIN Negative Neg UA SPECIFIC GRAVITY 1.005 L 1.016-1.02 2 UA pH 7.0 5.0-9.0 UA UROBILINOGEN <2.0 <2.0 UA LEUKOCYTE ESTERASE Negative Neg Apr 04, 2021 01:26 PM [place] PSA Specimen Type: SERUM No comment enter ed. Ordering Provid er: DANY CULLEN Report Released Date/Time: Mar 27, 2021 08:05 PM Reporting Lab: [facility] [address] [facility] [address] Performing Lab: [facility] [address] [facility] [address] PSA 1.67 0.00-4.00 Radiology Reports: +/- 30 [...] the Encounter. The data comes from all [place] treatment facilities. Date/Time Radiology Report Provider Source May 07, 2021 09:43 KIDNEY AND BLADDER ULTRASOUND: RADIOLOGY,OUTS [facility] OLIVIA GARCÍA [id number] -MAR 02 6 M SERVICE [facility] Exm Date: MAY 07, 2021@09:43 Req Phys: DANY CULLEN Pat Loc: CWM/SO/PACT 4 ( Req'g Loc) Img Loc: ULTRASOUND Service: Unknown (Case 16 COMPLETE) ULTRASOUND KIDNEYS (US Detail ed) CPT:19740 Reason for Study: pt w/new urinary incontinence and incomplete bladder emptying (Case 17 COMPLETE) ULTRASOUND URINARY BLADDER (U S Detailed) CPT:77622 Clinical History: postvoid residual bladder scans always 0 ML Report Status: Verified Date Reported: MAY 07, 2021 Date Verified: MAY 07, 2021 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 Dopp ler imaging was utilized. This study was performed and supervis ed that focal [place] facility, and subsequently transmitted to [place] te leradiology for interpretation. The total image [...] hepatic steatosis. READING PHYSICIAN: Mitzi Garland M.D. -[phone] 05/07/2021 7:21 [facility] National Teleradiology Program [phone] (For Medical Practitioner Use Only ) [address] [place] [address], [place] [address], [address] [place] [address] Attention Patients / Veterans: If you have [...] the Encounter. The data comes from all [place] treatment facilities. Date/Time Pathology Report Provider Source May 13, 2021 11:37 AM MICROBIOLOGY REPORT: COLE HANSON Reporting Lab: [facility] [C VASQUEZ# [id number]] [address] [place] [address] Accession [UID]: [id number] [[id number]] Receiv ed: May 13, 2021@11:37 Collection sample: URINE Collection date: Apr 11:37 Provider: DANY CULLEN Test(s) ordered: CULTURE, URINE........ ........ completed: May 16, 2021 09:02 * BACTERIOLOGY FINAL REPORT => May 16, 2021 09:0 2 TECH CODE: [id number] Bacteriology Remark(s): NO GROWTH (<1,000 CFU/ml) AFTER TWO DAYS =--=--=--=--=--=--=--=--=--=--=--=--=--= --=--=--=--=--=--=--=--=--=--=--=--=-- Performing Laboratory: Bacteriology Report Performed By: [place] CNTRL W[facility]N [employer] [facility] [CLIA# [id number] ] [address] [place] [address] Encounter Notes: All associated encounter notes This section contains the clinical notes associated to the Encounter. Date/Time Encounter Note(s) Provider Source Apr 22, 2021 02:20 PM CLERICAL NOTE: HAO PALACIO IN AIME L WSTRN LOCAL TITLE: APPOINTMENT NO SHOW [facility] STANDARD TITLE: CLERICAL NOTE DATE OF NOTE: APR 22, 2021@14:20 ENTRY DATE: APR 22, 2021@14:20:56 AUTHOR: HAO PALACIO EXP COSIGNER: URGENCY: STATUS: COMPLETED Patient Name: OLIVIA NAZARIO Patient SSN: [id number] Date and time of Appointment No show : 04/22/21 14:20 PATIENT PHONE - PHONE NUMBER [CELLULAR] - Patient's medical record was reviewed. Follow-up actions were determined and initiated: Please check/complete as applies: [X]Telephoned Directly [ ]Re-scheduled for next available appt [X]Sent a N0-show letter ( must call for appointment) [ ]Other (Emergent/Overbook, etc.): Additional Comments: Called ot and LM to rs. Sent letter Future Clinic Visits 04/26/2021 08:00 CWM/SO/TH/VVC/MHC/JEAN CARLOS 05/03/2021 08:00 CWM/SO/TH/VVC/MHC/JEAN CARLOS 05/10/2021 08:00 CWM/SO/TH/VVC/MHC/JEAN CARLOS 05/13/2021 10:30 CWM/SO/PACT 4 05/17/2021 08:00 CWM/SO/TH/VVC/MHC/JEAN CARLOS 05/17/2021 13:00 CWM/SO/TH/VVC/MHC/JUAN /pippa/ HAO PALACIO Signed: 04/22/2021 14:21
--- OUTSIDE RECORDS SUMMARY | 2022-02-08 16:30 | XMS_ITS ---
:1975 Author Organization Department [facility] rs Address [address] [place] [address] Support Name Relationship Address Phone LANG NAZARIO Unavailable [address] [place] [address] OLIVIA GOVEA Unavailable Unavailable Selected Encounter This section includes the information on record at [place] for the Encounter. Date/Time Encounter Type Encounter Reason Provider Source Description Mar 28, 2021 POS AIRWAY RESPIRATORY ICD-10-CM G47.30 BEVERLY JUNE 11:13 AM PRESSURE FILTER THERAPY Sleep apnea, P unspecified with Provider Comments: Sleep apnea ([facility] [id number]) IHE Encounter Template Text not used by [place] Assessments - Encounter Diagnoses This section includes the primary and secondary diagnoses documented for the Encounter. Date/Time Primary/Secondary Diagnosis Name Provider Source Diagnosis Mar 28, 2021 PRIMARY Sleep apnea, BEVERYL JUNE [facility] 11:21 AM unspecified P [facility] Plan of Treatment: Future Appointments (+ [...] Appointment Type Appointment Facili ty Name Apr 02, 2021 09:00 AM AMBULATORY - NEUROLOGY [place] Apr 04, 2021 02:00 PM AMBULATORY - MEDICINE [place] Apr 05, 2021 11:00 AM AMBULATORY - PSYCHIATRY [place] Apr 10, 2021 11:00 AM AMBULATORY - PSYCHIATRY [place] Apr 17, 2021 08:00 AM AMBULATORY - PSYCHIATRY [place] Apr 22, 2021 01:30 PM AMBULATORY - MEDICINE [place] [facility] [place] [facility] Apr 26, 2021 08:00 AM AMBULATORY - PSYCHIATRY [place] May 03, 2021 08:00 AM AMBULATORY - PSYCHIATRY [place] May 07, 2021 10:00 AM AMBULATORY - NONE [place] [facility] JOSE [facility]AND [facility] May 13, 2021 10:30 AM AMBULATORY - MEDICINE [place] May 17, 2021 09:00 AM AMBULATORY - PSYCHIATRY [place] May 22, 2021 09:30 AM AMBULATORY - PSYCHIATRY [place] May 27, 2021 01:00 PM AMBULATORY PSYCHIATRY [place] Jun 05, 2021 01:00 PM AMBULATORY - PSYCHIATRY [place] Jun 10, 2021 09:00 AM AMBULATORY - MEDICINE [place] [facility] Jun 24, 2021 01:45 PM [facility] Jun 27, 2021 10:30 AM AMBULATORY - NONE [place] Jul 08, 2021 11:30 AM AMBULATORY - MEDICINE [place] [facility] Jul 11, 2021 12:00 PM [facility] August 20, 2021 09:30 AM [facility] Lab Results: +/- 30 days of the [...] Range Comment Apr 04, 2021 01:26 PM [place] PSA Specimen Type: SERUM No comment enter ed. Ordering Provid er: DANY CULLEN Report Released Date/Time: Mar 27, 2021 08:05 PM Reporting Lab: [facility] [address] [facility] [address] Performing Lab: [address] [address] PSA 1.67 0.00-4.00 Encounter Notes: All associated encounter notes This section contains the clinical notes associated to the Encounter. Date/Time Encounter Note(s) Provider Source Mar 28, 2021 11:13 AM RESPIRATORY THERAPY NOTE: BEVERLY JUNE [place] CNTRL W[facility]N LOCAL TITLE: RESPIRATORY THERAPY NOTE(BLANK) [place] [facility] STANDARD TITLE: RESPIRATORY THERAPY NOTE DATE OF NOTE: MAR 28, 2021@11:13 ENTRY DATE: MAR 28, 2021@11:14:08 AUTHOR: BEVERLY JUNE EXP COSIGNER: URGENCY: STATUS: COMPLETED [place] diagnosed with sleep apnea contacted cli yusuf for a replacement supplies. Equipment will be sent to [facility] dd[facility] via [employer]. Airu Compliance Report Usage 02/26/2021 - 03/27/2021 Usage days 30/30 days (100%) >= 4 hours 30 days (100%) < 4 hours 0 days (0%) Usage hours 238 hours 27 minutes Average usage (total days) 7 hours 57 minutes Average usage (days used) 7 hours 57 minutes Median usage (days used) 7 hours 44 minutes Total used hours (value since last reset - 03/27) 8,279 hours AirSense 10 AutoSet Serial number [id number] Mode AutoSet Min Pressure 5 cmH2O Max Pressure 20 cmH2O EPR Fulltime EPR level 3 Response Standard Therapy Pressure - cmH2O Median: 7.3 95th percentile: 9. 6 Maximum: 10.9 Leaks - L/min Median: 2.9 95th percentile: 18.2 Maximum: 29.8 Events per hour AI: 0.2 HI: 0.1 AHI: 0.3 Apnea Index Central: 0.0 Obstructive: 0.1 Unknow n: 0.0 RERA Index 0.1 Domingo-Cash respiration (average duration per night) 0 minutes (0%) /pippa/ BEVERLY JUNE RESPIRATORY THERAPIST Signed: 03/28/2021 11:21
--- OUTSIDE RECORDS SUMMARY | 2022-02-08 16:30 | XMS_ITS | Encounter Summary ---
:1975 Author Organization Department [facility] rs Address [address] [place] [address] Support Name Relationship Address Phone LANG NAZARIO Unavailable [address] [place] [address] OLIVIA GOVEA Unavailable Unavailable Selected Encounter This section includes the information on record at [place] for the Encounter. Date/Time Encounter Type Encounter Reason Provider Source Description Apr 15, 2021 06:35 Outpatient PRIMARY DANY CULLEN PM Encounter CARE/MEDICINE IHE Encounter Template Text not used by [place] Plan of Treatment: Future Appointments (+ 6 [...] 17, 2021 08:00 AM AMBULATORY - PSYCHIATRY [place] Apr 22, 2021 01:30 PM AMBULATORY - MEDICINE [facility] WSTRN Taye [facility] Apr 26, 2021 08:00 AM AMBULATORY - PSYCHIATRY [place] May 03, 2021 08:00 AM AMBULATORY - PSYCHIATRY [place] May 07, 2021 10:00 AM AMBULATORY - NONE [facility] WSTRRavi [facility] May 13, 2021 10:30 AM AMBULATORY - MEDICINE [place] May 17, 2021 09:00 AM AMBULATORY - PSYCHIATRY [place] May 22, 2021 09:30 AM AMBULATORY - PSYCHIATRY [place] May 27, 2021 01:00 PM AMBULATORY PSYCHIATRY [place] Jun 05, 2021 01:00 PM AMBULATORY - PSYCHIATRY [place] Jun 10, 2021 09:00 AM [facility] Jun 24, 2021 01:45 PM [facility] Jun 27, 2021 10:30 AM [facility] - [facility] Jul 08, 2021 11:30 AM [facility] Jul 11, 2021 12:00 PM [facility] August 20, 2021 09:30 AM AMBULATORY - PSYCHIATRY [place] August 29, 2021 03:00 PM AMBULATORY - MEDICINE [place] Lab Results: +/- 30 days of the [...] Range Comment May 13, 2021 11:37 AM [place] URINALYSIS Specimen Type: URINE No comment enter ed. Ordering Provid er: DANY CULLEN Report Released Date/Time: May 13, 2021 10:53 AM Reporting Lab: [address] [address] Performing Lab: [address] [address] UA COLOR Straw Yellow UA APPEARANCE Clear Clear UA GLUCOSE Negative Negative UA KETONES Negative Neg UA BLOOD Negative Neg UA PROTEIN Negative Neg UA NITRITE Negative Neg UA BILIRUBIN Negative Neg UA SPECIFIC GRAVITY 1.005 L 1.016-1.02 2 UA pH 7.0 5.0-9.0 UA UROBILINOGEN <2.0 <2.0 UA LEUKOCYTE ESTERASE Negative Neg Apr 04, 2021 01:26 PM [place] PSA Specimen Type: SERUM No comment enter ed. Ordering Provid er: DANY CULLEN Report Released Date/Time: Mar 27, 2021 08:05 PM Reporting Lab: [address] [address] Performing Lab: [facility] [address] [facility] [place] [address] PSA 1.67 0.00-4.00 Radiology Reports: +/- 30 [...] the Encounter. The data comes from all [place] treatment facilities. Date/Time Radiology Report Provider Source May 07, 2021 09:43 KIDNEY AND BLADDER ULTRASOUND: RADIOLOGY,OUTS [place] OLIVIA GARCÍA [id number] -MAR 02 197 6 M SERVICE [facility] Exm Date: MAY 07, 2021@09:43 Req Phys: DANY CULLEN Loc: CWM/SO/PACT 4 ( Req'g Loc) Img Loc: ULTRASOUND Service: Unknown (Case 16 COMPLETE) ULTRASOUND KIDNEYS (US Detail ed) CPT:97467 Reason for Study: pt w/new urinary incontinence and incomplete bladder emptying (Case 17 COMPLETE) ULTRASOUND URINARY BLADDER (U S Detailed) CPT:70165 Clinical History: postvoid residual bladder scans always 0 ML Report Status: Verified Date Reported: MAY 07, 2021 Date Verified: MAY 07, 2021 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 Dopp ler imaging was utilized. This study was performed and supervis ed that focal [place] facility, and subsequently transmitted to [place] te leradiology for interpretation. The total image [...] hepatic steatosis. READING PHYSICIAN: Mitzi Garland M.D. -[phone] 05/07/2021 7:21 [facility] National Teleradiology Program [phone] (For Medical Practitioner Use Only ) [address] [place] [address], [place] [address], [address] [place] [address] Attention Patients / Veterans: If you have ques tions or concerns about these test results, please contact your o [facility] provider or primary care team. [...] the Encounter. The data comes from all [place] treatment facilities. Date/Time Pathology Report Provider Source May 13, 2021 11:37 AM LR MICROBIOLOGY REPORT: COLE HANSON Reporting Lab: [place] [facility] [C VASQUEZ# [id number]] [address] [place] [id number] Accession [UID]: [id number] [[id number]] Receiv ed: May 13, 2021@11:37 Collection sample: URINE Collection date: Apr 11:37 Provider: DANY CULLEN Test(s) ordered: CULTURE, URINE........ ........ completed: May 16, 2021 09:02 * BACTERIOLOGY FINAL REPORT => May 16, 2021 09:0 2 TECH CODE: [id number] Bacteriology Remark(s): NO GROWTH (<1,000 CFU/ml) AFTER TWO DAYS =--=--=--=--=--=--=--=--=--=--=--=--=--= --=--=--=--=--=--=--=--=--=--=--=--=-- Performing Laboratory: Bacteriology Report Performed By: [facility] [CLIA# [id number] ] [address] [place] [address] Encounter Notes: All associated encounter notes This section contains the clinical notes associated to the Encounter. Date/Time Encounter Note(s) Provider Source Apr 17, 2021 07:48 AM PRIMARY CARE SECURE MESSAGING: [facility] LOCAL TITLE: PRIMARY CARE SECURE MESSAGING [facility] STANDARD TITLE: PRIMARY CARE SECURE MESSAGING DATE OF NOTE: APR 17, 2021@07:48:19 ENTRY DATE: APR 17, 2021@07:48:20 AUTHOR: LIANG PATEL EXP COSIGNER: URGENCY: STATUS: COMPLETED ------Original Message Sent: 04/16/2021 06:36 PM From: OLIVIA NAZARIO To: Tiara CULLEN_PRIMARY CARE_SPOPC Subject: General Inquiry I guess my biggest concern is how much still com es out after I feel like I'm done. And of course the semi incontinenc e I'm experiencing at the start. Could there be anything else that might be causing cyn t? /pippa/ LIANG PATEL TECHNICIAN BIOLOGICAL HEALTH Signed: 04/17/2021 07:48 Receipt Acknowledged By: * AWAITING SIGNATURE * DANY CULLEN * AWAITING SIGNATURE * LIANG RESENDEZ Apr 15, 2021 06:50 PM PRIMARY CARE SECURE MESSAGING: [place] [facility] LOCAL TITLE: PRIMARY CARE SECURE MESSAGING [facility] STANDARD TITLE: PRIMARY CARE SECURE MESSAGING DATE OF NOTE: APR 15, 2021@18:50:12 ENTRY DATE: APR 15, 2021@18:50:13 AUTHOR: DANY CULLEN EXP COSIGNER: URGENCY: STATUS: COMPLETED ------Original Message Sent: 04/15/2021 06:43 PM From: OLIVIA NAZARIO To: Tiara CULLEN_PRIMARY CARE_SPOPC Subject: General Inquiry Doc, what was concerning to me was that before I voided, the scan showed I was empty even though it was full. In fact I've neve r had a bladder scan that has shown anything but 0. Not that I've had many but they've always shown 0 even when I have to go. ------Original Message Sent: 04/15/2021 06:50 PM From: DANY CULLEN To: OLIVIA NAZARIO Subject: General Inquiry That's interesting. Of course these scans aren't 100% accurate, and you may have some urine in the bladder that the scan isn 't picking up. The low PSA is reassuring that there is a low chances o f prostate cancer. The prostate may be slowly enlarging which it does for most men. If your symptoms are tolerable then no treatment is needed. O/W we could try [facility]. Dany Cullen M.D. Internal Medicine // Dany Cullen M.D. STAFF PHYSICIAN Signed: 04/15/2021 18:50 Apr 15, 2021 06:35 PM PRIMARY CARE SECURE MESSAGING: [place] [facility] [facility] LOCAL TITLE: PRIMARY CARE SECURE MESSAGING [facility] TITLE: PRIMARY CARE SECURE MESSAGING DATE OF NOTE: APR 15, 2021@18:35 ENTRY DATE: APR 15, 2021@18:35:18 AUTHOR: DANY CULLEN EXP COSIGNER: URGENCY: STATUS: COMPLETED ------Original Message Sent: 04/15/2021 06:35 PM From: DANY CULLEN To: OLIVIA NAZARIO Subject: General Inquiry I'm happy to tell you that the bladder scan show s that you're emptying your bladder completely. The PSA was also normal. You may be developing and overactive bladder. If your symptoms are tolerable then no treatment is needed. Otherwise, we could try a lo w dose med called detrol to help with an overactive bladder. Kindly let me know if you want to try t he med and I can mail it to you. Hope this is helpful Dany Cullen M.D. Internal Medicine // Dany Cullen M.D. STAFF PHYSICIAN Signed: 04/15/2021 18:35
--- OUTSIDE RECORDS SUMMARY | 2022-02-08 16:30 | XMS_ITS | Encounter Summary ---
:1975 Author Organization Department of [facility] rs Address [address] [place] [address] Support Name Relationship Address Phone LANG NAZARIO Unavailable [address] [phone] [place] [address] OLIVIA GOVEA Unavailable Unavailable Selected Encounter This section includes the information on record at [place] for the Encounter. Date/Time Encounter Type Encounter Reason Provider Source Description Apr 05, 2021 PSYTX W PT 60 MENTAL HEALTH ICD-10-CM JESUS EVANGELISTA 11:00 AM MINUTES [facility] - IND F43.12 Post-traumatic stress disorder, chronic with Provider Comments: Post-Traumatic Stress Disorder, Chronic IHE Encounter Template Text not used by [facility] Assessments - Encounter Diagnoses This section includes the primary and secondary diagnoses documented for the Encounter. Date/Time Primary/Secondary Diagnosis Name Provider Source Diagnosis Apr 05, 2021 PRIMARY Post-traumatic JESUS EVANGELISTA [place] 12:47 PM stress disorder, chronic Apr 05, 2021 SECONDARY Major depressive JESUS EVANGELISTA [place] 12:47 PM disorder, single episode, unspecified Plan of Treatment: [...] Appointment Type Appointment Facili ty Name Apr 10, 2021 11:00 AM AMBULATORY - PS[place]CHIATRY [place] Apr 17, 2021 08:00 AM AMBULATORY - [place]CHIATRY [place] Apr 22, 2021 01:30 PM AMBULATORY - MEDICINE [place] TIAGO [facility] Apr 26, 2021 08:00 AM AMBULATORY - PS[place]CHIATRY [place] May 03, 2021 08:00 AM AMBULATORY - PS[place]CHIATRY [place] May 07, 2021 10:00 AM AM[place]UL[place]ORY - NONE [place] [facility] [place] [facility] May 13, 2021 10:30 AM AMBULATORY [facility] May 17, 2021 09:00 AM AMBULATORY - PS[place]CHIATRY [place] May 22, 2021 09:30 AM AMBULATORY - PS[place]CHIATRY [place] May 27, 2021 01:00 PM AMBULATORY - PS[place]CHIATRY [place] Jun 05, 2021 01:00 PM AMBULATORY [facility] [place] Jun 10, 2021 09:00 AM [place] [facility] Jun 24, 2021 01:45 PM [place] [facility] Jun 27, 2021 10:30 AM AMBULATORY - NONE [place] Jul 08, 2021 11:30 AM [place] [facility] Jul 11, 2021 12:00 PM [place] [facility] August 20, 2021 09:30 AM AMBULATORY [facility] August 29, 2021 03:00 PM AMBULATORY [facility] Lab Results: +/- 30 days of the [...] Range Comment Apr 04, 2021 01:26 PM [place] PSA Specimen Type: SERUM No comment enter ed. Ordering Provid er: DANY CULLEN Report Released Date/Time: Mar 27, 2021 08:05 PM [facility] [address] [address] Performing Lab: [facility] [address] [address] PSA 1.67 0.00-4.00 Social History: Smoking Status (Most current) and Tobacco Use (All prior to encounter date) This section includes the most current, and the historical, smoking and tobacco-related health factors from the [facility] where the Encounter took place.Current Smoking Status This section includes the most current smoking, or tobacco-related health factor, from the [place] facility where the Encounter took place. Date/Time Current Smoking Status Comment Facility Jul 23, 2020 03:00 PM VA-TOBACCO QUIT 5 TO < 15 YRS [place] Tobacco Use History This section includes a history of the smoking, or tobacco- related health factors, that were collected on or before the date of the Encounter. The data comes from the [facility] where the Encounter took place. Date/Time Smoking Status/Tobacco Use Comment [facility] Jul 23, 2020 03:00 PM VA-TOBACCO QUIT 5 TO < 15 YRS [place] Aug 05, 2018 11:29 AM VA-TOBACCO FORMER USER SPR [facility] Aug 05, 2018 11:29 AM VA-TOBACCO QUIT 1 TO < 5 YRS [place] Jul 10, 2017 09:32 AM LIFETIME NON-TOBACCO USER [place] Feb 11, 2017 09:04 AM QUIT TOBACCO USE > 7 YEARS [place] A[place] STOPPED SMOKING 2 1/2 YEARS AGO A PACK A DAY Jul 30, 2016 09:07 AM QUIT TOBACCO USE 1-7 YEARS [place] A[place] reports quitting 2 years ago Jun 18, 2015 03:44 PM QUIT TOBACCO USE 1-7 YEARS [place] A[place] Encounter Notes: All associated encounter notes This section contains the clinical notes associated to the Encounter. Date/Time Encounter Note(s) Provider Source Apr 05, 2021 11:00 AM TELEHEALTH NOTE: JESUS EVANGELISTA LOCAL TITLE: [place] VIDEO CONNECT SOCIAL WORK NOTE STANDARD TITLE: TELEHEALTH NOTE DATE OF NOTE: APR 05, 2021@11:00 ENTRY DATE: APR 05, 2021@12:37:48 AUTHOR: JESUS EVANGELISTA EXP COSIGNER: URGENCY: STATUS: COMPLETED Cognitive Processing Therapy: Meaning Session Time in session (in minutes): 60 SESSION NUMBER: 2 SESSION FORMAT Video Telehealth Session DIAGNOSIS: Primary (focus of treatment): PTSD (F43.12) Secondary (if applicable): Depression (F32.9) ASSESSMENT: PCL-5 Weekly The score was 30. Interpretive Statement: PCL-5 weekly has a total score range of 0-80, w ith higher scores indicating greater PTSD symptom severity. 0-10: no or minimal symptoms reported 11-20: mild symptoms reported 21-40: moderate symptoms reported 41-60: severe symptoms reported 61-80: very severe symptoms reported 1. Repeated, disturbing, and unwanted memories of the stressful experience? A little bit 2. Repeated, disturbing dreams of the stressful experience? A little bit 3. Suddenly feeling or acting as if [...] important parts of the s tressful experience? A little bit 9. Having strong negative beliefs about yoursel [...] fea r, horror, anger, guilt, or shame? Moderately 12. Loss of interest in activities that you use d to enjoy? Not at all 13. Feeling distant or cut off from other peopl e? Moderately 14. Trouble experiencing positive feelings (for example, being unable to feel happiness or have loving feelings for peop le close to you)? Moderately 15. Irritable behavior, angry outbursts, or act ing aggressively? A little bit 16. Taking too many risks or doing things that could cause you harm? Not at all 17. Being super alert or watchful or on guard ? Moderately 18. Feeling jumpy or easily startled? Not at all 19. Having difficulty concentrating? Moderately 20. Trouble falling or staying asleep? Moderately CHANGE IN SCORE (PCL or PHQ9) CHANGES IN ASSESSMENT SCORES FROM EARLIER ADMIN ISTRATIONS: Decrease in score. [place] explained things shaver ve been quiet at the house lately. RISK INFORMATION Not at risk MENTAL STATUS/BEHAVIORAL OBSERVATIONS N/A SESSION CONTENT: The [place] completed the Meaning of the Event session of Cognitive Processing Therapy (CPT) for PTSD. The followin g therapy components were addressed: -The and therapist reviewed the Stuck P oint Help Sheet and started the Stuck Point Log. Reviewed stuck point help sheet. was able to identify many stuck points related to his traum a. Explained the stuck point log and he started it -Therapist had [place] read their Impact Statem ent. [place] read his impact statement -Discussed the meaning of the Impact Statement with the [place] with a focus on identifying stuck points . Impact statement did not contain many stuck points. We were able to review and identify mul tiple stuck points. -Therapist collected Impact Statement from [employer]. -Therapist introduced relat ionships between thoughts, feelings, and behaviors. -Therapist and reviewed the Identifying Emotions Handout. -Therapist introduced the A-B-C Worksheets and demonstrated how to complete them in session. PRACTICE ASSIGNMENT: -Therapist assigned practice assignment to comp lete at least one A-B-C Worksheet each day. -Therapist asked the [place] to continue to add to the Stuck Point Log. MOTIVATIONAL ENHANCEMENT --Identified the consequences or impact of the target diagnosis/problem (or other symptoms). He feels isolated and misunderstood COLLABORATION The degree of collaboration between the and the therapist in the current session was high. Description of collaboration in this session: [place] completed homework and was engaged in t he session. PLAN Next session planned for agreed upon date/time of: 04/10/21 at 11am [facility] ([facility]) Standard Documentation [facility] Clinician Resources Only: E911 (Emergency Call Relay Center): [phone] National Veterans Crisis Line - ( [phone]-TALK) press #1. MIKE Suicide Coordinator [phone], Ext. [phone]; Back-up Ext. [phone] Book Retailer of the Day(AOD), Ryan MCKEON [phone], Ext. [phone] Introduction: Visit is being conducted by [facility]. identified with 2 identifiers: [X] Full Name [X] Date of [ ] VA ID Card Emergency Plan: [place] confirmed and/or pro vided the following information in case of emergency or technology failure. PATIENT PHONE - PHONE NUMBER [CELLULAR] - Is patient phone number correct, if not, enter b elow: 's phone number: OLIVIA NAZARIO [address], [place], [address] [place]'s present location and address for appoi ntment: Same as above [place]'s emergency contact name and phone numbe r: reported that location is private and sa fe: Yes Informed Consent: informed of the risks and benefits of Te lehealth video care. [place] has the right to refuse video services. If refuses video visit, a lukb-qq-etmy visit will be scheduled. [place] verbalized consent for this video visit: Yes provided consent for any other persons p resent for visit: N/A If yes, who and relationship to patient: Secure visit: Visit was locked for security and privacy:Yes /pippa/ MANDO BARNES [facility] Signed: 04/05/2021 12:47
--- OUTSIDE RECORDS SUMMARY | 2022-02-08 16:30 | XMS_ITS | Encounter Summary ---
:1975 Author Organization Department of [facility] rs Address [address] [place] [address] Support Name Relationship Address Phone LANG NAZARIO Unavailable [address] [place] [address] OLIVIA GOVEA Unavailable Unavailable Selected Encounter This section includes the information on record at [place] for the Encounter. Date/Time Encounter Type Encounter Reason Provider Source Description Apr 04, 2021 OFFICE O/P EST PRIMARY ICD-10-CM R39.14 KARLOS RESENDEZ 02:00 PM MINIMAL PROB CARE/MEDICINE Feeling of OLGA LIDIA incomplete bladder emptying with Provider Comments: Feeling of Incomplete Bladder Emptying IHE Encounter Template Text not used by VA Assessments - Encounter Diagnoses This section includes the primary and secondary diagnoses documented for the Encounter. Date/Time Primary/Secondary Diagnosis Name Provider Source Diagnosis Apr 04, 2021 PRIMARY Feeling of YOUNG RESENDEZ FAREED 04:18 PM incomplete LLE bladder emptying Plan of Treatment: Future Appointments (+ 6 [...] Appointment Type Appointment Facili ty Name Apr 05, 2021 11:00 AM AMBULATORY - [facility] [place] Apr 10, 2021 11:00 AM AM[facility] [place] Apr 17, 2021 08:00 AM [facility]ORY [place] [facility] [place] Apr 22, 2021 01:30 PM [place] [facility] Apr 26, 2021 08:00 AM AM[facility]ULATORY [facility] [place] May 03, 2021 08:00 AM AM[facility]ORY [facility] [place] May 07, 2021 10:00 AM AM[place]ORY - NONE [place] [facility] JOSE [facility] May 13, 2021 10:30 AM AMBULATORY [facility]IC[facility] May 17, 2021 09:00 AM AMBULATORY - [facility] May 22, 2021 09:30 AM AMBULATORY [facility] [place] May 27, 2021 01:00 PM AMBULATORY - [facility] [place] Jun 05, 2021 01:00 PM AMBULATORY [facility] [place] Jun 10, 2021 09:00 AM [place] [facility] Jun 24, 2021 01:45 PM [facility] [place] [place] [facility] Jun 27, 2021 10:30 AM AMBULATORY - NONE [place] Jul 08, 2021 11:30 AM [place] [facility] Jul 11, 2021 12:00 PM [facility] August 20, 2021 09:30 AM AMBULATORY - [facility] August 29, 2021 03:00 PM AMBULATORY [facility] Lab Results: +/- 30 days of the [...] Range Comment Apr 04, 2021 01:26 PM [place] PSA Specimen Type: SERUM No comment enter ed. Ordering Provid er: DANY CULLEN Report Released Date/Time: Mar 27, 2021 08:05 PM Reporting Lab: [address] [address] Performing Lab: [address] [address] PSA 1.67 0.00-4.00 Social History: Smoking Status (Most current) and Tobacco Use (All prior to encounter date) This section includes the most current, and the historical, smoking and tobacco-related health factors from the [place] facility where the Encounter took place.Current Smoking Status This section includes the most current smoking, or tobacco-related health factor, from the [facility] where the Encounter took place. Date/Time Current Smoking Status Comment Facility Jul 23, 2020 03:00 PM VA-TOBACCO QUIT 5 TO < 15 YRS [place] [place] Tobacco Use History This section includes a history of the smoking, or tobacco- related health factors, that were collected on or before the date of the Encounter. The data comes from the [facility] where the Encounter took place. Date/Time Smoking Status/Tobacco Use Comment [facility] Jul 23, 2020 03:00 PM VA-TOBACCO QUIT 5 TO < 15 YRS [place] Aug 05, 2018 11:29 AM VA-TOBACCO FORMER USER [facility] Aug 05, 2018 11:29 AM VA-TOBACCO QUIT 1 TO < 5 YRS [place] [place] Jul 10, 2017 09:32 AM LIFETIME NON-TOBACCO USER [facility] [place] Feb 11, 2017 09:04 AM QUIT TOBACCO USE > 7 YEARS [facility] [place] [facility] STOPPED SMOKING 2 1/2 YEARS AGO A PACK A DAY Jul 30, 2016 09:07 AM QUIT TOBACCO USE 1-7 YEARS [place] [facility] reports quitting 2 years ago Jun 18, 2015 03:44 PM QUIT TOBACCO USE 1-7 YEARS [place] [facility] Encounter Notes: All associated encounter notes This section contains the clinical notes associated to the Encounter. Date/Time Encounter Note(s) Provider Source Apr 04, 2021 03:59 PM PRIMARY CARE NURSING OUTPATIENT NOTE: LIANG VAZQUEZ [facility] TITLE: NURSING/PRIMARY CARE/AMB-OPT.CARE NOTE STANDARD TITLE: PRIMARY CARE NURSING OUTPATIENT NOTE DATE OF NOTE: APR 04, 2021@15:59 ENTRY DATE: APR 04, 2021@16:00:10 AUTHOR: LIANG RESENDEZ EXP COSIGNER: URGENCY: STATUS: COMPLETED NURSING/PRIMARY CARE/AMB-OPT.CARE NOTE Has ADDENDA is here for a bladde r scan to address postvois residual due to 's stated s/s of incontinence a nd feelings of a not emptied bladder after voiding. also has paternal family history of pros lamb issues. Bladder volume before scan: 0 mL Bladder volume after voidin mL was able to void in between scan. [place] also had ordered lab work done prior to scan. /pippa/ LIANG RESENDEZ RN REGISTERED NURSE Signed: 04/04/2021 16:18 04/04/2021 ADDENDUM STATUS: COMPLETED 30 minutes spent with /es/ LIANG RESENDEZ RN REGISTERED NURSE Signed: 04/04/2021 16:18
--- OUTSIDE RECORDS SUMMARY | 2022-02-08 16:30 | XMS_ITS ---
:1975 Author Organization Department [facility] rs Address [address] [place] [address] Support Name Relationship Address Phone LANG NAZARIO Unavailable [address] [phone] [place] [address] OLIVIA GOVEA Unavailable Unavailable Selected Encounter This section includes the information on record at [place] for the Encounter. Date/Time Encounter Type Encounter Reason Provider Source Description Apr 21, 2021 11:25 Outpatient PRIMARY ZARI CULLEN AM Encounter CARE/MEDICINE IHE Encounter Template Text not used by [place] [...] Appointment Type Appointment Facili ty Name Apr 22, 2021 01:30 PM [facility] Apr 26, 2021 08:00 AM AMBULATORY - PSYCHIATRY [place] May 03, 2021 08:00 AM AMBULATORY - PSYCHIATRY [place] May 07, 2021 10:00 AM [facility] May 13, 2021 10:30 AM AMBULATORY - MEDICINE [place] May 17, 2021 09:00 AM AMBULATORY - PSYCHIATRY [place] May 22, 2021 09:30 AM AMBULATORY - PSYCHIATRY [place] May 27, 2021 01:00 PM AMBULATORY - PSYCHIATRY [place] Jun 05, 2021 01:00 PM AMBULATORY - PSYCHIATRY [place] Jun 10, 2021 09:00 AM [facility] Jun 24, 2021 01:45 PM [facility] Jun 27, 2021 10:30 AM AMBULATORY - [facility] Jul 08, 2021 11:30 AM [facility] Jul 11, 2021 12:00 PM AMBULATORY [facility] August 20, 2021 09:30 AM AMBULATORY - PSYCHIATRY [place] August 29, 2021 03:00 PM AMBULATORY - MEDICINE [place] Lab Results: +/- 30 days of the [...] Range Comment May 13, 2021 11:37 AM [place] URINALYSIS Specimen Type: URINE No comment enter ed. Ordering Provid er: ZARI CULLEN Report Released Date/Time: May 13, 2021 10:53 AM Reporting Lab: [address] [address] Performing Lab: [address] [address] UA COLOR Straw Yellow UA APPEARANCE Clear Clear UA GLUCOSE Negative Negative UA KETONES Negative Neg UA BLOOD Negative Neg UA PROTEIN Negative Neg UA NITRITE Negative Neg UA BILIRUBIN Negative Neg UA SPECIFIC GRAVITY 1.005 L 1.016-1.02 2 UA pH 7.0 5.0-9.0 UA UROBILINOGEN <2.0 <2.0 UA LEUKOCYTE ESTERASE Negative Neg Apr 04, 2021 01:26 PM [place] PSA Specimen Type: SERUM No comment enter ed. Ordering Provid er: ZARI CULLEN Report Released Date/Time: Mar 27, 2021 08:05 PM Reporting Lab: [address] [address] Performing Lab: [address] [place] [address] PSA 1.67 0.00-4.00 Radiology Reports: +/- 30 [...] RADIOLOGY,[facility] OLIVIA GARCÍA [phone] -MAR 02 6 M SERVICE [facility] Date: MAY 07, 2021@09:43 Req Phys: ZARI CULLEN Loc: CWM/SO/PACT 4 ( Req'g Loc) Img Loc: ULTRASOUND Service: Unknown (Case 16 COMPLETE) ULTRASOUND KIDNEYS (US Detail ed) CPT:03427 Reason for Study: pt w/new urinary incontinence and incomplete bladder emptying (Case 17 COMPLETE) ULTRASOUND URINARY BLADDER (U S Detailed) CPT:22442 Clinical History: postvoid residual bladder scans always 0 ML Report Status: Verified Date Reported: MAY 07, 2021 Date Verified: MAY 07, 2021 Geological Drafter E-Sig: Report: Ultrasound kidneys and urinary bladder Procedure: Transverse and longitudinal grayscal e echograms of the kidneys and urinary bladder were acquired. Dopp ler imaging was utilized. This study was performed and supervis ed that [facility] facility, and subsequently transmitted to [place] te [...] hepatic steatosis. READING PHYSICIAN: Mitzi Garland M.D. [phone] 05/07/2021 7:21 [facility] National Teleradiology Program [phone] (For Medical Practitioner Use Only ) [address] [place] [address], [place] [address], [address] [place] [address] Attention Patients / Veterans: If you have ques tions or concerns about these test results, please contact your [facility] provider or primary care team. Primary Diagnostic [...] COLE HANSON Reporting Lab: [facility] [[facility]# [id number]] [address] [place] [id number] Accession [UID]: [id number] [[id number]] Receiv ed: May 13, 2021@11:37 Collection sample: URINE Collection date: Apr 11:37 Provider: ZARI CULLEN Test(s) ordered: CULTURE, URINE........ ........ completed: May 16, 2021 09:02 * BACTERIOLOGY FINAL REPORT => May 16, 2021 09:0 2 TECH CODE: [id number] Bacteriology Remark(s): NO GROWTH (<1,000 CFU/ml) AFTER TWO DAYS =--=--=--=--=--=--=--=--=--=--=--=--=--= --=--=--=--=--=--=--=--=--=--=--=--=-- Performing Laboratory: Bacteriology Report Performed By: [facility] [CLIA# [id number] ] [address] [place] [address] Encounter Notes: All associated encounter notes This section contains the clinical notes associated to the Encounter. 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 Signed: 04/22/2021 08:17 Receipt Acknowledged By: * AWAITING SIGNATURE * ZARI CULLEN Apr 21, 2021 11:25 AM PRIMARY CARE SECURE MESSAGING: [place] CULLEN [facility] LOCAL TITLE: PRIMARY CARE SECURE MESSAGING [facility] STANDARD TITLE: PRIMARY CARE SECURE MESSAGING DATE OF NOTE: APR 21, 2021@11:25 ENTRY DATE: APR 21, 2021@11:25:26 AUTHOR: ZARI CULLEN EXP COSIGNER: URGENCY: STATUS: COMPLETED ------Original Message Sent: 04/21/2021 11:25 AM From: ZARI CULLEN To: OLIVIA NAZARIO Subject: General Inquiry I would like to check an ultrasound of y our kidneys and bladder. Kindly let me know, and I'll place the order. Zari Cullen M.D. Internal Medicine /pippa/ Zari Cullen M.D. STAFF PHYSICIAN Signed: 04/21/2021 11:25
--- OUTSIDE RECORDS SUMMARY | 2022-02-08 16:30 | XMS_ITS | Encounter Summary ---
:1975 Author Organization Department of [facility] rs Address [address] [place] [address] Support Name Relationship Address Phone LANG NAZARIO Unavailable [address] [place] [address] OLIVIA GOVEA Unavailable Unavailable Selected Encounter This section includes the information on record at [place] for the Encounter. Date/Time Encounter Type Encounter Description Reason Provider Source Apr 17, 2021 08:00 Outpatient Encounter [facility] Encounter Template Text not used by MS [...] 22, 2021 01:30 PM [facility] Apr 26, 2021 08:00 AM AMBULATORY - [place]IAT[place] May 03, 2021 08:00 AM AMBULATORY [facility] [place] May 07, 2021 10:00 AM AMBULATORY NONE [facility] ASHISH [facility] May 13, 2021 10:30 AM AMBULATORY - MEDICINE [place] May 17, 2021 09:00 AM AMBULATORY PS[facility]CHIATRY [place] May 22, 2021 09:30 AM AMBULATORY [facility]IATRY [place] May 27, 2021 01:00 PM AMBULATORY [facility]CHIATRY [place] Jun 05, 2021 01:00 PM AMBULATORY [facility]CHIATRY [place] Jun 10, 2021 09:00 AM [facility] Jun 24, 2021 01:45 PM [facility] Jun 27, 2021 10:30 AM [facility]ULATORY - [facility] Jul 08, 2021 11:30 AM [facility] Jul 11, 2021 12:00 PM [facility] August 20, 2021 09:30 AM AMBULATORY - PS[place]CHIATRY [place] August 29, 2021 03:00 PM AMBULATORY - MEDICINE [place] Lab Results: +/- 30 days of the [...] Range Comment May 13, 2021 11:37 AM [place] URINALYSIS Specimen Type: URINE No comment enter ed. Ordering Provid er: DANY CULLEN Report Released Date/Time: May 13, 2021 10:53 AM Reporting Lab: [address] [address] Performing Lab: [address] [address] UA COLOR Straw Yellow UA APPEARANCE Clear Clear UA GLUCOSE Negative Negative UA KETONES Negative Neg UA BLOOD Negative Neg UA PROTEIN Negative Neg UA NITRITE Negative Neg UA BILIRUBIN Negative Neg UA SPECIFIC GRAVITY 1.005 L 1.016-1.02 2 UA pH 7.0 5.0-9.0 UA UROBILINOGEN <2.0 <2.0 UA LEUKOCYTE ESTERASE Negative Neg Apr 04, 2021 01:26 PM [place] PSA Specimen Type: SERUM No comment enter ed. Ordering Provid er: DANY CULLEN Report Released Date/Time: Mar 27, 2021 08:05 PM Reporting Lab: [address] [address] Performing Lab: [address] [address] PSA 1.67 0.00-4.00 Social History: Smoking Status (Most current) and Tobacco Use (All prior to encounter date) This section includes the most current, and the historical, smoking and tobacco-related health factors from the [place] facility where the Encounter took place.Current Smoking Status This section includes the most current smoking, or tobacco-related health factor, from the [place] facility where the Encounter took place. Date/Time Current Smoking Status Comment Facility Jul 23, 2020 03:00 PM VA-TOBACCO FORMER USER [facility] Tobacco Use History This section includes a history of the smoking, or tobacco- related health factors, that were collected on or before the date of the Encounter. The data comes from the [place] facility where the Encounter took place. Date/Time Smoking Status/Tobacco Use Comment [facility] Jul 23, 2020 03:00 PM VA-TOBACCO QUIT 5 TO < 15 YRS [place] Aug 05, 2018 11:29 AM VA-TOBACCO FORMER USER [facility] Aug 05, 2018 11:29 AM VA-TOBACCO QUIT 1 TO < 5 YRS [place] Jul 10, 2017 09:32 AM LIFETIME NON-TOBACCO USER [place] Feb 11, 2017 09:04 AM QUIT TOBACCO USE > 7 YEARS [place] A[place] STOPPED SMOKING 2 1/2 YEARS AGO A PACK A DAY Jul 30, 2016 09:07 AM QUIT TOBACCO USE 1-7 YEARS [place] A[place] reports quitting 2 years ago Jun 18, 2015 03:44 PM QUIT TOBACCO USE 1-7 YEARS [place] A[place] Radiology Reports: +/- 30 days of [...] 07, 2021 09:43 KIDNEY AND BLADDER ULTRASOUND: RADIOLOGY,[facility] CN[facility] OLIVIA GARCÍA [id number] -[birth year] 7 [facility] [facility] Ex Date: MAY 07, 2021@09:43 Req Phys: DANY CULLEN Pat Loc: CWM/SO/PACT 4 ( Req'g Loc) Img Loc: ULTRASOUND Service: Unknown (Case 16 COMPLETE) ULTRASOUND KIDNEYS (US Detail ed) CPT:51094 Reason for Study: pt w/new urinary incontinence and incomplete bladder emptying (Case 17 COMPLETE) ULTRASOUND URINARY BLADDER (U S Detailed) CPT:01710 Clinical History: postvoid residual bladder scans always 0 ML Report Status: Verified Date Reported: MAY 07, 2021 Date Verified: MAY 07, 2021 Rehab Director E-Sig: Report: Ultrasound kidneys and urinary bladder Procedure: Transverse and longitudinal grayscal e echograms of the kidneys and urinary bladder were acquired. Dopp ler imaging was utilized. This study was performed and supervis ed that focal [place] facility, and subsequently transmitted to [facility] leradiology for interpretation. The total image [...] hepatic steatosis. READING PHYSICIAN: Mitzi Garland M.D. -[phone] 05/07/2021 7:21 [facility] National Teleradiology Program [phone] (For Medical Practitioner Use Only ) [address] [place] [address], [facility] [address], [address] [place] [address] Attention Patients / Veterans: If you have ques tions or concerns about these test results, please contact your [facility] provider or primary care team. Primary [...] LR MICROBIOLOGY REPORT: COLE HANSON Reporting Lab: [facility] [C VASQUEZ# [id number]] [address] [place] [id number] Accession [UID]: [id number] [[id number]] Receiv ed: May 13, 2021@11:37 Collection sample: URINE Collection date: Apr 11:37 Provider: DANY CULLEN Test(s) ordered: CULTURE, URINE........ ........ completed: May 16, 2021 09:02 * BACTERIOLOGY FINAL REPORT => May 16, 2021 09:0 2 TECH CODE: [id number] Bacteriology Remark(s): NO GROWTH (<1,000 CFU/ml) AFTER TWO DAYS =--=--=--=--=--=--=--=--=--=--=--=--=--= --=--=--=--=--=--=--=--=--=--=--=--=-- Performing Laboratory: Bacteriology Report Performed By: [facility] [CLIA# [id number] ] [address] [place] [id number] Encounter Notes: All associated encounter notes This section contains the clinical notes associated to the Encounter. Date/Time Encounter Note(s) Provider Source Apr 17, 2021 08:00 AM CLERICAL NOTE: JESUS EVANGELISTA LOCAL TITLE: APPOINTMENT NO SHOW STANDARD TITLE: CLERICAL NOTE DATE OF NOTE: APR 17, 2021@08:00 ENTRY DATE: APR 17, 2021@08:42:47 AUTHOR: JESUS EVANGELISTA EXP COSIGNER: URGENCY: STATUS: COMPLETED APPOINTMENT NO SHOW Has ADDENDA Patient Name: OLIVIA NAZARIO Patient SSN: [id number] Date and time of Appointment No show : 04/17/21 08:00 PATIENT PHONE - PHONE NUMBER [CELLULAR] - Patient's medical record was reviewed. Follow-up actions were determined and initiated: Please check/complete as applies: [ ]Telephoned Directly [ ]Re-scheduled for next available appt [ ]Sent a N0-show letter ( must call for appointment) [ ]Other (Emergent/Overbook, etc.): Additional Comments: did not show for [facility] CPT appt. Future Clinic Visits 04/22/2021 13:30 CWM/NO/OPTOMETRY/PROVIDER 04/26/2021 08:00 CWM/SO/TH/[facility]/MHC/JEAN CARLOS 05/03/2021 08:00 CWM/SO/TH/[facility]/JEAN CARLOS 05/10/2021 08:00 CWM/SO/TH/[facility]/MHC/JEAN CARLOS 05/13/2021 10:30 CWM/SO/PACT 4 05/17/2021 08:00 CWM/SO/TH/[facility]/MHC/JEAN CARLOS 05/17/2021 13:00 CWM/SO/TH/[facility]/MHC/JUAN /es/ JESUS EVANGELISTA ANCHOR TACK PULLER Esthetician Facialist Mental Health Signed: 04/17/2021 08:43 04/22/2021 ADDENDUM STATUS: COMPLETED Funeral Director/Embalmer/Owner called to rem ind him of upcomeing appt on Monday April 26, 2021 at 8:00am by video, Appt was confirmed by angel cowan /pippa/ Alie Juanjo ADVANCED ROVING TECHNICIAN Signed: 04/22/2021 09:57 Receipt Acknowledged By: * AWAITING SIGNATURE * JESUS EVANGELISTA
--- OUTSIDE RECORDS SUMMARY | 2022-02-08 16:30 | XMS_ITS | Encounter Summary ---
:1975 Author Organization Department [facility] rs Address [address] [place] [address] Support Name Relationship Address Phone LANG GARCIA Unavailable [address] [phone] [place] [address] OLIVIA GOVEA Unavailable Unavailable Selected Encounter This section includes the information on record at [place] for the Encounter. Date/Time Encounter Type Encounter Description Reason Provider Source Apr 11, 2021 07:39 Outpatient Encounter PRIMARY CARE/MEDICINE AM E Encounter Template Text not used by HI Plan of Treatment: Future Appointments (+ 6 months) and Future Tests (+/- 45 days) The Plan of Treatment section includes future care activities for the patient from all [place] treatmentfacilities. This section includes future appointments and future orders which are active, pending orscheduled.Future Appointments This section includes appointments that were scheduled to occur 6 months from the date of the Encounter, up to a maximum of 20 appointments. The data comes from all [place] treatment facilities. Appointment Date/Time Appointment Type Appointment Facili ty Name Apr 17, 2021 08:00 AM AMBULATORY - PS[place]IATRY [place] Apr 22, 2021 01:30 PM [facility] Apr 26, 2021 08:00 AM AMBULATORY [place]CHIATRY [place] May 03, 2021 08:00 AM AMBULATORY - PS[place]CHIATRY [place] May 07, 2021 10:00 AM [facility] May 13, 2021 10:30 AM AMBULATORY - MEDICINE [place] May 17, 2021 09:00 AM AMBULATORY - PS[place]CHIATRY [place] May 22, 2021 09:30 AM AMBULATORY - PS[place]CHIATRY [place] May 27, 2021 01:00 PM AMBULATORY PSYCHIATRY [place] Jun 05, 2021 01:00 PM AMBULATORY - PS[place]CHIATRY [place] Jun 10, 2021 09:00 AM AMBULATORY - MEDICINE [facility] Jun 24, 2021 01:45 PM AMBULATORY - MEDICINE [facility] Jun 27, 2021 10:30 AM AMBULATORY - [facility] Jul 08, 2021 11:30 AM AMBULATORY - MEDICINE [facility] Jul 11, 2021 12:00 PM AMBULATORY - MEDICINE [facility] August 20, 2021 09:30 AM AMBULATORY - PS[place]CHIATRY [place] August 29, 2021 03:00 PM AMBULATORY MEDICINE [place] Lab Results: +/- 30 days of the encounter This section includes the Chemistry and Hematology Lab Results on record with [place] for the patient. Radiology Reports and Pathology Reports are provided separately, in subsequent sections.Lab Results This section contains the Chemistry/Hematology Results that were resulted 30 days before or 30 daysafter the date of the Encounter. Date/Time Source Result Type Result - Unit Interpretation Reference Range Comment Apr 04, 2021 01:26 PM [place] PSA Specimen Type: SERUM No comment enter ed. Ordering Provid er: DANY ESTRADA Report Released Date/Time: Mar 27, 2021 08:05 PM Reporting Lab: [address] [address] Performing Lab: [address] [address] PSA 1.67 0.00-4.00 Radiology Reports: +/- 30 [...] the Encounter. The data comes from all [place] treatment facilities. Date/Time Radiology Report Provider Source May 07, 2021 09:43 KIDNEY AND BLADDER ULTRASOUND: RADIOLOGY,[facility] OLIVIA GARCÍA [id number] -[birth year] 7 M [facility] Exm Date: MAY 07, 2021@09:43 Req Phys: DANY ESTRADA Pat Loc: CWM/SO/PACT 4 ( Req'g Loc) Img Loc: ULTRASOUND Service: Unknown (Case 16 COMPLETE) ULTRASOUND KIDNEYS (US Detail ed) CPT:68962 Reason for Study: pt w/new urinary incontinence and incomplete bladder emptying (Case 17 COMPLETE) ULTRASOUND URINARY BLADDER (U S Detailed) CPT:48366 Clinical History: postvoid residual bladder scans always 0 ML Report Status: Verified Date Reported: MAY 07, 2021 Date Verified: MAY 07, 2021 Line Servicer E-Sig: Report: Ultrasound kidneys and urinary bladder Procedure: Transverse and longitudinal grayscal e echograms of the kidneys and urinary bladder were acquired. Dopp ler imaging was utilized. This study was performed and supervis ed that [facility] facility, and subsequently transmitted to [place] te leradiology for interpretation. The total image [...] hepatic steatosis. READING PHYSICIAN: Mitzi Garland M.D. -[phone] 05/07/2021 7:21 [facility] National Teleradiology Program [phone] (For Medical Practitioner Use Only ) [address] [place] [address], [facility] [address], [address] [place] [address] Attention Patients / Veterans: If you have ques tions or concerns about these test results, please contact your o rdering provider or primary care team. Primary Diagnostic Code: SIGNIFICANT ABNORMALIT Y, ATTN NEEDED Primary Interpreting Staff: RADIOLOGY,OUTSIDE SERVICE, Staff Physician / Encounter Notes: All associated encounter notes This section contains the clinical notes associated to the Encounter. Date/Time Encounter Note(s) Provider Source Apr 11, 2021 07:39 AM PRIMARY CARE SECURE MESSAGING: JORGEADITHYATATO HERNANDEZ [place] CNTRL W[facility]N LOCAL TITLE: PRIMARY CARE SECURE MESSAGING [place] [facility] STANDARD TITLE: PRIMARY CARE SECURE MESSAGING DATE OF NOTE: APR 11, 2021@07:39:28 ENTRY DATE: APR 11, 2021@07:39:28 AUTHOR: LIANG PATEL EXP COSIGNER: URGENCY: STATUS: COMPLETED PRIMARY CARE SECURE MESSAGING Has ADDENDA * ------Original Message Sent: 04/10/2021 06:02 PM From: OLIVIA GARCIA To: Tiara ESTRADA_PRIMARY CARE_[facility] Subject: Lab results Doc, Was just wondering if you shaver d had me a chance to review my labs from last week. The nurses that did my bladder scan said they sh ould've been back next day. I know that my scan came back inconclusive as well, seeing as they tried it a few times and it kept coming back zero even though I was able to pass a considerable amount of urine after the scan. Ple ase get back to me at your earliest convenience. V/R Olivia Garcia /pippa/ LIANG PATEL STILL OPERATOR HELPER Signed: 04/11/2021 07:39 Receipt Acknowledged By: 04/11/2021 08:54 /es/ CARLOS BOYD LPN LICENSED PRACTICAL NURSE 04/15/2021 09:49 /es/ LIANG RESENDEZ RN REGISTERED NURSE 04/15/2021 ADDENDUM STATUS: COMPLETED Adding Dr. Estrada to review. /pippa/ LIANG RESENDEZ RN REGISTERED NURSE Signed: 04/15/2021 09:49 Receipt Acknowledged By: * AWAITING SIGNATURE * DANY ESTRADA
--- OUTSIDE RECORDS SUMMARY | 2022-02-08 16:31 | XMS_ITS ---
:1975 Author Organization Department of [facility] rs Address [address] [place] [address] Support Name Relationship Address Phone LANG NAZARIO Unavailable [address] [place] [address] OLIVIA GOVEA Unavailable Unavailable Selected Encounter This section includes the information on record at [place] for the Encounter. Date/Time Encounter Type Encounter Description Reason Provider Source Feb 13, 2021 11:22 Outpatient Encounter TELEPHONE TRIAGE AM IHE Encounter Template Text not used by HI [...] Date/Time Appointment Type Appointment Facili ty Name Mar 22, 2021 08:00 AM AMBULATORY - PS[place]CHIATRY [place] Apr 02, 2021 09:00 AM AMBULATORY - NEUROLOGY [place] Apr 04, 2021 02:00 PM AMBULATORY - MEDICINE [place] Apr 05, 2021 11:00 AM AMBULATORY - PSYCHIATRY [place] Apr 10, 2021 11:00 AM AMBULATORY - PSYCHIATRY [place] Apr 17, 2021 08:00 AM AMBULATORY - PS[place]CHIATRY [place] Apr 22, 2021 01:30 PM [facility] Apr 26, 2021 08:00 AM AMBULATORY - PSYCHIATRY [place] May 03, 2021 08:00 AM AMBULATORY - PS[place]CHIATRY [place] May 07, 2021 10:00 AM [facility] May 13, 2021 10:30 AM AMBULATORY - MEDICINE [place] May 17, 2021 09:00 AM AMBULATORY - PSYCHIATRY [place] May 22, 2021 09:30 AM AMBULATORY - PSYCHIATRY [place] May 27, 2021 01:00 PM AMBULATORY - PSYCHIATRY [place] Jun 05, 2021 01:00 PM AMBULATORY - PSYCHIATRY [place] Jun 10, 2021 09:00 AM AMBULATORY - MEDICINE [place] [facility] [place] [facility] Jun 24, 2021 01:45 PM AMBULATORY - MEDICINE [place] [facility] [place] [facility] Jun 27, 2021 10:30 AM AM[facility]ATORY - [facility] Jul 08, 2021 11:30 AM AMBULATORY - MEDICINE [place] [facility] [place] [facility] Jul 11, 2021 12:00 PM [facility] Encounter Notes: All associated encounter notes This section contains the clinical notes associated to the Encounter. Date/Time Encounter Note(s) Provider Source Feb 13, 2021 11:22 AM TELEPHONE ENCOUNTER NOTE: LOKI POMPA [place] [facility]L [facility] TITLE: VISN 1 CCC ACTION REQUIRED [facility] STAND[facility] TITLE: TELEPHONE ENCOUNTER NOTE DATE OF NOTE: FEB 13, 2021@11:22:27 ENTRY DATE: FEB 13, 2021@11:25:34 AUTHOR: LOKI POMPA EXP COSIGNER: URGENCY: STATUS: COMPLETED The patient, OLIVIA NAZARIO ([phone]) called the call center. The following identifiers were used to verify th is patient: . SSN. Contact Type of call: SCHEDULING. Caller Response: ADM CALL RESOLVED Caller Area: [facility] PCMM Provider Info: [facility] ([id number]) PACT: SO PACT 4 (Focus: Primary Care Only) Primary Care Provider: Zari Estrada PHONE:[phone] Demurrage Clerk: Laney Cedeno Clinical Associate: Deepa Osman PHON [phone] School Year Nanny: Betty Montgomery PHONE:[phone] PACT Clinical Pharmacist: Cori Chavira Clinical POC: Demurrage Clerk Laney Cedeno Administrative POC: School Year Nanny [employer] PHONE:[phone] Author: LOKI POMPA Comments: Vet requests a C/B to R/S MH appt. from 02/11/21 . Evaluation/Management Code: HC PRO PHONE CALL 5- 10 MIN ([id number]). Starting at: 02/13/2021 @ 11:22:27 AM Ending at: 02/13/2021 @ 11:24:18 AM Length: 1 minutes. Chief Complaint: Not applicable to call. Class Code: Other specified counseling. Patient's Email Address: [email or web address] Taye /pippa/ LOKI POMPA ADVANCED CUSTOM FRAME ASSEMBLER Signed: 02/13/2021 11:25 Receipt Acknowledged By: * AWAITING SIGNATURE * JESUS EVANGELISTA * AWAITING SIGNATURE * JIM JOHNSON * AWAITING SIGNATURE * ALEJANDRA CHRISTIANSON
--- OUTSIDE RECORDS SUMMARY | 2022-02-08 16:31 | XMS_ITS | Encounter Summary ---
:1975 Author Organization Department of [facility] rs Address [address] [place] [id number] Support Name Relationship Address Phone LANG NAAZRIO Unavailable [address] [place] [address] OLIVIA GOVEA Unavailable Unavailable Selected Encounter This section includes the information on record at DC for the Encounter. Date/Time Encounter Type Encounter Reason Provider Source Description Mar 22, 2021 PSYTX W PT 60 MENTAL HEALTH ICD-10-CM JESUS EVANGELISTA 08:00 AM MINUTES CLINIC - IND F43.12 Post-traumatic stress disorder, chronic with Provider Comments: Post-Traumatic Stress Disorder, Chronic IHE Encounter Template Text not used by [facility] Assessments - Encounter Diagnoses This section includes the primary and secondary diagnoses documented for the Encounter. Date/Time Primary/Secondary Diagnosis Name Provider Source Diagnosis Mar 22, 2021 PRIMARY Post-traumatic JESUS EVANGELISTA [facility] 09:37 AM stress disorder, chronic Mar 22, 2021 SECONDARY Major depressive JESUS EVANGELISTA [place] 09:37 AM disorder, single episode, unspecified Plan of [...] 02, 2021 09:00 AM AMBULATORY - NEUROLOGY [place] Apr 04, 2021 02:00 PM AMBULATORY - MEDICINE [place] Apr 05, 2021 11:00 AM AMBULATORY - PSYCHIATRY [place] Apr 10, 2021 11:00 AM AMBULATORY - PSYCHIATRY [place] Apr 17, 2021 08:00 AM AMBULATORY - [facility] Apr 22, 2021 01:30 PM AMBULATORY - MEDICINE [place] [facility] [place] [facility] Apr 26, 2021 08:00 AM AMBULATORY - PSYCHIATRY [place] May 03, 2021 08:00 AM AMBULATORY [facility] May 07, 2021 10:00 AM AMBULATORY - NONE [place] [facility] May 13, 2021 10:30 AM AMBULATORY - MEDICINE [place] May 17, 2021 09:00 AM AMBULATORY - PSYCHIATRY [place] May 22, 2021 09:30 AM AMBULATORY - PSYCHIATRY [place] May 27, 2021 01:00 PM AMBULATORY - PSYCHIATRY [place] Jun 05, 2021 01:00 PM AMBULATORY - PSYCHIATRY [place] Jun 10, 2021 09:00 AM AMBULATORY - MEDICINE [place] [facility] [facility] Jun 24, 2021 01:45 PM [facility] Jun 27, 2021 10:30 AM AMBULATORY - NONE [place] Jul 08, 2021 11:30 AM AMBULATORY - MEDICINE [place] [facility] [place] [facility] Jul 11, 2021 12:00 PM AMBULATORY - MEDICINE [place] [facility] [place] [facility] August 20, 2021 09:30 AM AMBULATORY [facility] Lab Results: +/- 30 days of the [...] Range Comment Apr 04, 2021 01:26 PM [facility] PSA Specimen Type: SERUM No comment enter ed. Ordering Provid er: DANY CULLEN Report Released Date/Time: Mar 27, 2021 08:05 PM Reporting Lab: [address] [address] Performing Lab: [address] [address] PSA 1.67 0.00-4.00 Social History: Smoking Status (Most current) and Tobacco Use (All prior to encounter date) This section includes the most current, and the historical, smoking and tobacco-related health factors from the [place] facility where the Encounter took place.Current Smoking Status This section includes the most current smoking, or tobacco-related health factor, from the [place] facility where the Encounter took place. Date/Time Current Smoking Status Comment Facility Jul 23, 2020 03:00 PM VA-TOBACCO QUIT 5 TO < 15 YRS [facility] Tobacco Use History This section includes a history of the smoking, or tobacco- related health factors, that were collected on or before the date of the Encounter. The data comes from the [place] facility where the Encounter took place. Date/Time Smoking Status/Tobacco Use Comment [facility] Jul 23, 2020 03:00 PM VA-TOBACCO QUIT 5 TO < 15 YRS [facility] Aug 05, 2018 11:29 AM VA-TOBACCO FORMER USER [facility] Aug 05, 2018 11:29 AM VA-TOBACCO QUIT 1 TO < 5 YRS [facility] Jul 10, 2017 09:32 AM LIFETIME NON-TOBACCO USER [place] Feb 11, 2017 09:04 AM QUIT TOBACCO USE > 7 YEARS [facility] AGO STOPPED SMOKING 2 1/2 YEARS AGO A PACK A DAY Jul 30, 2016 09:07 AM QUIT TOBACCO USE 1-7 YEARS [facility] AGO reports quitting 2 years ago Jun 18, 2015 03:44 PM QUIT TOBACCO USE 1-7 YEARS [place] AGO Encounter Notes: All associated encounter notes This section contains the clinical notes associated to the Encounter. Date/Time Encounter Note(s) Provider Source Mar 22, 2021 08:00 AM MENTAL HEALTH NOTE: JESUS EVANGELISTA [facility] LOCAL TITLE: CPT PTSD THERAPY NOTE STANDARD TITLE: MENTAL HEALTH NOTE DATE OF NOTE: MAR 22, 2021@08:00 ENTRY DATE: MAR 22, 2021@09:25:26 AUTHOR: JESUS EVANGELISTA EXP COSIGNER: URGENCY: STATUS: COMPLETED VA Video Connect (VVC) Standard Documentation VVC Clinician Resources Only: E911 (Emergency Call Relay Center): [phone] [facility] Line - ( [phone]) press #1. MIKE Suicide Coordinator [phone], Ext. [phone]; Back-up Ext. [phone] New Account Interviewer of the Day(AOD), Ryan MCKEON [phone], Ext. [phone] Introduction: Visit is being conducted by DC [employer]. identified with 2 identifiers: [X] Full Name [X] Date of [ ] VA ID Card Emergency Plan: [place] confirmed and/or pro vided the following information in case of emergency or technology failure. PATIENT PHONE - PHONE NUMBER [CELLULAR] - Is patient phone number correct, if not, enter b elow: [place]'s phone number: OLIVIA NAZARIO [address], [place], [address] 's present location and address for appoi ntment: Same as above [place]'s emergency contact name and phone numbe r: reported that location is private and sa fe: Yes Informed Consent: [place] informed of the risks and benefits of Te lehealth video care. has the right to refuse video services. If refuses video visit, a psrd-ze-iboc visit will be scheduled. verbalized consent for this video visit: Yes [place] provided consent for any other persons p resent for visit: N/A If yes, who and relationship to patient: Secure visit: Visit was locked for security and privacy:Yes Cognitive Processing Therapy: Initial Session Time in session (in minutes): 55 SESSION NUMBER: 1 SESSION FORMAT Video Telehealth Session DIAGNOSIS: Primary (focus of treatment): PTSD (F43.12) ASSESSMENT: PCL-5 Weekly The score was 45. Interpretive Statement: PCL-5 weekly has a total [...] Repeated, disturbing dreams of the stressful experience? Quite a bit 3. Suddenly feeling or acting as if the stressf ul experience were actually happening again (as if you were actually back t here reliving it)? A little bit 4. Feeling very upset when something reminded y ou of the stressful experience? Quite a bit 5. Having strong physical reactions when someth ing reminded you of the stressful experience (for example, heart poundi ng, trouble breathing, sweating)? Quite a bit 6. Avoiding memories, thoughts, or feelings rel ated to the stressful experience? Extremely 7. Avoiding external reminders of the stressful experience (for example, people, places, conversations, activities, obje cts, or situations)? Extremely 8. Trouble remembering important parts of the [...] fea r, horror, anger, guilt, or shame? Quite a bit 12. Loss of interest in activities that you use d to enjoy? Not at all 13. Feeling distant or cut off from other peopl e? Moderately 14. Trouble experiencing positive feelings (for example, being unable to feel happiness or have loving feelings for peop le close to you)? Moderately 15. Irritable behavior, angry outbursts, or act ing aggressively? Moderately 16. Taking too many risks or doing things that could cause you harm? A little bit 17. Being super alert or watchful or on guard ? Extremely 18. Feeling jumpy or easily startled? Not at all 19. Having difficulty concentrating? Quite a bit 20. Trouble falling or staying asleep? Quite a bit Click below to perform PHQ-9 A PHQ-9 screen was performed. The score was 10 which is suggestive of moderate depression. RISK INFORMATION No indication of SI/HI at this time. SESSION CONTENT: The completed the first session of Cognitive Processing Therapy (CPT) for PTSD. The following therapeutic components were addressed: -Facilitated a good therapeutic relationship. T he following elements were utilized to help establish a collaborative, pos itive working relationship with the [place]: Have met with [place] several sessions previous therefore a positive relationship has been established -Provided an overview of PTSD symptoms, a cogni tive explanation of the development and maintenance of PTSD, and a rati onale of CPT. Reviewed from clinician manual -Presented the [place] with an overview of the 12-session treatment. -Discussed [place]'s readiness to engage in lucia atment. stated he is committed to doing the HW and engage in tx. -Asked the [place] to describe a brief account of their most traumatic event. He described his childhood trauma and stated it was ongoing. He will write the impact statement and we will determine if t here is one event we should focus on. -Introduced the concept of stuck points. Explained Stuck points and read from manual the explanation. PRACTICE ASSIGNMENT: -Asked [place] to write a one page Impact Stat ement . -Asked [place] to review Stuck Point Handout an d Stuck Point Help Sheet. MOTIVATIONAL ENHANCEMENT --Identified the benefits of reducing the sever ity of the target diagnosis/problem. less irritable and increase in esteem --Assessed attitude toward therapy. COLLABORATION The degree of collaboration between the and the therapist in the current session was high. Description of collaboration in this session: was engaged and asked questions. PLAN Next session planned for agreed upon date/time of: 04/05/21 at 11am /pippa/ MANDO BARNES [employer] Mental Health Signed: 03/22/2021 09:38
--- OUTSIDE RECORDS SUMMARY | 2022-02-08 16:31 | XMS_ITS ---
:1975 Author Organization Department [facility] rs Address [address] [place] [address] Support Name Relationship Address Phone LANG NAZARIO Unavailable [address] [place] [address] OLIVIA GOVEA Unavailable Unavailable Selected Encounter This section includes the information on record at [place] for the Encounter. Date/Time Encounter Type Encounter Reason Provider Source Description Mar 27, 2021 08:00 Outpatient PRIMARY ZARI CULLEN Encounter CARE/MEDICINE IHE Encounter Template Text not used by [place] Plan of Treatment: Future Appointments (+ 6 months) and Future Tests (+/- 45 days) The Plan of Treatment section includes future care activities for the patient from all [place] treatmentfacilities. This section includes future appointments and future orders which are active, pending orscheduled.Future Appointments This section includes appointments that were scheduled to occur 6 months from the date of the Encounter, up to a maximum of 20 appointments. The data comes from all [place] treatment facilities. Appointment Date/Time Appointment Type Appointment Facili ty Name Apr 02, 2021 09:00 AM AMBULATORY - NEUROLOGY [place] Apr 04, 2021 02:00 PM AMBULATORY - MEDICINE [facility] Apr 05, 2021 11:00 AM AMBULATORY - PSYCHIATRY [facility] Apr 10, 2021 11:00 AM AMBULATORY - PSYCHIATRY [facility] Apr 17, 2021 08:00 AM AMBULATORY - PSYCHIATRY [facility] Apr 22, 2021 01:30 PM [facility] Apr 26, 2021 08:00 AM AMBULATORY - PSYCHIATRY [facility] May 03, 2021 08:00 AM AMBULATORY PSYCHIATRY [facility] May 07, 2021 10:00 AM [facility] May 13, 2021 10:30 AM AMBULATORY - MEDICINE [facility] May 17, 2021 09:00 AM AMBULATORY - PSYCHIATRY [facility] May 22, 2021 09:30 AM AMBULATORY - PSYCHIATRY [facility] May 27, 2021 01:00 PM AMBULATORY - PSYCHIATRY [facility] Jun 05, 2021 01:00 PM AMBULATORY - PSYCHIATRY [facility] Jun 10, 2021 09:00 AM AMBULATORY - MEDICINE [place] [facility] [place] [place] [facility] Jun 24, 2021 01:45 PM AMBULATORY - MEDICINE [place] [facility] [place] [facility] Jun 27, 2021 10:30 AM AMBULATORY - [facility] Jul 08, 2021 11:30 AM AMBULATORY - MEDICINE [place] [facility] [place] [facility] Jul 11, 2021 12:00 PM AMBULATORY - MEDICINE [place] [facility] [place] [facility] August 20, 2021 09:30 AM AMBULATORY PSYCHIATRY [facility] Lab Results: +/- 30 days of the encounter This section includes the Chemistry and Hematology Lab Results on record with [place] for the patient. Radiology Reports and Pathology Reports are provided separately, in subsequent sections.Lab Results This section contains the Chemistry/Hematology Results that were resulted 30 days before or 30 daysafter the date of the Encounter. Date/Time Source Result Type Result - Unit Interpretation Reference Range Comment Apr 04, 2021 01:26 PM [facility] PSA Specimen Type: SERUM No comment enter ed. Ordering Provid er: ZARI CULLEN Report Released Date/Time: Mar 27, 2021 08:05 PM Reporting Lab: [place] [facility] [address] [address] Performing Lab: [place] [facility] [address] [address] PSA 1.67 0.00-4.00 Encounter Notes: All associated encounter notes This section contains the clinical notes associated to the Encounter. Date/Time Encounter Note(s) Provider Source Mar 27, 2021 08:00 PM PRIMARY CARE SECURE MESSAGING: [place] C[place] [facility] LOCAL TITLE: PRIMARY CARE SECURE MESSAGING [facility] STANDARD TITLE: PRIMARY CARE SECURE MESSAGING DATE OF NOTE: MAR 27, 2021@20:00 ENTRY DATE: MAR 27, 2021@20:00:38 AUTHOR: ZARI CULLEN EXP COSIGNER: URGENCY: STATUS: COMPLETED PRIMARY CARE SECURE MESSAGING Has ADDENDA * ------Original Message Sent: 03/27/2021 08:00 PM From: ZARI CULLEN To: OLIVIA NAZARIO Subject: General Inquiry The team will you contact you to schedule a blad anyi test and lab to address your symptoms. Zari Cullen M.D. Internal Medicine /pippa/ Zari Cullen M.D. STAFF PHYSICIAN Signed: 03/27/2021 20:00 03/27/2021 ADDENDUM STATUS: COMPLETED kindly contact pt to siri cadena nursing appt for postvoid residual and PSA lab. thank you /pippa/ Zari Cullen M.D. STAFF PHYSICIAN Signed: 03/27/2021 20:02 Receipt Acknowledged By: * AWAITING SIGNATURE * LIANG PATEL
--- OUTSIDE RECORDS SUMMARY | 2022-02-08 16:31 | XMS_ITS | Encounter Summary ---
:1975 [address] [facility] Address [address] [place] [address] Support Name Relationship Address Phone LANG NAZARIO Unavailable [address] [place] [address] OLIVIA GOVEA Unavailable Unavailable Selected Encounter This section includes the information on record at [place] for the Encounter. Date/Time Encounter Type Encounter Reason Provider Source Description Feb 11, 2021 Outpatient TELEPHONE ICD-10-CM F32.9 SHINE MARTINEZ 01:30 PM Encounter Major depressive disorder, single episode, unspecified with Provider Comments: Major depressive disorder ([facility] [id number]) IHE Encounter Template Text not used by VA Assessments - Encounter Diagnoses This section includes the primary and secondary diagnoses documented for the Encounter. Date/Time Primary/Secondary Diagnosis Name Provider Source Diagnosis Feb 11, 2021 PRIMARY Major depressive SHINE MARTINEZ [place] 01:30 PM disorder, single episode, unspecified Feb 11, 2021 SECONDARY Chronic pain JUAN,SHINE Menjivar [place] 01:30 PM syndrome Plan of Treatment: Future Appointments [...] 22, 2021 08:00 AM AMBULATORY - PSYCHIATRY [place] Apr 02, 2021 09:00 AM AMBULATORY - NEUROLOGY [place] Apr 04, 2021 02:00 PM AMBULATORY - MEDICINE [place] Apr 05, 2021 11:00 AM AMBULATORY - PSYCHIATRY [place] Apr 10, 2021 11:00 AM AMBULATORY - PSYCHIATRY [place] Apr 17, 2021 08:00 AM AMBULATORY - PSYCHIATRY [place] Apr 22, 2021 01:30 PM AMBULATORY - MEDICINE [place] [facility] [place] [facility] Apr 26, 2021 08:00 AM AMBULATORY - PSYCHIATRY [place] May 03, 2021 08:00 AM AMBULATORY - PSYCHIATRY [place] May 07, 2021 10:00 AM AMBULATORY - NONE [place] [facility] [place] [facility] May 13, 2021 10:30 AM AMBULATORY - MEDICINE [place] May 17, 2021 09:00 AM AMBULATORY - PSYCHIATRY [place] May 22, 2021 09:30 AM AMBULATORY - PSYCHIATRY [place] May 27, 2021 01:00 PM AMBULATORY - PSYCHIATRY [place] Jun 05, 2021 01:00 PM AMBULATORY - PSYCHIATRY [place] Jun 10, 2021 09:00 AM AMBULATORY - MEDICINE [place] [facility] [place] [place] [facility] Jun 24, 2021 01:45 PM AMBULATORY - MEDICINE [place] [facility] [place] [facility] Jun 27, 2021 10:30 AM AMBULATORY - NONE [place] Jul 08, 2021 11:30 AM AMBULATORY - MEDICINE [place] [facility] [place] [place] [facility] Jul 11, 2021 12:00 PM AMBULATORY - MEDICINE [place] [facility] Social History: Smoking Status (Most current) and Tobacco Use (All prior to encounter date) This section includes the most current, and the historical, smoking and tobacco-related health factors from the [place] facility where the Encounter took place.Current Smoking Status This section includes the most current smoking, or tobacco-related health factor, from the [place] facility where the Encounter took place. Date/Time Current Smoking Status Comment Facility Jul 23, 2020 03:00 PM VA-TOBACCO QUIT 5 TO < 15 YRS [place] Tobacco Use History This section includes a history of the smoking, or tobacco- related health factors, that were collected on or before the date of the Encounter. The data comes from the [place] facility where the Encounter took place. Date/Time Smoking Status/Tobacco Use Comment [facility] Jul 23, 2020 03:00 PM VA-TOBACCO QUIT 5 TO < 15 YRS [place] Aug 05, 2018 11:29 AM VA-TOBACCO FORMER USER [facility] Aug 05, 2018 11:29 AM VA-TOBACCO QUIT 1 TO < 5 YRS [facility] 23, 2018 09:32 AM LIFETIME NON-TOBACCO USER [place] Feb 11, 2017 09:04 AM QUIT TOBACCO USE > 7 YEARS [place] STOPPED SMOKING 2 1/2 YEARS AGO A PACK A DAY Jul 30, 2016 09:07 AM QUIT TOBACCO USE 1-7 YEARS [place] AGO reports quitting 2 years ago Jun 18, 2015 03:44 PM QUIT TOBACCO USE 1-7 YEARS [facility] Encounter Notes: All associated encounter notes This section contains the clinical notes associated to the Encounter. Date/Time Encounter Note(s) Provider Source Feb 11, 2021 01:28 PM MENTAL HEALTH TELEPHONE ENCOUNTER NOTE: SHINE HUBBARD OT [facility] TITLE: TELEPHONE NOTE/MENTAL HEALTH STANDARD TITLE: MENTAL HEALTH TELEPHONE ENCOUNTE R NOTE DATE OF NOTE: FEB 11, 2021@13:28 ENTRY DATE: FEB 11, 2021@13:28:49 AUTHOR: SHINE MARTINEZ EXP COSIGNER: URGENCY: STATUS: COMPLETED TELEPHONE NOTE/MENTAL HEALTH Has ADDENDA * CWM/SO/MHC/JUAN/TELE-X 21 MINS. OLIVIA NAZARIO Feb DIAGNOSIS Record Reviewed. Three week medication f /u. started on Lurasidone last visit. [place] reports long history of anxiety, depression. Endorses mood lability , chronic sleep disturbance. al so states he has had many medication trials and does not tolerate Antidepr essant medication. Mood - sounds in good spirits. I can hear the ch ildren playing in the background. He laughs. Converses easily. Still r eports mood as predominantly depressed. Sleep - Lurasidone helping V eteran to fall asleep. mild improvement . Still has fa back and hip pain. Appetite - good Energy and motivation - Abou t the same. Low ? 2. denies any suicidal or homicidal ideatio n plan or intent. denies any hallucinations. No delusions elicited. Cognition intact. [place] converses easily. Zulay gilbert processes goal directed relevant and logical. Has activities - Works FT nights at a [employer] use. Resides with and Children. now seen Daphnie Parker for individual therap y. taking Lurasidone 10mg . He reports par tial benefit. He is sleeping better. He has not noticed a ny improvement in mood. Recommended increase to 20mg. Reviewed the risks, benefits pr ecautions. [place] agrees to increase. Recommended video connected for next appointment . is in agreement. Discussed downloading [employer] And filling out registration including email. [place] agrees to try video next appointment Follow-up in 3 months. Call if any problems or concerns. Active Outpatient Medications (including Suppli es): Active Outpatient Medications Status 1) CALCIUM 250MG/VITAMIN D 125 UNT TAB TAKE 2 TA BLETS BY ACTIVE MOUTH TWICE DAILY TO SUPPLEMENT CALCIUM/STRENGT HEN BONES 2) CALCIUM POLYCARBOPHIL 625MG TAB TAKE ONE TABL ET BY ACTIVE MOUTH TWICE DAILY TAKE ONE TABLET BY MOUTH TWIC E DAILY WITH MEAL OR FOOD WITH FULL GLASS OF WATE R. 3) CETIRIZINE HCL 10MG TAB TAKE ONE TABLET BY [facility] ONCE ACTIVE DAILY NEEDED FOR ALLERGIES 4) DEXAMETHASONE 0.1/TOBRAMYC 0.3% OPH SUSP INST ILL 3 ACTIVE DROPS DIRECTED TWICE DAILY INTO THE AFFECTED EAR FOR 14 DAYS 5) FISH OIL 1000MG (500MG DHA/EPA) CAP TAKE ONE CAPSULE ACTIVE BY MOUTH THREE TIMES DAILY NEEDED [ANTI-INFLAMMATORY] 6) LACTOBACILLUS ACIDOPHILUS TAB TAKE 1 TABLET B Y MOUTH ACTIVE ONCE DAILY 7) LURASIDONE HCL 20MG TAB TAKE ONE-HALF TABLET BY MOUTH ACTIVE AT BEDTIME FOR 14 DAYS, THEN TAKE ONE TABLET AT BEDTIME FOR 14 DAYS 8) PANTOPRAZOLE NA 40MG EC TAB TAKE ONE TABLET B Y MOUTH ACTIVE ONCE DAILY 9) PHENTERMINE 3.75/TOPIRAMATE 23MG SA CAP TAKE 1 ACTIVE CAPSULE BY MOUTH EVERY MORNING FOR 14 DAYS, THE N 2 CAPSULES EVERY MORNING FOR 14 DAYS (WITH OR WIT HOUT FOOD) Active problems - Computerized Problem List is t he source for the followin. Major depressive disorder May meet emerald wilkinson for bipolar 2 disorder current episode depressed. Family history of bipolar 1 d isorder. 2. ECG: normal sinus rhythm 3. 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 Headache (SNOMED CT 30180682) 03/08 CTA 2 mm wide aneurysm at [...] 16. Gastroesophageal reflux disease (SNOMED CT 2 [id number]) 17. Limb pain EMG 04/07 mild CTS left wrist 18. hydradenitis 19. asymptomatic varicose veins 20. Sleep apnea severe 21. Hyperlipidemia 22. Diarrhea 23. adjustment disorder with mixed anxiety and d epressed mood see neuropsych eval dated 08/06/20 24. Compartment syndrome of lower limb 25. Heartburn LAB REVIEWED October 2020 Color, Urine (AX 4280): Yellow Appearance, Urine (AX 4280): Clear Glucose, Urine (AX 4280): Negative Ketones, Urine (AX 4280): Negative Blood, Urine (AX 4280): Negative Protein, Urine (AX 4280): Negative Nitrite, Urine (AX 4280): Negative Bilirubin, Urine (AX 4280): Negative Specific [place], (AX 4280): 1.021 pH, Urine (KK4066): 5.0 Urobilinogen, Urine (AX 4280): <2.0 Leukocyte Esterase, (AX 4280): Negative HGB A1C (WR): 5.5 WBC: 8.09 RBC: 4.62 HGB: 13.7 HCT: 41.8 MCV: 90.5 MCHC: 32.8 RDW: 13.3 PLT: 257 MCH: 29.7 Neut %: 65.8 Lymph %: 24.1 [place] %: 5.9 Eos %: 3.0 Baso %: 1.0 Neut, Abs: 5.32 Lymph, Abs: 1.95 [place], Abs: 0.48 Eos, Abs: 0.24 Baso, Abs: 0.08 Immature Granulocytes %: 0.2 Immature Granulocytes, Abs: 0.02 CHOLESTEROL: 196 PROTEIN,TOTAL: 6.7 ALBUMIN: 3.6 ALKALINE PHOSPHATASE: 56 SGOT: 16 SGPT: 22 TRIGLYCERIDE: 108 LDL CHOL: 129 CHOL/HDL RATIO: 4.4 HDL: 45 BILIRUBIN,TOT.: 0.2 TSH (Access): 1.84 GLUCOSE: 93 UREA NITROGEN: 21 SODIUM: 141 POTASSIUM: 4.8 CHLORIDE: 109 CO2: 24 CALCIUM: 9.4 PO4: 5.4 H URIC ACID: 6.9 CREATININE-EGFR: 1.16 eGFR(IDMS): 68 PLAN - Increase Lurasidone to 20mg. Take one tab let at bedtime for sleep. RTC - [facility] Apr 2020 did not report any suicidal or homicidal ideation but was given the number to the [place] Crisis Line. also knows how to contact [...] Martinez APRN, STAFF CLINICAL NURSE SPECIALIST Signed: 02/11/2021 13:47 02/11/2021 ADDENDUM STATUS: COMPLETED Alert pain program administrative office specialist. Endy helton interested in video contact. He plans to download the application an d fill out the registration today. RTC 3 months. Video connect Recommended schedule line late afternoon. /pippa/ Shine Martinez APRN, STAFF CLINICAL NURSE SPECIALIST Signed: 02/11/2021 13:48 Receipt Acknowledged By: * AWAITING SIGNATURE * ALEJANDRA CHRISTIANSON
--- OUTSIDE RECORDS SUMMARY | 2022-02-08 16:31 | XMS_ITS | Encounter Summary ---
:1975 Author Organization Department [facility] rs Address [address] [place] [address] Support Name Relationship Address Phone LANG GARCIA Unavailable [address] [place] [address] OLIVIA GOVEA Unavailable Unavailable Selected Encounter This section includes the information on record at [place] for the Encounter. Date/Time Encounter Type Encounter Description Reason Provider Source Mar 01, 2021 04:06 Outpatient Encounter PRIMARY CARE/MEDICINE PM IHE Encounter Template Text not used by [place] Plan of Treatment: Future Appointments (+ 6 [...] 22, 2021 08:00 AM AMBULATORY - PSYCHIATRY [place] Apr 02, 2021 09:00 AM AMBULATORY - NEUROLOGY [place] Apr 04, 2021 02:00 PM AMBULATORY - MEDICINE [place] Apr 05, 2021 11:00 AM AMBULATORY - [place]CHIATRY [place] Apr 10, 2021 11:00 AM AMBULATORY - [place]CHIATRY [place] Apr 17, 2021 08:00 AM AMBULATORY - [place]CHIATRY [place] Apr 22, 2021 01:30 PM AM[place]ULATORY [place]ICINE [place] [facility] Taye [facility] Apr 26, 2021 08:00 AM AMBULATORY - [place]CHIATRY [place] May 03, 2021 08:00 AM AMBULATORY - PS[place]CHIATRY [place] May 07, 2021 10:00 AM AMBULATORY - NONE [place] [facility] WSTR[place]avi CHAND [facility] May 13, 2021 10:30 AM AMBULATORY - MEDICINE [place] May 17, 2021 09:00 AM AMBULATORY - PSYCHIATRY [place] May 22, 2021 09:30 AM AMBULATORY - PSYCHIATRY [place] May 27, 2021 01:00 PM AMBULATORY - PSYCHIATRY [place] Jun 05, 2021 01:00 PM AMBULATORY - PS[place]CHIATRY [place] Jun 10, 2021 09:00 AM [place] [facility] Jun 24, 2021 01:45 PM [facility] - [place] [facility] [facility] Jun 27, 2021 10:30 AM AMBULATORY - [facility] Jul 08, 2021 11:30 AM AM[place]UL[place] - [place]INE [place] [facility] [facility] Jul 11, 2021 12:00 PM [facility] [place] [facility] Encounter Notes: All associated encounter notes This section contains the clinical notes associated to the Encounter. Date/Time Encounter Note(s) Provider Source Mar 01, 2021 04:06 PM PRIMARY CARE SECURE MESSAGING: ADITHYA PATEL [facility] LOCAL TITLE: PRIMARY CARE SECURE MESSAGING [facility] STANDARD TITLE: PRIMARY CARE SECURE MESSAGING DATE OF NOTE: MAR 01, 2021@16:06:20 ENTRY DATE: MAR 01, 2021@16:06:21 AUTHOR: LIANG PATEL EXP COSIGNER: URGENCY: STATUS: COMPLETED ------Original Message Sent: 03/01/2021 04:01 PM From: OLIVIA GARCIA To: Tiara CULLEN_PRIMARY CARE_SPOPC Subject: Phentermine Doc, Could we get a new fill on my phentermine scrip, please and thank you? James/R Olivia Garcia GSM2 USN RET /pippa/ LIANG PATEL [employer] Signed: 03/01/2021 16:06 Receipt Acknowledged By: * AWAITING SIGNATURE * DANY CULLEN
--- OUTSIDE RECORDS SUMMARY | 2022-02-08 16:31 | XMS_ITS ---
:1975 Author Organization Department [facility] rs Address [address] [place] [address] Support Name Relationship Address Phone LANG GARCIA Unavailable [address] [place] [address] OLIVIA GOVEA Unavailable Unavailable Selected Encounter This section includes the information on record at [place] for the Encounter. Date/Time Encounter Type Encounter Description Reason Provider Source Mar 27, 2021 04:27 Outpatient Encounter PRIMARY CARE/MEDICINE PM IHE Encounter Template Text not used by [place] Plan of Treatment: Future Appointments (+ 6 [...] 02, 2021 09:00 AM AMBULATORY - NEUROLOGY [place] Apr 04, 2021 02:00 PM AMBULATORY - MEDICINE [place] Apr 05, 2021 11:00 AM AMBULATORY - PSYCHIATRY [place] Apr 10, 2021 11:00 AM AMBULATORY - PS[place]CHIATRY [place] Apr 17, 2021 08:00 AM AMBULATORY - PSYCHIATRY [place] Apr 22, 2021 01:30 PM [facility]UL[facility] - [facility]DEN [facility] Apr 26, 2021 08:00 AM AMBULATORY - PSYCHIATRY [place] May 03, 2021 08:00 AM AMBULATORY PSYCHIATRY [place] May 07, 2021 10:00 AM [facility] May 13, 2021 10:30 AM AMBULATORY - MEDICINE [place] May 17, 2021 09:00 AM AMBULATORY - PSYCHIATRY [place] May 22, 2021 09:30 AM AMBULATORY - PSYCHIATRY [place] May 27, 2021 01:00 PM AMBULATORY PSYCHIATRY [place] Jun 05, 2021 01:00 PM AMBULATORY PSYCHIATRY [place] Jun 10, 2021 09:00 AM [facility] Jun 24, 2021 01:45 PM AM[facility]UL[place] - [place] [facility] Jun 27, 2021 10:30 AM [facility] - [facility] Jul 08, 2021 11:30 AM AM[facility]UL[facility] [place] [facility] Jul 11, 2021 12:00 PM AM[facility]UL[place] - [place] [facility] August 20, 2021 09:30 AM AMBULATORY PSYCHIATRY [place] Lab Results: +/- 30 days of the [...] Range Comment Apr 04, 2021 01:26 PM [place] PSA Specimen Type: SERUM No comment enter ed. Ordering Provid er: DANY CULLEN Report Released Date/Time: Mar 27, 2021 08:05 PM Reporting Lab: [facility] [address] [address] Performing Lab: [facility] [address] PSA 1.67 0.00-4.00 Encounter Notes: All associated encounter notes This section contains the clinical notes associated to the Encounter. Date/Time Encounter Note(s) Provider Source Mar 27, 2021 04:27 PM PRIMARY CARE SECURE MESSAGING: ADITHYA PATEL [facility] LOCAL TITLE: PRIMARY CARE SECURE MESSAGING [facility] STANDARD TITLE: PRIMARY CARE SECURE MESSAGING DATE OF NOTE: MAR 27, 2021@16:27:22 ENTRY DATE: MAR 27, 2021@16:27:23 AUTHOR: LIANG PATEL EXP COSIGNER: URGENCY: STATUS: COMPLETED PRIMARY CARE SECURE MESSAGING Has ADDENDA * ------Original Message Sent: 03/27/2021 12:10 PM From: OLIVIA GARCIA To: Tiara CULLEN_PRIMARY CARE_SPOPC Subject: An issue I've noticed Doc, Was wondering if I may be de veloping some prostate issues. I do have it running on my paternal side with my father having enlarg ed prostate and my uncle a stage lll prostate cancer survivor. I've noticed that for the past couple months I've had a hard time making it to the bat hroom in time when I need to urinate and I start to dribble before I get ther e. I've also noticed that I'm not completely emptying my bladder when finished . With my age and family history I'm wondering if I needed to be checked. V/R Olivia Garcia /pippa/ LIANG PATEL FIELD MARKETING LEAD Signed: 03/27/2021 16:27 Receipt Acknowledged By: 03/27/2021 18:59 /pippa/ ROGERS ESCOBAR RN-BC REGISTERED NURSE * AWAITING SIGNATURE * CARLOS BOYD 03/27/2021 ADDENDUM STATUS: COMPLETED forwarding to message provided by to PCP for review and advice. /pippa/ ROGERS ESCOBAR RN-BC REGISTERED NURSE Signed: 03/27/2021 19:00 Receipt Acknowledged By: * AWAITING SIGNATURE * DANY CULLEN
--- OUTSIDE RECORDS SUMMARY | 2022-02-08 16:38 | XMS_ITS | Encounter Summary ---
:1975 Author Organization Department [facility] rs Address [address] [place] [address] Support Name Relationship Address Phone LANG NAZARIO Unavailable [address] [place] [address] OLIVIA GOVEA Unavailable Unavailable Selected Encounter This section includes the information on record at [place] for the Encounter. Date/Time Encounter Type Encounter Reason Provider Source Description Jul 11, 2021 HC PRO PHONE TELEPHONE TRIAGE ICD-10-CM Z71.89 MICHAEL THAPA 10:58 AM CALL 5-10 MIN Other specified A counseling with Provider Comments: Other specified counseling IHE Encounter Template Text not used by [place] Assessments - Encounter Diagnoses This section includes the primary and secondary diagnoses documented for the Encounter. Date/Time Primary/Secondary Diagnosis Name Provider Source Diagnosis Jul 11, 2021 PRIMARY Other specified [facility] THPAA [facility] W STRN 10:58 AM counseling A [facility] Plan of Treatment: Future Appointments (+ 6 months) and Future Tests (+/- 45 days) The Plan of Treatment section includes future care activities for the patient from all [place] treatmentfacilities. This section includes future appointments and future orders which are active, pending orscheduled.Future Appointments This section includes appointments that were scheduled to occur 6 months from the date of the Encounter, up to a maximum of 20 appointments. The data comes from all [place] treatment facilities. Appointment Date/Time Appointment Type Appointment Facili ty Name August 20, 2021 09:30 AM AMBULATORY - PSYCHIATRY [place] August 29, 2021 03:00 PM AMBULATORY - MEDICINE [place] Nov 07, 2021 08:00 AM AMBULATORY - MEDICINE [place] Dec 04, 2021 01:30 PM AMBULATORY - MEDICINE [place] Dec 20, 2021 10:00 AM AMBULATORY - NONE [facility] Dec 27, 2021 11:00 AM AMBULATORY - MEDICINE [facility] Active, Pending, and Scheduled Orders This section includes a listing of several types of active, pending, and scheduled orders, including clinic medications orders, diagnostic test orders, procedure orders and consult orders; where the start date of the order is 45 days before the date of the Encounter or 45 days after the date of the Encounter. The data comes from all [place] treatment facilities. Test Date/Time Test Type Test Details Facility Name Jun 06, 2021 10:54 AM Consult Order COMMUNITY CARE-ENT Cons SP [facility] Nutrition Services Associate's Choice Encounter Notes: All associated encounter notes This section contains the clinical notes associated to the Encounter. Date/Time Encounter Note(s) Provider Source Jul 11, 2021 10:58 AM TELEPHONE ENCOUNTER NOTE: THAI THAPA CNT WSN [facility] TITLE: VISN 1 CCC ACTION REQUIRED [place] [facility] STANDARD TITLE: TELEPHONE ENCOUNTER NOTE DATE OF NOTE: JUL 11, 2021@10:58:13 ENTRY DATE: JUL 11, 2021@11:14:02 AUTHOR: THAI THAPA EXP COSIGNER: URGENCY: STATUS: COMPLETED VISN 1 CCC ACTION REQUIRED Has ADDENDA The patient, OLIVIA NAZARIO ([phone]) called the call center. Contact Type of call: SYMPTOM. Caller Response: CLN CALL RESOLVED Caller Area: [facility] PCMM Provider Info: [facility]STRN [place] [facility] ([phone]) MH: [facility] ([facility]) Wool Grader JESUS EVANGELISTA PHONE:[phone] [facility] ([id number]) PACT: SO PACT 4 (Focus: Primary Care Only) Primary Care Provider: DANY CULLEN PHONE:[phone] Senior Technologist: LIANG RESENDEZ Clinical Associate: CARLOS BOYD PHON E:[phone] Orthodontist: LIANG PATEL PHONE:[phone] PACT Clinical Pharmacist: CADE HERNANDEZ Clinical POC: Senior Technologist ADRIANNA RESENDEZ Administrative POC: Orthodontist LIANG PATEL PHONE:[phone] Author: THAI THAPA Evaluation/Management Code: HC PRO PHONE CALL 5- 10 MIN ([phone]). Starting at: 07/11/2021 @ 10:58:13 AM Ending at: 07/11/2021 @ 11:07:44 AM Length: 9 minutes. Chief Complaint: Rash (localized) Class Code: Other specified counseling. Triage Note Phone Triage Katiana Jul 11 2021 11:00:26 GMT-0400 ( t Time) Demographics 46 y/o Male Results CC: Rash (localized) Nurse Recommendation: 2-8 Hours TEDP Suggestion: 12-24 Hours Nurse Recommended Follow-up Location: Clinic, [facility] TEDP Suggested Follow-up Location: Clinic, [place], consider [facility] care Values and Measures Pain scale: denies pain Duration of CC: 2 Days Positive Responses HPI: rash, erythematous HPI: rash, new, unilateral HPI: rash, tenderness, worsening HPI: skin erythema, worsening Negative Responses Denies: HPI: facial rash, new, unilateral Denies: HPI: rash, confined to scalp Denies: HPI: rash, erythematous, painful Denies: HPI: rash, erythematous, vesicular, nelli nful Denies: HPI: rash, skin swelling, worsening Denies: HPI: red streaks, from a wound Denies: HPI: skin lump, painful Denies: HPI: symptoms similar to past herpes zo ster Denies: HPI: vomiting Denies: MEDS: chemotherapy Denies: PMH: diabetes Denies: PMH: HIV positive Denies: PSH: organ transplant Nurse Notes: [place] reports a rash for 2 days now to the top of his shoulders and top of his head. Vet relates it to Doxycycline. Vet den ies any SOB and/or difficulty breathing a this time; no fever and/or c hills. Vet also denies any chest pain; no hives or welts to the areas. Alerting PACT Te am for review and f/u. Also, transferring vet to [facility] via priority call for appt scheduling. Warm transfer to [facility] was successful. [place] informed on what to do if there's no donte t availability or if he does not hear back from his PACT within the recommended timeframe. Including when to seek care in the ED/UC and when to call back to the [facility], for worsening s/sx. Vet verbalizes understanding and agrees with the plan. Patient/Caller agrees with plan. Caller/ verbalizes understanding of the i nformation provided. Patient's Email Address: [email or web address] Taye /pippa/ THAI THAPA RN REGISTERED NURSE Signed: 07/11/2021 11:14 Receipt Acknowledged By: * AWAITING SIGNATURE * LIANG RESENDEZ * AWAITING SIGNATURE * CARLOS BOYD 07/11/2021 ADDENDUM STATUS: COMPLETED Recvd call from Triage Nurse Chelsea recommendation to see ARCHEOLOGIST 2-8 hours due to localized rash. Scheduled with ARCHEOLOGIST for at 12pm /pippa/ CIARAN POLLACK Signed: 07/11/2021 11:23
--- OUTSIDE RECORDS SUMMARY | 2022-02-08 16:39 | XMS_ITS | Encounter Summary ---
:1975 Author Organization Department [facility] rs Address [address] [place] [id number] Support Name Relationship Address Phone LANG NAZARIO Unavailable [address] [phone] [place] [address] OLIVIA GOVEA Unavailable Unavailable Selected Encounter This section includes the information on record at [place] for the Encounter. Date/Time Encounter Type Encounter Description Reason Provider Source Jul 02, 2021 12:00 Outpatient Encounter EVENT (HISTORICAL) AM IHE Encounter Template Text not used by [place] Plan of Treatment: Future Appointments (+ 6 months) and Future Tests (+/- 45 days) The Plan of Treatment section includes future care activities for the patient from all [place] treatmentfacilities. This section includes future appointments and future orders which are active, pending orscheduled.Future Appointments This section includes appointments that were scheduled to occur 6 months from the date of the Encounter, up to a maximum of 20 appointments. The data comes from all [place] treatment facilities. Appointment Date/Time Appointment Type Appointment Facili ty Name Jul 08, 2021 11:30 AM AMBULATORY MEDICINE [facility] Jul 11, 2021 12:00 PM [facility] August 20, 2021 09:30 AM AMBULATORY [place] August 29, 2021 03:00 PM AMBULATORY MEDICINE [place] Nov 07, 2021 08:00 AM AMBULATORY MEDICINE [place] Dec 04, 2021 01:30 PM AMBULATORY MEDICINE [place] Dec 20, 2021 10:00 AM AMBULATORY - NONE [facility] Dec 27, 2021 11:00 AM AMBULATORY MEDICINE [facility] Active, Pending, and Scheduled Orders This section includes a listing of several types of active, pending, and scheduled orders, including clinic medications orders, diagnostic test orders, procedure orders and consult orders; where the start date of the order is 45 days before the date of the Encounter or 45 days after the date of the Encounter. The data comes from all [place] treatment facilities. Test Date/Time Test Type Test Details Facility Name Jun 06, 2021 10:54 AM Consult Order COMMUNITY CARE-ENT Cons SP [facility] Bench Shear Operator's Choice Encounter Notes: All associated encounter notes This section contains the clinical notes associated to the Encounter. Date/Time Encounter Note(s) Provider Source Jul 02, 2021 12:00 AM NONVA NOTE: [facility] LOCAL TITLE: NON-VA HOSPITALIZATIONS/ER [facility] [facility] STANDARD TITLE: NONVA NOTE DATE OF NOTE: JUL 02, 2021 ENTRY DATE: JUL 24 022@13:15:45 AUTHOR: MONAE RESENDIZ COSIGNER: URGENCY: STATUS: COMPLETED VistA Imaging - Scanned Document SCANNED DOCUMENT SIGNATURE NOT REQUIRED Electronically Filed: 07/24/2021 by: TATO RESENDIZ Rn Hemo Dialysis
--- OUTSIDE RECORDS SUMMARY | 2022-02-08 16:39 | XMS_ITS ---
:1975 Author Organization Department [facility] rs Address [address] [place] [address] Support Name Relationship Address Phone LANG NAZARIO Unavailable [address] [place] [address] JEFERSONOLIVIA Unavailable Unavailable Selected Encounter This section includes the information on record at [place] for the Encounter. Date/Time Encounter Type Encounter Description Reason Provider Source Jul 11, 2021 11:24 Outpatient Encounter ADMIN PAT ACTIVTIES AM (MASNONCT) IHE Encounter Template Text not used by [place] Plan of Treatment: Future Appointments (+ 6 months) and Future Tests (+/- 45 days) The Plan of Treatment section includes future care activities for the patient from all [place] treatmentfacilities. This section includes future appointments and future orders which are active, pending orscheduled.Future Appointments This section includes appointments that were scheduled to occur 6 months from the date of the Encounter, up to a maximum of 20 appointments. The data comes from all [place] treatment facilities. Appointment Date/Time Appointment Type Appointment Facili ty Name August 20, 2021 09:30 AM AMBULATORY - PSYCHIATRY [place] August 29, 2021 03:00 PM AMBULATORY - MEDICINE [place] Nov 07, 2021 08:00 AM AMBULATORY - MEDICINE [place] Dec 04, 2021 01:30 PM AMBULATORY - MEDICINE [place] Dec 20, 2021 10:00 AM AMBULATORY - NONE [facility] Dec 27, 2021 11:00 AM AMBULATORY - MEDICINE [facility] Active, Pending, and Scheduled Orders This section includes a listing of several types of active, pending, and scheduled orders, including clinic medications orders, diagnostic test orders, procedure orders and consult orders; where the start date of the order is 45 days before the date of the Encounter or 45 days after the date of the Encounter. The data comes from all [place] treatment facilities. Test Date/Time Test Type Test Details Facility Name Jun 06, 2021 10:54 AM Consult Order COMMUNITY CARE-ENT Cons SP [facility] University Librarian's Choice Encounter Notes: All associated encounter notes This section contains the clinical notes associated to the Encounter. Date/Time Encounter Note(s) Provider Source Jul 11, 2021 11:24 TELEPHONE ENCOUNTER NOTE: CIARAN POLLACK [facility] WSTRN [facility] TITLE: VISN 1 CCC ACTION REQUIRED ADRIANNA Dawson [facility] STANDARD TITLE: TELEPHONE ENCOUNTER NOTE DATE OF NOTE: JUL 11, 2021@11:24:36 ENTRY DATE: JUL 11, 2021@11:26:54 AUTHOR: CIARAN POLLACK [facility] EXP COSIGNER: URGENCY: STATUS: COMPLETED The patient, OLIVIA NAZARIO ([phone]) called the call center. Contact Type of call: REFERRAL/CONSULT REQUEST. Caller Response: ADM CALL RESOLVED Caller Area: [place] [facility] PCMM Provider [facility] (631) MH: [facility] ([facility]) Receptionist Scheduler JESUS EVANGELISTA PHONE:[phone] [facility] ([id number]) PACT: [place] PACT 4 (Focus: Primary Care Only) Primary Care Provider: DANY CULLEN PHONE:[phone] [place] Joiner Overlock: LIANG RESENDEZ Clinical Associate: CARLOS BOYD PHON E:[phone] Restaurant Worker: LIANG PATEL PHONE:[phone] PACT Clinical Pharmacist: CADE HERNANDEZ Clinical POC: Waistline Joiner Overlock ADRIANNA RESENDEZ Administrative POC: Restaurant Worker LIANG PATEL PHONE:[phone] Author: CIARAN POLLACK Comments: [place]'s spouse called regarding a refe rral for Neurology to be seen [facility]. Please contact spouse to discuss obtai juan daniel referral. Evaluation/Management Code: HC PRO PHONE CALL 5- 10 MIN ([phone]). Starting at: 07/11/2021 @ 11:24:36 AM Ending at: 07/11/2021 @ 11:25:59 AM Length: 1 minutes. Chief Complaint: Not applicable to call. Class Code: Other specified counseling. Patient's Email Address: Taye jonas/ CIARAN POLLACK Signed: 07/11/2021 11:26 Receipt Acknowledged By: * AWAITING SIGNATURE * TERRA FRIED * AWAITING SIGNATURE * BEVERLY BARRY * AWAITING SIGNATURE * DARRICK LYONS
--- OUTSIDE RECORDS SUMMARY | 2022-02-08 16:39 | XMS_ITS | Encounter Summary ---
:1975 Author Organization Department [facility] rs Address [address] [place] [address] Support Name Relationship Address Phone LANG NAZARIO Unavailable [address] [place] [address] JEFERSONOLIVIA Unavailable Unavailable Selected Encounter This section includes the information on record at [place] for the Encounter. Date/Time Encounter Type Encounter Reason Provider Source Description Jul 11, 2021 OFFICE O/P EST GENERAL INTERNAL ICD-10-CM L56.1 MCKINNON,JORJE Tiara CHIP BIN CONVEYOR TENDER 12:00 PM LOW 20-29 MIN MEDICINE Drug photoallergic response with Provider Comments: Drug Photoallergic Response IHE Encounter Template Text not used by VA Assessments - Encounter Diagnoses This section includes the primary and secondary diagnoses documented for the Encounter. Date/Time Primary/Secondary Diagnosis Name Provider Source Diagnosis Jul 11, 2021 PRIMARY Drug photoallergic DANIEL MCKINNON NP [facility] 12:38 PM response [facility] Jul 11, 2021 SECONDARY Major depressive DANIEL MCKINNON NP [facility] 12:38 PM disorder, single [facility] episode, unspecified Jul 11, 2021 SECONDARY Obesity, MCKINNONDANIEL CHIP BIN CONVEYOR TENDER [facility] 12:38 PM unspecified [facility] Jul 11, 2021 SECONDARY Pneumonia, DANIEL MCKINNON CHIP BIN CONVEYOR TENDER [facility] 12:38 PM unspecified [facility] organism Plan of Treatment: Future Appointments (+ 6 months) and Future Tests (+/- 45 days) The Plan of Treatment section includes future care activities for the patient from all VA treatmentfacilities. This section includes future appointments and future orders which are active, pending orscheduled.Future Appointments This section includes appointments that were scheduled to occur 6 months from the date of the Encounter, up to a maximum of 20 appointments. The data comes from all [facility]. Appointment Date/Time Appointment Type Appointment Facili ty Name August 20, 2021 09:30 AM AMBULATORY [place] [facility] [facility] August 29, 2021 03:00 PM AMBULATORY - MEDICINE [place] [facility] Nov 07, 2021 08:00 AM [facility]ATORY - [facility]ICINE [place] Dec 04, 2021 01:30 PM [facility] MEDICINE [facility] [facility] Dec 20, 2021 10:00 AM [facility]ORY - [facility] Dec 27, 2021 11:00 AM AMBULATORY MEDICINE [facility] Active, Pending, and Scheduled Orders This section includes a listing of several types of active, pending, and scheduled orders, including clinic medications orders, diagnostic test orders, procedure orders and consult orders; where the start date of the order is 45 days before the date of the Encounter or 45 days after the date of the Encounter. The data comes from all [facility]. Test Date/Time Test Type Test Details Facility Name Jun 06, 2021 10:54 AM Consult Order COMMUNITY CARE-ENT Cons [facility] Podiatric Physician's Choice Encounter Notes: All associated encounter notes This section contains the clinical notes associated to the Encounter. Date/Time Encounter Note(s) Provider Source Jul 11, 2021 12:08 PM TELEHEALTH NOTE: DANIEL MCKINNON NP [facility] LOCAL TITLE: TELE URGENT CARE PROVIDER [facility] STANDARD TITLE: TELEHEALTH NOTE DATE OF NOTE: JUL 11, 2021@12:08 ENTRY DATE: JUL 11, 2021@12:08:50 AUTHOR: DANIEL MCKINNON NP EXP COSIGNER: URGENCY: STATUS: COMPLETED This is a tele-urgent care visit to address acut e/urgent issues. Definitive care on chronic medical issues will b e deferred to routine Primary Care appointment/provider. Consult Origin: Referral from the Clinical Contact Center/Call Center Type of Visit: Phone Visit: Visit conducted by telephone. Loca tion/emergency number confirmed. Emergency contact information was obtained as fo nitinws: Patient's current address [address] [place] [address] Patient's Phone Number:PATIENT PHONE - [phone] PHONE NUMBER [CELLULAR] - Primary NOK: LANG NAZARIO Relation: EXTENDED FAMILY M [address] [place], [place] [address] Subjective: Report burning feeling head and face when out i n sun - resolve when inside , intermittent anterior bilateral hand burn feeli ng today. and right shoulder even when cover - intermittent b urning feeling On doxycline 100 mg bid X 7 days for Pneumonia - Day #5 . Deny other side effect - n/v, fever, chill, diar nalini/ Deny sob, chest pain. VVC: NAD. Clear speech. Appropriate respond -Slight pink on bald head and face. -hands anterior surface slight erythema -Right shoulder - no erythema No drainge/erythema/ulcer visiable. ACTIVE PROBLEMS: Code Description J18.9 Pneumonia ([facility] [id number]) F32.9 Major depressive disorder ([facility] [id number]) R69. ECG: normal sinus rhythm ([facility] [id number]) Z86.79 History of aneurysm ([facility] [id number]) R51. Headache ([facility] [id number]) H65.20 Chronic serous otitis media ([facility] [id number] ) E66.9 Obesity ([facility] 580514837) M85.9 Osteopenia ([facility] [id number]) B96.81 Helicobacter pylori gastrointestinal trac t infection ([facility] [id number]) Z89.611 History of amputation of lower limb abov e knee ([facility] [id number]) R12. Heartburn ([facility] [id number]) ALLERGIES/ADR: ZYBAN, SAXENDA, GABAPENTIN, MICHAEL A Active Outpatient Medications (including Supplie s): CALCIUM POLYCARBOPHIL 625MG TAB TAKE ONE TABLET BY MOUTH ACTIVE TWICE DAILY TAKE ONE TABLET BY MOUTH TWICE SHARITA Y WITH MEAL OR FOOD WITH FULL GLASS OF WATER. CETIRIZINE HCL 10MG TAB TAKE ONE TABLET BY MOUTH ONCE ACTIVE DAILY NEEDED FOR ALLERGIES DOXYCYCLINE HYCLATE 100MG TAB TAKE ONE TABLET BY MOUTH ACTIVE TWICE DAILY FISH OIL 1000MG (500MG DHA/EPA) CAP TAKE ONE CAP IVETT BY HOLD MOUTH THREE TIMES DAILY NEEDED [ANTI-INFLAMM ATORY] KETOCONAZOLE 2% SHAMPOO SHAMPOO SMALL AMOUNT TOP ICALLY ACTIVE ONCE DAILY LACTOBACILLUS ACIDOPHILUS TAB TAKE 1 TABLET BY M OUTH ONCE ACTIVE DAILY MELATONIN 5MG CAP/TAB TAKE TWO CAPSULE/TABLET BY MOUTH AT ACTIVE BEDTIME NEEDED PANTOPRAZOLE NA 40MG EC TAB TAKE ONE TABLET BY M OUTH ONCE ACTIVE DAILY PHENTERMINE 7.5/TOPIRAMATE 46MG SA CAP TAKE 1 CA PSULE BY ACTIVE MOUTH EVERY MORNING WITH OR WITHOUT FOOD TOLTERODINE TARTRATE 2MG TAB TAKE ONE TABLET BY MOUTH ONCE ACTIVE DAILY Current medications reviewed with patient/caregi gege and reconciliation of medications related to today's visit completed, including non-VA medications and discrepancies, if identified, were addressed . Medication changes and the importance of medication management were reviewe d with the patient/caregiver today based on individual needs. Patient/caregiv er acknowledged understanding of instructions as stated. Objective: see HPI Report: sun burning feeling and face. Reason for Referral: Skin Assessment/Impression: -Drug photoallergic respond to doxycycline on da y #5 -Skin photosentivity r/t side effect of Doxycyc line. Plan: -Pt agree to avoid sunlight, hydration, diet ant iinflamatory food. cover of body when out in sun for next 14 days. -Pt agree to try soothing lotion or silver nitra te OTC if erythema/blister. -Pt agree to go ER if sob, extreme pain or eryth macario. -Pt agree if worsen symptoms to stop doxycycline . -NOtify PACT team: Primary Care Provider: DANY CULLEN PHONE:[phone] Beamer Hand: LIANG RESENDEZ Clinical Associate: CARLOS BOYD PHON [phone]:[phone] -Request PACT nurse to followup w/ pt next week . Issue resolved with Tele Urgent Care appointmen t Patient verbalizes understanding of the care stephanie n Time spent in telephone/video visit: / DANIEL MCKINNON CHIP BIN CONVEYOR TENDER CHIP BIN CONVEYOR TENDER SURGERY Signed: 07/11/2021 12:38 Receipt Acknowledged By: * AWAITING SIGNATURE * LIANG RESENDEZ * AWAITING SIGNATURE * DANY CULLEN
--- OUTSIDE RECORDS SUMMARY | 2022-02-08 16:40 | XMS_ITS | Encounter Summary ---
:1975 Author Organization Department [facility] rs Address [address] [place] [address] Support Name Relationship Address Phone LANG GARCIA Unavailable [address] [place] [address] OLIVIA GOVEA Unavailable Unavailable Selected Encounter This section includes the information on record at [place] for the Encounter. Date/Time Encounter Type Encounter Description Reason Provider Source Aug 14, 2021 02:20 Outpatient Encounter PRIMARY CARE/MEDICINE IHE Encounter Template Text not used [...] 20, 2021 09:30 AM AMBULATORY - PS[facility]CHIATRY [facility] August 29, 2021 03:00 PM AMBULATORY - MEDICINE [facility] Nov 07, 2021 08:00 AM AMBULATORY - [facility]IC[facility] Dec 04, 2021 01:30 PM AMBULATORY MEDICINE [facility] Dec 20, 2021 10:00 AM AMBULATORY - NONE [facility] Dec 27, 2021 11:00 AM AMBULATORY MEDICINE [facility] Jan 14, 2022 10:30 AM AMBULATORY [facility] Encounter Notes: All associated encounter notes This section contains the clinical notes associated to the Encounter. Date/Time Encounter Note(s) Provider Source Aug 14, 2021 02:20 PM PRIMARY CARE SECURE MESSAGING: ADITHYA PATEL ID CNTL WSTRN LOCAL TITLE: PRIMARY CARE SECURE MESSAGING [place] [facility] STANDARD TITLE: PRIMARY CARE SECURE MESSAGING DATE OF NOTE: AUG 14, 2021@14:20 ENTRY DATE: AUG 14, 2021@15:20:14 AUTHOR: LIANG PATEL EXP COSIGNER: URGENCY: STATUS: COMPLETED ------Original Message Sent: 08/14/2021 02:22 PM ET From: OLIVIA GARCIA To: Tiara CULLEN_PRIMARY CARE_[facility] Subject: General:Scrip from urologist Doc, Was meaning to ask you what is the fax number ag ain for outside docs to fax over scrips? The urologist I saw had changed my med a few wee ks ago and it hasn't been filled yet so I'm assuming they submitted it to the clinic incorrectly. V/R Olivia Garcia /pippa/ LIANG PATEL RESOURCE ENGINEER Signed: 08/14/2021 15:20 Receipt Acknowledged By: * AWAITING SIGNATURE * CARLOS BOYD * AWAITING SIGNATURE * LIANG RESENDEZ
--- OUTSIDE RECORDS SUMMARY | 2022-02-08 16:40 | XMS_ITS | Encounter Summary ---
:1975 Author Organization Department of [facility] rs Address [address] [place] [address] Support Name Relationship Address Phone LANG NAZARIO Unavailable [address] [place] [address] JEFERSONOLIVIA Unavailable Unavailable Selected Encounter This section includes the information on record at [place] for the Encounter. Date/Time Encounter Type Encounter Description Reason Provider Source Jul 17, 2021 12:00 Outpatient Encounter COMMUNITY CARE CONSULT IHE Encounter Template Text not used [...] 20, 2021 09:30 AM AMBULATORY - PS[facility]CHIAT[facility] August 29, 2021 03:00 PM AMBULATORY - [facility]IC[facility] Nov 07, 2021 08:00 AM AMBULATORY - [facility] Dec 04, 2021 01:30 PM AMBULATORY [facility]IC[facility] Dec 20, 2021 10:00 AM AMBULATORY NONE [facility] Dec 27, 2021 11:00 AM AMBULATORY MEDICINE [facility] Jan 14, 2022 10:30 AM AMBULATORY [facility] Active, Pending, and Scheduled Orders This [...] AM Consult Order COMMUNITY CARE-ENT Cons [facility] Proofsheet Corrector's Choice Encounter Notes: All associated encounter notes This section contains the clinical notes associated to the Encounter. Date/Time Encounter Note(s) Provider Source Jul 17, 2021 12:00 AM NONVA CONSULT: [facility] LOCAL TITLE: COMMUNITY CARE-CONSULT [facility]ULT [facility] STAND[facility] TITLE: NONVA CONSULT DATE OF NOTE: JUL 17, 2021 ENTRY DATE: JUL 25 022@12:03:12 AUTHOR: ELOISA EDWARDS EXP COSIGNER: URGENCY: STATUS: COMPLETED [facility] - Scanned Document SCANNED DOCUMENT SIGNATURE NOT REQUIRED Electronically Filed: 07/25/2021 by: ELOISA EDWARDS COVERSTITCH MACHINE OPERATOR
--- OUTSIDE RECORDS SUMMARY | 2022-02-08 16:40 | XMS_ITS | Encounter Summary ---
:1975 Author Organization Department [facility] rs Address [address] [place] [address] Support Name Relationship Address Phone LANG GARCIA Unavailable [address] [place] [address] OLIVIA GOVEA Unavailable Unavailable Selected Encounter This section includes the information on record at [place] for the Encounter. Date/Time Encounter Type Encounter Description Reason Provider Source Aug 12, 2021 11:01 Outpatient Encounter PRIMARY CARE/MEDICINE [facility] Encounter Template Text not used by [place] Plan of Treatment: Future Appointments (+ 6 months) and Future Tests (+/- 45 days) The Plan of Treatment section includes future care activities for the patient from all [place] treatmentfacilities. This section includes future appointments and future orders which are active, pending orscheduled.Future Appointments This section includes appointments that were scheduled to occur 6 months from the date of the Encounter, up to a maximum of 20 appointments. The data comes from all [place] treatment facilities. Appointment Date/Time Appointment Type Appointment Facili ty Name August 20, 2021 09:30 AM AMBULATORY - PS[place]CHIATRY [place] August 29, 2021 03:00 PM AMBULATORY - MEDICINE [place] Nov 07, 2021 08:00 AM AMBULATORY - MEDICINE [place] Dec 04, 2021 01:30 PM AMBULATORY MEDICINE [place] Dec 20, 2021 10:00 AM AMBULATORY - NONE [facility] Dec 27, 2021 11:00 AM AMBULATORY MEDICINE [facility] Jan 14, 2022 10:30 AM AMBULATORY [facility] Encounter Notes: All associated encounter notes This section contains the clinical notes associated to the Encounter. Date/Time Encounter Note(s) Provider Source Aug 12, 2021 11:01 AM PRIMARY CARE SECURE MESSAGING: ADITHYA PATEL [place] [facility] LOCAL TITLE: PRIMARY CARE SECURE MESSAGING [place] [facility] STANDARD TITLE: PRIMARY CARE SECURE MESSAGING DATE OF NOTE: AUG 12, 2021@11:01 ENTRY DATE: AUG 12, 2021@12:01:03 AUTHOR: LIANG PATEL EXP COSIGNER: URGENCY: STATUS: COMPLETED PRIMARY CARE SECURE MESSAGING Has ADDENDA * ------Original Message Sent: 08/12/2021 09:55 AM ET From: OLIVIA GARCIA To: Tiara CULLEN_PRIMARY CARE_[facility] Subject: Appointment:Some symptoms Doc, If you look in my chart you' ll see that one had some symptoms going on for some years that have gone undiagnosed and it seems may have been diagnosed a couple years ago now by a headache specialist. I was do ing some research last night and found some info on occipital neuralgia which just about perfectly fits these ongoing headaches that I've had. I was wondering if I could come in to discuss this with you. As we ll some new symptoms that I've had with pains in my jaw. V/R Olivia Garcia /pippa/ LIANG PATEL DROP HAMMER SETTER UP Signed: 08/12/2021 12:01 Receipt Acknowledged By: 08/12/2021 12:15 /pippa/ CARLOS BOYD LPN LICENSED PRACTICAL NURSE 08/12/2021 12:09 /pippa/ LIANG RESENDEZ RN REGISTERED NURSE 08/12/2021 ADDENDUM STATUS: COMPLETED Adding PCP to message for review. /pippa/ LIANG RESENDEZ RN REGISTERED NURSE Signed: 08/12/2021 12:08 Receipt Acknowledged By: 08/13/2021 08:46 /pippa/ Zari Cullen M.D. STAFF PHYSICIAN 08/13/2021 ADDENDUM STATUS: COMPLETED kindly contact pt to schedule VVC in about 2week s thanks /pippa/ Zari Cullen M.D. STAFF PHYSICIAN Signed: 08/13/2021 08:47 Receipt Acknowledged By: * AWAITING SIGNATURE * LIANG PATEL
--- OUTSIDE RECORDS SUMMARY | 2022-02-08 16:41 | XMS_ITS | Encounter Summary ---
:1975 Author Organization Department of [facility] rs Address [address] [place] [address] Support Name Relationship Address Phone LANG GARCIA Unavailable [address] [phone] [place] [address] OLIVIA GOVEA Unavailable Unavailable Selected Encounter This section includes the information on record at [place] for the Encounter. Date/Time Encounter Type Encounter Reason Provider Source Description August 20, 2021 OFFICE O/P EST MENTAL HEALTH ICD-10-CM F32.9 SHINE MARTINEZ 09:30 AM MOD 30-39 MIN CLINIC - IND Major depressive disorder, single episode, unspecified with Provider Comments: Major depressive disorder ([facility] [id number]) IHE Encounter Template Text not used by VA Assessments - Encounter Diagnoses This section includes the primary and secondary diagnoses documented for the Encounter. Date/Time Primary/Secondary Diagnosis Name Provider Source Diagnosis August 20, 2021 PRIMARY Major depressive [facility]SH[facility] 10:49 AM disorder, single episode, unspecified Plan of [...] Appointment Type Appointment Facili ty Name August 29, 2021 03:00 PM AMBULATORY - MEDICINE [facility] Nov 07, 2021 08:00 AM AMBULATORY - MEDICINE [facility] Dec 04, 2021 01:30 PM AMBULATORY - MEDICINE [facility] Dec 20, 2021 10:00 AM AM[facility]ATORY - [facility] Dec 27, 2021 11:00 AM AMBULATORY - MEDICINE [facility] Jan 14, 2022 10:30 AM AMBULATORY - NONE [facility] Feb 19, 2022 01:00 PM AMBULATORY - NONE [facility] Social History: Smoking Status (Most current) and Tobacco Use (All prior to encounter date) This section includes the most current, and the historical, smoking and tobacco-related health factors from the [place] facility where the Encounter took place.Current Smoking Status This section includes the most current smoking, or tobacco-related health factor, from the [place] facility where the Encounter took place. Date/Time Current Smoking Status Comment Facility Jul 23, 2020 03:00 PM VA-TOBACCO QUIT 5 TO < 15 YRS [facility] Tobacco Use History This section includes a history of the smoking, or tobacco- related health factors, that were collected on or before the date of the Encounter. The data comes from the [place] facility where the Encounter took place. Date/Time Smoking Status/Tobacco Use Comment [facility] Jul 23, 2020 03:00 PM VA-TOBACCO QUIT 5 TO < 15 YRS [facility] Aug 05, 2018 11:29 AM VA-TOBACCO FORMER USER [facility] Aug 05, 2018 11:29 AM VA-TOBACCO QUIT 1 TO < 5 YRS [facility] Jul 10, 2017 09:32 AM LIFETIME NON-TOBACCO USER [facility] Feb 11, 2017 09:04 AM QUIT TOBACCO USE > 7 YEARS [facility] A[facility] STOPPED SMOKING 2 1/2 YEARS AGO A PACK A DAY Jul 30, 2016 09:07 AM QUIT TOBACCO USE 1-7 YEARS [facility] A[facility] reports quitting 2 years ago Jun 18, 2015 03:44 PM QUIT TOBACCO USE 1-7 YEARS [facility] A[facility] Encounter Notes: All associated encounter notes This section contains the clinical notes associated to the Encounter. Date/Time Encounter Note(s) Provider Source August 20, 2021 09:33 AM TELEHEALTH NOTE: SHINE MARTINEZ LOCAL TITLE: VA VIDEO CONNECT NOTE STANDARD TITLE: TELEHEALTH NOTE DATE OF NOTE: AUGUST 20, 2021@09:33 ENTRY DATE: AUGUST 20, 2021@09:34:02 AUTHOR: SHINE MARTINEZ EXP COSIGNER: URGENCY: STATUS: COMPLETED Garcia [facility] Clinician Resources Only: E911 (Emergency Call Relay Center): [phone] National [employer] Crisis Line - ( 2-960-790-TALK) press #1. [facility] Suicide Coordinator [phone], Ext. [phone]; Back-up Ext. [phone] Auto Slip Cover Installer of the Day(AOD), Ryan MCKEON [phone], Ext. [phone] Introduction: Visit is being conducted by [place] [facility]. [place] identified with 2 identifiers: [X] Full Name [X] Date of [ ] VA ID Card Emergency Plan: [place] confirmed and/or pro vided the following information in case of emergency or technology failure. PATIENT PHONE - PHONE NUMBER [CELLULAR] - Is patient phone number correct, if not, enter b elow: 's phone number: OLIVIA GARCIA [address], [place], [address] [place]'s present location and address for appoi ntment: Same as above [place]'s emergency contact name and phone numbe r: [place] reported that location is private and sa fe: Yes Informed Consent: [place] informed of the risks and benefits of [facility] video care. [place] has the right to refuse video services. If refuses video visit, a [id number]-[id number] visit will be scheduled. verbalized consent for this video visit: Yes provided consent for any other persons p resent for visit: N/A If yes, who and relationship to patient: Secure visit: Visit was locked for security and privacy:Yes DIAGNOSIS adjustment disorder with mixed anxiety and depre ssed mood see neuropsych eval dated 08/06/2020 Family history of bipolar 1 disorder Meets criteria for major depressive disorder SIGNIFICANT ISSUES/SYMPTOMS /PROBLEMS: Record Reviewed Mood - improved . Upbeat. De nies distress. Stopped Lurasidone. Using Alpha Stim, melatonin for sleep. energy and motivation reports low energy low mot ivation. Sleep - sleep okay with Melatonin Appetite - good 2-3 meals a day. Denies suicidal homicidal ideation plan or inten t. He denies any hallucinations. Cognition intact. Thought processes goal directe d and relevant. Has activities , interests , See's Daphnie JARRETT. Active Outpatient Medications (including Supplie s): Active Outpatient Medications Status 1) CALCIUM POLYCARBOPHIL 625MG TAB TAKE ONE TABL ET BY ACTIVE MOUTH TWICE DAILY TAKE ONE TABLET BY MOUTH TWIC E DAILY WITH MEAL OR FOOD WITH FULL GLASS OF WATE R. 2) CETIRIZINE HCL 10MG TAB TAKE ONE TABLET BY MO UTH ONCE ACTIVE DAILY NEEDED FOR ALLERGIES 3) FISH OIL 1000MG (500MG DHA/EPA) CAP TAKE ONE CAPSULE HOLD BY MOUTH THREE TIMES DAILY NEEDED [ANTI-INFLAMMATORY] 4) KETOCONAZOLE 2% SHAMPOO SHAMPOO SMALL AMOUNT ACTIVE TOPICALLY ONCE DAILY 5) LACTOBACILLUS ACIDOPHILUS TAB TAKE 1 TABLET B Y MOUTH ACTIVE ONCE DAILY 6) MELATONIN 5MG CAP/TAB TAKE TWO CAPSULE/TABLET BY ACTIVE MOUTH AT BEDTIME NEEDED 7) OXYBUTYNIN CHLORIDE 5MG SA TAB TAKE ONE TABLE T BY ACTIVE MOUTH ONCE DAILY FOR BLADDER INSTABILITY 8) PANTOPRAZOLE NA 40MG EC TAB TAKE ONE TABLET B Y MOUTH ACTIVE ONCE DAILY 9) PHENTERMINE 7.5/TOPIRAMATE 46MG SA CAP TAKE 1 CAPSULE ACTIVE BY MOUTH EVERY MORNING WITH OR WITHOUT FOOD 10) TOLTERODINE TARTRATE 2MG TAB TAKE ONE TABLET BY MOUTH ACTIVE ONCE DAILY Active problems - Computerized Problem List is t he source for the followin. Pneumonia 06/2021 ER note scanned into vista 2. Major depressive disorder updated. 3. ECG: normal sinus rhythm 4. History of aneurysm CTA 12/2017 stable MCA 3 mm aneurysm CTA 06/2020 2mm aneyusm L MCA bifurcation-done in hospital given syncopal episode 5. Headache (SNOMED CT [id number]) 03/08 CTA 2 mm wide aneusym at the left MCA bifurcation projecting laterally. 6. Chronic serous otitis media right ear: follo wing ENT-recommright sided myringotomy to reduce recurrent middle ear infec tions. s/p tube placed as an adult 7. Obesity 8. Osteopenia DEXA 12/03=new osteopenia in right femur/02/03 04/06 DEXA NORMAL 9. Helicobacter pylori gastrointestinal tract i nfection EGD 04/06 esophageal squamous and gastric cardia mucosa with reactive /hyperplastic changes 10. History of amputation of lower limb above kn ee elective AKA 2nd to RLE traumatic fracture/ chronic pain / foot drop 11. Chronic pain 12. Traumatic rupture of patellar tendon 13. Abnormal gait 14. Fracture of tibial spine 15. Foot-drop 16. Tobacco dependence, continuous 17. Gastroesophageal reflux disease (SNOMED CT 2 [id number]) 18. Limb pain EMG 04/07 mild CTS left wrist 19. hydradenitis 20. asymptomatic varicose veins 21. Sleep apnea severe 22. Hyperlipidemia 23. Diarrhea 24. Adjustment disorder with mixed anxiety and depressed mood (SNOMED CT [id number] see neuropsych eval dated 08/06/20 updated. 25. Compartment syndrome of lower limb 26. Heartburn== LAB REVIEWED Apr 2021 Plan - This is likely our last appointment. Cy bell is relocating to [place]. RTC - [place] declined to reschedule. He will ca ll if he has any problems or concerns. /pippa/ Shine Martinez APRN, STAFF CLINICAL NURSE SPECIALIST Signed: 08/20/2021 10:49
--- OUTSIDE RECORDS SUMMARY | 2022-02-08 16:41 | XMS_ITS | Encounter Summary ---
:1975 Author Organization Department [facility] rs Address [address] [place] [address] Support Name Relationship Address Phone LANG NAZARIO Unavailable [address] [place] [address] OLIVIA GOVEA Unavailable Unavailable Selected Encounter This section includes the information on record at [place] for the Encounter. Date/Time Encounter Type Encounter Reason Provider Source Description Aug 15, 2021 07:11 Outpatient PRIMARY CARLOS BOYD AM Encounter CARE/MEDICINE ANTHONY E Encounter Template Text not used by [place] [...] 20, 2021 09:30 AM AMBULATORY - [facility]CHIATRY [place] August 29, 2021 03:00 PM AMBULATORY - MEDICINE [place] Nov 07, 2021 08:00 AM AMBULATORY - [facility]ICINE [place] Dec 04, 2021 01:30 PM AMBULATORY - MEDICINE [place] Dec 20, 2021 10:00 AM AMBULATORY - NONE [facility] Dec 27, 2021 11:00 AM AMBULATORY - MEDICINE [facility] Jan 14, 2022 10:30 AM AMBULATORY [facility] Encounter Notes: All associated encounter notes This section contains the clinical notes associated to the Encounter. Date/Time Encounter Note(s) Provider Source Aug 15, 2021 07:11 AM PRIMARY CARE SECURE MESSAGING: AMMY BOYD [facility] LOCAL TITLE: PRIMARY CARE SECURE MESSAGING [facility] STANDARD TITLE: PRIMARY CARE SECURE MESSAGING DATE OF NOTE: AUG 15, 2021@07:11 ENTRY DATE: AUG 15, 2021@08:11:26 AUTHOR: CARLOS BOYD EXP COSIGNER: URGENCY: STATUS: COMPLETED ------Original Message Sent: 08/15/2021 08:11 AM ET From: CARLOS BOYD To: OLIVIA NAZARIO Subject: Medication:Medication Inquiry The pharmacy Fax # nx [phone]. Hope all is well. /pippa/ CARLOS BOYD LPN LICENSED PRACTICAL NURSE Signed: 08/15/2021 08:11"
--- OUTSIDE RECORDS SUMMARY | 2022-02-08 16:42 | XMS_ITS | Encounter Summary ---
:1975 Author Organization [facility] rs Address [address] [place] [id number] Support Name Relationship Address Phone LANG NAZARIO Unavailable [address] [place] [address] OLIVIA GOVEA Unavailable Unavailable Selected Encounter This section includes the information on record at [place] for the Encounter. Date/Time Encounter Type Encounter Reason Provider Source Description August 29, 2021 OFFICE O/P EST PRIMARY ICD-10-CM R51.9 ZARI CULLEN 03:00 PM MOD 30-39 MIN CARE/MEDICINE Headache, unspecified with Provider Comments: Headache, unspecified IHE Encounter Template Text not used by [facility] Assessments - Encounter Diagnoses This section includes the primary and secondary diagnoses documented for the Encounter. Date/Time Primary/Secondary Diagnosis Name Provider Source Diagnosis August 29, 2021 PRIMARY Headache, ZARI CULLEN [place] 03:35 PM unspecified August 29, 2021 SECONDARY Occipital ZARI CULLEN [place] 03:35 PM neuralgia Plan of Treatment: Future Appointments (+ 6 months) and Future Tests (+/- 45 days) The Plan of Treatment section includes future care activities for the patient from all [place] treatmentfacilities. This section includes future appointments and future orders which are active, pending orscheduled.Future Appointments This section includes appointments that were scheduled to occur 6 months from the date of the Encounter, up to a maximum of 20 appointments. The data comes from all [place] treatment facilities. Appointment Date/Time Appointment Type Appointment Facili ty Name Nov 07, 2021 08:00 AM AMBULATORY - MEDICINE [place] Dec 04, 2021 01:[address] [facility] MEDICINE [place] Dec 20, 2021 10:00 AM AM[facility]ULATORY - [facility] Dec 27, 2021 11:00 AM AMBULATORY - MEDICINE [facility] Jan 14, 2022 10:30 AM AMBULATORY - NONE [facility] Feb 19, 2022 01:00 PM AMBULATORY - NONE [facility] Social History: Smoking Status (Most current) and Tobacco Use (All prior to encounter date) This section includes the most current, and the historical, smoking and tobacco-related health factors from the [place] facility where the Encounter took place.Current Smoking Status This section includes the most current smoking, or tobacco-related health factor, from the [place] facility where the Encounter took place. Date/Time Current Smoking Status Comment Facility August 29, 2021 03:00 PM VA-TOBACCO FORMER USER [facility] Tobacco Use History This section includes a history of the smoking, or tobacco- related health factors, that were collected on or before the date of the Encounter. The data comes from the [facility] where the Encounter took place. Date/Time Smoking Status/Tobacco Use Comment [facility] August 29, 2021 03:00 PM VA-TOBACCO QUIT 5 TO < 15 YRS [place] Jul 23, 2020 03:00 PM VA-TOBACCO FORMER USER [facility] Jul 23, 2020 03:00 PM VA-TOBACCO QUIT 5 TO < 15 YRS [place] Aug 05, 2018 11:29 AM VA-TOBACCO FORMER USER [facility] Aug 05, 2018 11:29 AM VA-TOBACCO QUIT 1 TO < 5 YRS [place] Jul 10, 2017 09:32 AM LIFETIME NON-TOBACCO USER [place] Feb 11, 2017 09:04 AM QUIT TOBACCO USE > 7 YEARS [place] A[place] STOPPED SMOKING 2 1/2 YEARS AGO A PACK A DAY Jul 30, 2016 09:07 AM QUIT TOBACCO USE 1-7 YEARS [place] AGO reports quitting 2 years ago Jun 18, 2015 03:44 PM QUIT TOBACCO USE 1-7 YEARS [place] AGO Encounter Notes: All associated encounter notes This section contains the clinical notes associated to the Encounter. Date/Time Encounter Note(s) Provider Source Nov 05, 2021 03:49 PM ADMINISTRATIVE NOTE: LIANG PATEL [facility] TITLE: ADMINISTRATIVE NOTE STANDARD TITLE: ADMINISTRATIVE NOTE DATE OF NOTE: NOV 05, 2021@15:49 ENTRY DATE: NOV 05, 2021@15:49:04 AUTHOR: LIANG PATEL EXP COSIGNER: URGENCY: STATUS: COMPLETED ADMINISTRATIVE NOTE Has ADDENDA PT HAS MOVED TO [place] CANCELLED 07/28/22 AP PT. PT HAS A [facility] APPT SCHEDULED ON PT WANTED TO KEEP THAT APPT /pippa/ LIANG PATEL BIOLOGICS SPECIALIST Signed: 11/05/2021 15:50 Receipt Acknowledged By: 11/05/2021 17:07 /pippa/ Zari Cullen M.D. STAFF PHYSICIAN 11/05/2021 15:57 /es/ CARLOS BOYD LPN LICENSED PRACTICAL NURSE 11/22/2021 ADDENDUM STATUS: COMPLETED NO LABS PT MOVED [place] /pippa/ LIANG PATEL BIOLOGICS SPECIALIST Signed: 11/22/2021 11:23 August 29, 2021 03:11 PM PHYSICIAN NOTE: ZARI CULLEN LOCAL TITLE: MD NOTE STANDARD TITLE: PHYSICIAN NOTE DATE OF NOTE: AUGUST 29, 2021@15:11 ENTRY DATE: AUGUST 29, 2021@15:11:37 AUTHOR: ZARI CULLEN EXP COSIGNER: URGENCY: STATUS: COMPLETED VIRTUAL VISIT CC: headache History of Present Illness: 1. he has had headaches off/on for years -he has sharp stabbing pain at the back of his h ead -the pain occurs spontaneously -it may last up to a few weeks -the headache leaves that side of the head sensa tive even to light touch -he wasn't able to tolerate gabapentin due to si de effects Medications were reviewed and reconciled with shadia dudley Active Outpatient Medications (including Supplie s): Active Outpatient Medications Status 1) CALCIUM POLYCARBOPHIL 625MG TAB TAKE ONE TABL ET BY ACTIVE (S) MOUTH TWICE DAILY TAKE ONE TABLET BY [...] Social Hx: SERVICE CONNECTED % - 80 Allergies: ZYBAN, SAXENDA, GABAPENTIN, LYRICA Physical Exam: pleasant. Alert and oriented X3 All labs, diagnostic tests, and medicati on changes were reviewed and discussed with patient. The patient verbalized understandi ng. ASSESSMENT AND PLAN 1. urinary urgency: not improved with detrol. h e started oxybutynin SA 5mg daily about 7-10 days ago rx'ed by urology. no i mprovement w/oxybutynin yet. 2. Brain aneurysm: Stable. Repeat MR angiogram yearly. 3. Obesity: he had significant success w/the ph entermine/topiramate. he was able to control his appetite and cravings on the medicine. -continue phentermine/topiramate 3.27/23mg 4. headache: symptoms do sound like occipital n euralgia -trial of carbamazepine sa 100mg daily for 14 da ys then 200mg daily Return to clinic [facility] 3mths without labs Tobacco Use Screening: The patient is a former tobacco user. The patient quit five to less than fifteen year s ago. /pippa/ Zari Cullen M.D. STAFF PHYSICIAN Signed: 08/29/2021 15:35 Receipt Acknowledged By: * AWAITING SIGNATURE * LIANG PATEL
--- OUTSIDE RECORDS SUMMARY | 2022-02-08 16:42 | XMS_ITS | Encounter Summary ---
:1975 Author Organization Department [facility] rs Address [address] [place] [address] Support Name Relationship Address Phone LANG NAZARIO Unavailable [address] [place] [address] JEFERSONOLIVIA Unavailable Unavailable Selected Encounter This section includes the information on record at [place] for the Encounter. Date/Time Encounter Type Encounter Description Reason Provider Source August 28, 2021 01:55 Outpatient Encounter PRIMARY CARE/MEDICINE IHE Encounter Template [...] August 29, 2021 03:00 PM AMBULATORY - [facility] Nov 07, 2021 08:00 AM [facility] Dec 04, 2021 01:30 PM AMBULATORY [facility] Dec 20, 2021 10:00 AM AMBULATORY [facility] Dec 27, 2021 11:00 AM AMBULATORY MEDICINE [facility] Jan 14, 2022 10:30 AM AMBULATORY [facility] Feb 19, 2022 01:00 PM AMBULATORY [facility] Encounter Notes: All associated encounter notes This section contains the clinical notes associated to the Encounter. Date/Time Encounter Note(s) Provider Source August 28, 2021 01:55 PM ADMINISTRATIVE NOTE: LIANG PATEL [facility] LOCAL TITLE: ADMINISTRATIVE NOTE STANDARD TITLE: ADMINISTRATIVE NOTE DATE OF NOTE: AUGUST 28, 2021@13:55 ENTRY DATE: AUGUST 28, 2021@13:55:56 AUTHOR: LIANG PATEL EXP COSIGNER: URGENCY: STATUS: COMPLETED TELEPHONE CALL Called PATIENT PHONE - PHONE NUMBER [CELLULAR] - Re: Market Research Associate has called to remind them of thei r upcoming PCP appt with DANY CULLEN and the need for bloodwork prior to upcoming donte t. [X] Spoke with [ ] Left VM [ ] Unable to reach [ ] Fasting blood work [ ] NON fasting blood work [ ] NO bloodwork needed [facility] APPT Upcoming Appointments: 08/29/2021 15:00 CWM/SO/TH/VVC/PACT 4 11/07/2021 08:00 CWM/SO/ENTER LABORATORY 11/14/2021 10:00 CWM/SO/PACT 4 /es/ LIANG PATEL BEAD PICKER Signed: 08/28/2021 13:56
--- OUTSIDE RECORDS SUMMARY | 2022-02-08 16:42 | XMS_ITS ---
:1975 Author Organization [facility] rs Address [address] [place] [address] Support Name Relationship Address Phone LANG NAZARIO Unavailable [address] [phone] [place] [address] OLIVIA GOVEA Unavailable Unavailable Selected Encounter This section includes the information on record at [place] for the Encounter. Date/Time Encounter Type Encounter Description Reason Provider Source September 11, 2021 12:00 Outpatient Encounter COMMUNITY CARE AM CONSULT IHE Encounter Template Text not used by [place] Plan of Treatment: Future Appointments (+ 6 months) and Future Tests (+/- 45 days) The Plan of Treatment section includes future care activities for the patient from all [place] treatmentfacilities. This section includes future appointments and future orders which are active, pending orscheduled.Future Appointments This section includes appointments that were scheduled to occur 6 months from the date of the Encounter, up to a maximum of 20 appointments. The data comes from all [place] treatment facilities. Appointment Date/Time Appointment Type Appointment Facili ty Name Nov 07, 2021 08:00 AM AMBULATORY - [facility] Dec 04, 2021 01:30 PM AMBULATORY [facility] Dec 20, 2021 10:00 AM AMBULATORY - NONE [facility] Dec 27, 2021 11:00 AM AMBULATORY - MEDICINE [facility] Jan 14, 2022 10:30 AM AMBULATORY [facility] Feb 19, 2022 01:00 PM AMBULATORY [facility] Mar 04, 2022 10:00 AM AMBULATORY [facility] Encounter Notes: All associated encounter notes This section contains the clinical notes associated to the Encounter. Date/Time Encounter Note(s) Provider Source September 11, 2021 12:00 AM NONVA CONSULT: [place] CN[facility]L [facility] STRN LOCAL TITLE: COMMUNITY CARE-CONSULT RESULT NOTE [place] [facility] STANDARD TITLE: NONVA CONSULT DATE OF NOTE: SEPTEMBER 11, 2021 ENTRY DATE: SEP 20 022@15:01:27 AUTHOR: ELOISA EDWARDS EXP COSIGNER: URGENCY: STATUS: COMPLETED VistA Imaging - Scanned Document SCANNED DOCUMENT SIGNATURE NOT REQUIRED Electronically Filed: 09/20/2021 by: ELOISA EWDARDS [employer]
--- OUTSIDE RECORDS SUMMARY | 2022-02-08 16:43 | XMS_ITS | Encounter Summary ---
:1975 Author Organization Department [facility] rs Address [address] [place] [address] Support Name Relationship Address Phone LANG NAZARIO Unavailable [address] [phone] [place] [address] OLIVIA GOVEA Unavailable Unavailable Selected Encounter This section includes the information on record at [place] for the Encounter. Date/Time Encounter Type Encounter Description Reason Provider Source Oct 24, 2021 07:39 Outpatient Encounter EVENT (HISTORICAL) AM E Encounter Template Text not used [...] ty Name Nov 07, 2021 08:00 AM [facility] Dec 04, 2021 01:30 PM [facility] Dec 20, 2021 10:00 AM AMBULATORY [facility] Dec 27, 2021 11:00 AM AMBULATORY MEDICINE [facility] Jan 14, 2022 10:30 AM AMBULATORY [facility] Feb 19, 2022 01:00 PM [facility] Mar 04, 2022 10:00 AM [facility] Active, Pending, and Scheduled Orders This section includes a listing of several types of active, pending, and scheduled orders, including clinic medications orders, diagnostic test orders, procedure orders and consult orders; where the start date of the order is 45 days before the date of the Encounter or 45 days after the date of the Encounter. The data comes from all [facility]. Test Date/Time Test Type Test Details Facility Name Nov 05, 2021 12:00 AM Laboratory - Chemistry URINALYSIS URINE [facility] Nov 05, 2021 12:00 AM Laboratory - Chemistry BASIC METABOLIC [facility] Order (fasting) BLOOD (SST-SERUM) Nov 05, 2021 12:00 AM Laboratory - Chemistry PSA BLOOD (SST-SERU M) [facility] Nov 05, 2021 12:00 AM Laboratory - Chemistry LIPID PANEL FASTING [facility] BLOOD (SST-SERUM) Nov 05, 2021 12:00 AM Laboratory - Chemistry LIVER FUNCTION BLOO D [place] Order (SST-SERUM) Nov 05, 2021 12:00 AM Laboratory - Chemistry CBC AND DIFF (AUTO) [facility] BLOOD (LAV-BLOOD) Nov 05, 2021 12:00 AM Laboratory - Chemistry HEMOGLOBIN A1C PANE L [facility] BLOOD (LAV-BLOOD) Nov 05, 2021 12:00 AM Laboratory - Chemistry TSH BLOOD (SST-SERU M) [facility] Nov 10, 2021 12:00 AM Laboratory - Chemistry URINALYSIS URINE [facility] Nov 10, 2021 12:00 AM Laboratory - Chemistry PSA BLOOD (SST-SERU M) [facility] Nov 10, 2021 12:00 AM Laboratory - Chemistry BASIC METABOLIC [facility] Order (fasting) BLOOD (SST-SERUM) Nov 10, 2021 12:00 AM Laboratory - Chemistry LIPID PANEL FASTING [facility] BLOOD (SST-SERUM) Nov 10, 2021 12:00 AM Laboratory - Chemistry CBC AND DIFF (AUTO) [facility] BLOOD (LAV-BLOOD) Nov 10, 2021 12:00 AM Laboratory - Chemistry HEMOGLOBIN A1C PANE L [facility] BLOOD (LAV-BLOOD) Nov 10, 2021 12:00 AM Laboratory - Chemistry TSH BLOOD (SST-SERU M) [facility] Nov 10, 2021 12:00 AM Laboratory - Chemistry LIVER FUNCTION BLOO D [place] Order (SST-SERUM) Encounter Notes: All associated encounter notes This section contains the clinical notes associated to the Encounter. Date/Time Encounter Note(s) Provider Source Oct 24, 2021 07:39 AM PRIMARY CARE SECURE MESSAGING: ST TREMAY[facility] VALENTIN DE CNTRBulmaro WSTRN LOCAL TITLE: PRIMARY CARE SECURE MESSAGING [employer] STANDARD TITLE: PRIMARY CARE SECURE MESSAGING DATE OF NOTE: OCT 24, 2021@07:39 ENTRY DATE: OCT 24, 2021@08:39:46 AUTHOR: FRANKLYN VALENTIN EXP COSIGNER: URGENCY: STATUS: COMPLETED PRIMARY CARE SECURE MESSAGING Has ADDENDA * ------Original Message Sent: 10/21/2021 11:03 AM ET From: OLIVIA NAZARIO To: Tiara CULLEN_PRIMARY CARE_SPOPC Subject: Medication:Moved but haven't transferre d my care yet Doc, I just moved down to [place] and haven't transfe rred my care down here yet. Was wondering if it's possible to send me refill s of pantoprazole and cetirizine to my new address as I'm out of them. If so, the address is: [address] [place] [address] [address] [facility] [address] Olivia Rahman GSM2 USN RET /es/ [facility] Signed: 10/24/2021 08:39 Receipt Acknowledged By: * AWAITING SIGNATURE * DANY CULLEN 10/24/2021 ADDENDUM STATUS: COMPLETED Confirmed new address updated in [facility]. [place] req call , advise whet her to cancel or keep PCP F2F appt in late October and PCP [facility] appt in mid-November . Advised [place], [place] Tsl [phone]. /pippa/ FRANKLYN VALENTIN [facility] Signed: 10/24/2021 08:52
--- OUTSIDE RECORDS SUMMARY | 2022-02-08 16:43 | XMS_ITS | Encounter Summary ---
:1975 Author Organization [facility] rs Address [address] [place] [address] Support Name Relationship Address Phone LANG NAZARIO Unavailable [address] [place] [address] OLIVIA GOVEA Unavailable Unavailable Selected Encounter This section includes the information on record at [place] for the Encounter. Date/Time Encounter Type Encounter Description Reason Provider Source August 28, 2021 02:16 Outpatient Encounter TELEPHONE/REHAB AND PM SUPPORT E Encounter Template Text not used by [place] Plan of Treatment: Future Appointments (+ 6 months) and Future Tests (+/- 45 days) The Plan of Treatment section includes future care activities for the patient from all [place] treatmentfacilities. This section includes future appointments and future orders which are active, pending orscheduled.Future Appointments This section includes appointments that were scheduled to occur 6 months from the date of the Encounter, up to a maximum of 20 appointments. The data comes from all [place] treatment facilities. Appointment Date/Time Appointment Type Appointment Facili ty Name August 29, 2021 03:00 PM AMBULATORY MEDICINE [place] Nov 07, 2021 08:00 AM AMBULATORY [facility] Dec 04, 2021 01:30 PM AMBULATORY [facility] Dec 20, 2021 10:00 AM AMBULATORY [facility] Dec 27, 2021 11:00 AM AMBULATORY MEDICINE [facility] Jan 14, 2022 10:30 AM AMBULATORY [facility] Feb 19, 2022 01:00 PM AMBULATORY [facility] Encounter Notes: All associated encounter notes This section contains the clinical notes associated to the Encounter. Date/Time Encounter Note(s) Provider Source August 28, 2021 02:17 PM OCCUPATIONAL THERAPY TELEPHONE ENCOUNT ER NOTE: [facility] TITLE: TELEPHONE CONTACT/OTHERAPY [facility] STANDARD TITLE: OCCUPATIONAL THERAPY TELEPHONE E NCOUNTER NOTE DATE OF NOTE: AUGUST 28, 2021@14:17 ENTRY DATE: AUGUST 28, 2021@14:17:18 AUTHOR: AUSTIN DIOR COSIGNER: KIMBERLY OTT URGENCY: STATUS: COMPLETED 1.Are you still wearing your Prosthetic Limb(s)? (x) Yes Are you still using (Kurt Talia)? (x) Yes When was the last time you contacted your vendor ? Last month. Do you need your vendor to contact you? ( ) Yes The vendors contact information was provided to the patient. (x) No Pt. was reminded to contact vendor as needed. Do you need to/want to meet with the [facility] team through a virtual or face to face meeting? ( ) Yes- [facility] will be in touch to schedul e a date. (x) No- Pt. was reminded to contact vendor and/o r [facility] as needed. ( ) NoAre you interested in a new vendor? ( ) Yes- [facility] will mail you a new vendor list. (x) No- Pt. was educated to contact [facility] when needs arise. 2. Any skin irritation currently? Pretty much always, put name in for osteointegra tion. 3. Any falls in the last 6 months? No 4. Any changes in medical conditions? Hospitaliz ations? No 5. Any equipment needs currently? (Wheelchair, D ME, etc) No Total Time: 2 minutes /pippa/ AUSTIN DIOR Occupational Therapy Student Signed: 08/28/2021 14:20 /pippa/ KIMBERLY MELCHOR OTR/L Cosigned: 08/28/2021 20:55
--- OUTSIDE RECORDS SUMMARY | 2022-02-08 16:43 | XMS_ITS | Encounter Summary ---
:1975 Author Organization Department of [facility] rs Address [address] [place] [id number] Support Name Relationship Address Phone LANG NAZARIO Unavailable [address] [phone] [place] [address] JEFERSONOLIVIA Unavailable Unavailable Selected Encounter This section includes the information on record at [place] for the Encounter. Date/Time Encounter Type Encounter Description Reason Provider Source Oct 08, 2021 11:20 Outpatient Encounter COMMUNITY CARE AM CONSULT IHE [...] ty Name Nov 07, 2021 08:00 AM [facility] Dec 04, 2021 01:30 PM [facility] Dec 20, 2021 10:00 AM [facility]ULATORY [facility] Dec 27, 2021 11:00 AM [facility] Jan 14, 2022 10:30 AM AMBULATORY [facility] Feb 19, 2022 01:00 PM [facility] Mar 04, 2022 10:00 AM [facility] Active, Pending, and Scheduled Orders This section includes a listing of several types of active, pending, and scheduled orders, including clinic medications orders, diagnostic test orders, procedure orders and consult orders; where the start date of the order is 45 days before the date of the Encounter or 45 days after the date of the Encounter. The data comes from all [facility]. Test Date/Time Test Type Test Details Facility Name Nov 05, 2021 12:00 AM Laboratory - Chemistry URINALYSIS URINE [facility] Nov 05, 2021 12:00 AM Laboratory - Chemistry PSA BLOOD (SST-SERU M) [facility] Nov 05, 2021 12:00 AM Laboratory - Chemistry LIPID PANEL FASTING [facility] BLOOD (SST-SERUM) Nov 05, 2021 12:00 AM Laboratory - Chemistry BASIC METABOLIC [facility] Order (fasting) BLOOD (SST-SERUM) Nov 05, 2021 12:00 AM Laboratory - Chemistry LIVER FUNCTION BLOO D [place] Order (SST-SERUM) Nov 05, 2021 12:00 AM Laboratory - Chemistry HEMOGLOBIN A1C PANE L [place] Order BLOOD (LAV-BLOOD) Nov 05, 2021 12:00 AM Laboratory - Chemistry CBC AND DIFF (AUTO) [facility] BLOOD (LAV-BLOOD) Nov 05, 2021 12:00 AM Laboratory - Chemistry TSH BLOOD (SST-SERU M) [facility] Nov 10, 2021 12:00 AM Laboratory - Chemistry URINALYSIS URINE [facility] Nov 10, 2021 12:00 AM Laboratory - Chemistry BASIC METABOLIC [facility] Order (fasting) BLOOD (SST-SERUM) Nov 10, 2021 12:00 AM Laboratory - Chemistry LIPID PANEL FASTING [facility] BLOOD (SST-SERUM) Nov 10, 2021 12:00 AM Laboratory - Chemistry LIVER FUNCTION BLOO D [place] Order (SST-SERUM) Nov 10, 2021 12:00 AM Laboratory - Chemistry PSA BLOOD (SST-SERU M) [facility] Nov 10, 2021 12:00 AM Laboratory - Chemistry CBC AND DIFF (AUTO) [facility] BLOOD (LAV-BLOOD) Nov 10, 2021 12:00 AM Laboratory - Chemistry TSH BLOOD (SST-SERU M) [facility] Nov 10, 2021 12:00 AM Laboratory - Chemistry [facility]C [facility] Order BLOOD (LAV-BLOOD) Encounter Notes: All associated encounter notes This section contains the clinical notes associated to the Encounter. Date/Time Encounter Note(s) Provider Source Oct 08, 2021 11:20 AM NONVA NOTE: AN GUERRA LOCAL TITLE: COMMUNITY CARE COORDINATION PLAN STANDARD TITLE: NONVA NOTE DATE OF NOTE: OCT 08, 2021@11:20 ENTRY DATE: OCT 08, 2021@11:20:54 AUTHOR: AN GUERRAIGNER: URGENCY: STATUS: COMPLETED self-presented to community emergency fa cility Emergency Notification Intake Date Presenting to the Facility: Sep [facility] Hospital Name: Hospital: [place], [place] [phone] Address: City: [place] State: Zip Code: Phone : Chief complaint: COUGH Primary Diagnosis: Patient Admitted? No Community Facility Point of Contact: Name: Jocelyne Phone: info from ECRA /pippa/ AN GUERRA AMSA Signed: 10/08/2021 11:21 Receipt Acknowledged By: * AWAITING SIGNATURE * DANY CULLEN * AWAITING SIGNATURE * AARON DIXON * AWAITING SIGNATURE * JEREMIAH DAMON * AWAITING SIGNATURE * LIANG RESENDEZ
--- OUTSIDE RECORDS SUMMARY | 2022-02-08 16:43 | XMS_ITS | Encounter Summary ---
:1975 Author Organization Department [facility] rs Address [address] [place] [address] Support Name Relationship Address Phone LANG NAZARIO Unavailable [address] [place] [address] OLIVIA GOVEA Unavailable Unavailable Selected Encounter This section includes the information on record at [place] for the Encounter. Date/Time Encounter Type Encounter Description Reason Provider Source Oct 08, 2021 11:26 Outpatient Encounter PRIMARY CARE/MEDICINE AM E Encounter Template Text not used by [place] Plan of Treatment: Future Appointments (+ 6 months) and Future Tests (+/- 45 days) The Plan of Treatment section includes future care activities for the patient from all [place] treatmentfacilities. This section includes future appointments and future orders which are active, pending orscheduled.Future Appointments This section includes appointments that were scheduled to occur 6 months from the date of the Encounter, up to a maximum of 20 appointments. The data comes from all [place] treatment facilities. Appointment Date/Time Appointment Type Appointment Facili ty Name Nov 07, 2021 08:00 AM [facility] Dec 04, 2021 01:30 PM [facility] Dec 20, 2021 10:00 AM AM[facility]ULATORY [facility] Dec 27, 2021 11:00 AM AMBULATORY MEDICINE [facility] Jan 14, 2022 10:30 AM AMBULATORY [facility] Feb 19, 2022 01:00 PM [facility] Mar 04, 2022 10:00 AM [facility] Active, Pending, and Scheduled Orders This section includes a listing of several types of active, pending, and scheduled orders, including clinic medications orders, diagnostic test orders, procedure orders and consult orders; where the start date of the order is 45 days before the date of the Encounter or 45 days after the date of the Encounter. The data comes from all [facility]. Test Date/Time Test Type Test Details Facility Name Nov 05, 2021 12:00 AM Laboratory - Chemistry URINALYSIS URINE [facility] Nov 05, 2021 12:00 AM Laboratory - Chemistry PSA BLOOD (SST-SERU M) [facility] Nov 05, 2021 12:00 AM Laboratory - Chemistry BASIC METABOLIC [facility] Order (fasting) BLOOD (SST-SERUM) Nov 05, 2021 12:00 AM Laboratory - Chemistry LIPID PANEL FASTING [facility] BLOOD (SST-SERUM) Nov 05, 2021 12:00 AM Laboratory - Chemistry LIVER FUNCTION BLOO D [place] Order (SST-SERUM) Nov 05, 2021 12:00 AM Laboratory - Chemistry CBC AND DIFF (AUTO) [facility] BLOOD (LAV-BLOOD) Nov 05, 2021 12:00 AM Laboratory - Chemistry HEMOGLOBIN A1C [facility] BLOOD (LAV-BLOOD) Nov 05, 2021 12:00 AM Laboratory - Chemistry TSH BLOOD (SST-SERU M) [facility] Nov 10, 2021 12:00 AM Laboratory - Chemistry PSA BLOOD (SST-SERU M) [facility] Nov 10, 2021 12:00 AM Laboratory - Chemistry URINALYSIS URINE [facility] Nov 10, 2021 12:00 AM Laboratory - Chemistry BASIC METABOLIC [facility] Order (fasting) BLOOD (SST-SERUM) Nov 10, 2021 12:00 AM Laboratory - Chemistry LIPID PANEL FASTING [facility] BLOOD (SST-SERUM) Nov 10, 2021 12:00 AM Laboratory - Chemistry LIVER FUNCTION BLOO D [place] Order (SST-SERUM) Nov 10, 2021 12:00 AM Laboratory - Chemistry CBC AND DIFF (AUTO) [facility] BLOOD (LAV-BLOOD) Nov 10, 2021 12:00 AM Laboratory - Chemistry HEMOGLOBIN [facility]C [facility] BLOOD (LAV-BLOOD) Nov 10, 2021 12:00 AM Laboratory - Chemistry TSH BLOOD (SST-SERU M) [facility] Encounter Notes: All associated encounter notes This section contains the clinical notes associated to the Encounter. Date/Time Encounter Note(s) Provider Source Oct 08, 2021 11:26 AM TELEPHONE ENCOUNTER NOTE: ADITHYA RESENDEZ [place] LOCAL TITLE: TELEPHONE NOTE/[facility]GE STANDARD TITLE: TELEPHONE ENCOUNTER NOTE DATE OF NOTE: OCT 08, 2021@11:26 ENTRY DATE: OCT 08, 2021@11:26:47 AUTHOR: LIANG RESENDEZ COSIGNER: URGENCY: STATUS: COMPLETED Date of hospital discharge: Sep Name of hospital patient was discharged from: [facility] Diagnosis: Seasonal Allergies Medication changes: N/A Changes in health status: General: Alert, no acute distress, Sounds nasal ly congested, frequent throat clearing and sniffling, Not ill-appearing , Skin: Warm, dry, intact, normal for ethnicity. Head: Normocephalic, atraumatic. Neck: Supple, trachea midline, no tenderness. Eye: Normal conjunctiva. Ears, nose, mouth and throat: Tympanic membranes clear, oral mucosa moist, Nose: Bilateral nares, mild, congestion, swellin g, no tenderness, Throat: Bilateral, normal, pharynx, tonsil, uvula, gag r eflex present. Cardiovascular: Regular rate and rhythm, No murm ur, Normal peripheral perfusion, No edema. Respiratory: Lungs are clear to auscultation, re spirations are non-labored, breath sounds are equal, Symmetrical chest wall expansion, Cough: Occasional dry spastic. Back: Normal range of motion. Musculoskeletal: Normal ROM, normal strength, no tenderness, no swelling. Neurological: Alert and oriented to person, plac e, time, and situation, No focal neurological deficit observed. Lymphatics: No lymphadenopathy. Psychiatric: Cooperative, appropriate mood & aff ect. Medical Decision Making Differential Diagnosis:: Upper respiratory infec tion, pneumonia, allergies, influenza, COVID. Documents reviewed: Emergency department records , prior records. Results review: Lab results : Results 10/01/2021 11:58 EDT Influenza A PCR NEGATIVE Influenza B PCR NEGATIVE RSV PCR NEGATIVE COVID-19 PCR Specimen Source NASAL COVID-19 PCR Result NEGATIVE . mpression and Plan Diagnosis Viral syndrome Seasonal allergies Plan Condition: Stable. Disposition: Discharged: Time 10/01/2021 13:31:00 , to home. Patient was given the following educational mate rials: Prescription Given this visit:No new prescriptions during this visi t. Patient Instructions Given:No qualifying data av ailable Education Given:Viral Syndrome (Adult) Seasonal Allergy Patient Follow-up:. Counseled: Patient, Regarding diagnosis, Regardi ng diagnostic results, Regarding treatment plan, Patient indicated unde rstanding of instructions. Orders: Launch Orders Patient Care: Discharge Patient (ED Order) (Order): 10/01/2021 14:33 EDT Chest Xrays showed no acute abnormality. Upcoming Appointments: 11/07/2021 08:00 CWM/SO/ENTER LABORATORY 11/14/2021 10:00 CWM/SO/PACT 4 12/04/2021 13:30 CWM/SO/TH/VVC/PACT 4 /es/ LIANG RESENDEZ RN REGISTERED NURSE Signed: 10/08/2021 11:28
--- OUTSIDE RECORDS SUMMARY | 2022-02-08 16:44 | XMS_ITS | Encounter Summary ---
:1975 Author Organization Department of [facility] rs Address [address] [place] [id number] Support Name Relationship Address Phone LANG NAZARIO Unavailable [address] [place] [address] OLIVIA GOVEA Unavailable Unavailable Selected Encounter This section includes the information on record at [place] for the Encounter. Date/Time Encounter Type Encounter Reason Provider Source Description Oct 24, 2021 12:07 Outpatient PRIMARY ZARI CULLEN PM Encounter CARE/MEDICINE IHE Encounter Template Text not used by [place] Plan of Treatment: Future Appointments (+ 6 months) and Future Tests (+/- 45 days) The Plan of Treatment section includes future care activities for the patient from all [place] treatmentfacilities. This section includes future appointments and future orders which are active, pending orscheduled.Future Appointments This section includes appointments that were scheduled to occur 6 months from the date of the Encounter, up to a maximum of 20 appointments. The data comes from all [place] treatment facilities. Appointment Date/Time Appointment Type Appointment Facili ty Name Nov 07, 2021 08:00 AM AMBULATORY - [facility]ICINE [place] [facility] Dec 04, 2021 01:30 PM AM[facility]ULATORY [facility] Dec 20, 2021 10:00 AM [facility]ORY [facility] Dec 27, 2021 11:00 AM AMBULATORY MEDICINE [facility] Jan 14, 2022 10:30 AM AMBULATORY [facility] Feb 19, 2022 01:00 PM AMBULATORY [facility] Mar 04, 2022 10:00 AM [facility] Active, Pending, and Scheduled Orders This section includes a listing of several types of active, pending, and scheduled orders, including clinic medications orders, diagnostic test orders, procedure orders and consult orders; where the start date of the order is 45 days before the date of the Encounter or 45 days after the date of the Encounter. The data comes from all [facility]. Test Date/Time Test Type Test Details Facility Name Nov 05, 2021 12:00 AM Laboratory - Chemistry URINALYSIS URINE [facility] Nov 05, 2021 12:00 AM Laboratory - Chemistry PSA BLOOD (SST-SERU M) [facility] Nov 05, 2021 12:00 AM Laboratory - Chemistry BASIC METABOLIC [facility] Order (fasting) BLOOD (SST-SERUM) Nov 05, 2021 12:00 AM Laboratory - Chemistry LIVER FUNCTION BLOO D [place] Order (SST-SERUM) Nov 05, 2021 12:00 AM Laboratory - Chemistry LIPID PANEL FASTING [facility] BLOOD (SST-SERUM) Nov 05, 2021 12:00 AM Laboratory - Chemistry CBC AND DIFF (AUTO) [facility] BLOOD (LAV-BLOOD) Nov 05, 2021 12:00 AM Laboratory - Chemistry HEMOGLOBIN A1C PANE L [facility] BLOOD (LAV-BLOOD) Nov 05, 2021 12:00 AM Laboratory - Chemistry TSH BLOOD (SST-SERU M) [facility] Nov 10, 2021 12:00 AM Laboratory - Chemistry PSA BLOOD (SST-SERU M) [facility] Nov 10, 2021 12:00 AM Laboratory - Chemistry URINALYSIS URINE [facility] Nov 10, 2021 12:00 AM Laboratory - Chemistry LIPID PANEL FASTING [facility] BLOOD (SST-SERUM) Nov 10, 2021 12:00 AM Laboratory - Chemistry BASIC METABOLIC [facility] Order (fasting) BLOOD (SST-SERUM) Nov 10, 2021 12:00 AM Laboratory - Chemistry CBC AND DIFF (AUTO) [facility] BLOOD (LAV-BLOOD) Nov 10, 2021 12:00 AM Laboratory - Chemistry LIVER FUNCTION BLOO D [place] Order (SST-SERUM) Nov 10, 2021 12:00 AM Laboratory - Chemistry HEMOGLOBIN A1C PANE L [facility] BLOOD (LAV-BLOOD) Nov 10, 2021 12:00 AM Laboratory - Chemistry TSH BLOOD (SST-SERU M) [facility] Encounter Notes: All associated encounter notes This section contains the clinical notes associated to the Encounter. Date/Time Encounter Note(s) Provider Source Oct 24, 2021 12:07 PM PRIMARY CARE SECURE MESSAGING: [place] [facility] LOCAL TITLE: PRIMARY CARE SECURE MESSAGING [facility] STANDARD TITLE: PRIMARY CARE SECURE MESSAGING DATE OF NOTE: OCT 24, 2021@12:07 ENTRY DATE: OCT 24, 2021@13:07:25 AUTHOR: ZARI CULLEN EXP COSIGNER: URGENCY: STATUS: COMPLETED ------Original Message Sent: 10/24/2021 01:06 PM ET From: ZARI CULLEN To: OLIVIA NAZARIO Subject: Medication:Medication Inquiry Hello, Address updated and refills submitted. You have enough refills to last into 2022. Wish you well- Have a nice day, Zari Cullen M.D. Internal Medicine /pippa/ Zari Cullen M.D. STAFF PHYSICIAN Signed: 10/24/2021 13:07
--- OUTSIDE RECORDS SUMMARY | 2022-02-08 16:44 | XMS_ITS | Encounter Summary ---
:1975 Author Organization Department [facility] rs Address [address] [place] [id number] Support Name Relationship Address Phone LANG GARCIA Unavailable [address] [place] [address] OLIVIA GOVEA Unavailable Unavailable Selected Encounter This section includes the information on record at [place] for the Encounter. Date/Time Encounter Type Encounter Reason Provider Source Description Oct 24, 2021 12:48 Outpatient PRIMARY CARLOS BOYD PM Encounter CARE/MEDICINE [place]TH[place] E Encounter Template Text not used by [place] [...] 07, 2021 08:00 AM AMBULATORY - MEDICINE [facility] Dec 04, 2021 01:[address] [facility] Dec 20, 2021 10:00 AM AMBULATORY [facility] Dec 27, 2021 11:00 AM AMBULATORY MEDICINE [facility] Jan 14, 2022 10:30 AM AMBULATORY [facility] Feb 19, 2022 01:00 PM AMBULATORY [facility] Mar 04, 2022 10:00 AM [facility] Active, Pending, and Scheduled Orders This section includes a listing of several types of active, pending, and scheduled orders, including clinic medications orders, diagnostic test orders, procedure orders and consult orders; where the start date of the order is 45 days before the date of the Encounter or 45 days after the date of the Encounter. The data comes from all [facility]. Test Date/Time Test Type Test Details Facility Name Nov 05, 2021 12:00 AM Laboratory - Chemistry URINALYSIS URINE [facility] Nov 05, 2021 12:00 AM Laboratory - Chemistry PSA BLOOD (SST-SERU M) [facility] Nov 05, 2021 12:00 AM Laboratory - Chemistry BASIC METABOLIC [facility] Order (fasting) BLOOD (SST-SERUM) Nov 05, 2021 12:00 AM Laboratory - Chemistry LIVER FUNCTION BLOO D [place] Order (SST-SERUM) Nov 05, 2021 12:00 AM Laboratory - Chemistry CBC AND DIFF (AUTO) [facility] BLOOD (LAV-BLOOD) Nov 05, 2021 12:00 AM Laboratory - Chemistry LIPID PANEL FASTING [facility] BLOOD (SST-SERUM) Nov 05, 2021 12:00 AM Laboratory - Chemistry HEMOGLOBIN A1C PANE L [facility] BLOOD (LAV-BLOOD) Nov 05, 2021 12:00 AM Laboratory - Chemistry TSH BLOOD (SST-SERU M) [facility] Nov 10, 2021 12:00 AM Laboratory - Chemistry URINALYSIS URINE [facility] Nov 10, 2021 12:00 AM Laboratory - Chemistry PSA BLOOD (SST-SERU M) [facility] Nov 10, 2021 12:00 AM Laboratory - Chemistry BASIC METABOLIC [facility] Order (fasting) BLOOD (SST-SERUM) Nov 10, 2021 12:00 AM Laboratory - Chemistry LIVER FUNCTION BLOO D [place] Order (SST-SERUM) Nov 10, 2021 12:00 AM Laboratory - Chemistry CBC AND DIFF (AUTO) [facility] BLOOD (LAV-BLOOD) Nov 10, 2021 12:00 AM Laboratory - Chemistry LIPID PANEL FASTING [facility] BLOOD (SST-SERUM) Nov 10, 2021 12:00 AM Laboratory - Chemistry HEMOGLOBIN A1C PANE L [facility] BLOOD (LAV-BLOOD) Nov 10, 2021 12:00 AM Laboratory - Chemistry TSH BLOOD (SST-SERU M) [facility] Encounter Notes: All associated encounter notes This section contains the clinical notes associated to the Encounter. Date/Time Encounter Note(s) Provider Source Oct 24, 2021 12:50 PM PRIMARY CARE SECURE MESSAGING: AMMY BOYD [facility] WSTRN LOCAL TITLE: PRIMARY CARE SECURE MESSAGING [facility] STANDARD TITLE: PRIMARY CARE SECURE MESSAGING DATE OF NOTE: OCT 24, 2021@12:50 ENTRY DATE: OCT 24, 2021@13:50:04 AUTHOR: CARLOS BOYD EXP COSIGNER: URGENCY: STATUS: COMPLETED ------Original Message Sent: 10/23/2021 05:23 PM ET From: OLIVIA GARCIA To: Tiara CULLEN_PRIMARY CARE_SPOPC Subject: Medication:Following up on last message Doc, Wondering if you got my last message about the m eds I'm out of? Thanks Olivia STEELEM2 LITO GARCIA /pippa/ CARLOS BOYD LPN LICENSED PRACTICAL NURSE Signed: 10/24/2021 13:50 Oct 24, 2021 12:48 PM PRIMARY CARE SECURE MESSAGING: AMMY BOYD [facility] WSTRN LOCAL TITLE: PRIMARY CARE SECURE MESSAGING [facility] STANDARD TITLE: PRIMARY CARE SECURE MESSAGING DATE OF NOTE: OCT 24, 2021@12:48 ENTRY DATE: OCT 24, 2021@13:48:24 AUTHOR: CARLOS BOYD EXP COSIGNER: URGENCY: STATUS: COMPLETED PRIMARY CARE SECURE MESSAGING Has ADDENDA * ------Original Message Sent: 10/23/2021 05:23 PM ET From: OLIVIA GARCIA To: iTara CULLEN_PRIMARY CARE_SPOPC Subject: Medication:Following up on last message Doc, Wondering if you got my last message about the m eds I'm out of? Thanks Olivia Garcia GSM2 USRavi GARCIA /pippa/ CARLOS BOYD LPN LICENSED PRACTICAL NURSE Signed: 10/24/2021 13:48 10/24/2021 ADDENDUM STATUS: COMPLETED ------Original Message Sent: 10/24/2021 01:06 PM ET From: ZARI CULLEN To: OLIVIA GARCIA Subject: Medication:Medication Inquiry Hello, Address updated and refills submitted. You have enough refills to last into 2022. Wish you well- Have a nice day, Zari Cullen M.D. Internal Medicine /pippa/ Zari Cullen M.D. STAFF PHYSICIAN Signed: 10/24/2021 13:07 /pippa/ CARLOS BOYD LPN LICENSED PRACTICAL NURSE Signed: 10/24/2021 13:50
--- OUTSIDE RECORDS SUMMARY | 2022-02-08 16:45 | XMS_ITS | Encounter Summary ---
:1975 Author Organization Department [facility] rs Address [address] [place] [id number] Support Name Relationship Address Phone LANG NAZARIO Unavailable [address] [place] [address] OLIVIA GOVEA Unavailable Unavailable Selected Encounter This section includes the information on record at [place] for the Encounter. Date/Time Encounter Type Encounter Description Reason Provider Source Oct 01, 2021 12:00 Outpatient Encounter EVENT (HISTORICAL) AM E Encounter Template Text not used by [place] [...] ty Name Nov 07, 2021 08:00 AM [facility] Dec 04, 2021 01:30 PM [facility] Dec 20, 2021 10:00 AM AMBULATORY [facility] Dec 27, 2021 11:00 AM AMBULATORY MEDICINE [facility] Jan 14, 2022 10:30 AM AMBULATORY [facility] Feb 19, 2022 01:00 PM [facility] Mar 04, 2022 10:00 AM [facility] [...] the Encounter. The data comes from all [facility]. Test Date/Time Test Type Test Details Facility Name Nov 05, 2021 12:00 AM Laboratory - Chemistry URINALYSIS URINE [facility] Nov 05, 2021 12:00 AM Laboratory - Chemistry PSA BLOOD (SST-SERU M) [facility] Nov 05, 2021 12:00 AM Laboratory - Chemistry BASIC METABOLIC [facility] Order (fasting) BLOOD (SST-SERUM) Nov 05, 2021 12:00 AM Laboratory - Chemistry LIPID PANEL FASTING [facility] BLOOD (SST-SERUM) Nov 05, 2021 12:00 AM Laboratory - Chemistry LIVER FUNCTION BLOO D [place] Order (SST-SERUM) Nov 05, 2021 12:00 AM Laboratory - Chemistry HEMOGLOBIN A1C PANE L [facility] BLOOD (LAV-BLOOD) Nov 05, 2021 12:00 AM Laboratory - Chemistry CBC AND DIFF (AUTO) [facility] BLOOD (LAV-BLOOD) Nov 05, 2021 12:00 AM Laboratory - Chemistry TSH BLOOD (SST-SERU M) [facility] Nov 10, 2021 12:00 AM Laboratory - Chemistry URINALYSIS URINE [facility] Nov 10, 2021 12:00 AM Laboratory - Chemistry PSA BLOOD (SST-SERU M) [facility] Nov 10, 2021 12:00 AM Laboratory - Chemistry BASIC METABOLIC [facility] Order (fasting) BLOOD (SST-SERUM) Nov 10, 2021 12:00 AM Laboratory - Chemistry LIPID PANEL FASTING [facility] BLOOD (SST-SERUM) Nov 10, 2021 12:00 AM Laboratory - Chemistry HEMOGLOBIN A1C PANE L [facility] BLOOD (LAV-BLOOD) Nov 10, 2021 12:00 AM Laboratory - Chemistry CBC AND DIFF (AUTO) [facility] BLOOD (LAV-BLOOD) Nov 10, 2021 12:00 AM Laboratory - Chemistry LIVER FUNCTION BLOO D [place] Order (SST-SERUM) Nov 10, 2021 12:00 AM Laboratory - Chemistry TSH BLOOD (SST-SERU M) [facility] Encounter Notes: All associated encounter notes This section contains the clinical notes associated to the Encounter. Date/Time Encounter Note(s) Provider Source Oct 01, 2021 12:00 AM [facility] NOTE: [facility] LOCAL TITLE: NON-VA HOSPITALIZATIONS/ER [place] [facility] STANDARD TITLE: NONVA NOTE DATE OF NOTE: OCT 01, 2021 ENTRY DATE: OCT 25 022@09:31:30 AUTHOR: MONAE RESENDIZ COSIGNER: URGENCY: STATUS: COMPLETED VistA Imaging - Scanned Document SCANNED DOCUMENT SIGNATURE NOT REQUIRED Electronically Filed: 10/25/2021 by: TATO RESENDIZ Manager Personal
--- OUTSIDE RECORDS SUMMARY | 2022-02-08 16:45 | XMS_ITS | Encounter Summary ---
:1975 Author Organization Department of [facility] rs Address [address] [place] [id number] Support Name Relationship Address Phone LANG NAZARIO Unavailable [address] [phone] [place] [address] JEFERSONOLIVIA Unavailable Unavailable Selected Encounter This section includes the information on record at [place] for the Encounter. Date/Time Encounter Type Encounter Description Reason Provider Source Dec 04, 2021 09:57 Outpatient Encounter TELEPHONE PRIMARY CARE IHE Encounter Template Text not used by [place] Plan of Treatment: Future Appointments (+ 6 months) and Future Tests (+/- 45 days) The Plan of Treatment section includes future care activities for the patient [facility] [place] [facility] This section includes future appointments and future orders which are active, pending orscheduled.Future Appointments This section includes appointments that were scheduled to occur 6 months from the date of the Encounter, up to a maximum of 20 appointments. The data comes from all [place] treatment [facility]. Appointment Date/Time Appointment Type Appointment Facili ty Name Dec 20, 2021 10:00 AM AMBULATORY NONE [facility] Dec 27, 2021 11:00 AM AMBULATORY - MEDICINE [facility] Jan 14, 2022 10:30 AM AMBULATORY [facility] Feb 19, 2022 01:00 PM AMBULATORY [facility] Mar 04, 2022 10:00 AM [facility] Active, Pending, and Scheduled Orders This section includes a listing of several types of active, pending, and scheduled orders, including clinic medications orders, diagnostic test orders, procedure orders and consult orders; where the start date of the order is 45 days before the date of the Encounter or 45 days after the date of the Encounter. The data comes from all [place] treatment facilities. Test Date/Time Test Type Test Details Facility Name Nov 05, 2021 12:00 AM Laboratory - Chemistry URINALYSIS URINE [facility] Nov 05, 2021 12:00 AM Laboratory - Chemistry PSA BLOOD (SST-SERU M) [facility] Nov 05, 2021 12:00 AM Laboratory - Chemistry BASIC METABOLIC [place] [facility] (fasting) BLOOD (SST-SERUM) Nov 05, 2021 12:00 AM Laboratory - Chemistry LIPID PANEL FASTING [facility] BLOOD (SST-SERUM) Nov 05, 2021 12:00 AM Laboratory - Chemistry LIVER FUNCTION BLOO D [facility] Order (SST-SERUM) Nov 05, 2021 12:00 AM Laboratory - Chemistry CBC AND DIFF (AUTO) [facility] BLOOD (LAV-BLOOD) Nov 05, 2021 12:00 AM Laboratory - Chemistry HEMOGLOBIN A1C PANE [facility] BLOOD (LAV-BLOOD) Nov 05, 2021 12:00 AM Laboratory - Chemistry TSH BLOOD (SST-SERU M) [facility] Nov 10, 2021 12:00 AM Laboratory - Chemistry URINALYSIS URINE [facility] Nov 10, 2021 12:00 AM Laboratory - Chemistry PSA BLOOD (SST-SERU M) [facility] Nov 10, 2021 12:00 AM Laboratory - Chemistry BASIC METABOLIC [place] [facility] (fasting) BLOOD (SST-SERUM) Nov 10, 2021 12:00 AM Laboratory - Chemistry LIPID PANEL FASTING [facility] BLOOD (SST-SERUM) Nov 10, 2021 12:00 AM Laboratory - Chemistry LIVER FUNCTION [facility] Order (SST-SERUM) Nov 10, 2021 12:00 AM Laboratory - Chemistry CBC AND DIFF (AUTO) [facility] BLOOD (LAV-BLOOD) Nov 10, 2021 12:00 AM Laboratory - Chemistry TSH BLOOD (SST-SERU M) [facility] Nov 10, 2021 12:00 AM Laboratory - [facility] BLOOD (LAV-BLOOD) SP Dec 27, 2021 11:48 AM Laboratory - Chemistry HEPATITIS B SURFACE [facility] Order ANTIGEN SERUM (GOLD) SP ONCE Dec 27, 2021 11:48 AM Laboratory - Chemistry HEPATITIS B [facility] Order ANTIBODY SERUM (GOLD) SP Dec 27, 2021 11:48 AM Laboratory - Chemistry HEP B CORE AB, T SE RUM [facility] Order (GOLD) SP ONCE Dec 27, 2021 11:48 AM Laboratory - Chemistry HEPATITIS B CORE [facility] Order ANTIBODY IGM SERUM (GOLD) SP ONCE Dec 27, 2021 11:48 AM Laboratory - Chemistry HEPATITIS Be ANTIBO DY [facility] Order SERUM (GOLD) SP ONCE Dec 27, 2021 11:48 AM Laboratory - Chemistry HEPATITIS Be ANTIGE N [facility] Order SERUM (GOLD) SP ONCE Dec 27, 2021 02:56 PM Consult Order [facility] Cons [facility] [employer] Dec 27, 2021 02:56 PM Consult Order [facility]-NEUROLOGY D [facility] Cons [facility] [facility] Lab Results: +/- 30 days of the encounter This section includes the Chemistry and Hematology Lab Results [facility]. Radiology Reports and Pathology Reports are provided separately, in subsequent sections.Lab Results This section contains the Chemistry/Hematology Results that were resulted 30 days before or 30 daysafter the date of the Encounter. Date/Time Source Result Type Result - Unit Interpretation Reference Range Comment Dec 20, 2021 10:00 AM [facility] LIPID PROFILE 3 Specimen Type: SERUM No comment enter ed. Ordering Provid er: MARYLOU COOPER Report Released Date/Time: Dec 18, 2021 04:16 PM Reporting Lab: [address] [address] Performing Lab: [address] [address] CHOLESTEROL 235.0 H <200 TRIGLYCERIDE. 148.0 <200 LDL-ELE 161 H <100 HDL. 44.0 40-60 Dec 20, 2021 10:00 [facility] HYPERSENSITIVE TSH: (3RD Spe cimen Type: SERUM AM GEN) No comment enter ed. Ordering Provid er: MARYLOU COOPER Report Released Date/Time: Dec 18, 2021 04:16 PM Reporting Lab: [address] [address] Performing Lab: [address] [address] HYPERSENSITIVE TSH: (3RD GEN) 1.65 0.27-4.2 Dec 20, 2021 10:00 [facility] COMPLETE CHEMISTRY Specimen Type: SERUM AM PROFILE No comment enter ed. Ordering Provid er: MARYLOU COOPER Report Released Date/Time: Dec 18, 2021 04:16 PM Reporting Lab: [address] [address] Performing Lab: [address] [address] CREATININE 1.0 .7-1.2 UREA NITROGEN 22 H 6-20 GLUCOSE 103 70-115 SODIUM 139.0 136-145 POTASSIUM 4.9 3.5-5.1 CHLORIDE 105.1 98-107 CO2 23.7 22-29 CALCIUM 9.2 8.6-10.2 PROTEIN,TOTAL 7.0 6.6-8.7 ALBUMIN 4.4 3.5-5.2 BILIRUBIN, TOTAL 0.2 0.0-1.2 ALKALINE PHOSPHATASE 81 40-129 AST 18 0-40 ALT 23 0-41 ANION GAP 10.0 <20 GLOMERULAR FILTRATION RATE (eGFR) 81 >59 Dec 20, 2021 10:00 [facility] CBC & 5 PART DIFFERENTIAL Sp ecimen Type: BLOOD AM No comment enter ed. Ordering Provid er: MARYLOU COOPER Report Released Date/Time: Dec 18, 2021 04:16 PM Reporting Lab: [address] [address] Performing Lab: [address] [address] WBC 7.1 3.8-10.7 RBC 4.49 3.92-5.8 HGB 13.7 12-17.5 HCT 40.6 35.8-52.9 MCV 90.3 81.2-99.8 MCH 30.5 26.6-34.5 MCHC 33.8 32.1-35.5 PLT 269 139-358 RDW 13.9 12.6-15.7 LYMPH % 25.2 MONO % 6.2 GRAN % 65.0 BASO % 1.1 EOS % 2.5 ABSOLUTE NEUT COUNT 4.60 1.9-7.3 ABSOLUTE LYMPH COUNT 1.80 0.9-3.8 ABSOLUTE MONO COUNT 0.4 0.2-0.9 ABSOLUTE EOS COUNT 0.2 0.0-0.5 ABSOLUTE BASO COUNT 0.1 0.0-0.1 Dec 20, 2021 10:00 AM [facility] HEMOGLOBIN A1C Specimen Type: BLOOD No comment enter ed. Ordering Provid er: KENNETH,MARYLOU E Report Released Date/Time: Dec 18, 2021 04:16 PM Reporting Lab: [facility] [address] [facility] [address] Performing Lab: [facility] [address] [facility] [address] HEMOGLOBIN A1C 5.9 4.8-7.8 Encounter Notes: All associated encounter notes This section contains the clinical notes associated to the Encounter. Date/Time Encounter Note(s) Provider Source Dec 04, 2021 09:57 AM PREVENTIVE MEDICINE NURSING NOTE: CARLOS BOYD [facility] TITLE: CLINICAL REMINDERS/NURSING STANDARD TITLE: PREVENTIVE MEDICINE NURSING NOTE DATE OF NOTE: DEC 04, 2021@09:57 ENTRY DATE: DEC 04, 2021@09:57:32 AUTHOR: CARLOS BOYD EXP COSIGNER: URGENCY: STATUS: COMPLETED Reminder call to [place] for [facility] today at 1:30 P .M. #[phone]. has moved out of area [place].Requested to ke ep this appt. Left message as above. Clinical reminders not complete as I was not abl e to speak with [facility]. /pippa/ CARLOS BOYD LPN LICENSED PRACTICAL NURSE Signed: 12/04/2021 09:59
--- OUTSIDE RECORDS SUMMARY | 2022-02-08 16:45 | XMS_ITS | Encounter Summary ---
:1975 Author Organization Department of [facility] rs Address [address] [place] [id number] Support Name Relationship Address Phone LANG NAZARIO Unavailable [address] [place] [address] OLIVIA GOVEA Unavailable Unavailable Selected Encounter This section includes the information on record at [place] for the Encounter. Date/Time Encounter Type Encounter Reason Provider Source Description Dec 04, 2021 OFFICE O/P EST PRIMARY ICD-10-CM R20.2 DANY CULLEN 01:30 PM MOD 30-39 MIN CARE/MEDICINE Paresthesia of skin with Provider Comments: Paresthesia of Skin IHE Encounter Template Text not used by [facility] Assessments - Encounter Diagnoses This section includes the primary and secondary diagnoses documented for the Encounter. Date/Time Primary/Secondary Diagnosis Name Provider Source Diagnosis Dec 04, 2021 PRIMARY Paresthesia of DANY CULLEN FAREED 01:52 PM skin Dec 04, 2021 SECONDARY Obesity, DANY CULLEN [place] 01:52 PM unspecified Dec 04, 2021 SECONDARY Occipital DANY CULLEN [place] 01:52 PM neuralgia Plan of Treatment: Future Appointments [...] Name Dec 20, 2021 10:00 AM AMBULATORY - NONE [facility] Dec 27, 2021 11:00 AM AMBULATORY - MEDICINE [facility] Jan 14, 2022 10:30 AM AMBULATORY - NONE [facility] Feb 19, 2022 01:00 PM AMBULATORY - [facility] Mar 04, 2022 10:00 AM AMBULATORY - [facility] Active, Pending, and Scheduled Orders This section includes a listing of several types of active, pending, and scheduled orders, including clinic medications orders, diagnostic test orders, procedure orders and consult orders; where the start date of the order is 45 days before the date of the Encounter or 45 days after the date of the Encounter. The data comes from all [facility]. Test Date/Time Test Type Test Details Facility Name Nov 05, 2021 12:00 AM Laboratory - Chemistry URINALYSIS URINE [facility] Nov 05, 2021 12:00 AM Laboratory - Chemistry PSA BLOOD (SST-SERU M) [facility] Nov 05, 2021 12:00 AM Laboratory - Chemistry BASIC METABOLIC [facility] (fasting) BLOOD (SST-SERUM) Nov 05, 2021 12:00 AM Laboratory - Chemistry LIPID PANEL FASTING [facility] BLOOD (SST-SERUM) Nov 05, 2021 12:00 AM Laboratory - Chemistry LIVER FUNCTION BLOO D [facility] Order (SST-SERUM) Nov 05, 2021 12:00 AM Laboratory - Chemistry HEMOGLOBIN A1C PANE L [facility] BLOOD (LAV-BLOOD) Nov 05, 2021 12:00 AM Laboratory - Chemistry TSH BLOOD (SST-SERU M) [facility] Nov 05, 2021 12:00 AM Laboratory - Chemistry CBC AND DIFF (AUTO) [facility] BLOOD (LAV-BLOOD) Nov 10, 2021 12:00 AM Laboratory - Chemistry PSA BLOOD (SST-SERU M) [facility] Nov 10, 2021 12:00 AM Laboratory - Chemistry URINALYSIS URINE [facility] Nov 10, 2021 12:00 AM Laboratory - Chemistry BASIC METABOLIC [facility] Order (fasting) BLOOD (SST-SERUM) Nov 10, 2021 12:00 AM Laboratory - Chemistry LIPID PANEL FASTING [facility] BLOOD (SST-SERUM) Nov 10, 2021 12:00 AM Laboratory - Chemistry LIVER FUNCTION BLOO D [facility] Order (SST-SERUM) Nov 10, 2021 12:00 AM Laboratory - Chemistry CBC AND DIFF (AUTO) [facility] BLOOD (LAV-BLOOD) Nov 10, 2021 12:00 AM Laboratory - Chemistry HEMOGLOBIN A1C PANE L [facility] Order BLOOD (LAV-BLOOD) SP Nov 10, 2021 12:00 AM Laboratory - Chemistry TSH BLOOD (SST-SERU M) [facility] Dec 27, 2021 11:48 AM Laboratory - Chemistry HEPATITIS B SURFACE [facility] Order ANTIGEN SERUM (GOLD) SP ONCE Dec 27, 2021 11:48 AM Laboratory - Chemistry HEPATITIS B SURFACE [facility] Order ANTIBODY SERUM (GOLD) SP Dec 27, 2021 11:48 AM Laboratory - Chemistry HEP B CORE AB, T SE RUM [facility] Order (GOLD) SP ONCE Dec 27, 2021 11:48 AM Laboratory - Chemistry HEPATITIS B CORE [facility] Order ANTIBODY IGM SERUM (GOLD) SP ONCE Dec 27, 2021 11:48 AM Laboratory - Chemistry HEPATITIS Be ANTIBO DY [facility] Order SERUM (GOLD) SP ONCE Dec 27, 2021 11:48 AM Laboratory - Chemistry HEPATITIS Be ANTIGE N [facility] Order SERUM (GOLD) SP ONCE Dec 27, 2021 02:56 PM Consult Order COMMUNITY CARE-ENT Cons [facility] Engineering Programmer's Choice Dec 27, 2021 02:56 PM Consult Order COMMUNITY CARE-NEUROLOGY D [facility] Cons Engineering Programmer's Choice Lab Results: +/- 30 days of [...] Range Comment Dec 20, 2021 10:[address] [facility] LIPID PROFILE 3 Specimen Type: SERUM No comment enter ed. Ordering Provid er: MARYLOU COOPER Report Released Date/Time: Dec 18, 2021 04:16 PM Reporting Lab: [address] [address] Performing Lab: [address] [address] CHOLESTEROL 235.0 H <200 TRIGLYCERIDE. 148.0 <200 LDL-ELE 161 H <100 HDL. 44.0 40-60 Dec 20, 2021 10:00 [facility] HYPERSENSITIVE TSH: (3RD Spe cimen Type: SERUM AM GEN) No comment enter ed. Ordering Provid er: MARYLOU COOPER Report Released Date/Time: Dec 18, 2021 04:16 PM Reporting Lab: [address] [address] Performing Lab: [address] [address] HYPERSENSITIVE TSH: (3RD GEN) 1.65 0.27-4.2 Dec 20, 2021 10:00 [facility] COMPLETE CHEMISTRY Specimen Type: SERUM AM PROFILE No comment enter ed. Ordering Provid er: MARYLOU COOPER Report Released Date/Time: Dec 18, 2021 04:16 PM Reporting Lab: [address] [address] Performing Lab: [address] [address] CREATININE 1.0 .7-1.2 UREA NITROGEN 22 H 6-20 GLUCOSE 103 70-115 SODIUM 139.0 136-145 POTASSIUM 4.9 3.5-5.1 CHLORIDE 105.1 98-107 CO2 23.7 22-29 CALCIUM 9.2 8.6-10.2 PROTEIN,TOTAL 7.0 6.6-8.7 ALBUMIN 4.4 3.5-5.2 BILIRUBIN, TOTAL 0.2 0.0-1.2 ALKALINE PHOSPHATASE 81 40-129 AST 18 0-40 ALT 23 0-41 ANION GAP 10.0 <20 GLOMERULAR FILTRATION RATE (eGFR) 81 >59 Dec 20, 2021 10:00 [facility] CBC & 5 PART DIFFERENTIAL Sp ecimen Type: BLOOD AM No comment enter ed. Ordering Provid er: MARYLOU COOPER Report Released Date/Time: Dec 18, 2021 04:16 PM Reporting Lab: [address] [address] Performing Lab: [address] [address] WBC 7.1 3.8-10.7 RBC 4.49 3.92-5.8 HGB [...] 0.1 0.0-0.1 Dec 20, 2021 10:[address] [facility] HEMOGLOBIN A1C Specimen Type: BLOOD No comment enter ed. Ordering Provid er: MARYLOU COOPER Report Released Date/Time: Dec 18, 2021 04:16 PM Reporting Lab: [address] [address] Performing Lab: [address] [address] HEMOGLOBIN A1C 5.9 4.8-7.8 Social History: Smoking Status (Most current) and Tobacco Use (All prior to encounter date) This section includes the most current, and the historical, smoking and tobacco-related health factors from the [place] facility where the Encounter took place.Current Smoking Status This section includes the most current smoking, or tobacco-related health factor, from the [place] facility where the Encounter took place. Date/Time Current Smoking Status Comment Facility August 29, 2021 03:00 PM MI-TOBACCO QUIT 5 TO < 15 YRS [facility] Tobacco Use History This section includes a history of the smoking, or tobacco- related health factors, that were collected on or before the date of the Encounter. The data comes from the [place] facility where the Encounter took place. Date/Time Smoking Status/Tobacco Use Comment [facility] August 29, 2021 03:00 PM VA-TOBACCO QUIT 5 TO < 15 YRS [facility] Jul 23, 2020 03:00 PM VA-TOBACCO FORMER USER [facility] Jul 23, 2020 03:00 PM VA-TOBACCO QUIT 5 TO < 15 YRS [facility] Aug 05, 2018 11:29 AM VA-TOBACCO FORMER USER [facility] Aug 05, 2018 11:29 AM VA-TOBACCO QUIT 1 TO < 5 YRS [facility] Jul 10, 2017 09:32 AM LIFETIME NON-TOBACCO USER [facility] Feb 11, 2017 09:04 AM QUIT TOBACCO USE > 7 YEARS [facility] AGO STOPPED SMOKING 2 1/2 YEARS AGO A PACK A DAY Jul 30, 2016 09:07 AM QUIT TOBACCO USE 1-7 YEARS [facility] AGO reports quitting 2 years ago Jun 18, 2015 03:44 PM QUIT TOBACCO USE 1-7 YEARS FAREED AGO Encounter Notes: All associated encounter notes This section contains the clinical notes associated to the Encounter. Date/Time Encounter Note(s) Provider Source Dec 04, 2021 01:54 PM ACCOUNTING OF DISCLOSURES NOTE: DANICA CULLEN [facility] TITLE: STATE PRESCRIPTION DRUG MONITORING PROGRAM STANDARD TITLE: ACCOUNTING OF DISCLOSURES NOTE DATE OF NOTE: DEC 04, 2021@13:54:53 ENTRY DATE: DEC 04, 2021@13:54:53 AUTHOR: DANY CULLEN EXP COSIGNER: URGENCY: STATUS: COMPLETED This PDMP query was submitted by Dany Cullen The clinical justification for this PDMP query i s to review controlled substances prescribed outside of the [facility], and any additional information that may become available, as an important compo nent of standard clinical care, and in accordance with [facility] policy. Patient information was shared with the PDMP [employer]. No prescription(s) for controlled substances out side the VA were found in the last 90 days. /pippa/ Dany Cullen M.D. STAFF PHYSICIAN Signed: 12/04/2021 13:54 Dec 04, 2021 01:32 PM PHYSICIAN NOTE: DANY CULLEN TITLE: MD NOTE STANDARD TITLE: PHYSICIAN NOTE DATE OF NOTE: DEC 04, 2021@13:32 ENTRY DATE: DEC 04, 2021@13:32:33 AUTHOR: DANY CULLEN EXP COSIGNER: URGENCY: STATUS: COMPLETED VIRTUAL VISIT CC: neuropathy History of Present Illness: 1. 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 [employer] -he gets numbness in his hands -he also gets twitching when very tired or overl y stressed -he has also had what sounded like possible seiz ures in the past Medications were reviewed and reconciled with shadia [...] UTH ONCE ACTIVE DAILY NEEDED FOR ALLERGIES 4) KETOCONAZOLE 2% SHAMPOO SHAMPOO SMALL AMOUNT ACTIVE TOPICALLY ONCE DAILY 5) LACTOBACILLUS ACIDOPHILUS TAB TAKE 1 TABLET B Y MOUTH ACTIVE ONCE DAILY 6) MELATONIN 5MG CAP/TAB TAKE TWO CAPSULE/TABLET BY ACTIVE MOUTH AT BEDTIME NEEDED 8) PANTOPRAZOLE NA 40MG EC TAB TAKE ONE TABLET B Y MOUTH ACTIVE ONCE DAILY Social Hx: SERVICE CONNECTED % - 80 Allergies: ZYBAN, SAXENDA, GABAPENTIN, LYRICA Physical Exam: pleasant. Alert and oriented X3 All labs, diagnostic tests, and medicati on changes were reviewed and discussed with patient. The patient verbalized amna ponce. ASSESSMENT AND PLAN 1. urinary urgency: not improved with d etrol or oxybutynin. f/u with urology. 2. Brain aneurysm: Stable. Repeat MR angiogram yearly. 3. Obesity: he had significant success w/the ph entermine/topiramate. he was able to control his appetite and cravings on the medicine. he has gained weightsince he ran out of the -resume phentermine/topiramate 3.27/23mg 4. headache: symptoms do sound like occipital n euralgia. better with carbamazepine sa 100mg daily but he ran out. nuvia l reorder 5. 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 The [place] has not already been diagnosed as h aving TBI during post 12/29 deployment. 1. The [place] experienced the following events during deployment: Blow to head 2. The had the following symptoms immed iately afterwards: Being dazed, confused or seeing stars 3. The [place] states the following problems be jeremías or got worse afterwards: Headaches 4. The relates he/she is currently havi ng or has had the following symptoms within the past week: [place] denies experiencing any current symptom s related to section 3. This is a negative screen. Alcohol Use Screen (AUDIT-C): Alcohol Screen: SCREEN FOR ALCOHOL (AUDIT-C) An alcohol screening test (AUDIT-C) was negativ e (score=2). 1. How often did you have a drink containing al cohol in the past year? Two to four times a month 2. How many drinks containing alcohol did you h ave on a typical day when you were drinking in the past year? One or two drinks 3. How often did you have six or more drinks on one occasion in the past year? Never Medication Reconciliation: Outpatient: Has the patient been taking medications as docu mented in the EM? No: Discrepencies were identified. See below. Essential Medication List for Review used to co mplete this medication reconciliation. INCLUDED IN THIS LIST: Alphabetical list of act jhonny outpatient prescriptions dispensed from this VA (local) an d dispensed from another [place] or DoD facility (remote) as well as inpatien t orders (local, pending and active), local clinic medications, locally documented non-VA medications, and local prescriptions that have or been discontinued in the past 90 days. - Discrepancies were identified, addressed, and discussed with the patient/caregiver at this encounter. - All changes in medications, including all non -VA/Herbal/OTC medications were entered into CPRS. - If there were any medications the patient opal uld no longer take, they were discontinued. - The patient/caregiver was instructed to updat e this list, discard old lists, and take this list to the next appointme nt, whether with a VA or non-VA provider. Allergies/ADRs (Tool #5) FACILITY ALLERGY/ADR -------- [facility] BUPROPION [facility] DULOXETINE [facility] FISH [facility] LANSOPRAZOLE [facility] MILK [facility] NORTRIPTYLINE [facility] OMEPRAZOLE [facility] [place] BUPROPIO N [facility]AB[facility] IN [facility] LANSOPRA ZOLE [facility] NORTRIPT YLINE [facility] OMEPRAZO LE [facility] PREGABAL IN [facility] (Tool #1) INCLUDED IN THIS LIST: Alphabetical list of act jhonny outpatient prescriptions dispensed from this [place] (local) an d dispensed from another [place] or [facility] facility (remote) as well as inpatien t orders (local pending and active), local clinic medications, locally docu mented non-VA medications, and local prescriptions that have or be en discontinued in the past 90 days. Non-VA Meds Last Documented On: Data not fou nd NOTE The display of VA prescriptions disp ensed from another [place] or DoD facility (remote) is limited to active outp atient prescription entries matched to National Drug File at the [facility] site and may not include some items such as investigational drugs, compo unds, etc. NOT INCLUDED IN THIS LIST: Medications self-ent ered by the patient into personal health records (i.e. Epuls) ar e NOT included in this list. Non-VA medications documented outside [facility] s VA, remote inpatient orders (regardless of status) and remote clinic medications are NOT included in this list. The patient and provider must always discuss medications the patient is taking, regardless o f where the medication was dispensed or obtained. OUTPT CALCIUM POLYCARBOPHIL 625MG TAB (Status = Active) TAKE ONE TABLET BY MOUTH TWICE DAILY TAKE ONE T ABLET BY MOUTH TWICE DAILY WITH MEAL OR FOOD WITH FULL GLASS O F WATER. Rx# [id number] Last Released: 09/02/21 Qty/Days Sup ply: 180/90 Rx Expiration Date: 06/25/22 Refills Remainin OUTPT CARBAMAZEPINE (PRASCO) 100MG SA CAP (Stat us = ) TAKE ONE CAPSULE BY MOUTH ONCE DAILY FOR 14 DAY S, THEN TAKE TWO CAPSULES ONCE DAILY Rx# [id number] Last Released: 08/31/21 Qty/Days Sup ply: 46/30 Rx Expiration Date: 09/28/21 Refills Remainin OUTPT CETIRIZINE HCL 10MG TAB (Status = Active) TAKE ONE TABLET BY MOUTH ONCE DAILY NEEDED F OR ALLERGIES Rx# [id number] Last Released: 10/26/21 Qty/Days Sup ply: 30/30 Rx Expiration Date: 06/25/22 Refills Remainin OUTPT FISH OIL 1000MG (500MG DHA/EPA) CAP (Stat us = On Hold) TAKE ONE CAPSULE BY MOUTH THREE TIMES DAILY NEEDED [ANTI-INFLAMMATORY] Rx# [id number] Last Released: 03/25/21 Qty/Days Sup ply: 100/30 Rx Expiration Date: 01/12/22 Refills Remainin OUTPT KETOCONAZOLE 2% SHAMPOO (Status = Active/ Suspended) SHAMPOO SMALL AMOUNT TOPICALLY ONCE DAILY Rx# [id number] Last Released: 05/17/21 Qty/Days Sup ply: 120/30 Rx Expiration Date: 05/14/22 Refills Remainin OUTPT LACTOBACILLUS ACIDOPHILUS TAB (Status = A ctive) TAKE 1 TABLET BY MOUTH ONCE DAILY Rx# [id number] Last Released: 07/20/21 Qty/Days Supp ly: 100/90 Rx Expiration Date: 01/12/22 Refills Remainin OUTPT MELATONIN 5MG CAP/TAB (Status = Active) TAKE TWO CAPSULE/TABLET BY MOUTH AT BEDTIME NEEDED Rx# [id number] Last Released: 05/25/21 Qty/Days Supp ly: 90/45 Rx Expiration Date: 05/23/22 Refills Remainin OUTPT OXYBUTYNIN CHLORIDE 5MG SA TAB (Status = Active) TAKE ONE TABLET BY MOUTH ONCE DAILY FOR BLADDER INSTABILITY Rx# [id number] Last Released: 08/19/21 Qty/Days Supp ly: Rx Expiration Date: 08/16/22 Refills Remainin OUTPT PANTOPRAZOLE NA 40MG EC TAB (Status = Act jhonny) TAKE ONE TABLET BY MOUTH ONCE DAILY Rx# [id number] Last Released: 10/26/21 Qty/Days Sup ply: Rx Expiration Date: 06/25/22 Refills Remainin OUTPT PHENTERMINE 7.5/TOPIRAMATE 46MG SA CAP (S tatus = ) TAKE 1 CAPSULE BY MOUTH EVERY MORNING WITH OR W ITHOUT FOOD Rx# [id number] Last Released: 07/22/21 Qty/Days Supp ly: Rx Expiration Date: 11/07/21 Refills Remainin SUPPLIES /real Cullen M.D. STAFF PHYSICIAN Signed: 12/04/2021 13:52
--- OUTSIDE RECORDS SUMMARY | 2022-02-08 16:46 | XMS_ITS | Encounter Summary ---
:1975 Author Organization Department of [facility] rs Address [address] [place] [id number] Support Name Relationship Address Phone LANG NAZARIO Unavailable [address] [place] [address] OLIVIA GOVEA Unavailable Unavailable Selected Encounter This section includes the information on record at [place] for the Encounter. Date/Time Encounter Type Encounter Description Reason Provider Source Jan 24, 2022 10:48 [facility] En[facility] Template Text not used by [place] Plan of Treatment: Future Appointments (+ 6 months) and Future Tests (+/- 45 days) The Plan of Treatment section includes future care activities for the patient [facility] This section includes future appointments and future orders which are active, pending orscheduled.Future Appointments This section includes appointments that were scheduled to occur 6 months from the date of the Encounter, up to a maximum of 20 appointments. The data comes from all [place] treatment facilities. Appointment Date/Time Appointment Type Appointment Facili ty Name Feb 19, 2022 01:00 PM AMBULATORY [facility] Mar 04, 2022 10:00 AM AMBULATORY [facility] Jul 21, 2022 09:00 AM AMBULATORY [facility] Active, Pending, and Scheduled Orders [...] Date/Time Test Type Test Details Facility Name Dec 27, 2021 11:48 AM Laboratory - Chemistry HEPATITIS B SURFACE [facility] Order ANTIGEN SERUM (GOLD) SP ONCE Dec 27, 2021 11:48 AM Laboratory - Chemistry HEPATITIS B SURFACE [facility] Order ANTIBODY SERUM (GOLD) SP Dec 27, 2021 11:48 AM Laboratory - Chemistry HEP B CORE AB, T SE RUM [facility] Order (GOLD) SP ONCE Dec 27, 2021 11:48 AM Laboratory - Chemistry HEPATITIS B CORE [facility] Order ANTIBODY IGM SERUM (GOLD) SP ONCE Dec 27, 2021 11:48 AM Laboratory - Chemistry HEPATITIS Be ANTIBO DY [facility] Order SERUM (GOLD) SP ONCE Dec 27, 2021 11:48 AM Laboratory - Chemistry HEPATITIS Be ANTIGE N [facility] Order SERUM (GOLD) SP ONCE Dec 27, 2021 02:56 PM Consult Order COMMUNITY CARE-ENT Cons [facility] Cosmetic Dentist's Choice Dec 27, 2021 02:56 PM Consult Order COMMUNITY CARE-NEUROLOGY D [facility] Cons Cosmetic Dentist's Choice Lab Results: +/- 30 days of [...] Result - Unit Interpretation Reference Range Comment Jan 14, 2022 11:46 [facility] URINALYSIS & Specimen Typ e: urine (random) AM MICROSCOPIC No comment enter ed. Ordering Provid er: TERE WALKER Report Released Date/Time: Jan 14, 2022 11:28 AM Reporting Lab: [address] [address] Performing Lab: [address] [address] URINE COLOR Yellow SPECIFIC GRAVITY 1.021 1.003-1.030 UROBILINOGEN NORMAL <2.0 URINE BILIRUBIN NEGATIVE neg URINE KETONES NEGATIVE neg URINE GLUCOSE NEGATIVE neg URINE PROTEIN 30 neg URINE PH 7.0 5-7.5 URINE WBC/HPF <1 /HPF 0-5 URINE MUCUS RARE NoneObs URINE RBC/HPF <1 /HPF 0-3 APPEARANCE CLEAR URINE BLOOD NEGATIVE neg NITRITE, URINE NEGATIVE neg LEUKOCYTE ESTERASE, URINE NEGATIVE NEG Encounter Notes: All associated encounter notes This section contains the clinical notes associated to the Encounter. Date/Time Encounter Note(s) Provider Source Jan 24, 2022 10:48 AM MENTAL HEALTH OUTREACH NOTE: MIGUEL DAVIES [place] [facility] LOCAL TITLE: JUSTICE OUTREACH PHONE NOTE [facility] STANDARD TITLE: MENTAL HEALTH OUTREACH NOTE DATE OF NOTE: JAN 24, 2022@10:48 ENTRY DATE: JAN 24, 2022@10:48:10 AUTHOR: MIGUEL DAVIES EXP COSIGNER: URGENCY: STATUS: COMPLETED VJO Phone Note Duration/ Whom Contacted: Nature of Contact (Reason): VJO f/u Content: Check in. [place] reports charges were dismissed. He and his /family moved to [place] in September. Plan: VJO services no longer warranted /pippa/ MIGUEL DAVIES LCSW LICENSED CLINICAL INTERNAL MEDICINE NURSE PRACTITIONER Signed: 01/24/2022 10:49
--- OUTSIDE RECORDS SUMMARY | 2022-02-08 16:46 | XMS_ITS | Encounter Summary ---
:1975 Author Organization Department of [facility] rs Address [address] [place] [id number] Support Name Relationship Address Phone LANG NAZARIO Unavailable [address] [place] [address] JEFERSON OLIVIA Unavailable Unavailable Selected Encounter This section includes the information on record at [place] for the Encounter. Date/Time Encounter Type Encounter Reason Provider Source Description Oct 15, 2021 12:13 Outpatient [facility] PM Encounter CONSULT ER IHE Encounter Template Text not used by CT Plan of Treatment: Future Appointments (+ 6 months) and Future Tests (+/- 45 days) The Plan of Treatment section includes future care activities for the patient from all CT treatmentfacilities. This section includes future appointments and future orders which are active, pending orscheduled.Future Appointments This section includes appointments that were scheduled to occur 6 months from the date of the Encounter, up to a maximum of 20 appointments. The data comes from all CT treatment facilities. Appointment Date/Time Appointment Type Appointment Facili ty Name Nov 07, 2021 08:00 AM [facility] Dec 04, 2021 01:30 PM [facility] Dec 20, 2021 10:00 AM AM[facility]ULATORY [facility] Dec 27, 2021 11:00 AM [facility] Jan 14, 2022 10:30 AM AMBULATORY [facility] Feb 19, 2022 01:00 PM [facility] Mar 04, 2022 10:00 AM [facility] Active, Pending, and Scheduled Orders This section includes a listing of several types of active, pending, and scheduled orders, including clinic medications orders, diagnostic test orders, procedure orders and consult orders; where the start date of the order is 45 days before the date of the Encounter or 45 days after the date of the Encounter. The data comes from all [facility]. Test Date/Time Test Type Test Details Facility Name Nov 05, 2021 12:00 AM Laboratory - Chemistry URINALYSIS URINE [facility] Nov 05, 2021 12:00 AM Laboratory - Chemistry BASIC METABOLIC [facility] Order (fasting) BLOOD (SST-SERUM) Nov 05, 2021 12:00 AM Laboratory - Chemistry PSA BLOOD (SST-SERU M) [facility] Nov 05, 2021 12:00 AM Laboratory - Chemistry LIPID PANEL FASTING [facility] BLOOD (SST-SERUM) Nov 05, 2021 12:00 AM Laboratory - Chemistry LIVER FUNCTION BLOO D [place] Order (SST-SERUM) Nov 05, 2021 12:00 AM Laboratory - Chemistry CBC AND DIFF (AUTO) [facility] BLOOD (LAV-BLOOD) Nov 05, 2021 12:00 AM Laboratory - Chemistry HEMOGLOBIN A1C PANE L [facility] BLOOD (LAV-BLOOD) Nov 05, 2021 12:00 AM Laboratory - Chemistry TSH BLOOD (SST-SERU M) [facility] Nov 10, 2021 12:00 AM Laboratory - Chemistry PSA BLOOD (SST-SERU M) [facility] Nov 10, 2021 12:00 AM Laboratory - Chemistry URINALYSIS URINE [facility] Nov 10, 2021 12:00 AM Laboratory - [facility] Order (SST-SERUM) Nov 10, 2021 12:00 AM Laboratory - Chemistry CBC AND DIFF (AUTO) [facility] BLOOD (LAV-BLOOD) Nov 10, 2021 12:00 AM Laboratory - Chemistry LIPID PANEL FASTING [facility] BLOOD (SST-SERUM) Nov 10, 2021 12:00 AM Laboratory - Chemistry BASIC METABOLIC [facility] Order (fasting) BLOOD (SST-SERUM) Nov 10, 2021 12:00 AM Laboratory - Chemistry HEMOGLOBIN A1C PANE L [facility] Order BLOOD (LAV-BLOOD) Nov 10, 2021 12:00 AM Laboratory - Chemistry TSH BLOOD (SST-SERU M) [facility] Encounter Notes: All associated encounter notes This section contains the clinical notes associated to the Encounter. Date/Time Encounter Note(s) Provider Source Oct 15, 2021 12:13 PM [facility] NOTE: ADELIA LARSON LOCAL TITLE: COMMUNITY CARE-COORDINATION PLAN STANDARD TITLE: NONVA NOTE DATE OF NOTE: OCT 15, 2021@12:13 ENTRY DATE: OCT 18, 2021@14:21:13 AUTHOR: ADELIA LARSON EXP COSIGNER: URGENCY: STATUS: COMPLETED [place] self-presented to community emergency fa cility Emergency Notification Intake received on Sep@13:40 Notification ID: [id number] Status: Closed-Approved for 170 Date Presenting to the Facility: Sep@12: 13 [facility] Hospital Name: Hospital: [facility] Address: City: [place] State: Zip Code: Phone : Chief complaint: Sudden and Severe Pain in Face, Head, Neck, Arm, and Leg Primary Diagnosis: Patient Admitted? No Community Facility Point of Contact: Name: Jackie Antonio Phone: /es/ ADELIA LARSON [employer] Counselor Signed: 10/18/2021 14:24 Receipt Acknowledged By: * AWAITING SIGNATURE * RONNIE MONDRAGON
--- OUTSIDE RECORDS SUMMARY | 2022-02-08 16:47 | XMS_ITS | Encounter Summary ---
:1975 Author Organization Department of [facility] rs Address [address] [place] [id number] Support Name Relationship Address Phone LANG NAZARIO Unavailable [address] [place] [address] JEFERSONOLIVIA Unavailable Unavailable Selected Encounter This section includes the information on record at [place] for the Encounter. Date/Time Encounter Type Encounter Description Reason Provider Source Dec 27, 2021 12:00 Outpatient Encounter EVENT (HISTORICAL) AM [facility] Encounter Template Text not used by [facility] Plan of Treatment: Future Appointments (+ 6 months) and Future Tests (+/- 45 days) The Plan of Treatment section includes future care activities for the patient from all [place] treatmentfacilities. This section includes future appointments and future orders which are active, pending orscheduled.Future Appointments This section includes appointments that were scheduled to occur 6 months from the date of the Encounter, up to a maximum of 20 appointments. The data comes from all [place] treatment facilities. Appointment Date/Time Appointment Type Appointment Facili ty Name Jan 14, 2022 10:30 AM [facility]ULATORY - [facility] Feb 19, 2022 01:00 PM AMBULATORY [facility] Mar 04, 2022 10:00 AM AMBULATORY [facility] Active, Pending, and Scheduled Orders This section includes a listing of several types of active, pending, and scheduled orders, including clinic medications orders, diagnostic test orders, procedure orders and consult orders; where the start date of the order is 45 days before the date of the Encounter or 45 days after the date of the Encounter. The data comes from all [place] treatment facilities. Test Date/Time Test Type Test Details Facility Name Dec 27, 2021 11:48 AM Laboratory - Chemistry HEPATITIS B SURFACE [facility] Order ANTIGEN SERUM (GOLD) SP ONCE Dec 27, 2021 11:48 AM Laboratory - Chemistry HEPATITIS B SURFACE [facility] Order ANTIBODY SERUM (GOLD) SP Dec 27, 2021 11:48 AM Laboratory - Chemistry HEP B CORE AB, T SE RUM [facility] Order (GOLD) SP ONCE Dec 27, 2021 11:48 AM Laboratory - Chemistry HEPATITIS B CORE [facility] Order ANTIBODY IGM SERUM (GOLD) SP ONCE Dec 27, 2021 11:48 AM Laboratory - Chemistry HEPATITIS Be ANTIBO DY [facility] Order SERUM (GOLD) SP ONCE Dec 27, 2021 11:48 AM Laboratory - Chemistry HEPATITIS Be ANTIGE N [facility] Order SERUM (GOLD) SP ONCE Dec 27, 2021 02:56 PM Consult Order [facility]-ENT Cons [facility] [employer] Dec 27, 2021 02:56 PM Consult Order COMM[facility]ITY [facility]UROLOG[facility] D [facility] Cons [employer] Lab Results: +/- 30 days of [...] Reference Range Comment Jan 14, 2022 11:46 [facility] URINALYSIS & Specimen Typ e: urine (random) AM MICROSCOPIC No comment enter ed. Ordering Provid er: TERE WALKER Report Released Date/Time: Jan 14, 2022 11:28 AM Reporting Lab: [address] [address] Performing Lab: [address] [address] URINE COLOR Yellow SPECIFIC GRAVITY 1.021 1.003-1.030 UROBILINOGEN NORMAL <2.0 URINE BILIRUBIN NEGATIVE neg URINE KETONES NEGATIVE neg URINE GLUCOSE NEGATIVE neg URINE PROTEIN 30 neg URINE PH 7.0 5-7.5 URINE WBC/HPF <1 /HPF 0-5 URINE MUCUS RARE NoneObs URINE RBC/HPF <1 /HPF 0-3 APPEARANCE CLEAR URINE BLOOD NEGATIVE neg NITRITE, URINE NEGATIVE neg LEUKOCYTE ESTERASE, URINE NEGATIVE NEG Dec 20, 2021 10:00 [facility] CBC & 5 PART DIFFERENTIAL Sp ecimen Type: BLOOD AM No comment enter ed. Ordering Provid er: MARYLOU COOPER Report Released Date/Time: Dec 18, 2021 04:16 PM Reporting Lab: [address] [address] Performing Lab: [place] [address] WBC 7.1 3.8-10.7 RBC 4.49 3.92-5.8 HGB [...] 0.1 0.0-0.1 Dec 20, 2021 10:00 AM [facility] HEMOGLOBIN A1C Specimen Type: BLOOD No comment enter ed. Ordering Provid er: MARYLOU COOPER Report Released Date/Time: Dec 18, 2021 04:16 PM Reporting Lab: [address] [address] Performing Lab: [address] [address] HEMOGLOBIN A1C 5.9 4.8-7.8 Dec 20, 2021 10:00 AM [facility] LIPID PROFILE 3 Specimen Type: SERUM No comment enter ed. Ordering Provid er: MARYLOU COOPER Report Released Date/Time: Dec 18, 2021 04:16 PM Reporting Lab: [address] [address] Performing Lab: [address] [address] CHOLESTEROL 235.0 H <200 TRIGLYCERIDE. 148.0 <200 LDL-ELE 161 H <100 HDL. 44.0 40-60 Dec 20, 2021 10:00 [facility] HYPERSENSITIVE TSH: (3RD Spe cimen Type: SERUM AM GEN) No comment enter ed. Ordering Provid er: MARYLOU COOPER Report Released Date/Time: Dec 18, 2021 04:16 PM Reporting Lab: [address] [address] Performing Lab: [address] [address] HYPERSENSITIVE TSH: (3RD GEN) 1.65 0.27-4.2 Dec 20, 2021 10:00 [facility] COMPLETE CHEMISTRY Specimen Type: SERUM AM PROFILE No comment enter ed. Ordering Provid er: MARYLOU COOPER Report Released Date/Time: Dec 18, 2021 04:16 PM Reporting Lab: [address] [address] Performing Lab: [address] [address] CREATININE 1.0 .7-1.2 UREA NITROGEN 22 H 6-20 GLUCOSE 103 70-115 SODIUM 139.0 136-145 POTASSIUM 4.9 3.5-5.1 CHLORIDE 105.1 98-107 CO2 23.7 22-29 CALCIUM 9.2 8.6-10.2 PROTEIN,TOTAL 7.0 6.6-8.7 ALBUMIN 4.4 3.5-5.2 BILIRUBIN, TOTAL 0.2 0.0-1.2 ALKALINE PHOSPHATASE 81 40-129 AST 18 0-40 ALT 23 0-41 ANION GAP 10.0 <20 GLOMERULAR FILTRATION RATE (eGFR) 81 >59 Vital Signs: All taken on the encounter date This section contains inpatient and outpatient Vital Signs collected on the date of the Encounter. Date/Time Temperature Pulse Blood Respiratory SP02 Pain Height Weight [place] dy Source Pressure Rate Mass Index Dec 27, 98.6 F 77 119/76 16 /min 99 % 3 68 in 222.6 34 [place] 2021 11:18 /min mm[Hg] lb [facility] AM
--- OUTSIDE RECORDS SUMMARY | 2022-02-08 16:47 | XMS_ITS | Encounter Summary ---
:1975 Author Organization Department [facility] rs Address [address] [place] [id number] Support Name Relationship Address Phone LANG NAZARIO Unavailable [address] [place] [address] OLIVIA GOVEA Unavailable Unavailable Selected Encounter This section includes the information on record at [facility] for the Encounter. Date/Time Encounter Type Encounter Reason Provider Source Description Dec 27, 2021 OFFICE O/P EST PRIMARY ICD-10-CM E78.5 [facility]00 AM MOD 30-39 MIN CARE/MEDICINE Hyperlipidemia, OYA E unspecified with Provider Comments: Hyperlipidemia ([facility] [id number]) IHE Encounter Template Text not used by [facility] Assessments - Encounter Diagnoses This section includes the primary and secondary diagnoses documented for the Encounter. Date/Time Primary/Secondary Diagnosis Name Provider Source Diagnosis Dec 27, 2021 PRIMARY Hyperlipidemia, [facility] [place] [facility]:47 AM unspecified A E ([facility]) Dec 27, 2021 SECONDARY Cervicalgia [place], [place] 11:47 AM A E ([facility]) Dec 27, 2021 SECONDARY Chronic serous [place] 11:47 AM otitis media, A E ([facility]) right ear Dec 27, 2021 SECONDARY Obesity, [place], [place] 11:47 AM unspecified [place] E ([facility]) Dec 27, 2021 SECONDARY Occipital [place] 11:47 AM neuralgia A E ([facility]) Dec 27, 2021 SECONDARY Overactive bladder [place], [place] 11:47 AM A E ([facility]) Dec 27, 2021 SECONDARY Unspecified [place], [place] 11:47 AM convulsions A E ([facility]) Plan of Treatment: Future Appointments (+ 6 months) and Future Tests (+/- 45 days) The Plan of Treatment section includes future care activities for the patient [facility] [place] [facility] This section includes future appointments and future orders which are active, pending orscheduled.Future Appointments This section includes appointments that were scheduled to occur 6 months from the date of the Encounter, up to a maximum of 20 appointments. The data comes from all [facility] facilities. Appointment Date/Time Appointment Type Appointment Facili ty Name Jan 14, 2022 10:30 AM AMBULATORY - NONE [facility] Feb 19, 2022 01:00 PM AMBULATORY [facility] Mar 04, 2022 10:00 AM AMBULATORY [facility] Active, Pending, and Scheduled Orders This [...] from all [facility]. Test Date/Time Test Type Test Details Facility Name Dec 27, 2021 11:48 AM Laboratory - Chemistry HEPATITIS B SURFACE [facility] Order ANTIGEN SERUM (GOLD) SP ONCE Dec 27, 2021 11:48 AM Laboratory - Chemistry HEPATITIS B SURFACE [facility] Order ANTIBODY SERUM (GOLD) SP Dec 27, 2021 11:48 AM Laboratory - Chemistry HEP B CORE AB, T SE RUM [facility] Order (GOLD) SP ONCE Dec 27, 2021 11:48 AM Laboratory - Chemistry HEPATITIS B CORE [facility] Order ANTIBODY IGM SERUM (GOLD) SP ONCE Dec 27, 2021 11:48 AM Laboratory - Chemistry HEPATITIS Be ANTIBO DY [facility] Order SERUM (GOLD) SP ONCE Dec 27, 2021 11:48 AM Laboratory - Chemistry HEPATITIS Be ANTIGE N [facility] Order SERUM (GOLD) SP ONCE Dec 27, 2021 02:56 PM Consult Order [facility]-ENT Cons [facility] [employer] Dec 27, 2021 02:56 PM Consult Order COMM[facility]ITY [facility]ARE-NEUROLOGY D [facility] Cons [employer] Lab Results: +/- 30 days of [...] Reference Range Comment Jan 14, 2022 11:46 [facility] URINALYSIS & Specimen Typ e: urine (random) AM MICROSCOPIC No comment enter ed. Ordering Provid er: TERE WALKER Report Released Date/Time: Jan 14, 2022 11:28 AM Reporting Lab: [address] [id number] Performing Lab: [address] [address] URINE COLOR Yellow SPECIFIC GRAVITY 1.021 1.003-1.030 UROBILINOGEN NORMAL <2.0 URINE BILIRUBIN NEGATIVE neg URINE KETONES NEGATIVE neg URINE GLUCOSE NEGATIVE neg URINE PROTEIN 30 neg URINE PH 7.0 5-7.5 URINE WBC/HPF <1 /HPF 0-5 URINE MUCUS RARE NoneObs URINE RBC/HPF <1 /HPF 0-3 APPEARANCE CLEAR URINE BLOOD NEGATIVE neg NITRITE, URINE NEGATIVE neg LEUKOCYTE ESTERASE, URINE NEGATIVE NEG Dec 20, 2021 10:00 [facility] COMPLETE CHEMISTRY Specimen Type: SERUM AM PROFILE No comment enter ed. Ordering Provid er: MARYLOU COOPER Report Released Date/Time: Dec 18, 2021 04:16 PM Reporting Lab: [address] [address] Performing Lab: [address] [address] CREATININE 1.0 .7-1.2 UREA NITROGEN 22 H 6-20 GLUCOSE 103 70-115 SODIUM 139.0 136-145 POTASSIUM 4.9 3.5-5.1 CHLORIDE 105.1 98-107 CO2 23.7 22-29 CALCIUM 9.2 8.6-10.2 PROTEIN,TOTAL 7.0 6.6-8.7 ALBUMIN 4.4 3.5-5.2 BILIRUBIN, TOTAL 0.2 0.0-1.2 ALKALINE PHOSPHATASE 81 40-129 AST 18 0-40 ALT 23 0-41 ANION GAP 10.0 <20 GLOMERULAR FILTRATION RATE (eGFR) 81 >59 Dec 20, 2021 10:00 [facility] CBC & 5 PART DIFFERENTIAL Sp ecimen Type: BLOOD AM No comment enter ed. Ordering Provid er: MARYLOU COOPER Report Released Date/Time: Dec 18, 2021 04:16 PM Reporting Lab: [address] [address] Performing Lab: [address] [address] WBC 7.1 3.8-10.7 RBC 4.49 3.92-5.8 HGB [...] 0.1 0.0-0.1 Dec 20, 2021 10:00 AM [facility] HEMOGLOBIN A1C Specimen Type: BLOOD No comment enter ed. Ordering Provid er: MARYLOU COOPER Report Released Date/Time: Dec 18, 2021 04:16 PM Reporting Lab: [address] [address] Performing Lab: [address] [address] HEMOGLOBIN A1C 5.9 4.8-7.8 Dec 20, 2021 10:00 AM [facility] LIPID PROFILE 3 Specimen Type: SERUM No comment enter ed. Ordering Provid er: MARYLOU COOPER Report Released Date/Time: Dec 18, 2021 04:16 PM Reporting Lab: [address] [address] Performing Lab: [address] [id number] CHOLESTEROL 235.0 H <200 TRIGLYCERIDE. 148.0 <200 LDL-ELE 161 H <100 HDL. 44.0 40-60 Dec 20, 2021 10:00 [facility] HYPERSENSITIVE TSH: (3RD Spe cimen Type: SERUM AM GEN) No comment enter ed. Ordering Provid er: MARYLOU COOPER Report Released Date/Time: Dec 18, 2021 04:16 PM Reporting Lab: [facility] [address] [address] Performing Lab: [facility] [address] [address] HYPERSENSITIVE TSH: (3RD GEN) 1.65 0.27-4.2 Social History: Smoking Status (Most current) and [...] place. Date/Time Current Smoking Status Comment Facility Dec 27, 2021 11:00 AM [place] FORMER USER [place] ([facility]) Tobacco Use History This section includes a history of the smoking, or tobacco- related health factors, that were collected on or before the date of the Encounter. The data comes from the [place] facility where the Encounter took place. Date/Time Smoking Status/Tobacco Use Comment [facility] Dec 27, 2021 11:00 AM [place]-TOBAC[place] QUIT 5 TO < 15 YRS [place] ([facility]) Encounter Notes: All associated encounter notes This section contains the clinical notes associated to the Encounter. Date/Time Encounter Note(s) Provider Source Dec 27, 2021 02:32 PM PRIMARY CARE NURSE PRACTITIONER NOTE: MARYLOU CORADO [place] ([facility]) LOCAL TITLE: [facility] - PRIMARY CARE CLOTH INSPECTOR NOTE STANDARD TITLE: PRIMARY CARE NURSE PRACTITIONER NOTE DATE OF NOTE: DEC 27, 2021@14:32 ENTRY DATE: DEC 27, 2021@14:32:15 AUTHOR: MARYLOU COOPER EXP COSIGNER: URGENCY: STATUS: COMPLETED Patient is a 46 year old . comes in for routine followup and review of cu rrent medications. NONVA PCP:N/A Allergies: Gabpaentin ; Lyrica HLD Last LDL 161, Trig 148, and TC 235 Patient currently does not take any medication Patient encouraged to adhere to a heart healthy diet Begin Fish Oil Occipital Neuralgia Patient has a history of occipital neuralgia Patient currently takes Carbamazepine Patient reports compliance with medication Patient symptoms are controlled Convulsions Patient complains of convulsions Patient reports he was in the process of being r eferred to neurology Will order EEG and refer Overractive Bladder Patient has a history of overractive bladder Patient reports he tried and failed oxybutyin Patient was followed by Urology Will refer back to Urology Chronic serous otitis media Patient has a history of chronic serous otitis m edia Patient reprots symptoms only occur on the R aneta e Patient has tubes in places without any relief Patient was seeing ENT in [place] will place referral today Obesity Patient has a history of obesity Patient currently takes Qysmia Patient has been restarted on medication since A Patient wishes to remain on medication PAST MEDICAL HISTORY: ACTIVE PROBLEM LIST 10 Active Problems PROBLEM LAST MOD PROVIDER Low back pain 12/27/2021 [facility] Chronic serous otitis media 12/27/2021 [facility] 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 PSYCHIATRIC:NO SUICIDAL HOMICIDAL IDEATION. HEAD, EYES, EARS, NOSE AND THROAT - No Blurred v ision. RESPIRATORY - Denies any cough, congestion, hemo ptysis, wheezing or shortness of breath. CARDIOVASCULAR - Denies chest pain, palpitations , edema. GASTROINTESTINAL -NO ABDOMINAL PAIN, NO BLOOD IN STOOLS, NO N/V/D. GENITOURINARY -NO HEMATURIA. MUSCULOSKELETAL - NO NEW BACK OR MUSCLE OR JOINT DISORDERS. NEUROLOGICAL - NO SZ. NO SYNCOPE. ENDOCRINE- Denies any polyuria, polydipsia, or p olyphagia. LYMPHATIC-Denies any lymphadenopathy. INTEGUMENTARY - Denies any new rash or skin lesi ons. OBJECTIVE: VITAL SIGNS: Vitals Enter at: Dec 27, 2021@11:18:07 BP: 119/76 P: 77 R: 16 T: 98.6 BODY MASS INDEX DEC 27, 2021@11:18:07 33.9 Measurement DT POx (L/MIN)(%) 12/27/2021 11:18 99 PHYSICAL ASSESSMENT: GENERAL APPEARANCE: WDWN male in NAD, appropriat richie dressed and groomed. Appears well. PSYCHIATRIC: Appropriate mood and affect. Alert and oriented X 3. SKIN: Warm and dry. No rashes noted. HEENT: Normocephalic/Atraumatic. PERRLA/EOMI. Co njunctiva ANicteric. Nares patent. NECK: supple. No adenopathy, mass, thyromegaly, or meningismus noted. CHEST: Clear to ausculation, no wheezing, no rho nchi, no rales. HEART: RRR without murmur, gallop, rub. ABDOMEN: No mass/tenderness noted. No HEPATOSPLE NOMEGALY. SOFT. MUSCULOSKELETAL: Range of motion nnl and no subl uxation/dislocation noted. Extremity strength symetrical with no atrophy an d no abnormal movements. NEUROLOGIC: NO FOCAL NEUROLOGICAL DEFICITS. LABS:Labs last 3 months: Collection DT Specimen Test Name Result Units Re f Range 12/20/2021 10:00 BLOOD HEMOGLOBIN A1C 5.9 % 4.8 - 7.8 12/20/2021 10:00 BLOOD ANC 4.60 K/uL 1.9 - 7.3 ABLYCT 1.80 K/uL 0.9 - 3.8 AMC 0.4 K/uL 0.2 - 0.9 ABSOLUTE EOS COUN 0.2 K/uL 0.0 - 0.5 ABCT 0.1 K/uL 0.0 - 0.1 WBC 7.1 K/cmm 3.8 - 10.7 RDW 13.9 % 12.6 - 15.7 RBC 4.5 M/cmm 3.92 - 5.8 HGB 13.7 g/dl 12 - 17.5 HCT 40.6 % 35.8 - 52.9 MCV 90.3 cmu 81.2 - 99.8 MCH 30.5 uug 26.6 - 34.5 MCHC 33.8 gm/dL 32.1 - 35.5 PLT 269 K/cmm 139 - 358 GRAN % 65.0 % LYMPH % 25.2 % MONO % 6.2 % EOS % 2.5 % BASO % 1.1 % 12/20/2021 10:00 SERUM TRIGLYCERIDE. 148.0 mg/dl Ref: <= 200 LDL-ELE 161 H MG/DL Ref: <= 100 HDL. 44.0 MG/DL 40 - 60 TSH: 1.65 uIU/ml 0.27 - 4.2 eGFR >60 mL/min Ref: >=59 SODIUM 139.0 mmol/L 136 - 145 POTASSIUM 4.9 mmol/L 3.5 - 5.1 CO2 23.7 mmol/L 22 - 29 CHLORIDE 105.1 mmol/L 98 - 107 GLUCOSE 103 mg/dl 70 - 115 UREA NITROGEN 22 H mg/dl 6 - 20 CREATININE 1.0 MG/DL .7 - 1.2 PROTEIN,TOTAL 7.0 g/dL 6.6 - 8.7 ALBUMIN 4.4 g/dL 3.5 - 5.2 CALCIUM 9.2 mg/dl 8.6 - 10.2 CHOLESTEROL 235.0 H mg/dl Ref: <= 200 BILIRUBIN, TOTAL 0.2 mg/dl 0.0 - 1.2 ALK LETA 81 U/L 40 - 129 AST 18 U/L 0 - 40 ANION GAP 10.0 Ref: <=20 ALT 23 U/L 0 - 41 ASSESSMENT/PLAN: 1. HLD- Begin Fish Oil; Encouraged to follow a l ow fat diet 2. Occipital neuralgia- Continue Carbamazepine 3. Convulsion- Order EEG and refer to Neurology once recieved 4. Overractive Bladder- Refer back to Urology 5. Chronic Serous Otitis Media- Refer back to EN T 6. Obesity- Continue Qysmia RTC: 6 MONTHS (or sooner as needed) LIFESTYLE MODIFICATIONS: Patient education focused on the benefits of goo d nutrition and exercise for the maintenance of a healthy cardio vascular system and healthy blood glucose levels . TIME SPENT WITH PATIENT TODAY: 30 minutes. /pippa/ MARYLOU COOPER NURSE PRACTITIONER Signed: 12/27/2021 14:41 Dec 27, 2021 02:29 PM LIFE-SUSTAINING TREATMENT PLAN: MARYLOU COOPER [place] ([place]) LOCAL TITLE: LIFE-SUSTAINING TREATMENT STANDARD TITLE: LIFE-SUSTAINING TREATMENT PLAN DATE OF NOTE: DEC 27, 2021@14:29 ENTRY DATE: DEC 27, 2021@14:29:18 AUTHOR: MARYLOU COOPER EXP COSIGNER: URGENCY: STATUS: COMPLETED LIFE-SUSTAINING TREATMENT (LST) DECISION-MAKING CAPACITY TO MAKE DECISIONS ABOUT LIFE_SUSTAINING TREATMENTS Patient has capacity to make decisions about LS Ts. HEALTH CARE SURROGATE'S NAME AND CONTACT INFORMA TION Next of kin: Parent(s) Name and Contact Information: Olivia Govea [phone] 'S VALUES AND GOALS OF CARE - Goals as reported by the patient (or surrogat e): Prolong Life LIFE-SUSTAINING TREATMENT PLAN * In the event of cardiopulmonary arrest: Full code: Attempt CPR. Other Life-Sustaining Treatments: No other life-sustaining treatments were discus sed INFORMED CONSENT Patient gave oral informed consent for life-jason taining treatment plan. /pippa/ MARYLOU COOPER NURSE PRACTITIONER Signed: 12/27/2021 14:30 Dec 27, 2021 02:27 PM MEDICATION MGT NOTE: [place] COOPER [place] ([facility] LOCAL TITLE: MEDICATION RECONCILIATION STANDARD TITLE: MEDICATION MGT NOTE DATE OF NOTE: DEC 27, 2021@14:27 ENTRY DATE: DEC 27, 2021@14:27:27 AUTHOR: MARYLOU COOPER EXP COSIGNER: URGENCY: STATUS: COMPLETED Medication Reconciliation [facility] [address] [place], [place] [address] Printed and given to Patient DEC 27, 2021 OLIVIA NAZARIO [address] [place] [address] Dear OLIVIA NAZARIO, Confidential Essential Medication List Summary Please keep this current medication list and di scard old medication lists. Take only the medications listed below. Name: OLIVIA NAZARIO : Feb MRT5 / MRT1 MED RECONCILITATION TOOL Allergies/ADRs (Tool #5) FACILITY ALLERGY/ADR -------- [facility] BUPROPION [facility] DULOXETINE [facility] FISH [facility] LANSOPRAZOLE [facility] MILK [facility] NORTRIPTYLINE [facility] OMEPRAZOLE [facility] [place] [facility]ONTIN [facility] LIRAGLUTIDE [facility] PREGABALIN [facility] BU[facility]IO N [facility] LANSOPRA ZOLE [facility] NORTRIPT YLINE [facility] OMEPRAZO LE [facility] PREGABAL IN Med. Reconciliation (Tool #1) INCLUDED IN THIS LIST: Alphabetical list of act jhonny outpatient prescriptions dispensed from this [place] (local) an d dispensed from another [place] or [facility] facility (remote) as well as inpatien t orders (local pending and active), local clinic medications, locally docu mented non-VA medications, and local prescriptions that have or be en discontinued in the past 90 days. Non-VA Meds Last Documented On: Data not fou nd NOTE The display of VA prescriptions disp ensed from another [place] or [facility] facility (remote) is limited to active outp atient prescription entries matched to National Drug File at the [facility] site and may not include some items such as investigational drugs, compo unds, etc. NOT INCLUDED IN THIS LIST: Medications self-ent ered by the patient into personal health records (i.e. [employer]) ar e NOT included in this list. Non-VA medications documented outside [facility], remote inpatient orders (regardless of status) and remote clinic medications are NOT included in this list. The patient and provider must always discuss medications the patient is taking, regardless o f where the medication was dispensed or obtained. Remote CALCIUM POLYCARBOPHIL 625MG TAB TAKE ONE TABLET BY MOUTH TWICE DAILY TAKE ONE TABLET BY MOUTH TWICE DAILY WITH MEAL OR FOOD W ITH FULL GLASS OF WATER. Last Filled: 09/12/21 (Active at [facility]) Rx Expiration Date: 06/25/22 Days Supply: 90 Remote CARBAMAZEPINE (PRASCO) 100MG CAP,SA TAKE ONE CAPSULE BY MOUTH ONCE DAILY Last Filled: 12/24/21 (Active at [facility]) Rx Expiration Date: 12/05/22 Days Supply: 30 OUTPT CARBAMAZEPINE TAB,SA (Status = Pending) TAKE 100MG BY MOUTH EVERY DAY Login Date: 12/27/21 Qty/Days Supply: 90/90 Refills Ordered: 3 OUTPT CETIRIZINE HCL 10MG TAB (Status = Pending ) TAKE ONE TABLET BY MOUTH EVERY DAY Login Date: 12/27/21 Qty/Days Supply: 90/90 Refills Ordered: 3 Remote CETIRIZINE HCL 10MG TAB TAKE ONE TABLET BY MOUTH ONCE DAILY NEEDED F OR ALLERGIES Last Filled: 12/11/21 (Active at [facility]) Rx Expiration Date: 06/25/22 Days Supply: 30 Remote KETOCONAZOLE 2% SHAMPOO SHAMPOO SMALL AMOUNT TOPICALLY ONCE DAILY Last Filled: 12/04/21 (Active at [facility]) Rx Expiration Date: 05/14/22 Days Supply: 30 OUTPT KETOCONAZOLE 2% SHAMPOO (Status = Pending ) SHAMPOO 1 CAPFUL TOPICALLY EVERY DAY Login Date: 12/27/21 Qty/Days Supply: 240/90 Refills Ordered: 3 Remote LACTOBACILLUS ACIDOPHILUS TAB TAKE 1 TABLET BY MOUTH ONCE DAILY Last Filled: 12/04/21 (Active at [facility]) Rx Expiration Date: 12/05/22 Days Supply: 90 Remote MELATONIN 5MG CAP/TAB TAKE TWO CAPSULE/TABLET BY MOUTH AT BEDTIME NEEDED Last Filled: 05/22/21 (Active at [facility]) Rx Expiration Date: 05/23/22 Supply: 45 OUTPT PANTOPRAZOLE NA 40MG EC TAB (Status = Pen ding) TAKE ONE TABLET BY MOUTH EVERY DAY SWALLOW WH OLEfor stomach Login Date: 12/27/21 Qty/Days Supply: Refills Ordered: 3 Remote PANTOPRAZOLE NA 40MG TAB,EC TAKE ONE TABLET BY MOUTH ONCE DAILY Last Filled: 01/12/22 (Active/Suspended at [facility]) Rx Expiration Date: 06/25/22 Days Supply: 90 Remote PHENTERMINE 7.5MG/TOPIRAMATE 46MG CAP,SA TAKE 1 CAPSULE BY MOUTH EVERY MORNING WITH OR WITHOUT FOOD Last Filled: 12/04/21 (Active at [facility]) Rx Expiration Date: 06/06/22 Days Supply: 28 SUPPLIES PHARMACY TERMS AND POSSIBLE PATIENT A CTIONS INPT = [place] inpatient order IV = [place] intravenous medication OUTPT = [place] outpatient prescription PHARMACY POSSIBLE PATIENT TERMS EXPLANATION ACTIONS -------- ------ ACTIVE A prescription that can be If you have r efills, filled at the local VA pharmacy. you may reques t a refill of this prescription from your VA pharmacy. CLINIC A medication you received during If you have questions a visit to a [place] clinic or about this medication emergency department. contact your [place] healthcare team. DISCONTINUED A prescription your provider has C ontact your VA stopped. It is no longer healthcare team if you available to be sent to you or need more of thi s picked up at the [place] pharmacy medication. window. A prescription which is too old Contact your VA to fill. This does not refer to healthcare team if you the expiration date of the need more of this medication in the container. medication. NON-VA A medication that came from If this medi cation is someplace other than a [place] medication informatio n pharmacy. This may be a is incorrect or out of prescription from either the VA date, please te ll your other providers that was filled VA healthcare t eam. outside the VA. Or, it may be an xrdz-lhw-vxoyund (OTC), herbal, dietary supplement or sample medication. ON HOLD An active prescription that will Contac t your VA not be filled until pharmacy pharmacy when you need resolves the issue. more of this medication. PENDING This prescription order has been If you have been sent to the pharmacy for review instructed to colleen thibodeaux the and is not ready yet. this medication now, contact your VA pharmacy. SUSPENDED An active prescription that is Contac t your VA not scheduled to be filled yet. pharmacy if you need You should receive it before you this medicatio n run out. now. Medication(s) have been changed during this vis it. Reviewed the following topics with patient/caregiver: 1. The name, type and reason for each new medic ation(s). 2. How to administer the medication (include pr ocess, time,frequency,route,dose). 3. The effect, anticipated actions, and potenti al side effects of each new medication(s). 4. How to monitor side effe ct and what actions to take for each medication(s). 5. Explained that medication(s) handout(s) woul d be provided by pharmacy at time of pick-up. Comment: Continuation of medication from [facility] *Was medication education provided for new medi cations or changes to medications? (including medication name, dose, route, reason for use, and potential side effects). No new medications or medication changes during this encounter. Dec 27, 2021 11:57 AM PRIMARY CARE DISCHARGE NOTE: CRISTA VILLEDA [place] (CB) LOCAL TITLE: PC - NEXT STEP OF CARE STANDARD TITLE: PRIMARY CARE DISCHARGE NOTE DATE OF NOTE: DEC 27, 2021@11:57 ENTRY DATE: DEC 27, 2021@11:58:12 AUTHOR: CRISTA VILLEDA EXP COSIGNER: URGENCY: STATUS: COMPLETED [facility] PATIENT DISCHARGE INSTR UCTION SHEET OLIVIA NAZARIO Thanks for choosing [facility] for your medical care. We hope you had a pleasant and productive visit. YOUR CARE TODAY Weight, Height and BMI: Your most recent BMI is greater than 29.9 This is clinically obese. BODY MASS INDEX DEC 27, 2021@11:18:07 33.9 Height: 68 in [172.7 cm] (12/27/2021 11:18) Weight:222.6 lb [100.97 kg] (12/27/2021 11:18) Blood Pressure: Your blood pressure is 119/76 (12/27/2021 11:18 ). Blood Sugar: Your hemoglobin A1C level is Collection DT Specimen Test Name Result Units R ef Range 12/20/2021 10:00 BLOOD HEMOGLOBIN A1C 5.9 % 4.8 - 7.8 Your goal Hemoglobin A1C is less than 7%. Check & log your blood sugars as directed by e Provider. Bring the log of your blood sugar readings to y our next appointment. Cholesterol: Your LDL cholesterol ( bad cholesterol ) is: Collection DT Specimen Test Name Result Units R ef Range 12/20/2021 10:00 SERUM LDL-ELE 161 H MG/DL Ref: <=100 Consults made today: Other: colonoscopy You will be receiving information regarding the date & time of your appointment(s) YOUR NEXT STEP OF CARE Next appointment: Priscila Your next appointment in Primary Care will be i n 7 months. If you have any questions or concerns, geovanna hawthorne call the 24 hour Nurse Triage Line [phone] and leave a message fo r your provider. The Scheduling/Appointment Line is . Education: Understanding Food and Cholesterol , Eating Hea rt-Healthy Food Your Care Plan for Life Goals: 1. Action: Measure: 2. Action: Measure: 3. Action: Measure: Did we ask you about your preferences for invol vement in care? Yes Were family members involved in the decision-ma tu process for your care? No Would you give us a 10 when rating your visit t o the VA today? Yes If not, what can we do to make this visit a 10? Additional instructions: Please call Crista at [phone] ext. [phone] for any questions or concerns. If you have Refills remaining on your medicatio ns, please use the following systems for requestin.) Request by computer using [email or web address] 2.) Mail refill request to: Pharmacy [address] [address] 3.) Automated refill system: Ext. [phone] 4.) Use the Pharmacy Drop Box in the Pharmacy w aiting room If you are out of refills and need a new prescr iption Call Nurse Triage . Patient verbalizes understanding of the above m aterial. A copy of the information was provided. 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 The has not already been diagnosed as h aving TBI during post 12/29 deployment. 1. The experienced the following events during deployment: Patient denies experiencing any TBI related sally nts during deployment. Negative Screen Hepatitis C Testing: Patient declines HCV lab test. Avg Risk Colorectal Cancer Screen: AVERAGE RISK colorectal cancer screening is due based on information available to this clinical reminder Screening is due now. Colonoscopy consult has b een ordered. See orders tab for details. Hepatitis B Serology/Immunization: see orders /es/ MARYLOU COOPER NURSE PRACTITIONER Signed: 12/27/2021 11:47 Dec 27, 2021 11:21 AM PRIMARY CARE NURSING NOTE: CRISTA VILLEDA GA ([facility]) LOCAL TITLE: PC - INTAKE NOTE STANDARD TITLE: PRIMARY CARE NURSING NOTE DATE OF NOTE: DEC 27, 2021@11:21 ENTRY DATE: DEC 27, 2021@11:21:48 AUTHOR: CRISTA VILLEDAIGNER: URGENCY: STATUS: COMPLETED Age: 46 Sex: MALE Height: 68 in [172.7 cm] (12/27/2021 11:18) Weight: 222.6 lb [100.97 kg] (12/27/2021 11:18) BP: 119/76 (12/27/2021 11:18) TEMP: 98.6 F [37.0 C] (12/27/2021 11:18) PULSE: 77 (12/27/2021 11:18) RESP: 16 (12/27/2021 11:18) Pain Score: 3 (12/27/2021 11:18) Pulse Oximeter: Measurement DT POx (L/MIN)(%) 12/27/2021 11:18 99 TIME OF ARRIVAL: 1110 Allergies/Reaction: NEURONTIN, LYRICA Have any new allergies been identified? No Explain new allergy: Allergy to Latex: No Allergy to Tape: No CHIEF COMPLAINT/REASON FOR VISIT: Transferring f rom the [facility]. LIVING ARRANGEMENTS: Lives with Family/significa nt other How does your family or living situation affect your health? Does not affect Action: ABUSE: In the past year have you experie nced any trauma due to abuse, assault, neglect, sexual molestation or exploitation? No If yes, would you like assistance with this? If yes, the following Provider was notified of t he request assistance CULTURE/SPIRITUAL: Would your family background, beliefs or pentecostal needs have any effect on how you like to be cared for (ex. Diet, ritual, treatment, etc.)? No If yes, referral to hospital mortician: DUAL CARE INFORMATION: Do yo u see a physician outside of the [facility] for healthcare? No Are you taking medications not prescribed by the [facility] Provider? No educated about safety issues related to dual care? Yes SKIN ASSESSMENT: Is the [place] bed or wheelchair bound? No Does the require assistance to transfer/ change position? No Does the have existing pressure ulcers/h istory of ulcers?No Does the have existing wounds, skin lesi on or rash? No Do you have a family member or friend that parti cipates in your medical care? Yes Name: Does this person reside in the same household? Yes What are your preferences for participation in t reatment plan of care? PATIENT CARE PLAN FOR LIFE GOALS: Homelessness/Food Insecurity Screen: In the past 2 months, have you been living in s table housing that you own, rent, or stay in as part of a household? Y es - Living in stable housing. Are you worried or concerned that in the next 2 months you may NOT have stable housing that you own, rent, or stay in a s part of a household? No - Not worried about housing near future The [place] reports the following: Within the past 12 months, you worried whether your food would run out before you got money to buy more. Never true Within the past 12 months, the food you bought just didn't last and you didn't have money to get more. Never true [place] Post-Deployment Screen: The patient reports no service in [employer] [place], [employer] [place] [place], Operation [place], Operation [facility] or [employer] [place]. MOVE!/Weight Mgt Screen: At this visit, the health risks of obesity were reviewed with the patient, and the benefits of weight loss were discussed. Patient has been offered and declined referral to MOVE! program After discussing the health risks of obesity an d offering a referral to MOVE! or another weight loss program outside [facility], the patient declines referral to MOVE! or other weight loss program at this time. Influenza Immunization: No influenza vaccination was received during [facility] recent influenza season. Suicide Screen: C-SSRS Screening [place] Suicide Severity Rating Scale (C-SSRS) screener 1. Over the past month, have you wished you wer e or wished you could go to sleep and not wake up? No 2. Over the past month, have you had any actual thoughts of killing yourself? No 3. Over the past month, have you been thinking about how you might do this? Response not required due to responses to other questions. 4. Over the past month, have you had these [facility] ghts and had some intention of acting on them? Response not required due to responses to other questions. 5. Over the past month, have you started to wor k out or worked out the details of how to kill yourself? Response not required due to responses to other questions. 6. If yes, at any time in the past month did yo u intend to carry out this plan? Response not required due to responses to other questions. 7. In your lifetime, have you ever done anythin g, started to do anything, or prepared to do anything to end you r life (for example, collected pills, obtained a gun, gave away valu adryan, went to the roof but didn't jump)? No 8. If YES, was this within the past 3 months? Response not required due to responses to other questions. PTSD Screening: PC-PTSD-5 A PTSD screening test (PC-PTSD-5) was negative (score=0). Have you ever had any experience that was so fr ightening, horrible or upsetting that, IN THE PAST MONTH, you: Have you ever experienced this kind of event? YES 1. Had nightmares about the event(s) or thought about the event(s) when you did not want to? NO 2. Tried hard not to think about the event(s) o r went out of your way to avoid situations that reminded you of the ev ent(s)? NO 3. Been constantly on guard, watchful, or easil y startled? NO 4. Washta numb or detached from people, activitie s, or your surroundings? NO 5. Washta guilty or unable to stop blaming yourse lf or others for the event(s) or any problems the event(s) may have caused? NO Depression Screening: Perform PHQ-2 A PHQ-2 screen was performed. The score was 0 w hich is a negative screen for depression. Over the past two weeks, how often have you bee n bothered by the following problems? 1. Little interest or pleasure in doing things Not at all 2. Feeling down, depressed, or hopeless Not at all Tobacco Use Screening: The patient is a former tobacco user. The patient quit five to less than fifteen year s ago. Alcohol Use Screen (AUDIT-C): Alcohol Screen: SCREEN FOR ALCOHOL (AUDIT-C) An alcohol screening test (AUDIT-C) was negativ e (score=1). 1. How often did you have a drink containing al cohol in the past year? Monthly or less 2. How many drinks containing alcohol did you h ave on a typical day when you were drinking in the past year? One or two drinks 3. How often did you have six or more drinks on one occasion in the past year? Never Patient Communication: The patient's preferred language is: Faroese If the patient has any SPECIAL COMMUNICATION NE EDS that are required for effective communication during the provision of care, treatment, and services, please list them here: No Relationship Health & Safety Screen: RELATIONSHIP HEALTH & SAFETY SCREEN ENVIRONMENTAL SAFETY CHECK: Environment is safe to proceed INFORMED CONSENT TO SCREEN & DOCUMENT: Individual consents to documentation? Yes Individual consents to proceed with screening? Yes PRIMARY SCREEN: In the past 12 months, how often did a current or former intimate partner (e.g., boyfriend, girlfriend, , , se xual partner): Scream or curse at you: Never Insult or talk down to you: Rarely Threaten you with harm: Never Physically hurt you: Never In the past 12 months, how often did a current or former intimate partner force or pressure you to have sexual co ntact against your will, or when you were unable to say no? Never PRIMARY SCREEN RESULTS: The individual endorsed at least one form of IP V (i.e., endorsed at least one of the 5 items above). SECONDARY SCREEN (Risk Assessment - 3 Questions ): Has the IPV behavior increased in frequency/sev erity in the past 6 months? No Has your partner ever choked or strangled you? No Do you believe your partner may kill you? No SECONDARY SCREEN RESULTS: Secondary Risk Screen is negative (i.e., answer ed no to all 3 items above) ??The HITS tool is US copyright protected by Ryan Warren MD, and the user has full rights to use it throughout the [facility] system. DISPOSITION: Provided general IPV education. /pippa/ CRISTA VILLEDA LPN LPN Signed: 12/27/2021 11:30 Dec 27, 2021 11:14 AM INFECTIOUS DISEASE RISK ASSESSMENT SCR EENING NOTE: CRISTA VILLEDA GA ([facility]) LOCAL TITLE: SCREENING COVID STANDARD TITLE: INFECTIOUS DISEASE RISK ASSESSME NT SCREENING NOT DATE OF NOTE: DEC 27, 2021@11:14 ENTRY DATE: DEC 27, 2021@11:15:10 AUTHOR: CRISTA VILLEDA EXP COSIGNER: URGENCY: STATUS: COMPLETED Coronavirus Disease 2019 (COVID-19) Screen The patient was asked if in the last 14 days the y have had new onset of any COVID-19 symptoms. They report the following: No symptoms Within the past 14 days, the patient reports no exposure to someone with a febrile/respiratory illness or someone with a kn own or suspected case of COVID-19 (within 6 feet for > 15 minutes). Result: Screen is negative. /real VILLEDA LPN LPN Signed: 12/27/2021 11:16
--- OUTSIDE RECORDS SUMMARY | 2022-02-08 16:48 | XMS_ITS | Encounter Summary ---
:1975 Author Organization Department of [facility] rs Address [address] [place] [address] Support Name Relationship Address Phone LANG NAZARIO Unavailable [address] [place] [address] JEFERSONOLIVIA Unavailable Unavailable Selected Encounter This section includes the information on record at [place] for the Encounter. Date/Time Encounter Type Encounter Reason Provider Source Description Jan 02, 2022 04:07 Outpatient TELEPHONE CASE [address], PM Encounter MANAGEMENT MEGHA Eunice Encounter Template Text not used by [place] Plan of Treatment: Future Appointments (+ 6 [...] Jan 14, 2022 10:30 AM AMBULATORY - [facility] Feb 19, 2022 01:00 PM AMBULATORY - [facility] Mar 04, 2022 10:00 AM AMBULATORY [facility] Active, Pending, and Scheduled Orders [...] AM Laboratory - Chemistry HEPATITIS B SURFACE [facility] Order ANTIGEN SERUM (GOLD) SP ONCE Dec 27, 2021 11:48 AM Laboratory - Chemistry HEPATITIS B SURFACE [facility] Order ANTIBODY SERUM (GOLD) SP Dec 27, 2021 11:48 AM Laboratory - Chemistry HEP B CORE AB, T SE RUM [facility] Order (GOLD) SP ONCE Dec 27, 2021 11:48 AM Laboratory - Chemistry HEPATITIS B CORE [facility] Order ANTIBODY IGM SERUM (GOLD) SP ONCE Dec 27, 2021 11:48 AM Laboratory - Chemistry HEPATITIS Be ANTIBO DY [facility] Order SERUM (GOLD) SP ONCE Dec 27, 2021 11:48 AM Laboratory - Chemistry HEPATITIS Be ANTIGE N [facility] Order SERUM (GOLD) SP ONCE Dec 27, 2021 02:56 PM Consult Order COMMUNITY CARE-ENT Cons [facility] Call Center Director's Choice Dec 27, 2021 02:56 PM Consult Order COMMUNITY CARE-NEUROLOGY D [facility] Cons Call Center Director's Choice Lab Results: +/- 30 days of [...] Reference Range Comment Jan 14, 2022 11:46 [facility] URINALYSIS & Specimen Typ e: urine (random) AM MICROSCOPIC No comment enter ed. Ordering Provid er: TERE WALKER Report Released Date/Time: Jan 14, 2022 11:28 AM Reporting Lab: [address] [address] Performing Lab: [address] [address] URINE COLOR Yellow SPECIFIC GRAVITY 1.021 1.003-1.030 UROBILINOGEN NORMAL <2.0 URINE BILIRUBIN NEGATIVE neg URINE KETONES NEGATIVE neg URINE GLUCOSE NEGATIVE neg URINE PROTEIN 30 neg URINE PH 7.0 5-7.5 URINE WBC/HPF <1 /HPF 0-5 URINE MUCUS RARE NoneObs URINE RBC/HPF <1 /HPF 0-3 APPEARANCE CLEAR URINE BLOOD NEGATIVE neg NITRITE, URINE NEGATIVE neg LEUKOCYTE ESTERASE, URINE NEGATIVE NEG Dec 20, 2021 10:00 AM [facility] LIPID PROFILE 3 Specimen Type: SERUM No comment enter ed. Ordering Provid er: MARYLOU COOPER Report Released Date/Time: Dec 18, 2021 04:16 PM Reporting Lab: [address] Performing Lab: [address] CHOLESTEROL 235.0 H <200 TRIGLYCERIDE. 148.0 <200 LDL-ELE 161 H <100 HDL. 44.0 40-60 Dec 20, 2021 10:00 [facility] HYPERSENSITIVE TSH: (3RD Spe cimen Type: SERUM AM GEN) No comment enter ed. Ordering Provid er: MARYLOU COOPER Report Released Date/Time: Dec 18, 2021 04:16 PM Reporting Lab: [place] [address] Performing Lab: [place] [address] HYPERSENSITIVE TSH: (3RD GEN) 1.65 0.27-4.2 Dec 20, 2021 10:00 [facility] COMPLETE CHEMISTRY Specimen Type: SERUM AM PROFILE No comment enter ed. Ordering Provid er: MARYLOU COOPER Report Released Date/Time: Dec 18, 2021 04:16 PM Reporting Lab: [address] Performing Lab: [place] [address] CREATININE 1.0 .7-1.2 UREA NITROGEN 22 H 6-20 GLUCOSE 103 70-115 SODIUM 139.0 136-145 POTASSIUM 4.9 3.5-5.1 CHLORIDE 105.1 98-107 CO2 23.7 22-29 CALCIUM 9.2 8.6-10.2 PROTEIN,TOTAL 7.0 6.6-8.7 ALBUMIN 4.4 3.5-5.2 BILIRUBIN, TOTAL 0.2 0.0-1.2 ALKALINE PHOSPHATASE 81 40-129 AST 18 0-40 ALT 23 0-41 ANION GAP 10.0 <20 GLOMERULAR FILTRATION RATE (eGFR) 81 >59 Dec 20, 2021 10:00 [facility] CBC & 5 PART DIFFERENTIAL Sp ecimen Type: BLOOD AM No comment enter ed. Ordering Provid er: MARYLOU COOPER Report Released Date/Time: Dec 18, 2021 04:16 PM Reporting Lab: [place] [id number] Performing Lab: [address] [address] WBC 7.1 3.8-10.7 RBC 4.49 3.92-5.8 HGB [...] 0.1 0.0-0.1 Dec 20, 2021 10:00 AM [facility] HEMOGLOBIN A1C Specimen Type: BLOOD No comment enter ed. Ordering Provid er: MARYLOU COOPER Report Released Date/Time: Dec 18, 2021 04:16 PM Reporting Lab: [address] [address] Performing Lab: [address] [address] HEMOGLOBIN A1C 5.9 4.8-7.8 Encounter Notes: All associated encounter notes This section contains the clinical notes associated to the Encounter. Date/Time Encounter Note(s) Provider Source Jan 02, 2022 04:07 PM MICROFILM OPERATOR NOTE: MEGHA LAURA [facility] LOCAL TITLE: POST 911 CASE MANAGEMENT SCREENING STANDARD TITLE: MICROFILM OPERATOR NOTE DATE OF NOTE: JAN 02, 2022@16:07 ENTRY DATE: JAN 02, 2022@16:07:52 AUTHOR: MARITZA LAURA EXP COSIGNER: URGENCY: STATUS: COMPLETED Post 12/29 Case Management Screen Unable to Contact First attempt to contact patient for Post 12/29 Case Management Screen was unsuccessful. Comment: SW attempted to contact Post 12/29 . Veter an did not answer phone. KOLBY unable to leave . /pippa/ MEGHA LAURA [place]ASS TECHNICIAN Signed: 01/02/2022 16:08
--- OUTSIDE RECORDS SUMMARY | 2022-02-08 16:48 | XMS_ITS | Encounter Summary ---
:1975 Author Organization Department of [facility] rs Address [address] [place] [address] Support Name Relationship Address Phone LANG GARCIA Unavailable [address] [place] [address] JEFERSON OLIVIA Unavailable Unavailable Selected Encounter This section includes the information on record at CT for the Encounter. Date/Time Encounter Type Encounter Description Reason Provider Source Dec 30, 2021 08:22 Outpatient Encounter UROLOGY CLINIC AM [facility] Encounter Template Text not used by CT Plan of Treatment: Future Appointments (+ 6 months) and Future Tests (+/- 45 days) The Plan of Treatment section includes future care activities for the [facility] This section includes future appointments and future orders which are active, pending orscheduled.Future Appointments This section includes appointments that were scheduled to occur 6 months from the date of the Encounter, up to a maximum of 20 appointments. The data comes from all CT treatment facilities. Appointment Date/Time Appointment Type Appointment Facili ty Name Jan 14, 2022 10:30 AM AMBULATORY - [facility] Feb 19, 2022 01:00 PM AMBULATORY [facility] Mar 04, 2022 10:00 AM AMBULATORY [facility] Active, Pending, and Scheduled Orders This section includes a listing of several types of active, pending, and scheduled orders, including clinic medications orders, diagnostic test orders, procedure orders and consult orders; where the start date of the order is 45 days before the date of the Encounter or 45 days after the date of the Encounter. The data comes from all [place] treatment facilities. Test Date/Time Test Type Test Details Facility Name Dec 27, 2021 11:48 AM Laboratory - Chemistry HEPATITIS B SURFACE [facility] Order ANTIGEN SERUM (GOLD) SP ONCE Dec 27, 2021 11:48 AM Laboratory - Chemistry HEPATITIS B SURFACE [facility] Order ANTIBODY SERUM (GOLD) SP Dec 27, 2021 11:48 AM Laboratory - Chemistry HEP B CORE AB, T SE RUM [facility] Order (GOLD) SP ONCE Dec 27, 2021 11:48 AM Laboratory - Chemistry HEPATITIS B CORE [facility] Order ANTIBODY IGM SERUM (GOLD) SP ONCE Dec 27, 2021 11:48 AM Laboratory - Chemistry HEPATITIS Be ANTIBO DY [facility] Order SERUM (GOLD) SP ONCE Dec 27, 2021 11:48 AM Laboratory - Chemistry HEPATITIS Be ANTIGE N [facility] Order SERUM (GOLD) SP ONCE Dec 27, 2021 02:56 PM Consult Order COMMUNITY CARE-ENT Cons [facility] Administrative Fellow's Choice Dec 27, 2021 02:56 PM Consult Order [facility] Cons Administrative Fellow's Choice Lab Results: +/- 30 days of [...] Reference Range Comment Jan 14, 2022 11:46 [facility] URINALYSIS & Specimen Typ e: urine (random) AM MICROSCOPIC No comment enter ed. Ordering Provid er: TERE WALKER Report Released Date/Time: Jan 14, 2022 11:28 AM Reporting Lab: [address] [address] Performing Lab: [address] [address] URINE COLOR Yellow SPECIFIC GRAVITY 1.021 1.003-1.030 [...] NEGATIVE NEG Dec 20, 2021 10:00 AM [facility] LIPID PROFILE 3 Specimen Type: SERUM No comment enter ed. Ordering Provid er: MARYLOU COOPER Report Released Date/Time: Dec 18, 2021 04:16 PM Reporting Lab: [address] [address] Performing Lab: [address] [address] CHOLESTEROL 235.0 H <200 TRIGLYCERIDE. 148.0 <200 LDL-ELE 161 H <100 HDL. 44.0 40-60 Dec 20, 2021 10:00 [facility] HYPERSENSITIVE TSH: (3RD Spe cimen Type: SERUM AM GEN) No comment enter ed. Ordering Provid er: MARYLOU COOPER Report Released Date/Time: Dec 18, 2021 04:16 PM Reporting Lab: [address] [address] Performing Lab: [address] [address] HYPERSENSITIVE TSH: (3RD GEN) 1.65 0.27-4.2 Dec 20, 2021 10:00 [facility] COMPLETE CHEMISTRY Specimen Type: SERUM AM PROFILE No comment enter ed. Ordering Provid er: MARYLOU COOPER Report Released Date/Time: Dec 18, 2021 04:16 PM Reporting Lab: [address] [address] Performing Lab: [address] [address] CREATININE 1.0 .7-1.2 UREA NITROGEN 22 H 6-20 GLUCOSE 103 70-115 SODIUM 139.0 136-145 POTASSIUM 4.9 3.5-5.1 CHLORIDE 105.1 98-107 CO2 23.7 22-29 CALCIUM 9.2 8.6-10.2 PROTEIN,TOTAL 7.0 6.6-8.7 ALBUMIN 4.4 3.5-5.2 BILIRUBIN, TOTAL 0.2 0.0-1.2 ALKALINE PHOSPHATASE 81 40-129 AST 18 0-40 ALT 23 0-41 ANION GAP 10.0 <20 GLOMERULAR FILTRATION RATE (eGFR) 81 >59 Dec 20, 2021 10:00 [facility] CBC & 5 PART DIFFERENTIAL Sp ecimen Type: BLOOD AM No comment enter ed. Ordering Provid er: MARYLOU COOPER Report Released Date/Time: Dec 18, 2021 04:16 PM Reporting Lab: [address] [address] Performing Lab: [address] [address] WBC 7.1 3.8-10.7 RBC 4.49 3.92-5.8 HGB [...] 0.1 0.0-0.1 Dec 20, 2021 10:00 AM [facility] HEMOGLOBIN A1C Specimen Type: BLOOD No comment enter ed. Ordering Provid er: MARYLOU COOPER Report Released Date/Time: Dec 18, 2021 04:16 PM Reporting Lab: [address] [address] Performing Lab: [address] [address] HEMOGLOBIN A1C 5.9 4.8-7.8 Encounter Notes: All associated encounter notes This section contains the clinical notes associated to the Encounter. Date/Time Encounter Note(s) Provider Source Dec 30, 2021 08:22 AM LETTERS: NAYANA BUCKNER [facility] LOCAL TITLE: SCHEDULING CONTACT LETTER STANDARD TITLE: LETTERS DATE OF NOTE: DEC 30, 2021@08:22 ENTRY DATE: DEC 30, 2021@08:22:21 AUTHOR: NAYANA BUCKNER EXP COSIGNER: URGENCY: STATUS: COMPLETED SUBJECT: SCL Dec 30, 2021 Olivia Garcia [address] [place] [address] In reference to: Scheduling an appointment Dear Olivia Garcia, At [facility], we value your service to our country and the opportunity to serve you. We attempted to contact you with the phone yenifere r(s) we have on file in effort to schedule an appointment for you, without succ ess. If you are interested in scheduling an appointme nt with UROLOGY, please contact us at ext. [phone] upon receipt of this letter. We hope to hear from you soon. With appreciation, Jonathan Gray [facility] Beginning January 18, 2019, smoking will no frances bharat be permitted on the [place] campus for patients, visitors, contractors, volu nteers, vendors and employees. The [facility] offers smoking cessation treatment serv ices for Veterans. If you would like more information about smoking cessation, dav bowles contact your Primary Care Team.
--- OUTSIDE RECORDS SUMMARY | 2022-02-08 16:48 | XMS_ITS | Encounter Summary ---
:1975 Author Organization Department of [facility] rs Address [address] [place] [id number] Support Name Relationship Address Phone LANG NAZARIO Unavailable [address] [phone] [place] [address] JEFERSON OLIVIA Unavailable Unavailable Selected Encounter This section includes the information on record at [place] for the Encounter. Date/Time Encounter Type Encounter Reason Provider Source Description Dec 30, 2021 [facility] ICD-10-CM E66.9 MENDEZ MULLER 05:01 PM ASSMT&MGMT 21+ Obesity, ORIA M unspecified with Provider Comments: Obesity (SCT [id number]) IHE Encounter Template Text not used by [facility] Assessments - Encounter Diagnoses This section includes the primary and secondary diagnoses documented for the Encounter. Date/Time Primary/Secondary Diagnosis Name Provider Source Diagnosis Dec 30, 2021 PRIMARY Obesity, [facility] 05:09 PM unspecified SANDRA M Plan of Treatment: Future Appointments (+ 6 [...] Jan 14, 2022 10:30 AM AM[facility]ATORY - [facility] Feb 19, 2022 01:00 PM AMBULATORY [facility] Mar 04, 2022 10:00 AM AMBULATORY [facility] Active, Pending, and Scheduled Orders This section includes a listing of several types of active, pending, and scheduled orders, including clinic medications orders, diagnostic test orders, procedure orders and consult orders; where the start date of the order is 45 days before the date of the Encounter or 45 days after the date of the Encounter. The data comes from all [place] treatment facilities. Test Date/Time Test Type Test Details Facility Name Dec 27, 2021 11:48 AM Laboratory - Chemistry HEPATITIS B SURFACE [facility] Order ANTIGEN SERUM (GOLD) SP ONCE Dec 27, 2021 11:48 AM Laboratory - Chemistry HEPATITIS B SURFACE [facility] Order ANTIBODY SERUM (GOLD) SP Dec 27, 2021 11:48 AM Laboratory - Chemistry HEP B CORE AB, T SE RUM [facility] Order (GOLD) SP ONCE Dec 27, 2021 11:48 AM Laboratory - Chemistry HEPATITIS B CORE [facility] Order ANTIBODY IGM SERUM (GOLD) SP ONCE Dec 27, 2021 11:48 AM Laboratory - Chemistry HEPATITIS Be ANTIBO DY [facility] Order SERUM (GOLD) SP ONCE Dec 27, 2021 11:48 AM Laboratory - Chemistry HEPATITIS Be ANTIGE N [facility] Order SERUM (GOLD) SP ONCE Dec 27, 2021 02:56 PM Consult Order COMMUNITY CARE-ENT Cons [facility] Regional Rehabilitation Director's Choice Dec 27, 2021 02:56 PM Consult Order COMMUNITY CARE-NEUROLOGY D [facility] Cons Regional Rehabilitation Director's Choice Lab Results: +/- 30 days of the encounter This section includes the Chemistry and Hematology Lab Results on record with [place] for the patient. Radiology Reports and Pathology Reports are provided separately, in subsequent sections.Lab Results This section contains the Chemistry/Hematology Results that were resulted 30 days before or 30 daysafter the date of the Encounter. Date/Time Source Result Type Result - Unit Interpretation Reference Range Comment Jan 14, 2022 11:46 [facility] URINALYSIS & Specimen Typ e: urine (random) AM MICROSCOPIC No comment enter ed. Ordering Provid er: TERE WALKER Report Released Date/Time: Jan 14, 2022 11:28 AM Reporting Lab: [address] [address] Performing Lab: [address] [address] URINE COLOR Yellow SPECIFIC GRAVITY 1.021 1.003-1.030 [...] NEGATIVE NEG Dec 20, 2021 10:00 AM [facility] LIPID PROFILE 3 Specimen Type: SERUM No comment enter ed. Ordering Provid er: MARYLOU COOPER Report Released Date/Time: Dec 18, 2021 04:16 PM Reporting Lab: [address] [address] Performing Lab: [address] [address] CHOLESTEROL 235.0 H <200 TRIGLYCERIDE. 148.0 <200 LDL-ELE 161 H <100 HDL. 44.0 40-60 Dec 20, 2021 10:00 [facility] HYPERSENSITIVE TSH: (3RD Spe cimen Type: SERUM AM GEN) No comment enter ed. Ordering Provid er: MARYLOU COOPER Report Released Date/Time: Dec 18, 2021 04:16 PM Reporting Lab: [address] [address] Performing Lab: [address] [address] HYPERSENSITIVE TSH: (3RD GEN) 1.65 0.27-4.2 Dec 20, 2021 10:00 [facility] COMPLETE CHEMISTRY Specimen Type: SERUM AM PROFILE No comment enter ed. Ordering Provid er: MARYLOU COOPER Report Released Date/Time: Dec 18, 2021 04:16 PM Reporting Lab: [address] [address] Performing Lab: [address] [address] CREATININE 1.0 .7-1.2 UREA NITROGEN 22 H 6-20 GLUCOSE 103 70-115 SODIUM 139.0 136-145 POTASSIUM 4.9 3.5-5.1 CHLORIDE 105.1 98-107 CO2 23.7 22-29 CALCIUM 9.2 8.6-10.2 PROTEIN,TOTAL 7.0 6.6-8.7 ALBUMIN 4.4 3.5-5.2 BILIRUBIN, TOTAL 0.2 0.0-1.2 ALKALINE PHOSPHATASE 81 40-129 AST 18 0-40 ALT 23 0-41 ANION GAP 10.0 <20 GLOMERULAR FILTRATION RATE (eGFR) 81 >59 Dec 20, 2021 10:00 [facility] CBC & 5 PART DIFFERENTIAL Sp ecimen Type: BLOOD AM No comment enter ed. Ordering Provid er: MARYLOU COOPER Report Released Date/Time: Dec 18, 2021 04:16 PM Reporting Lab: [address] [address] Performing Lab: [address] [address] WBC 7.1 3.8-10.7 RBC 4.49 3.92-5.8 HGB [...] 0.1 0.0-0.1 Dec 20, 2021 10:00 AM [facility] HEMOGLOBIN A1C Specimen Type: BLOOD No comment enter ed. Ordering Provid er: MARYLOU COOPER Report Released Date/Time: Dec 18, 2021 04:16 PM Reporting Lab: [address] [address] Performing Lab: [address] [address] HEMOGLOBIN A1C 5.9 4.8-7.8 Encounter Notes: All associated encounter notes This section contains the clinical notes associated to the Encounter. Date/Time Encounter Note(s) Provider Source Dec 30, 2021 05:01 PM PHARMACY MEDICATION MGT CONSULT: ATIF MULLER [facility] LOCAL TITLE: CONSULTS - PRIOR AUTHORIZATION GUILLE Whyte REQUEST STANDARD TITLE: PHARMACY MEDICATION MGT CONSULT DATE OF NOTE: DEC 30, 2021@17:01 ENTRY DATE: DEC 30, 2021@17:01:27 AUTHOR: ATIF MULLER EXP COSIGNER: URGENCY: STATUS: COMPLETED The medical record has been reviewed with regard to this prior authorization drug request. Medication requested: PHENTERMINE 7.5/TOPIRAMAT E 46MG SA CAP Drug Name: QYSMIA Strength: 7.5/46MG SA CAP Directions for Use: TAKE 1 CAPSULE DAILY Quantity to dispense: 30 # of refills: 5 2. Indication for Use: OBESITY Medical history relevant to this request: 46 YO [place] transferring [facility] from [facility] with pertinent PMH of obesit y, convulsions, overactive bladder, PTSD, occipital neuralgia, managed on Qysmia for wt loss. Per re view of [facility], has lost ~80 lbs since 2019 when placed on me dication. Has noted weight gain when running out of medication. Has tolerated me dication well per review of MD notes. Is NOT taking topiramate for seizure disor anyi, is managed on CBZ. Does not appear to have any exclusions per [facility]BM per review of chart (see shobha siegel). Will order as separate products (topiramate; phente rmine) as [facility] does not currently participate in REMS program for combination product. If the answer to ANY item below is met, then the patient should NOT receive phentermine/topiramate: [-] [-]Glaucoma [-]Hyperthyroidism [-]Recent cardiac or cerebrovascular event (with in past 6 months) [-]Unstable angina [-] End stage renal disease on dialysis [-]Severe hepatic impairment (Child-Schwartz Class C ) [-]History of cholelithiasis (within the past 6 months) [-]History of nephrolithiasis [-] Patient has history of suicidal attempts or active suicidal ideation [-]Use of a monoamine oxidase inhibitor within t he past 14 days [-]Concomitant use of an oral carbonic anhydrase inhibitor [-]Concurrent use of another medication FDA appr steve for weight loss or a stimulant (e.g., amphetamine, methylphenidate, or modafinil) [-]Prescribed topiramate for another condition ( e.g., seizures, migraine headache) where the addition of phentermine/topiramate would exceed a total dose of 400 mg topiramate per day The request is approved - Meets [place] Continuity of Care Criteria - - FOLLOW-UP PLAN: Order will be entered by MePlease for processing and delivery., Baudette will be monitored appropriat richie by prescribing provider., then process and mail to . ALLERGIES: Allergy/Reaction: NEURONTIN, LYRICA VITAL SIGNS: BP: 119/76 (12/27/2021 11:18) PULS E: 77 (12/27/2021 11:18) WEIGHT: 222.6 lb [100.97 kg] (12/27/2021 11:18) HEIGHT: 68 in [172.7 cm] (12/27/2021 11:18) BMI: BODY MASS INDEX DEC 27, 2021@11:18:07 33.9 PERTINENT LABS/MONITORING: RENAL FUNCTION: Collection DT Specimen Test Name Result Units R ef Range 12/20/2021 10:00 SERUM eGFR >60 mL/min Ref: >=5 9 12/20/2021 10:00 SERUM CREATININE 1.0 MG/DL .7 - 1.2 12/20/2021 10:00 SERUM UREA NITROGEN 22 H mg/dl 6 - 20 HEPATIC FUNCTION: Collection DT Specimen Test Name Result Units R ef Range 12/20/2021 10:00 SERUM PROTEIN,TOTAL 7.0 g/dL 6 .6 - 8.7 12/20/2021 10:00 SERUM ALBUMIN 4.4 g/dL 3.5 - 5 .2 12/20/2021 10:00 SERUM BILIRUBIN, TOTAL 0.2 mg/ dl 0.0 - 1.2 12/20/2021 10:00 SERUM ALKALINE PHOSPHAT 81 U/L 40 - 129 12/20/2021 10:00 SERUM AST 18 U/L 0 - 40 12/20/2021 10:00 SERUM ALT 23 U/L 0 - 41 CHEMISTRY/HEMATOLOGY: Collection DT Specimen Test Name Result Units R ef Range 12/20/2021 10:00 SERUM SODIUM 139.0 mmol/L 136 - 145 12/20/2021 10:00 SERUM POTASSIUM 4.9 mmol/L 3.5 - 5.1 12/20/2021 10:00 SERUM GLUCOSE 103 mg/dl 70 - 1 15 12/20/2021 10:00 SERUM CHLORIDE 105.1 mmol/L 98 - 107 12/20/2021 10:00 SERUM CO2 23.7 mmol/L 22 - 29 12/20/2021 10:00 BLOOD WBC 7.1 K/cmm 3.8 - 10.7 12/20/2021 10:00 BLOOD RBC 4.5 M/cmm 3.92 - 5.8 12/20/2021 10:00 BLOOD HGB 13.7 g/dl 12 - 17.5 12/20/2021 10:00 BLOOD HCT 40.6 % 35.8 - 52.9 12/20/2021 10:00 SERUM CALCIUM 9.2 mg/dl 8.6 - 10.2 12/20/2021 10:00 BLOOD PLT 269 K/cmm 139 - 358 GLYCEMIC CONTROL: Collection DT Specimen Test Name Result Units R ef Range 12/20/2021 10:00 BLOOD HEMOGLOBIN A1C 5.9 % 4.8 - 7.8 LIPID PANEL: Collection DT Specimen Test Name Result Units R ef Range 12/20/2021 10:00 SERUM LDL-ELE 161 H MG/DL Ref: <=100 12/20/2021 10:00 SERUM CHOLESTEROL 235.0 H mg/d l Ref: <=200 12/20/2021 10:00 SERUM TRIGLYCERIDE. 148.0 mg/d l Ref: <=200 12/20/2021 10:00 SERUM HDL. 44.0 MG/DL 40 - 60 time spent: 15 minutes /pippa/ ATIF MULLER, PHARMD, BCPS, BCACP CLINICAL LUMBER TRIPPER - PACT Signed: 12/30/2021 17:09
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
--- OUTSIDE RECORDS SUMMARY | 2022-02-08 16:49 | XMS_ITS | Encounter Summary ---
:1975 [address] [facility] rs Address [address] [place] [address] Support Name Relationship Address Phone LANG NAZARIO Unavailable [address] [place] [address] JEFERSON OLIVIA Unavailable Unavailable Selected Encounter This section includes the information on record at [place] for the Encounter. Date/Time Encounter Type Encounter Reason Provider Source Description Jan 03, 2022 HC PRO PHONE TELEPHONE CASE ICD-10-CM Z71.89 [facility] 11:52 AM CALL 11-20 MIN MANAGEMENT Other specified D,MEGHA counseling with Provider Comments: Other specified Counseling IHE Encounter Template Text not used by [place] Assessments - Encounter Diagnoses This section includes the primary and secondary diagnoses documented for the Encounter. Date/Time Primary/Secondary Diagnosis Name Provider Source Diagnosis Jan 03, 2022 PRIMARY Other [facility] AM counseling ,MEGHA Plan of Treatment: Future Appointments (+ 6 [...] Jan 14, 2022 10:30 AM AMBULATORY - [facility] Feb 19, 2022 01:00 PM AMBULATORY [facility] Mar 04, 2022 10:00 AM AMBULATORY [facility] Active, Pending, and Scheduled Orders This section [...] AM Laboratory - Chemistry HEPATITIS B SURFACE [facility] Order ANTIGEN SERUM (GOLD) SP ONCE Dec 27, 2021 11:48 AM Laboratory - Chemistry HEPATITIS B SURFACE [facility] Order ANTIBODY SERUM (GOLD) SP Dec 27, 2021 11:48 AM Laboratory - Chemistry HEP B CORE AB, T SE RUM [facility] Order (GOLD) SP ONCE Dec 27, 2021 11:48 AM Laboratory - Chemistry HEPATITIS B CORE [facility] Order ANTIBODY IGM SERUM (GOLD) SP ONCE Dec 27, 2021 11:48 AM Laboratory - Chemistry HEPATITIS Be ANTIBO DY [facility] Order SERUM (GOLD) SP ONCE Dec 27, 2021 11:48 AM Laboratory - Chemistry HEPATITIS Be ANTIGE N [facility] Order SERUM (GOLD) SP ONCE Dec 27, 2021 02:56 PM Consult Order COMMUNITY CARE-ENT Cons [facility] Supervisor Wool Shearing's Choice Dec 27, 2021 02:56 PM Consult Order COMMUNITY CARE-NEUROLOGY D [facility] Cons Supervisor Wool Shearing's Choice Lab Results: +/- 30 days of [...] Reference Range Comment Jan 14, 2022 11:46 [facility] URINALYSIS & Specimen Typ e: urine (random) AM MICROSCOPIC No comment enter ed. Ordering Provid er: TERE WALKER Report Released Date/Time: Jan 14, 2022 11:28 AM Reporting Lab: [address] [address] Performing Lab: [address] [address] URINE COLOR Yellow SPECIFIC GRAVITY 1.021 1.003-1.030 [...] NEGATIVE NEG Dec 20, 2021 10:00 AM [facility] LIPID PROFILE 3 Specimen Type: SERUM No comment enter ed. Ordering Provid er: MARYLOU COOPER Report Released Date/Time: Dec 18, 2021 04:16 PM Reporting Lab: [address] [address] Performing Lab: [address] [address] CHOLESTEROL 235.0 H <200 TRIGLYCERIDE. 148.0 <200 LDL-ELE 161 H <100 HDL. 44.0 40-60 Dec 20, 2021 10:00 [facility] HYPERSENSITIVE TSH: (3RD Spe cimen Type: SERUM AM GEN) No comment enter ed. Ordering Provid er: MARYLOU COOPER Report Released Date/Time: Dec 18, 2021 04:16 PM Reporting Lab: [address] [address] Performing Lab: [address] [address] HYPERSENSITIVE TSH: (3RD GEN) 1.65 0.27-4.2 Dec 20, 2021 10:00 [facility] COMPLETE CHEMISTRY Specimen Type: SERUM AM PROFILE No comment enter ed. Ordering Provid er: MARYLOU COOPER Report Released Date/Time: Dec 18, 2021 04:16 PM Reporting Lab: [address] [address] Performing Lab: [address] [address] CREATININE 1.0 .7-1.2 UREA NITROGEN 22 H 6-20 GLUCOSE 103 70-115 SODIUM 139.0 136-145 POTASSIUM 4.9 3.5-5.1 CHLORIDE 105.1 98-107 CO2 23.7 22-29 CALCIUM 9.2 8.6-10.2 PROTEIN,TOTAL 7.0 6.6-8.7 ALBUMIN 4.4 3.5-5.2 BILIRUBIN, TOTAL 0.2 0.0-1.2 ALKALINE PHOSPHATASE 81 40-129 AST 18 0-40 ALT 23 0-41 ANION GAP 10.0 <20 GLOMERULAR FILTRATION RATE (eGFR) 81 >59 Dec 20, 2021 10:00 [facility] CBC & 5 PART DIFFERENTIAL Sp ecimen Type: BLOOD AM No comment enter ed. Ordering Provid er: MARYLOU COOPER Report Released Date/Time: Dec 18, 2021 04:16 PM Reporting Lab: [address] [address] Performing Lab: [address] [address] WBC 7.1 3.8-10.7 RBC 4.49 3.92-5.8 HGB [...] 0.1 0.0-0.1 Dec 20, 2021 10:00 AM [facility] HEMOGLOBIN A1C Specimen Type: BLOOD No comment enter ed. Ordering Provid er: MARYLOU COOPER Report Released Date/Time: Dec 18, 2021 04:16 PM Reporting Lab: [address] [address] Performing Lab: [address] [address] HEMOGLOBIN A1C 5.9 4.8-7.8 Encounter Notes: All associated encounter notes This section contains the clinical notes associated to the Encounter. Date/Time Encounter Note(s) Provider Source Jan 03, 2022 11:52 AM TESTING DIRECTOR NOTE: MEGHA LAURA [facility] LOCAL TITLE: POST 911 CASE MANAGEMENT SCREENING STANDARD TITLE: TESTING DIRECTOR NOTE DATE OF NOTE: JAN 03, 2022@11:52 ENTRY DATE: JAN 03, 2022@11:52:37 AUTHOR: MARITZA LAURA EXP COSIGNER: URGENCY: STATUS: COMPLETED Post 12/29 Case Management Screen The was contacted by telephone. Diagnoses: Other specified Counseling (ICD-10-CM Z71.89) (P rimary) Procedures: Telephone Assessment and Man agement Service Provided by a Qualified Nonphysician Health Legal Support Assistant to an Established Patie nt, Parent, or Guardian not Originating from a Related A ssessment and Management Service Provided within the Previous 7 Days NOR Leading to an Assessment and Management Service or Procedure within the Next 24 hours or Soonest Available Ap pointment; 11-20 minutes of Medical Discussion Patient Educations: SOCIAL WORK CASE MANAGEMENT EDUCATION SUICIDE RISK EDUCATION SUICIDE WARNING SIGNS Health Factors: [facility]-POST 12/29 [facility] CONTACT-PHONE [facility]-POST 12/29 [facility]-DECLINED Driscoll demographic information has been lola orta as correct. Email Address: [email or web address] Driscoll was contacted and offered Post 12/29 Case Management Screening. The declined the offer of screening. KOLBY contacted Driscoll to comp lete Post 12/29 Assessment. KOLBY provided education on M2VA program . declin ed post 12/29 Assessment at this time. Driscoll stated he is currently connected with services and has no CM needs, questions or concerns at this time. Driscoll reported he retir ed from the [place] in 2008 and just [facility] [place] Driscoll denies SI/HI. denies A/V shaver llucinations. Driscoll reported he has the VCL number in the event of a crisis. KOLBY also educat ed on new VCL number 988 Press 1. KOLBY reviewed and confirmed the following appoi ntments: Future Appointments: Date Time Clinic ======= 07/21/2022 09:00 ALB PACT LAB SCHEDULING 07/29/2022 10:30 ALB PACT NP02 MENTAL STATUS EXAM: Attitude/Behavior: [X] Cooperative [] Uncooperat jhonny [] Quiet/Passive [] Calm and sleepy [] Restless [] Guarded/Defensive [] T hreatening [] Argumentative Mood: []Negative []Depressed - mild []Withdrawn []Angry []Irritable [] Anxious []Cheerful []Content []Labile [X]Euthymi c Speech: [X]Normal []Tangential []Pressured []Imp overished []Other Sensorium: [X] Alert and oriented to person, stephanie ce, time [] Confused/Disoriented Perceptual Distortions: [X] None [] Auditory Fady lucinations [] Visual Hallucinations by report [] Command Hallucinatio ns [] Non-bizarre Delusions [] Paranoid Delusions [] Grandiose Delusions [place] Hallucinations [] Olfactory Hallucinations [] Bizarre Delusions Thought Processes: [X] Logical [] Illogical [] O rganized/Coherent [] Disorganized/Incoherent [] Racing Thoughts [] Ta ngential [] Circumstantial [X] No Suicidal Thoughts [X] No Homicidal Thoughts Insight: [X] Good [] Fair [] Poor Judgment: [X] Good [] Fair [] Poor Time spent with patient: 11-20 minutes /pippa/ MEGHA LAURA ASSOCIATE DIRECTOR OF DEVELOPMENT Signed: 01/03/2022 11:54
--- OUTSIDE RECORDS SUMMARY | 2022-02-08 16:50 | XMS_ITS | Encounter Summary ---
:1975 Author Organization [facility] rs Address [address] [place] [address] Support Name Relationship Address Phone LANG NAZARIO Unavailable [address] [place] [address] JEFERSON OLIVIA Unavailable Unavailable Selected Encounter This section includes the information on record at [place] for the Encounter. Date/Time Encounter Type Encounter Reason Provider Source Description Jan 22, 2022 OFFICE PM&RS [facility] ICD-10-CM SAVANNAH COUCH 02:32 PM CONSULTATION S78.111D Complete traumatic amp at level betw r hip and knee, subs with Provider Comments: History of amputation of right leg through femur (SCT [id number] ) IHE Encounter Template Text not used by [facility] Assessments - Encounter Diagnoses This section includes the primary and secondary diagnoses documented for the Encounter. Date/Time Primary/Secondary Diagnosis Name Provider Source Diagnosis Jan 22, 2022 PRIMARY Complete traumatic SAVANNAH COUCH [facility] 02:41 PM amp at level betw r hip and knee, subs Jan 22, 2022 SECONDARY Low back pain, SAVANNAH COUCH [facility] 02:41 PM unspecified Plan of Treatment: Future Appointments (+ 6 months) and Future Tests (+/- 45 days) The Plan of Treatment section includes future care activities for the patient from all [place] treatmentfacilities. This section includes future appointments and future orders which are active, pending orscheduled.Future Appointments This section includes appointments that were scheduled to occur 6 months from the date of the Encounter, up to a maximum of 20 appointments. The data comes from all [place] treatment facilities. Appointment Date/Time Appointment Type Appointment Facili ty Name Feb 19, 2022 01:00 PM AMBULATORY - NONE [facility] Mar 04, 2022 10:00 AM AMBULATORY - NONE [facility] Jul 21, 2022 09:00 AM AMBULATORY - NONE [facility] Active, Pending, and Scheduled Orders This section includes a listing of several types of active, pending, and scheduled orders, including clinic medications orders, diagnostic test orders, procedure orders and consult orders; where the start date of the order is 45 days before the date of the Encounter or 45 days after the date of the Encounter. The data comes from all [place] treatment facilities. Test Date/Time Test Type Test Details Facility Name Dec 27, 2021 11:48 AM Laboratory - Chemistry HEPATITIS B SURFACE [facility] Order ANTIGEN SERUM (GOLD) SP ONCE Dec 27, 2021 11:48 AM Laboratory - Chemistry HEPATITIS B SURFACE [facility] Order ANTIBODY SERUM (GOLD) SP Dec 27, 2021 11:48 AM Laboratory - Chemistry HEP B CORE AB, T SE RUM [facility] Order (GOLD) SP ONCE Dec 27, 2021 11:48 AM Laboratory - Chemistry HEPATITIS B CORE [facility] Order ANTIBODY IGM SERUM (GOLD) SP ONCE Dec 27, 2021 11:48 AM Laboratory - Chemistry HEPATITIS Be ANTIBO DY [facility] Order SERUM (GOLD) SP ONCE Dec 27, 2021 11:48 AM Laboratory - Chemistry HEPATITIS Be ANTIGE N [facility] Order SERUM (GOLD) SP ONCE Dec 27, 2021 02:56 PM Consult Order COMMUNITY CARE-ENT Cons [facility] Manufacturing Test Engineer's Choice Dec 27, 2021 02:56 PM Consult Order COMMUNITY CARE-NEUROLOGY D [facility] Cons Manufacturing Test Engineer's Choice Lab Results: +/- 30 days of [...] Reference Range Comment Jan 14, 2022 11:46 [facility] URINALYSIS & Specimen Typ e: urine (random) AM MICROSCOPIC No comment enter ed. Ordering Provid er: TERE WALKER Report Released Date/Time: Jan 14, 2022 11:28 AM Reporting Lab: [address] [address] Performing Lab: [address] [address] URINE COLOR Yellow SPECIFIC GRAVITY 1.021 1.003-1.030 [...] Encounter. Date/Time Encounter Note(s) Provider Source Jan 22, 2022 02:32 PM PHYSICAL MEDICINE REHAB CONSULT: GREG COUCH [facility] LOCAL TITLE: CONSULTS - PM&RS STANDARD TITLE: PHYSICAL MEDICINE REHAB CONSULT DATE OF NOTE: JAN 22, 2022@14:32 ENTRY DATE: JAN 22, 2022@14:33:10 AUTHOR: SAVANNAH COUCH EXP COSIGNER: SUSAN ABURTO URGENCY: STATUS: COMPLETED REASON FOR REQUEST:THIS IS A REFERRAL FROM STEPHANIE OLGUIN Reason For Request: Artificial right lower extremity DX:RT AKA, LBP EVALUATION IS COMPLETED TELEPHONICALLY WITH THIS 46 Y/O MALE WHO IS WISHING TO GET ESTABLISHED IN [facility]. MR NAZARIO IS IN THE PROCESS OF MOVING FROM [place] AND HAS BEEN FOLLOWED BY THE [facility]. MR NAZARIO S USTAINED HIS [facility] IN 2014 SECONDARY TO FAILED SURGICAL INTERVENTION AND COMPARTMENT SYNDROME. HIS CURRENT RT A/K PROSTHESIS IS APPROX 2 YEARS OLD. HE HAS A SUCTION SEAL IN [place] FOR SUSPENSION. HE REPORTS HE MAY NEED A NEW SOCKET. MR MARCIO CUMMINS REPORTS HE WILL NOT BE IN [place] UNTIL THE SECOND WEEK OF FEBRUARY AND WOULD LIKE TO BE SEEN IN [facility] WHEN HE RETURNS. MR NAZARIO WAS PROVIDED THE NAMES OF THE PROSTHETIC COMPANY'S THAT ARE ON CONTRACT IN THE [place]. MR MARCIO CUMMINS HAS BEEN PROVIDED MY CONTACT INFORMATION AND TOLD TO CALL HE HAS ANY ISSUES IN THE INTERIM. MR NAZARIO WILL BE SCHEDULED TO [facility] ON 03/10/22. RT C ORDER PLACED TIME SPENT:31 MINUTES /pippa/ CINDY MADERA KINESIOTHERAPIST Signed: 01/22/2022 14:42 /pippa/ YURY ABURTO MD CHIEF PM&RS Cosigned: 01/22/2022 14:45
--- OUTSIDE RECORDS SUMMARY | 2022-02-08 16:50 | XMS_ITS | Encounter Summary ---
:1975 Author Organization [facility] of [facility] rs Address [address] [place] [address] Support Name Relationship Address Phone LANG NAZARIO Unavailable [address] [place] [address] OLIVIA GOVEA Unavailable Unavailable Selected Encounter This section includes the information on [place] at [place] for the Encounter. Date/Time Encounter Type Encounter Description Reason Provider Source Jan 22, 2022 04:02 Outpatient Encounter PM&RS [facility] PM IHE Encounter Template Text not used by [facility] Plan of Treatment: Future Appointments (+ 6 months) and Future Tests (+/- 45 days) The Plan of Treatment section includes future care activities for the patient [facility] [place] [facility] This section includes future appointments and future orders which are active, pending orscheduled.Future Appointments This section includes appointments that were scheduled to occur 6 months from the date of the Encounter, up to a maximum of 20 appointments. The data comes from all [place] treatment facilities. Appointment Date/Time Appointment Type Appointment Facili ty Name Feb 19, 2022 01:00 PM AMBULATORY [facility] Mar 04, 2022 10:00 AM AMBULATORY [facility] Jul 21, 2022 09:00 AM AMBULATORY [facility] Active, Pending, and Scheduled Orders This section includes a listing of several types of active, pending, and scheduled orders, including clinic medications orders, diagnostic test orders, procedure orders and consult orders; where the start date of the order is 45 days before the date of the Encounter or 45 days after the date of the Encounter. The data comes from all [place] treatment facilities. Test Date/Time Test Type Test Details Facility Name Dec 27, 2021 11:48 AM Laboratory - Chemistry HEPATITIS B SURFACE [facility] Order ANTIGEN SERUM (GOLD) SP ONCE Dec 27, 2021 11:48 AM Laboratory - Chemistry HEPATITIS B SURFACE [facility] Order ANTIBODY SERUM (GOLD) SP Dec 27, 2021 11:48 AM Laboratory - Chemistry HEP B CORE AB, T SE RUM [facility] Order (GOLD) SP ONCE Dec 27, 2021 11:48 AM Laboratory - Chemistry HEPATITIS B CORE [facility] Order ANTIBODY IGM SERUM (GOLD) SP ONCE Dec 27, 2021 11:48 AM Laboratory - Chemistry HEPATITIS Be ANTIBO DY [facility] Order SERUM (GOLD) SP ONCE Dec 27, 2021 11:48 AM Laboratory - Chemistry HEPATITIS Be ANTIGE N [facility] Order SERUM (GOLD) SP ONCE Dec 27, 2021 02:56 PM Consult Order COMMUNITY CARE-ENT Cons [facility] Data Developer's Choice Dec 27, 2021 02:56 PM Consult Order COMMUNITY CARE-NEUROLOGY D [facility] Cons Data Developer's Choice Lab Results: +/- 30 days of [...] Reference Range Comment Jan 14, 2022 11:46 [facility] URINALYSIS & Specimen Typ e: urine (random) AM MICROSCOPIC No comment enter ed. Ordering Provid er: TERE WALKER Report Released Date/Time: Jan 14, 2022 11:28 AM Reporting Lab: [address] [address] Performing Lab: [address] [address] URINE COLOR Yellow SPECIFIC GRAVITY 1.021 1.003-1.030 [...] Encounter Note(s) Provider Source Jan 22, 2022 04:04 PM LETTERS: MARYLOU ESCALONA [facility] LOCAL TITLE: SCHEDULING CONTACT LETTER STANDARD TITLE: LETTERS DATE OF NOTE: JAN 22, 2022@16:04 ENTRY DATE: JAN 22, 2022@16:04:16 AUTHOR: MARYLOU ESCALONA EXP COSIGNER: URGENCY: STATUS: COMPLETED [facility] [address] [place], [place] [address] JAN 22, [address] [place] [address] In reference to: Scheduling an appointment Dear Mr./Ms. OLIVIA NAZARIO, At [facility], we yamil ue your service to our country and the opportunity to serve you. We attempted to contact you with the jalyn ne number(s) we have on file in effort to schedule an appointment for you, without succ ess. If you are interested in scheduling an a ppointment with [facility]putem[facility], please contact us at [phone] upon receipt of this letter. We hope to hear from you soon. With appreciation, [facility] Beginning January 18, 2019, smoking will no frances bharat be permitted on the [place] campus for patients, visitors, contracto rs, volunteers, vendors and employees. The [facility] offers smoking cess ation treatment services for Veterans. If you would like more information about smoking cessation, please contact your Primary Care Team. Jan 22, 2022 04:02 PM TELEPHONE ENCOUNTER NOTE: MARYLOU ESCALONA DEANNE [facility] LOCAL TITLE: ADMINISTRATIVE SUPPORT NOTE STANDARD TITLE: TELEPHONE ENCOUNTER NOTE DATE OF NOTE: JAN 22, 2022@16:02 ENTRY DATE: JAN 22, 2022@16:02:30 AUTHOR: MARYLOU ESCALONA EXP COSIGNER: URGENCY: STATUS: COMPLETED Patient Demographic information: Jan OLIVIA NAZARIO Patient SSN: [id number] Address: [address] [place] [address] County: [facility] Patient Age: 46 Patient Gender:MALE Reported Changes to Demographic Information: Demographic Information Verified: No Person Speaking With: Other Reason for contact: Called to schedule Vet for v isit Scheduling Contact Attempt: FIRST attempt via telephone. Patient NOT reached. Sending 14-day letter ALTAGRACIA Dale /pippa/ CAROLINE ESCALONA MSA Signed: 01/22/2022 16:04
--- OUTSIDE RECORDS SUMMARY | 2022-02-08 16:55 | XMS_ITS | Continuity of Care Document ---
:1975 Author Organization [facility] Address [address] [place] [address]- Care Team Providers Name Role Phone Zari Estrada MD Primary Care Physician Encounter [facility] Date(s): 10/01/21 - 10/01/[address] [address]- Encounter Diagnosis Viral syndrome (Final) - 10/01/21 Seasonal allergies (Final) - 10/01/21 Discharge Disposition: A-D/C Home Attending Physician: Jonatan Luke MD Admitting Physician: Jonatan Luke MD Referring Physician: Not on Staff, Referring MD Allergies, Adverse Reactions, Alerts Substance Reaction Severity Status nortriptyline depression Active omeprazole GI Upset Active gabapentin swelling, anaphylaxis Active lansoprazole GI Upset Active Zyban severe vertigo Active Cats sneezing, runny nose itchy eyes Active Dogs Active Ragweed sneezing itchy eyes Active Duloxetine unknown Active Lyrica anaphylaxis, swelling Active Medications baclofen 10 mg oral tablet See Instructions, PRN, 1 tablet By Mouth 3 times a day, Refills 0, Maintenance, Pain , Moderate, 03/08/18 14:43:46 EST, Instructions Replace Required Details Start Date: 03/08/18 Status: OrderedCalcium 500+D 1 tablet, By Mouth, Daily, 0 Refills, Maintenance, 02/21/19 11:13:50 EST Start Date: 02/21/19 Status: OrderedFish Oil 1200 mg oral capsule 1 capsule = 1,200 mg, By Mouth, Daily, 0 Refills, Maintenance, 03/08/18 14:43:05 EST Start Date: 03/08/18 Status: Orderedpantoprazole 40 mg oral delayed release tablet 1 tablet = 40 mg, By Mouth, Daily, # 30 tablet, 0 Refills, Maintenance, 03/08/18 14:42:08 EST, EC Tablet Start Date: 03/08/18 Status: Orderedphentermine-topiramate 7.5 mg-46 mg oral capsule, extended release 1 capsule, By Mouth, Daily in AM, 0 Refills, Maintenance, 10/17/19 16:53:00 EDT Start Date: 10/17/19 Status: Orderedpolycarbophil 625 mg oral tablet By Mouth, Daily, 0 Refills, Maintenance, 10/17/19 16:51:00 EDT Start Date: 10/17/19 Status: OrderedZofran 4 mg oral tablet 1 tablet = 4 mg, By Mouth, Once, # 6 tablet, 0 Refills, Soft Stop, 07/11/20 11:19:00 EDT, Tablet, [facility], Partial fill upon patient request if the prescription is for a schedule II opioid drug., 173, cm, 07/11/20 7:39:00 EDT, Hei... Start Date: 07/11/20 Status: OrderedZyrTEC 10 mg oral tablet 1 tablet = 10 mg, By Mouth, Daily, # 30 tablet, 0 Refills, Maintenance, 03/08/18 14:42:33 EST, Tablet Start Date: 03/08/18 Status: Ordered Problem List Condition Effective Dates Status Health Status Informant Obese class I(Confirmed) Active Osteopenia(Confirmed) Active Results Radiology Reports Exam Date Time Procedure Performing Provider Status 10/01/21 12:06 PM Chest 2 Views Frontal and Lat Ninoska Cardenas ; Brandie (Verified) Notes:(Chest 2 Views Frontal and Lat) Reason For Exam: CoughRESULT: Chest 2 Views Frontal and Lat Chest 2 Views Frontal and Lat Hx of Present Illness: Cough, body aches x 2 weeks. Progressing. Dry, non- productive cough. Denies fevers. Denies CP SOB.; Reason: Cough; Clinical Question(s): Other: COMPARISON: None. FINDINGS: LINES AND TUBES: None. LUNGS AND PLEURA: Clear lungs. Normal pulmonary vascularity. No pleural effusion. No pneumothorax. HEART, MEDIASTINUM AND BRITTA: Heart is normal in size. Normal upper mediastinal and hilar contour. BONES AND SOFT TISSUES: No acute abnormality. IMPRESSION: No acute abnormality. WSN: [id number] Ordering Physician: Jonatan Luke Dictated By: Mihir Valencia MD Dictated Date/Time: 10/01/21 12:13 p Reviewed By: Mihir Valencia MD Signed By: Mihir Valencia MD Signed Date/Time: 10/01/21 12:13 pm Transcribed By: AGATHA Transcribed Date/Time: 10/01/21 12:10 pm Vital Signs Most recent to oldest [Reference Range]: 1 Height 173 cm (10/01/21 11:55 AM) Weight 97.8 kg (10/01/21 11:55 AM) Oxygen Saturation [94-100 %] 98 % (10/01/21 11:55 AM) Pulse Rate [55-90 bpm] 102 bpm *H* (10/01/21 11:55 AM) Blood Pressure [90-138/55-84 mm Hg] 150/78 mm Hg *H* (10/01/21 11:55 AM) Respiratory Rate [16-30 br/min] 16 br/min (10/01/21 11:55 AM) Temperature [96.8-100.4 DegF] 98.9 DegF (10/01/21 11:55 AM) Blood pressure sites Arm, left (10/01/21 11:55 AM) Temperature Route Temporal (10/01/21 11:55 AM) Dry Weight 97.8 kg (10/01/21 11:55 AM) Social History Social History Type Response Smoking Status Former smoker, quit more cyn n 30 days ago; Tobacco user in household: No; Other: Quit 2014; entered on: 03/08/18 Sex
--- OUTSIDE RECORDS SUMMARY | 2022-02-08 16:55 | XMS_ITS | Continuity of Care Document ---
:1975 Author Organization [facility] Address [address] [place] [address]- Care Team Providers Name Role Phone Radha Mcnally NP Primary Care Physician Encounter [facility] Date(s): 07/11/20 - 07/11/[address] [address]- Discharge Disposition: A-D/C Home Attending Physician: Nasima Salazar DO Admitting Physician: Nasima Salazar DO Referring Physician: Not on Staff, Referring MD Allergies, Adverse Reactions, Alerts Substance Reaction Severity Status nortriptyline depression Active omeprazole GI Upset Active gabapentin swelling, anaphylaxis Active lansoprazole GI Upset Active Zyban severe vertigo Active Neurontin anaphylaxis, swelling Active Cats sneezing, runny nose itchy eyes Active Dogs Active Ragweed sneezing itchy eyes Active Duloxetine unknown Active Lyrica anaphylaxis, swelling Active PriLOSEC GI Upset Active Medications baclofen 10 mg oral tablet [...] Refills, Soft Stop, 07/11/20 11:19:00 EDT, Tablet, [facility], Partial fill upon patient request if the prescription is for a schedule II opioid drug., 173, cm, 07/11/20 7:39:00 EDT, Hei... Start Date: 07/11/20 Status: OrderedZyrTEC 10 mg oral tablet 1 tablet = 10 mg, By Mouth, Daily, # 30 tablet, 0 Refills, Maintenance, 03/08/18 14:42:33 EST, Tablet Start Date: 03/08/18 Status: Ordered Problem List Condition Effective Dates Status Health Status Informant Osteopenia(Confirmed) Active Vital Signs Most recent to oldest 1 2 3 [Reference Range]: Height 173 cm (07/11/20 7:39 AM) Weight 84.5 kg (07/11/20 7:39 AM) Oxygen Saturation [94-100 100 % 100 % 100 % %] (07/11/20 5:10 PM) (07/11/20 2:54 PM) (07/11/20 1:2 4 PM) Pulse Rate [55-90 bpm] 89 bpm 93 bpm 88 bpm (07/11/20 5:10 PM) *H* (07/11/20 1:24 PM) (07/11/20 2:54 PM) Blood Pressure 130/82 mm Hg 127/85 mm Hg 125/77 mm Hg [90-138/55-84 mm Hg] (07/11/20 5:10 PM) (07/11/20 2:54 PM) ( 1 1:24 PM) Respiratory Rate [16-30 18 br/min 18 br/min 16 br/mi n br/min] (07/11/20 5:10 PM) (07/11/20 2:54 PM) (07/11/20 1:2 4 PM) Mode of Delivery (Oxygen) Room air Room air Room a ir (07/11/20 5:10 PM) (07/11/20 2:54 PM) (07/11/20 1:2 4 PM) Blood pressure sites Arm, left Arm, left Arm, left (07/11/20 5:10 PM) (07/11/20 2:54 PM) (07/11/20 1:2 4 PM) Temperature Route Temporal (07/11/20 7:39 AM) Dry Weight 84.5 kg (07/11/20 7:39 AM) Weight Obtained Via Patient/family stated (07/11/20 7:39 AM) Social History Social History Type Response Smoking Status Former smoker, quit more cyn n 30 days ago; Tobacco user in household: No; Other: Quit 2014; entered on: 03/08/18 Sex
--- OUTSIDE RECORDS SUMMARY | 2022-02-08 16:55 | XMS_ITS | Continuity of Care Document ---
:1975 Author Organization [facility] Address [address] [place] [address]- Care Team Providers Name Role Phone Uli ROJAS, Radha Menjivar Primary Care Physician [phone] Encounter [facility] Date(s): 10/22/20 - 10/22/[address] [address]- Discharge Disposition: A-D/C Home Attending Physician: Richy Stock MD Admitting Physician: Richy Stock MD Referring Physician: Not on Staff, Referring MD Allergies, Adverse Reactions, Alerts Substance Reaction Severity Status nortriptyline depression Active Zyban severe vertigo Active Ragweed sneezing itchy eyes Active omeprazole GI Upset Active gabapentin swelling, anaphylaxis Active lansoprazole GI Upset Active Cats sneezing, runny nose itchy eyes Active Neurontin anaphylaxis, swelling Active Dogs Active Lyrica anaphylaxis, swelling Active PriLOSEC GI Upset Active Duloxetine unknown Active Medications baclofen 10 mg oral tablet [...] 03/08/18 14:43:05 EST Start Date: 03/08/18 Status: Orderedibuprofen 600 mg oral tablet 600 mg, 1, tablet, By Mouth, Every 6 hours, PRN, for 30 days, # 90 tablet, Refills 0, Tot. Refills 0, Acute 11/21/20 12:24:00 EDT, Pain , Moderate, 10/22/20 12:24:00 EDT, Route to Pharmacy Electronically, [id number], Partial fill upon patie... Start Date: 10/22/20 Stop Date: 11/21/20 Status: OrderedoxyCODONE 5 mg oral capsule 1 capsule = 5 mg, By Mouth, Every 6 hours, PRN Pain , Severe, for 5 days, # 20 capsule, 0 Refills, Acute 10/27/20 12:25:00 EDT, 10/22/20 12:25:00 EDT, Capsule, [id number], Partial fill upon patient request if the prescription is for a sched... Start Date: 10/22/20 Stop Date: 10/27/20 Status: Orderedpantoprazole 40 mg oral delayed release [...] Dates Status Health Status Informant Osteopenia(Confirmed) Active Results Radiology Reports Exam Date Time Procedure Performing Provider Status 10/22/20 11:44 AM XR Femur 2 Views Right [place] , Thuthao T; Auth (V erified) Notes:(XR Femur 2 Views Right) Reason For Exam: PainRESULT: Femur 2 Views Right Femur 2 Views Right, 2 views HX OF PRESENT ILLNESS: increasing right stump pain pt reports no broken skin, no increased trauma tostump; Reason: Pain; Clinical Question(s): Fracture; stump pain COMPARISON: None. FINDINGS: No evidence of acute fracture or dislocation. Status post above-knee amputation. Unremarkable soft tissues. No radiopaque foreign body. IMPRESSION: No evidence of acute osseous abnormality. WSN: [id number] Ordering Physician: Richy Stock Dictated By: Tuan Denise MD Dictated Date/Time: 10/22/20 11:54 a Reviewed By: Tuan Denise MD Signed By: Tuan Denise MD Signed Date/Time: 10/22/20 11:54 am Transcribed By: AGATHA Transcribed Date/Time: 10/22/20 11:54 am Vital Signs Most recent to oldest [Reference Range]: 1 Height 173 cm (10/22/20 11:12 AM) Weight 91 kg (10/22/20 11:12 AM) Oxygen Saturation [94-100 %] 98 % (10/22/20 11:12 AM) Pulse Rate [55-90 bpm] 89 bpm (10/22/20 11:12 AM) Blood Pressure [90-138/55-84 mm Hg] 131/76 mm Hg (10/22/20 11:12 AM) Respiratory Rate [16-30 br/min] 16 br/min (10/22/20 11:12 AM) Temperature [96.8-100.4 DegF] 98.8 DegF (10/22/20 11:12 AM) Mode of Delivery (Oxygen) Room air (10/22/20 11:12 AM) Dry Weight 91 kg (10/22/20 11:12 AM) Weight Obtained Via Standing scale (10/22/20 11:12 AM) Social History Social History Type Response Smoking Status Former smoker, quit more cyn n 30 days ago; Tobacco user in household: No; Other: Quit 2014; entered on: 03/08/18 Sex
--- OUTSIDE RECORDS SUMMARY | 2022-02-08 16:55 | XMS_ITS | Continuity of Care Document ---
:1975 Author Organization [facility] Address [address] [place] [address]- Care Team Providers Name Role Phone Uli ROJAS, Radha Menjivar Primary Care Physician Encounter [facility] Date(s): 10/27/20 - 10/27/[address] [address]- Discharge Disposition: A-D/C Home Attending Physician: Daniel Vazquez MD Admitting Physician: Daniel Vazquez MD Referring Physician: Not on Staff, Referring [...] 10/22/20 12:24:00 EDT, Route to Pharmacy Electronically, [id number], Partial fill upon patie... Start Date: 10/22/20 Stop Date: 11/21/20 Status: Orderedpantoprazole 40 mg oral delayed release [...] Refills, Soft Stop, 07/11/20 11:19:00 EDT, Tablet, [facility], Partial fill upon patient [...] Active Vital Signs Most recent to oldest [Reference Range]: 1 2 Height 183 cm 183 cm (10/27/20 9:18 PM) (10/27/20 7:26 PM) Weight 85 kg 85 kg (10/27/20 9:18 PM) (10/27/20 7:26 PM) Oxygen Saturation [94-100 %] 98 % 100 % (10/27/20 9:18 PM) (10/27/20 7:17 PM) Pulse Rate [55-90 bpm] 84 bpm 98 bpm (10/27/20 9:18 PM) *H* (10/27/20 7:17 PM) Body Mass Index [18.5-24.99] 25.38 *H* (10/27/20 9:18 PM) Blood Pressure [90-138/55-84 mm Hg] 115/67 mm Hg 133/ 90 mm Hg (10/27/20 9:18 PM) (10/27/20 7:17 PM) Respiratory Rate [16-30 br/min] 18 br/min 20 br/mi n (10/27/20 9:18 PM) (10/27/20 7:17 PM) Temperature [96.8-100.4 DegF] 98.1 DegF (10/27/20: PM) Liters per Minute 0 L/min 0 L/min (10/27/20:18 PM) (10/27/20 7: PM) Mode of Delivery (Oxygen) Room air Room air (10/27/20 9:18 PM) (10/27/20 7:17 PM) Blood pressure sites Arm, left Arm, left (10/27/20 9:18 PM) (10/27/20 7:17 PM) Temperature Route Oral (10/27/20 7:17 PM) Dry Weight 85 kg 85 kg (10/27/20 9:18 PM) (10/27/20 7:26 PM) Social History Social History Type Response Smoking Status Former smoker, quit more cyn n 30 days ago; Tobacco user in household: No; Other: Quit 2014; entered on: 03/08/18 Sex
--- OUTSIDE RECORDS SUMMARY | 2022-02-08 16:55 | XMS_ITS | Continuity of Care Document ---
:1975 Author Organization [facility] Address [address] [place] [address]- Care Team Providers Name Role Phone Uli ROJAS, Radha Menjivar Primary Care Physician [phone] Encounter [facility] Date(s): 04/11/19 - 04/21/19 [facility] [address] [address]- [facility] Attending Physician: Neeta Yan Admitting Physician: Neeta Yan Referring Physician: AdmtrNeeta Allergies, Adverse Reactions, Alerts Substance Reaction Severity Status nortriptyline Active omeprazole Active gabapentin Active lansoprazole Active Zyban Active Neurontin Active Cats Active Dogs Active Ragweed Active Seasonale Active Duloxetine Active Lyrica Active PriLOSEC Active Medications baclofen 10 mg oral tablet See Instructions, PRN, 1 tablet By Mouth 3 times a day, Refills 0, Maintenance, Pain , Moderate, 03/08/18 14:43:46 EST, Instructions Replace Required Details Start Date: 03/08/18 Status: OrderedCalcium 500+D 1 tablet, 2 times a day, 0 Refills, Maintenance, 02/21/19 11:13:50 EST Start Date: 02/21/19 Status: OrderedFish Oil 1200 mg oral capsule 1 capsule = 1,200 mg, By Mouth, 3 times a day, 0 Refills, Maintenance, 03/08/18 14:43:05 EST Start Date: 03/08/18 Status: Orderedindomethacin 25 mg oral capsule See Instructions, 30-60 minutes prior to intercourse, # 30 capsule, 0 Refills, Maintenance, 02/25/1917:54:55 EST Start Date: 02/25/19 Status: Orderedpantoprazole 40 mg oral delayed release tablet 1 tablet = 40 mg, By Mouth, Daily, # 30 tablet, 0 Refills, Maintenance, 03/08/18 14:42:08 EST, EC Tablet Start Date: 03/08/18 Status: Orderedverapamil 40 mg oral tablet = 40 mg, By Mouth, 3 times a day, # 90 tablet, 0 Refills, Maintenance, 03/02/19 9:55:30 EST, Tablet Start Date: 03/02/19 Stop Date: 04/01/19 Status: OrderedZyrTEC 10 mg oral tablet 1 tablet = 10 mg, By Mouth, Daily, # 30 tablet, 0 Refills, Maintenance, 03/08/18 14:42:33 EST, Tablet Start Date: 03/08/18 Status: Ordered Problem List Condition Effective Dates Status Health Status Informant Osteopenia(Confirmed) Active Social History Social History Type Response Smoking Status Former smoker, quit more cyn n 30 days ago; Tobacco user in household: No; Other: Quit 2014; entered on: 03/08/18 Sex
--- OUTSIDE RECORDS SUMMARY | 2022-02-08 16:55 | XMS_ITS | Continuity of Care Document ---
:1975 Author Organization [facility] Address [address] [place] [id number] Care Team Providers Name Role Phone Non-Staff, Physician Primary Care Physician Unavailable Encounter [facility] [id number] Date(s): 10/15/21 - 10/15/[address] [address] Discharge Disposition: Home or Self Care Attending Physician: Seth Arellano MD Admitting Physician: Seth Arellano MD Referring Physician: Seth Arellano MD Allergies, Adverse Reactions, Alerts Substance Reaction Severity Status gabapentin Moderate Active Cymbalta Severe Active Lyrica Severe Active Medications carBAMazepine 100 mg oral capsule, extended release 100 mg = 1 cap, Oral, BID, # 60 cap, 0 Refill(s), Start Date: 10/15/21 14:21:00 EDT Start Date: 10/15/21 Status: Orderedcyclobenzaprine 10 mg oral tablet 10 mg = 1 tab, Oral, TID, PRN as needed for spasm, # 90 tab, 0 Refill(s), Start Date: 10/15/21 15:17:00 EDT, Pharmacy: [facility], 160, cm, 10/15/21 14:13:00 EDT, Height, 95, kg, 10/15/21 12:38:00 EDT, Weight Dosing Start Date: 10/15/21 Status: Ordereddexamethasone 0 Refill(s), Start Date: 10/15/21 14:18:00 EDT Start Date: 10/15/21 Status: Orderedpantoprazole 40 mg oral delayed release tablet 40 mg = 1 tab, Oral, BID, # 60 tab, 0 Refill(s), Start Date: 10/15/21 14:17:00 EDT Start Date: 10/15/21 Status: OrderedZyrTEC 10 mg oral tablet 10 mg = 1 tab, Oral, Daily, # 30 tab, 0 Refill(s), Start Date: 10/15/21 14:18:00 EDT Start Date: 10/15/21 Status: Ordered Problem List Condition Effective Dates Status Health Status Informant Unilateral AKA(Confirmed) Active Pain of right femur(Confirmed) Active Procedures Procedure Date Related Diagnosis Body Site Status BKA - Below knee amputation Completed Results Radiology Reports Exam Date Time Procedure Performing Provider Status 10/15/21 2:45 PM XR Femur 2 Views Right Tuan Berry; Au th (Verified) Notes:(XR Femur 2 Views Right) Reason For Exam: 46 yo male with a right AKA sustained a fall onto his right fermoral stump and is having pain wearing his prosthesis. Please x-ray.XR Femur 2 Views Right HISTORY Fell on right femoral stump STUDY Right femur four views COMPARISON None FINDINGS Above-knee femoral amputation with smooth stump and no evidence for fracture or bone destruction. The proximal femur is normal. Hip joint unremarkable. IMPRESSION No acute findings identified; distal femoral amputation. Electronically signed by: JAYA CARTAGENA (Oct 15, 2021 15:04:19) Final Signed by: Jaya Cartagena MD Signed (Electronic Signature): 10/15/2021 3:04 pm Social History Social History Type Response Tobacco Tobacco Use: Former tobacco user. Sex Male Radiology Note Jaya Cartagena MD: VERIFY, PERFORM, VERIFY Event Display: Radiology Report Authored Date: [id number] HISTORY Fell on right femoral stump STUDY Right femur four views COMPARISON None FINDINGS Above-knee femoral amputation with smooth stump and no evidence for fracture or bone destruction. The proximal femur is normal. Hip joint unremarkable. IMPRESSION No acute findings identified; distal femoral amputation. Electronically signed by: JAYA CARTAGENA (Oct 15, 2021 15:04:19) Final Signed by: Jaya Cartagena MD Signed (Electronic Signature): 10/15/2021 3:04 pm Care Team PersonnelName: Non-Staff, Physician
--- OUTSIDE RECORDS SUMMARY | 2022-02-08 16:55 | XMS_ITS | Continuity of Care Document ---
:1975 Author Organization [facility] Address [address] [place] [address]- Care Team Providers Name Role Phone Uli ROJAS, Radha Menjivar Primary Care Physician Encounter [facility] Date(s): 10/26/19 - 10/26/[address] [address]- [facility] Discharge Disposition: A-D/C Home Attending Physician: Yoly Gilmore MD Admitting Physician: Yoly Gilmore MD Referring Physician: Yoly Gilmore MD Allergies, Adverse Reactions, Alerts Substance Reaction [...] 10/17/19 16:51:00 EDT Start Date: 10/17/19 Status: OrderedZyrTEC 10 mg oral tablet 1 tablet = 10 mg, By Mouth, Daily, # 30 tablet, 0 Refills, Maintenance, 03/08/18 14:42:33 EST, Tablet Start Date: 03/08/18 Status: Ordered Problem List Condition Effective Dates Status Health Status Informant Osteopenia(Confirmed) Active Vital Signs Most recent to oldest 1 2 3 [Reference Range]: Height 172.72 cm 172.72 cm (10/26/19 8:13 AM) (10/17/19 5:06 PM) Oxygen Saturation [94-100 %] 98 % 97 % 95 % (10/26/19 10:15 AM) (10/26/19 10:00 AM) (10/26/19 9:45 AM) Pulse Rate [55-90 bpm] 79 bpm (10/26/19 8:13 AM) Blood Pressure [90-138/55-84 mm 108/53 mm Hg 108/53 mm Hg 108/56 mm Hg Hg] (10/26/19 10:15 AM) (10/26/19 10:00 AM) (10/26/19 9:45 AM) Respiratory Rate [16-30 br/min] 20 br/min 13 br/min 17 br/min (10/26/19 10:15 AM) *L* (10/26/19 9:57 A M) (10/26/19 10:00 AM) Temperature [96.8-100.4 DegF] 98.6 DegF 98.6 DegF (10/26/19 9:00 AM) (10/26/19 8:13 AM) Liters per Minute 4 L/min 4 L/min 4 L/min (10/26/19 9:30 AM) (10/26/19 9:15 AM) (10/26/19 9:00 A M) Mode of Delivery (Oxygen) Room air Room air Simple face mask (10/26/19 10:00 AM) (10/26/19 9:45 AM) (10/26/19 9:30 AM) Blood pressure sites Arm, left Arm, right (10/26/19 9:00 AM) (10/26/19 8:13 AM) Temperature Route Temporal Temporal (10/26/19 9:00 AM) (10/26/19 8:13 AM) Dry Weight 99.55 kg (10/17/19 5:06 PM) Social History Social History Type Response Smoking Status Former smoker, quit more cyn n 30 days ago; Tobacco user in household: No; Other: Quit 2014; entered on: 03/08/18 Sex
--- OUTSIDE RECORDS SUMMARY | 2022-02-08 16:55 | XMS_ITS | Continuity of Care Document ---
:1975 Author Organization [facility] Address [address] [place] [id number] Care Team Providers Name Role Phone Non-Staff, Physician Primary Care Physician Unavailable Encounter [facility] [id number] Date(s): 10/15/21 - 10/15/[address] [address] Encounter Diagnosis Encounter for medical screening examination (Discharge Diagnosis) - 10/15/21 Right leg pain (Discharge Diagnosis) - 10/15/21 Low back pain (Discharge Diagnosis) - 10/15/21 Discharge Disposition: Home or Self Care Attending Physician: Augustine Narvaez MD Admitting Physician: Augustine Narvaez MD Allergies, Adverse Reactions, Alerts Substance Reaction [...] Refill(s), Start Date: 10/15/21 15:17:00 EDT, Pharmacy: [email or web address] [place], 160, cm, 10/15/21 14:13:00 EDT, Height, 95, [...] 14:18:00 EDT Start Date: 10/15/21 Status: Ordered Mental Status 10/15/21 Eye Opening Response Mode Spontaneously Best Verbal Response Mode Oriented Best Motor Response Mode Obeys commands Liberty Coma Score 15 Problem List Condition Effective Dates Status Health Status Informant Unilateral AKA(Confirmed) Active Pain of right femur(Confirmed) Active Procedures Procedure Date Related Diagnosis Body Site Status BKA - Below knee amputation Completed Vital Signs Most recent to oldest [Reference Range]: 1 Temperature Oral [35.8-37.3 Deg C] 37.0 Deg C (10/15/21 12:33 PM) Peripheral Pulse Rate [60-100 bpm] 87 bpm (10/15/21 12:33 PM) Respiratory Rate [12-24 br/min] 18 br/min (10/15/21 12:33 PM) Blood Pressure [90-140/60-90 mmHg] 125/59 mmHg (10/15/21 12:33 PM) SpO2 [94 %] 97 % (10/15/21 12:33 PM) Triage Height 160 cm (10/15/21 12:33 PM) Triage Weight 95 kg (10/15/21 12:33 PM) Weight 95.00 kg (10/15/21 12:33 PM) Weight Dosing 95.00 kg (10/15/21 12:38 PM) Height 160.000 cm (10/15/21 12:33 PM) Height/Length Dosing 160.000 cm (10/15/21 12:38 PM) Body Mass Index Estimated 37 (10/15/21 12:33 PM) Social History Social History Type Response Tobacco Tobacco Use: Former tobacco user. Sex Male Hospital Discharge Instructions Patient Nhdxyhyfk86/28/2022 11:40:01Medical Screening ExamMedical Screening Exam A medical screening exam helps determine whether or not you need immediate medical treatment. This type of exam may be done in the emergency department, an urgent care setting, or your health care provider's office. During the exam, a health care provider does a short physical exam and asks about your medical history to assess: ??? Your current symptoms. ??? Your overall health. Depending on your symptoms, you may need additional tests. What are the possible outcomes of a medical screening exam? Your medical screening exam may determine that: ??? You do not need emergency treatment at this time. ??? You need treatment right away. ??? You need to be transferred to another medical center. ??? You need to have more tests. A medical sales associate may be consulted if necessary. When should I seek medical care? If you have a regular health care provider, make an appointment for a follow-up visit with him or her. If you do not have a regular health care provider, ask about resources in your community. Get help right away if: ??? Your condition gets worse or you develop new or troubling symptoms before you see your health care provider. If this occurs, go to an emergency department right away. In an emergency: ??? Call 911 or have someone drive you to the nearest hospital. ??? Do not drive yourself. Summary ??? A medical screening exam helps determine whether or not you need immediate medical treatment. ??? During the exam, a health care provider does a short physical exam and asks about your current symptoms and overall health. ??? More tests may be ordered during the exam. ??? You may need to be transferred to another medical center. This information is not intended to replace advice given to you by your health care provider. Make sure you discuss any questions you have with your health care provider. Document Revised: 07/29/2019 Document Reviewed: 11/02/2018 [employer] Patient Education ?? 2020 [employer]. Follow Up Care10/15/2021 12:15:03With:GO STRAIGHT TO CLINIC FOR FURTHER EVALUATION AND TREATMENT. Address:Unknown When: Unknown Comments:Return to ED if symptoms worsen Care Team PersonnelName: Non-Staff, Physician
--- OUTSIDE RECORDS SUMMARY | 2022-02-08 16:55 | XMS_ITS | Continuity of Care Document ---
:[address] [facility] Address [address] [place] [address] [place] [phone] Care Team Providers Name Role Phone Non-Staff, Physician Primary Care Physician Unavailable Encounter [facility] [id number] Date(s): 10/15/21 - 10/15/[address] [place] [phone] [place] Encounter Diagnosis Pain of right femur (Discharge Diagnosis) - 10/15/21 Unilateral AKA (Discharge Diagnosis) - 10/15/21 Lower back pain (Discharge Diagnosis) - 10/15/21 Left leg pain (Discharge Diagnosis) - 10/15/21 Discharge Disposition: Home or Self Care Attending Physician: Seth Arellano MD Allergies, Adverse Reactions, Alerts Substance Reaction Severity Status gabapentin Moderate Active Cymbalta Severe Active Lyrica Severe Active Functional Status 10/15/21 Recent Travel History No recent travel Family Member Travel History No recent travel Other exposure to Infectious Disease None Medications carBAMazepine 100 mg oral capsule, extended release 100 mg = 1 cap, Oral, BID, # 60 cap, 0 Refill(s), Start Date: 10/15/21 14:21:00 EDT Start Date: 10/15/21 Status: Orderedcyclobenzaprine 10 mg oral tablet 10 mg = 1 tab, Oral, TID, PRN as needed for spasm, # 90 tab, 0 Refill(s), Start Date: 10/15/21 15:17:00 EDT, Pharmacy: [facility] [place], 160, cm, 10/15/21 14:13:00 EDT, Height, 95, [...] recent to oldest [Reference Range]: 1 Temperature Temporal Artery [36-38 Deg C] 36.6 Deg C (10/15/21 2:13 PM) Peripheral Pulse Rate [60-100 bpm] 65 bpm (10/15/21 2:13 PM) Respiratory Rate [12-24 br/min] 18 br/min (10/15/21 2:13 PM) Blood Pressure [90-140/60-90 mmHg] 112/72 mmHg (10/15/21 2:13 PM) SpO2 [94 %] 98 % (10/15/21 2:13 PM) BP Site Left arm (10/15/21 2:13 PM) Weight 97.9 kg (10/15/21 2:13 PM) [place] Body Weight Calculated 56.882 kg (10/15/21 2:13 PM) Height 160 cm (10/15/21 2:13 PM) BSA Measured 2.09 m2 (10/15/21 2:13 PM) Body Mass Index 38 kg/m2 (10/15/21 2:13 PM) Height/Length Measured-inches 63 inch (10/15/21 2:13 PM) Weight Measured-lbs 215.832 lb (10/15/21 2:13 PM) Social History Social History Type Response Tobacco Tobacco Use: Former tobacco user. Sex Male Care Team PersonnelName: Non-Staff, Physician
--- OUTSIDE RECORDS SUMMARY | 2022-02-08 16:55 | XMS_ITS | Continuity of Care Document ---
:1975 Author Organization [facility] Address [address] [place] [address]- Care Team Providers Name Role Phone Uli ROJAS, Radha Menjivar Primary Care Physician [phone] Encounter [facility] Date(s): 07/02/21 - 07/02/[address] [address]- Discharge Disposition: A-D/C Home Attending Physician: Josué Nelson MD Admitting Physician: Josué Nelson MD Referring Physician: Not on Staff, Referring MD Allergies, Adverse Reactions, Alerts Substance Reaction Severity Status nortriptyline depression Active Zyban severe vertigo Active Dogs Active Ragweed sneezing itchy eyes Active omeprazole GI Upset Active gabapentin swelling, anaphylaxis Active lansoprazole GI Upset Active Cats sneezing, runny nose itchy eyes Active Neurontin anaphylaxis, swelling Active Lyrica anaphylaxis, swelling Active PriLOSEC GI Upset Active Duloxetine unknown Active Medications baclofen 10 mg oral tablet See Instructions, PRN, 1 tablet By Mouth 3 times a day, Refills 0, Maintenance, Pain , Moderate, 03/08/18 14:43:46 EST, Instructions Replace Required Details Start Date: 03/08/18 Status: OrderedCalcium 500+D 1 tablet, By Mouth, Daily, 0 Refills, Maintenance, 02/21/19 11:13:50 EST Start Date: 02/21/19 Status: Ordereddoxycycline monohydrate 100 mg oral tablet 1 tablet = 100 mg, By Mouth, 2 times a day, for 10 days, # 20 tablet, 0 Refills, Acute 07/12/21 15:39:00 EDT, 07/02/21 15:39:00 EDT, Tablet, Partial fill upon patient request if the prescription is fora schedule II opioid drug. Start Date: 07/02/21 Stop Date: 07/12/21 Status: OrderedFish Oil 1200 mg oral capsule [...] Refills, Soft Stop, 07/11/20 11:19:00 EDT, Tablet, [facility], Partial fill upon patient request if [...] Exam Date Time Procedure Performing Provider Status 07/02/21 11:56 AM Chest 2 Views Frontal and Lat Mauricio Donovan [facility] (Verified) Notes:(Chest 2 Views Frontal and Lat) Reason For Exam: Shortness of Breath RESULT: Chest 2 Views Frontal and Lat Chest 2 Views Frontal and Lat HX OF PRESENT ILLNESS: son recently dx with croup; pt began with cough, subjective fever, and body aches on Thursday, progressively worsening. Unvaccinated against covid; Reason: Shortness of Breath; Clinical Question(s): Pneumonia / Pneumonia COMPARISON: None. FINDINGS: LINES AND TUBES: None. LUNGS AND PLEURA: Consolidation in the right upper lobe. No pleural effusion. No pneumothorax. HEART, MEDIASTINUM AND BRITTA: Heart is normal in size. Normal mediastinal and hilar contour. BONES AND SOFT TISSUES: No acute abnormality. IMPRESSION: Right upper lobe pneumonia. WSN: [id number] Ordering Physician: Josué Nelson Dictated By: Tuan Denise MD Dictated Date/Time: 07/02/21 11:58 a Reviewed By: Tuan Denise MD Signed By: Tuan Denise MD Signed Date/Time: 07/02/21 11:58 am Transcribed By: AGATHA Transcribed Date/Time: 07/02/21 11:57 am Vital Signs Most recent to oldest [Reference Range]: 1 2 Height 173 cm 173 cm (07/02/21 10:18 AM) (07/02/21 10:16 AM) Weight 97.3 kg 97.3 kg (07/02/21 10:18 AM) (07/02/21 10:16 AM) Oxygen Saturation [94-100 %] 98 % (07/02/21 10:16 AM) Pulse Rate [55-90 bpm] 105 bpm *H* (07/02/21 10:16 AM) Body Mass Index [18.5-24.99] 32.51 *>HHI* (07/02/21 10:16 AM) Blood Pressure [90-138/55-84 mm Hg] 129/76 mm Hg (07/02/21 10:16 AM) Respiratory Rate [16-30 br/min] 16 br/min (07/02/21 10:16 AM) Temperature [96.8-100.4 DegF] 98.7 DegF (07/02/21 10:16 AM) Mode of Delivery (Oxygen) Room air (07/02/21 10:16 AM) Blood pressure sites Arm, right (07/02/21 10:16 AM) Temperature Route Temporal (07/02/21 10:16 AM) Dry Weight 97.3 kg 97.3 kg (07/02/21 10:18 AM) (07/02/21 10:16 AM) Dry Weight Obtained Via Standing scale (07/02/21 10:16 AM) Social History Social History Type Response Smoking Status Former smoker, quit more cyn n 30 days ago; Tobacco user in household: No; Other: Quit 2014; entered on: 03/08/18 Sex
== END 2022-02-08 17:29 | disposition home or self-care (01) ==
PROVIDERS: Emergency Provider Emergency Medicine
DX: J20.8 Acute bronchitis due to other specified organisms (principal); Z20.822 Contact with and (suspected) exposure to COVID-19
CPT/HCPCS: 71045; 87635; 99283